=== PATIENT | male | born 1940 | race Caucasian/White ===

== ENCOUNTER → 2018-03-12 10:16 | Outpatient (CLI) | payer MEDICARE, OTHER, SELFPAY ==
[2018-03-12 11:50] LABS: AST(SGOT) 36 U/L (15-37); Alanine Aminotransfer ALT/SGPT 57 U/L (16-61); Albumin, Serum 3.9 g/dL (3.2-5.0); Alkaline Phosphatase 50 U/L (45-117); Bilirubin, Direct 0.19 mg/dL (0.00-0.30); Cholesterol 114 mg/dL (200); Globulin 3.6 g/dL (2.2-4.2); High Density Lipoprotein 26 mg/dL; Protein, Total 7.5 g/dL (6.4-8.2); Triglycerides 138 mg/dL; Very Low Density Lipoprotein 28 mg/dL (5-40)
== END ==
PROVIDERS: Family Provider Family Medicine; PCP Family Medicine; Visit Provider Internal Medicine Cardiovascular Disease
DX: E78.5 Hyperlipidemia, unspecified (principal)
CPT/HCPCS: 36415; 80061; 80076

== ENCOUNTER → 2019-03-23 11:16 | Outpatient (CLI) | payer MEDICARE, OTHER, SELFPAY ==
[2019-03-23 07:50] VITALS: BMI 29.7
[2019-03-23 13:34] LABS: AST(SGOT) 34 U/L (15-37); Alanine Aminotransfer ALT/SGPT 34 U/L (16-61); Albumin, Serum 3.6 g/dL (3.2-5.0); Alkaline Phosphatase 57 U/L (45-117); Bilirubin, Direct 0.12 mg/dL (0.00-0.30); Cholesterol 118 mg/dL (200); Globulin 4.1 g/dL (2.2-4.2); High Density Lipoprotein 30 mg/dL; Protein, Total 7.7 g/dL (6.4-8.2); Triglycerides 144 mg/dL; Very Low Density Lipoprotein 29 mg/dL (5-40)
== END ==
PROVIDERS: Family Provider Family Medicine; PCP Family Medicine; Referring Provider Internal Medicine Cardiovascular Disease; Visit Provider Internal Medicine Cardiovascular Disease
DX: E78.00 Pure hypercholesterolemia, unspecified (principal); I10 Essential (primary) hypertension; Z95.5 Presence of coronary angioplasty implant and graft
CPT/HCPCS: 36415; 80061; 80076

== ENCOUNTER → 2020-03-21 10:54 | Outpatient (CLI) | payer MEDICARE, OTHER, SELFPAY ==
[2020-03-21 10:17] VITALS: BMI 31.1
[2020-03-21 11:41] LABS: AST(SGOT) 36 U/L (15-37); Alanine Aminotransfer ALT/SGPT 47 U/L (16-61); Albumin, Serum 3.8 g/dL (3.2-5.0); Alkaline Phosphatase 54 U/L (45-117); Anion Gap 9 (5-15); BUN 32 mg/dL (7-18); BUN/Creat Ratio 24.4 RATIO (10-20); Bilirubin, Direct 0.17 mg/dL (0.00-0.30); Calcium,Total 8.6 mg/dL (8.5-10.1); Chloride 105 mmol/L (98-107); Cholesterol 120 mg/dL (200); Creatinine, Serum 1.31 mg/dL (0.70-1.30); EST Glomerular Filtration Rate 56 mL/min (>60); Est Glom Filt Rate - Afr Amer 68 mL/min (>60); Globulin 3.8 g/dL (2.2-4.2); Glucose 121 mg/dL (74-106); High Density Lipoprotein 27 mg/dL; Potassium 4.8 mmol/L (3.5-5.1); Protein, Total 7.6 g/dL (6.4-8.2); Sodium Level 139 mmol/L (136-145); Triglycerides 228 mg/dL; Very Low Density Lipoprotein 46 mg/dL (5-40)
== END ==
PROVIDERS: PCP Family Medicine; Referring Provider Internal Medicine Cardiovascular Disease; Visit Provider Internal Medicine Cardiovascular Disease
DX: E78.5 Hyperlipidemia, unspecified (principal); E78.00 Pure hypercholesterolemia, unspecified; I10 Essential (primary) hypertension; Z95.5 Presence of coronary angioplasty implant and graft
CPT/HCPCS: 36415; 80048; 80061; 80076

== ENCOUNTER → 2020-04-03 06:45 | Outpatient (CLI) | payer MEDICARE, OTHER, SELFPAY ==
[2020-03-21 10:17] VITALS: BMI 31.1
--- NOTE | 2020-04-03 06:46 | ECHOD_ITS ---
Reason For Study: CAD/ASHD Procedure This was a 2D Doppler, Color Flow transthoracic echocardiogram. Exam performed in department. Left Ventricle Normal LV size. Moderate concentric left ventricular hypertrophy. Left ventricular systolic function is lower limits of normal. The estimated ejection fraction is 53 %. Stage 1 diastolic dysfunction. Infero-Basal: Akinetic. Mid-Lateral : Hypokinetic. Atria The left atrium is mildly enlarged. Normal right atrium. Mitral Valve Normal mitral valve. Tricuspid Valve Normal tricuspid valve. Mild tricuspid valve insufficiency. Aortic Valve Normal aortic valve. Pulmonic Valve Normal pulmonic valve. Great Vessels Normal aortic root. The pulmonary artery is normal size. Normal inferior vena cava. Pericardium/Pleural No pericardial effusion. MMode/2D Measurements & Calculations LVIDd: 5.6 cm IVSd: 1.4 cm Ao root diam: 3.7 cm LVIDs: 4.5 cm LVPWd: 1.3 cm LA dimension: 4.6 cm FS: 20.7 % LAV(MOD-bp): 77.7 ml LA A4 area: 24.0 cm2 RA A4 area: 19.3 cm2 LAV(MOD-bp) Indexed: 37.6 ml/m2 LAV(MOD-sp2): 71.6 ml LAV(MOD-sp4): 79.6 ml Time Measurements MV dec time: 0.39 sec Doppler Measurements & Calculations MV E max john: 75.0 cm/sec Lat Peak E' John: 6.7 cm/sec Med Peak E' John: 5.0 cm/sec MV A max john: 111.2 cm/sec E/E' lat: 11.2 E/E' med: 15.1 MV E/A: 0.67 MV V2 max: 110.0 cm/sec MV P1/2t max john: 70.5 cm/sec Ao V2 max: 149.5 cm/sec MV max P.8 mmHg MV P1/2t: 150.2 msec Ao max P.9 mmHg MV V2 mean: 54.9 cm/sec MV dec slope: 137.5 cm/sec2 MV mean P.4 mmHg MVA(P1/2t): 1.5 cm2 MV V2 VTI: 34.5 cm LV V1 max: 119.5 cm/sec MR max john: 465.0 cm/sec PA V2 max: 83.8 cm/sec LV V1 max P.7 mmHg MR max P.5 mmHg MR mean john: 367.9 cm/sec MR mean P.7 mmHg MR VTI: 194.2 cm TR max john: 204.5 cm/sec TR max P.7 mmHg Interpretation Summary Normal LV size. Moderate concentric left ventricular hypertrophy. Left ventricular systolic function is lower limits of normal. The estimated ejection fraction is 53 %. Stage 1 diastolic dysfunction. Mild tricuspid valve insufficiency. Ordering Physician: Isaiah Samaniego Referring Physician: PARTH VALVERDE Performed By: Leo Gonsalves RCS
--- NOTE | 2020-04-03 08:50 | STRESSREP ---
Stress Test Report Exercise myocardial perfusion stress test. 79-year-old man with a history of coronary artery disease with 50% stenosis noted in the diagonal vessel and mild disease in the right coronary artery. Stress protocol: Resting EKG demonstrates sinus bradycardia with a rate of 53 bpm previous inferior infarct is noted resting blood pressure is 128/76 mmHg. The patient exercised according to regular Javed protocol. The maximum heart rate attained was 134 bpm which was 93% of maximum predicted heart rate the maximum workload was 7 metabolic equivalents. At rest there were no ST or T wave changes noted suggest ischemia peak exercise upsloping ST changes only were noted with no meet the criteria for ischemia. The resting blood pressure is 120/76 with a peak blood pressure 164/70 mmHg. No clinical angina was noted the test was terminated due to dyspnea. The peak blood pressure was 164/70 mmHg. Myocardial perfusion protocol. 10.5 mCi of technetium 99m sestamibi was injected at rest. The patient exercised according to regular Javed protocol for 5 minutes. At peak exercise 35.0 mCi of technetium 99m sestamibi was injected stress images were obtained stress and rest images were reconstructed and compared in the short axis vertical long horizontal long axis. Gated images were also obtained per Perfusion SPECT analysis: Review of the stress images demonstrate normal uptake of tracer noted in the septum anterior wall and inferior wall. There is a medium size inferolateral defect noted on the stress images with minimal improvement on the resting images suggesting a previous inferolateral infarct with minimal lexie-infarct ischemia noted only. Gated SPECT analysis: The gated ejection fraction is 58%. Conclusion: Exercise myocardial perfusion stress test with evidence of previous inferolateral infarct. Minimal lexie-infarct ischemia noted. No angina noted. Low risk stress test.
== END ==
PROVIDERS: PCP Family Medicine; Referring Provider Internal Medicine Cardiovascular Disease; Visit Provider Internal Medicine Cardiovascular Disease
DX: I25.10 Atherosclerotic heart disease of native coronary artery without angina pectoris (principal); Z95.5 Presence of coronary angioplasty implant and graft
CPT/HCPCS: 78452; 93017; 93306; A9500; A4216

== ENCOUNTER → 2025-01-17 | Outpatient (CLI) | payer MEDICARE, OTHER, SELFPAY ==
[2025-01-17 13:53] LABS: Cholesterol 105 mg/dL (<=200); High Density Lipoprotein 30 mg/dL; Low Density Lipoprotein Calc. 56 mg/dL; Triglycerides 95 mg/dL; Very Low Density Lipoprotein 19 mg/dL (5-40); cholesterol:hdl ratio screen 3.49
== END | disposition home or self-care (01) ==
LOC: LAB 11:48
PROVIDERS: PCP Family Medicine; Referring Provider Student in an Organized Health Care Education/Training Program; Visit Provider Student in an Organized Health Care Education/Training Program
DX: E78.5 Hyperlipidemia, unspecified (principal)
CPT/HCPCS: 36415; 80061

== ENCOUNTER → 2025-03-17 | Outpatient (CLI) | payer MEDICARE, OTHER, SELFPAY ==
--- OUTSIDE RECORDS SUMMARY | 2025-03-17 06:13 | XMS RPT_ITS | CCD ---
Author Organization [facility] Care Team Providers Care Mma Fighter Name Role Phone [place] Unavailable Unavailable Shannon Quigley Y Unavailable Marc Quigleyia Y Unavailable Parth Tilley MD Primary Care Provider Parth Tilley MD Primary Care Provider Parth Tilley MD Primary Care Provider Parth Tilley MD Primary Care Provider Parth Tilley MD Primary Care Provider Podlogar FIELD CONTACT TECHNICIAN.eKiko LION Unavailable Knjoe FIELD CONTACT TECHNICIAN.Rajiv LION Unavailable [place]oble FIELD CONTACT TECHNICIAN.Rajiv LION Unavailable Dr. Virgil Tilley MD Primary Care Provider Dr. Virgil Tilley MD Referring Provider Jama Garcia Attending Provider Jama Garcia Referring Provider PARTH TILLEY Primary Care Unavailab RAJIV Jacobsen Referring Unavailable PARTH TILLEY Primary Care Unavailab RAJIV Jacobsen Attending Unavailable KEIKO BREWER Referring Unavailable PARTH TILLEY Primary Care Unavailab le PODLOGKEIKO MCGUIRE Attending Unavailable PARTH TILLEY Primary Care Unavailab Jama Garrido Attending Unavailable Virgil Tilley Referring Unavailable Virgil Tilley Primary Care Unavailable Guillermo Sevilla Attending Unavailable Virgil Tilley Referring Unavailable Virgil Tilley Primary Care Unavailable Jama Crowell Referring Unavailable Jama Crowell Attending Unavailable Virgil Tilley Primary Care Unavailable Virgil Tilley Primary Care Unavailable Jama Crowell Referring Unavailable Jama Crowell Attending Unavailable Medications Current Medications Medication Drug Class(es) Dates Sig (Normalized) Sig (Original) allopurinol 300 mg oral tablet (20 sources) Xanthine Oxidase Inhibitor Start: 02-09-2025 End: 08-08-2025 take 1 tablet by mouth once daily allopurinol (ZYLOPRIM) 300 mg tablet Indications: Acute gout of ankle, unspecified cause, unspecified laterality Take 1 tablet by mouth once daily. For gout. 90 tablet 1 02/09/2025 08/08/2025 Active Start: 07-27-2024 End: 01-23-2025 take 1 tablet by mouth once daily allopurinol (ZYLOPRIM) 300 mg tablet Indications: Acute gout of ankle, unspecified cause, unspecified laterality Take 1 tablet by mouth once daily. For gout. 90 tablet 1 07/27/2024 01/23/2025 Active Start: 12-26-2023 End: 06-23-2024 take 1 tablet by mouth once daily allopurinol (ZYLOPRIM) 300 mg tablet Indications: Acute gout of ankle, unspecified cause, unspecified laterality Take 1 tablet by mouth once daily. For gout. 90 tablet 1 12/26/2023 06/23/2024 Active Start: 06-09-2023 End: 12-06-2023 take 1 tablet by mouth once daily allopurinol (ZYLOPRIM) 300 mg tablet Indications: Acute gout of ankle, unspecified cause, unspecified laterality Take 1 tablet by mouth once daily. For gout. 90 tablet 1 06/09/2023 12/06/2023 Active Start: 11-25-2022 End: 05-24-2023 take 1 tablet by mouth once daily allopurinol (ZYLOPRIM) 300 mg tablet Indications: Acute gout of ankle, unspecified cause, unspecified laterality Take 1 tablet by mouth once daily. For gout. 90 tablet 1 11/25/2022 05/24/2023 Active Start: 2020 End: 05-14-2022 take 1 tablet by mouth once daily allopurinol (ZYLOPRIM) 300 mg tablet Indications: Acute gout of ankle, unspecified cause, unspecified laterality Take 1 tablet by mouth once daily. For gout. 30 tablet 5 05/14/2022 Active Comment on above: Take 1 tablet by jerardo once daily. For gout. aspirin 81 mg delayed release oral tablet (20 sources) Nonsteroidal Anti-inflammatory Drug Start: 07-02-2016 take 1 tablet by mouth once daily aspirin, enteric coated (ECOTRIN LOW STRENGTH) 81 mg EC tablet Take 1 tablet by mouth once daily. 0 07/02/2016 Active Start: 01-16-2011 take 1 tablet by jerardo th once daily ASPIRIN 81 MG TABS One tablet by mouth daily ASPIRIN [id number] Isaiah Samaniego MD Start: 01-16-2011 take 1 tablet by jerardo th once daily ASPIRIN 81 MG TABS One tablet by mouth daily ASPIRIN [id number] Isaiah Samaniego MD Comment on above: Take 1 tablet by jerardo once daily. atorvastatin 40 mg oral tablet (20 sources) HMG-CoA Reductase Inhibitor Start: End: take 0.5 tablet by mouth once daily atorvastatin (LIPITOR) 40 mg tablet Take 0.5 tablets by mouth once daily. 15 tablet 01/20/2025 Active Start: 06-15-2021 End: 12-10-2021 take 0.5 tablet by mouth once daily atorvastatin (LIPITOR) 40 mg tablet Take 0.5 tablets by mouth once daily. 45 tablet 1 12/10/2021 Active Start: 03-10-2018 take 1 tablet by jerardo once daily Atorvastatin 40 mg tablet Active 40 mg PO daily March 10, 2018 12:00am Start: 01-16-2011 LIPITOR 40 MG TABS One half tablet by mouth daily ATORVASTATIN CALCIUM [id number] Meredith Charlse PA-C Comment on above: Take 0.5 tablets by mouth once daily. clopidogrel 75 mg oral tablet (20 sources) P2Y12 Platelet Inhibitor Start: 11-14-2017 End: 08-07-2025 take 1 tablet by mouth once daily clopidogrel (PLAVIX) 75 mg tablet Take 1 tablet by mouth once daily. 90 tablet 1 02/08/2025 08/07/2025 Active Start: 01-16-2011 take 1 tablet by jerardo th once daily PLAVIX 75 MG TABS One tablet by mouth daily CLOPIDOGREL BISULFATE [id number] Meredith Charles PA-C Comment on above: Take 1 tablet by jerardo th once daily. lisinopril 10 mg oral tablet (20 sources) Angiotensin Converting Enzyme Inhibitor Start: 01-12-2025 take 1 tablet by mouth once daily Lisinopril 10 mg tablet Active 10 mg PO daily January 12, 2025 12:00am Start: 03-26-2022 End: 12-10-2024 take 1 tablet by mouth once daily Lisinopril 30 mg tablet Discontinued 30 mg PO DAILY March 27, 2023 9:01am December 07, 2024 9:06am Start: 12-31-2021 End: 10-14-2022 take 1 tablet by mouth once daily lisinopril (ZESTRIL, PRINIVIL) 10 mg tablet Indications: Essential hypertension Take 1 tablet by mouth once daily. Take one tablet in addition to 20 mg tablet daily 30 tablet 5 12/31/2021 10/14/2022 Discontinued Start: 03-22-2021 End: 03-26-2022 take 1 tablet by mouth once daily Lisinopril 20 mg tablet Discontinued 20 mg PO DAILY February 12, 2022 7:56am March 26, 2022 9:41am Start: 02-28-2021 End: 03-22-2021 take 1 tablet by mouth once daily Lisinopril 10 mg tablet Discontinued 10 mg PO DAILY March 22, 2021 12:00am March 22, 2021 9:28am Start: 12-05-2017 End: 03-22-2021 take 1 tablet by mouth once daily Lisinopril 5 mg tablet Discontinued 5 mg PO daily December 20, 2019 11:09am March 22, 2021 9:13am Start: 08-19-2014 take 1 tablet by jerardo th once daily LISINOPRIL 5 MG TABS One tablet by mouth daily LISINOPRIL [id number] Isaiah Samaniego MD Start: 01-16-2011 End: 02-17-2014 LISINOPRIL 10 MG TABS One funes lf tablet by mouth a day LISINOPRIL [id number] Isaiah Samaniego MD Comment on above: Take 1 tablet by jerardo th once daily. Take 1 tablet by jerardo th once daily. Take one tablet in addition to 20 mg tablet daily metFORMIN hydrochloride 500 mg oral tablet (20 sources) Biguanide Start: End: take 1 tablet by mouth twice daily at mealtime metFORMIN (GLUCOPHAGE) 500 mg tablet Take 1 tablet by mouth two times a day with meals. . 180 tablet 1 12/10/2024 Active Start: 11-17-2023 End: 05-22-2024 take 1 tablet by mouth twice daily at mealtime metFORMIN (GLUCOPHAGE) 500 mg tablet Take 1 tablet by mouth two times a day with meals. . 180 tablet 1 11/17/2023 05/22/2024 Discontinued Start: 12-24-2021 End: 11-14-2023 take 1 tablet by mouth twice daily at mealtime metFORMIN (GLUCOPHAGE) 500 mg tablet Take 1 tablet by mouth twice daily with meals. . 180 tablet 1 04/14/2023 11/14/2023 Discontinued Start: 03-12-2018 End: 12-21-2021 take 1 tablet by mouth twice daily at mealtime metFORMIN (GLUCOPHAGE) 500 mg tablet Take 1 tablet by mouth twice daily with meals. . 180 tablet 1 06/15/2021 12/21/2021 Discontinued Comment on above: Take 1 tablet by jerardo th twice daily with meals. . Take 1 tablet by jerardo th two times a day with meals. . nitroglycerin 0.4 mg sublingual tablet (20 sources) Nitrate Vasodilator Start: 01-16-2011 End: 12-24-2024 nitroglycerin sublingual (NITROSTAT) 0.4 mg SL tablet Dissolve 1 tablet under the tongue every 5 minutes as needed for chest pain. 25 tablet 1 10/14/2022 Active Comment on above: Dissolve 1 tablet un doreen the tongue every 5 minutes as needed for Chest Pain. Completed/Discontinued Medications Medication Drug Class(es) Dates Sig (Normalized) Sig (Original) BUPROPION HCL (6 sources) Aminoketone Start: 10-22-2011 take 1 tablet by mouth once daily WELLBUTRIN XL 300 MG [id number] One tablet by mouth daily BUPROPION HCL [id number] Isaiah Samaniego MD Start: 10-22-2011 take 1 tablet by jerardo th once daily WELLBUTRIN XL 300 MG [id number] One tablet by mouth daily BUPROPION HCL [id number] Isaiah Samaniego MD Start: 01-16-2011 take 1 tablet by jerardo th once daily WELLBUTRIN SR 150 MG [id number] One tablet by mouth daily BUPROPION HCL [id number] Ivet Partida Start: 01-16-2011 take 1 tablet by jerardo th once daily WELLBUTRIN SR 150 MG [id number] One tablet by mouth daily BUPROPION HCL [id number] Ivet Partida citalopram 20 mg oral tablet (20 sources) Serotonin Reuptake Inhibitor Start: 03-10-2018 End: 12-24-2024 take 10 mg by mouth once daily Citalopram 20 mg tablet Discontinued 10 mg PO daily March 10, 2018 12:00am December 24, 2024 1:02pm Start: 10-31-2016 End: 04-14-2023 take 0.5 tablet by mouth once daily citalopram (CELEXA) 20 mg tablet Take 0.5 tablets by mouth once daily. 90 tablet 3 10/31/2016 04/14/2023 Discontinued (Course of therapy completed) Start: 12-25-2012 CITALOPRAM HYD ROBROMIDE 20 MG TABS One half tablet by mouth daily CITALOPRAM HYDROBROMIDE [id number] NELLIE PrettyC Comment on above: Take 0.5 tablets by mouth once daily. 24 hr isosorbide mononitrate 30 mg extended release oral tablet (9 sources) Start: 1 take 1 tablet by mouth once daily ISOSORBIDE MONONITRATE ER 30 MG [id number] One tablet by mouth daily (Imdur) ISOSORBIDE MONONITRATE [id number] Isaiah Samaniego MD isosorbide dinitrate 30 mg oral tablet (6 sources) Nitrate Vasodilator Start: 3 End: 4 take 1 tablet by mouth once daily ISOSORBIDE DINITRATE 30 MG TABS One tablet by mouth daily ISOSORBIDE DINITRATE [id number] Isaiah Samaniego MD LORazepam 0.5 mg oral tablet (12 sources) Benzodiazepine Start: 3 End: 4 LORAZEPAM 0.5 MG TABS one half tablet twice a day LORAZEPAM [id number] Meredith Charles PA-C Start: 01-16-2011 End: 12-25-2012 take 1 tablet by mouth once daily ATIVAN 0.5 MG TABS One tablet by mouth daily LORAZEPAM [id number] Ivet Partida metoprolol tartrate 25 mg oral tablet (20 sources) beta-Adrenergic Mary Start: 03-20-2020 End: 02-25-2023 Metoprolol Tartrate 25 mg tablet Discontinued 12.5 mg PO TWICE A DAY 90 February 12, 2022 7:55am February 25, 2023 8:54am Start: 03-09-2018 End: 03-15-2019 Metoprolol Tartrate 25 mg ta blet Discontinued 12.5 mg PO TWICE A DAY 90 March 12, 2018 10:05am March 15, 2019 12:17pm Start: 01-16-2011 End: 03-15-2024 take 0.5 tablet by mouth twice daily metoprolol tartrate, short acting, (LOPRESSOR) 25 mg tablet Take 0.5 tablets by mouth twice daily. 60 tablet 12/31/2016 Active Start: 01-16-2011 take 1 tablet by jerardo twice daily METOPROLOL TARTRATE 25 MG TABS One half tablet by mouth two times daily METOPROLOL TARTRATE [id number] Isaiah Samaniego MD Comment on above: Take 0.5 tablets by mouth twice daily. niacin 1000 mg oral tablet (6 sources) Nicotinic Acid Start: 01-16-2011 End: 02-17-2014 take 2 tablets by mouth at bedtime NIASPAN 1000 MG CR-TABS 2 tablets by mouth at bedtime NIACIN (ANTIHYPERLIPIDEMIC) [id number] Isaiah Samaniego MD Start: 01-16-2011 End: 02-17-2014 take 2 tablets by mouth at bedtime NIASPAN 1000 MG CR-TABS 2 tablets by mouth at bedtime NIACIN (ANTIHYPERLIPIDEMIC) [id number] Isaiah Samaniego MD predniSONE 10 mg oral tablet (11 sources) Start: 06-21-2022 End: 10-14-2022 predniSONE (DELTASONE) 10 mg tablet Take 4 tabs daily for 3 days, then 2 tabs daily for 3 days, then 1 tab daily for 3 days with food. 21 tablet 0 06/21/2022 10/14/2022 Discontinued Start: 05-13-2022 End: 05-22-2022 predniSONE (DELTASONE) 10 mg tablet Take 4 tabs daily for 3 days, then 2 tabs daily for 3 days, then 1 tab daily for 3 days with food. 21 tablet 0 05/13/2022 05/22/2022 Active Start: 03-14-2022 End: 03-19-2022 take 2 tablets by mouth once daily predniSONE (DELTASONE) 20 mg tablet Take 2 tablets by mouth once daily for 5 days. 10 tablet 0 03/14/2022 03/14/2022 Discontinued Comment on above: Take 2 tablets by mo ut once daily for 5 days. Take 4 tabs daily fo r 3 days, then 2 tabs daily for 3 days, then 1 tab daily for 3 days with food. QUEtiapine 100 mg oral tablet (6 sources) Atypical Antipsychotic Start: 10-22-19 12 End: 12-26-19 13 take 1 tablet by mouth twice daily SEROQUEL 100 MG TABS One tablet by mouth twice daily QUETIAPINE FUMARATE [id number] Isaiah Samaniego MD risperiDONE 1 mg oral tablet (20 sources) Atypical Antipsychotic Start: 03-10-20 18 End: 03-21-20 20 take 0.5 mg by mouth at bedtime Risperidone (Risperdal) 1 mg tablet Discontinued 0.5 mg PO AT BEDTIME March 10, 2018 12:00am March 21, 2020 10:21am Start: 12-31-2016 End: 04-14-2023 take 1 tablet by mouth once daily at bedtime risperiDONE (RISPERDAL) 0.25 mg tablet Take 1 tablet by mouth daily at bedtime. 30 tablet 0 12/31/2016 04/14/2023 Discontinued (Course of therapy completed) Start: 12-25-2012 RISPERDAL 1 MG TABS One half tablet by mouth daily at bedtime RISPERIDONE [id number] Meredith Charles PA-C Comment on above: Take 1 tablet by jerardo th daily at bedtime. temazepam 15 mg oral capsule (6 sources) Benzodiazepine Start: 2 End: 3 take 1 tablet by mouth once daily at bedtime TEMAZEPAM 15 MG CAPS One tablet by mouth daily at bedtime TEMAZEPAM [id number] Isaiah Samaniego MD Problems Active Problems Problem Classification Problem Date Documented Date Episodic/Chronic Acute myocardial infarction (3 sources) Subsequent ST elevation (STEMI) myocardial infarction of inferior wall; Translations: [Subsequent ST elevation (STEMI) myocardial infarction of inferior wall] Onset: 01-16-2011 01-16-2011 Chronic Cardiac dysrhythmias (3 sources) Sinus bradycardia; Translations: [Sinoatrial node dysfunction] Onset: 08-19-2014 08-19-2014 Chronic Cardiac dysrhythmias (3 sources) Sinus bradycardia; Translations: [Bradycardia, unspecified] Onset: 12-24-2024 03-10-2018 Episodic Chronic kidney disease (20 sources) Chronic kidney disease stage 3; Translations: [CKD (chronic kidney disease), stage III] 11-20-2017 Chronic Chronic kidney disease (1 source) Chronic kidney disease; Translations: [Chronic kidney disease, stage 3a (HCC)] Onset: 12-10-2024 Coronary atherosclerosis and other heart disease (20 sources) Atherosclerotic heart disease of [place] coronary artery without angina pectoris; Translations: [Old myocardial infarction] Onset: 07-16-2004 Resolved: 03-08-2016 03-08-2016 Chronic Diabetes mellitus with complications (20 sources) Type 2 diabetes mellitus; Translations: [Type 2 diabetes mellitus with diabetic chronic kidney disease] Onset: 12-31-2016 Resolved: 10-17-2023 05-23-2020 Chronic Diabetes mellitus without complication (1 source) Diabetes mellitus without complication; Translations: [Type 2 diabetes mellitus with stage 3a chronic kidney disease, without long-term current use of insulin (HCC)] Onset: 10-10-2022 Disorders of lipid metabolism (20 sources) Hyperlipidemia; Translations: [Mixed hyperlipidemia] Onset: 01-16-2011 01-16-2011 Chronic Essential hypertension (20 sources) Hypertensive disorder; Translations: [Essential hypertension] Onset: 01-16-2011 Resolved: 05-23-2020 01-16-2011 Chronic Gout and other crystal arthropathies (20 sources) Gout; Translations: [Gout, unspecified] Onset: 11-19-2018 11-19-2018 Chronic Hypertension with complications and secondary hypertension (20 sources) Chronic kidney disease stage 3 due to hypertension; Translations: [Hypertensive chronic kidney disease with stage 1 through stage 4 chronic kidney disease, or unspecified chronic kidney disease] Onset: 12-31-2016 05-23-2020 Chronic Mood disorders (20 sources) Recurrent major depressive episodes, mild ; Translations: [Major depressive disorder, recurrent, mild] 05-23-2020 Chronic Occlusion or stenosis of precerebral arteries (20 sources) Bilateral stenosis of carotid arteries; Translations: [Occlusion and stenosis of bilateral carotid arteries] Onset: 11-22-2019 11-22-2019 Chronic Other circulatory disease (1 source) Low blood pressure; Translations: [Hypotension, unspecified] 12-24-2024 Episodic Other eye disorders (20 sources) Bilateral vitreous floaters; Translations: [Other vitreous opacities, bilateral] Onset: 06-24-2017 06-24-2017 Chronic Other nutritional; endocrine; and metabolic disorders (8 sources) Body mass index (BMI) 32.0-32.9, adult; Translations: [Body mass index (BMI) 33.0-33.9, adult] Onset: 02-17-2014 03-12-2016 Chronic Other nutritional; endocrine; and metabolic disorders (1 source) Body mass index (BMI) 33.0-33.9, adult; Translations: [Body mass index (BMI) 33.0-33.9, adult] Onset: 02-17-2014 08-29-2015 Chronic Other nutritional; endocrine; and metabolic disorders (20 sources) Obese class I; Translations: [Obesity, unspecified] 11-18-2017 Chronic Other nutritional; endocrine; and metabolic disorders (1 source) Obesity; Translations: [Obesity, unspecified] 03-23-2022 Chronic Other nutritional; endocrine; and metabolic disorders (1 source) Overweight in adulthood with body mass index of 25 or more but less than 30; Translations: [Overweight] 10-17-2023 Episodic Residual codes; unclassified (20 sources) Insomnia; Translations: [Insomnia, unspecified] 11-18-2017 Episodic Unclassified (2 sources) Placement of stent in coronary artery ; Translations: [Presence of cardiac and vascular implant and graft, unspecified] Onset: 01-16-2011 03-08-2016 Unclassified (1 source) Long-term drug therapy; Translations: [Other prison (current) drug therapy] Onset: 01-16-2011 01-16-2011 Past or Other Problems Problem Classification Problem Date Documented Da te Episodic/Chronic Coagulation and hemorrhagic disorders (20 sources) Platelet count below reference range; Translations: [Thrombocytopenia, unspecified] Resolved: 10-17-2023 11-18-2017 Chronic Coronary atherosclerosis and other heart disease (3 sources) Coronary angioplasty status; Translations: [Coronary angioplasty status] Onset: 01-16-2011 01-16-2011 Episodic Diabetes mellitus without complication (20 sources) Diabetes mellitus type 2 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; Translations: [Type 2 diabetes mellitus without complications] Onset: 06-24-2017 Resolved: 10-17-2023 06-24-2017 Chronic Heart valve disorders (20 sources) Ejection murmur; Translations: [Cardiac murmur, unspecified] Onset: 10-14-2022 Episodic Nonspecific chest pain (6 sources) Chest pain, unspecified; Translations: [Chest pain, unspecified] Onset: 01-16-2011 Resolved: 03-08-2016 03-08-2016 Episodic Other aftercare (2 sources) Other prison (current) drug therapy; Translations: [Other transformer maker (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 02-09-2025 [facility] Telephone (4CQ) GREG MOORE ([id number]) 1940 M Date Time Provider Department 02/09/25 JOANNE PARKER 4CQ During your visit today, we recorded the following information about you: Joanne Parker, PSS 02/09/2025 11:48 AM Signed Patient needs to renew Allopurinol, but I do not see it on the medication list for the patient. Patient states he has been on this medication for awhile. He would like the medication to go to [facility]. Please advise. Parth Tilley MD 02/09/2025 2:26 PM Signed Rx sent as requested. Pao Padron LPN 02/09/2025 2:58 PM Signed Phoned patient and updated him. Pao Padron LPN Allergies As of Date: 02/09/2025 (No Known Allergies) Date Reviewed: 12/10/2024 Reviewed by: Neeta Molina MA - Fully Assessed Reason for Visit: Refill Request [94] Visit Diagnosis:Acute gout of ankle, unspecified cause, unspecified laterality [M10.9] Order(s):allopurinol (ZYLOPRIM) 300 mg tabletTake 1 tablet by mouth once daily. For gout.Disp: 90 tabletRfl: 1 Prescriptions as of 02/09/2025 - allopurinol (ZYLOPRIM) 300 mg tablet Take 1 tablet by mouth once daily. For gout. - clopidogrel (PLAVIX) 75 mg tablet Take 1 tablet by mouth once daily. - atorvastatin (LIPITOR) 40 mg tablet Take 0.5 tablets by mouth once daily. - metFORMIN (GLUCOPHAGE) 500 mg tablet Take 1 tablet by mouth two times a day with meals. . - nitroglycerin sublingual (NITROSTAT) 0.4 mg SL tablet Dissolve 1 tablet under the tongue every 5 minutes as needed for chest pain. - metoprolol tartrate, short acting, (LOPRESSOR) 25 mg tablet Take 0.5 tablets by mouth twice daily. - aspirin, enteric coated (ECOTRIN LOW STRENGTH) 81 mg EC tablet Take 1 tablet by mouth once daily. Problem List As Of Date 02/09/2025 Noted Resolved Type 2 diabetes mellitus with stage 3a chronic *12/31/2016 Hypertensive kidney disease with stage 3a chron*12/31/2016 Mixed hyperlipidemia [E78.2] 12/31/2016 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 (H*06/24/2017 10/17/2023 Vitreous floaters of both eyes [H43.393] 06/24/2017 Obesity (BMI 30.0-34.9) [E66.811] Hypertension [I10] 05/23/2020 Insomnia [G47.00] Coronary artery disease [I25.10] Thrombocytopenia (HCC) [D69.6] 10/17/2023 Stage 3a chronic kidney disease (HCC) [N18.31] Type II diabetes mellitus (HCC) [E11.9] 05/23/2020 Gout [M10.9] Mild episode of recurrent major depressive diso* Type 2 diabetes mellitus with diabetic cataract*05/31/2019 10/17/2023 Bilateral carotid artery stenosis [I65.23] Systolic ejection murmur [R01.1] 10/14/2022 Prescriptions ordered this encounter Disp Refills Start End ALLOPURINOL 300 MG TABLET 90 t* 1 02/09/2025 08/08/2025 Route: PO Sig: Take 1 tablet by mouth once daily. For gout. Medications Discontinued During This Encounter Prescriptions - allopurinol (ZYLOPRIM) 300 mg tablet (Discontinued) Take 1 tablet by mouth once daily. For gout. Encounter Status:Closed by PAO PADRON on 02/09/[address] [facility] Calculated very low density lipoprotein (VLDL) cholesterol measurementOrdered By: Jama Crowell on 01-17-2025 Calculated very low density lipoprotein (VLDL) cholesterol measurement 19 mg/dL 5-40 [facility] LDL calc ser/plasOrdered By: Jama Crowell on 01-17-2025 Cholesterol in LDL [Mass/Vol] 56 mg/dL [facility] Comment on above: Jixeriraho=203-496 m g/dL & Higher Ntdj=065 mg/dL or greater Lipid Profileon 01-17-2025 CHOL:HDL 3.49 Normal [facility] Comment on above: Performed By: #### L 500.7628 #### [facility] [address] [place], [address] Cholesterol [Mass/Vol] 105 mg/dL Normal <=200 [facility] Comment on above: Result Comment: Chol esterol level, Desirable <200 mg/dL Borderline high cholesterol 200-239 mg/dL High cholesterol >=240 mg/dL Recommendations of the NCEP Adult Treatment Panel for the following risk-cutoff thresholds for the [place] population. Performed By: #### L 500.4100 #### [facility] [address] [place], [address] Cholesterol in HDL [Mass/Vol] 30 mg/dL Low [facility] Comment on above: Result Comment: [place] onal Cholesterol Education Program (NCEP) guidelines: <40 mg/dL: Low HDL-cholesterol (major risk factor for CHD) >= 60 mg/dL: High HDL-cholesterol (negative risk factor for CHD) HDL-cholesterol is affected by a number of factors, e.g. smoking, exercise, hormones, sex and age. Performed By: #### L 500.4100 #### [facility] [address] [place], [address] Cholesterol in LDL [Mass/Vol] 56 mg/dL Normal [facility] Comment on above: Result Comment: Bord mpvnle=790-880 mg/dL Higher Lqxn=032 mg/dL or greater Performed By: #### L 500.4100 #### [facility] [address] [place], [address] Cholesterol in VLDL [Mass/Vol] 19 mg/dL Normal 5-40 [facility] Comment on above: Performed By: #### L 500.4100 #### [facility] [address] [place], [address] Triglyceride [Mass/Vol] 95 mg/dL Normal [facility] Comment on above: Result Comment: The drugs N-Acetylcysteine and Metamizole may falsely depress this assay. Normal range: <150 mg/dL Borderline High: 150-199 mg/dL High: 200-499 mg/dL Very High: >500 mg/dL Performed By: #### L 500.4100 #### [facility] [address] [place], [address] Screening total cholesterol/ high density lipoprotein (HDL) cholesterol ratioOrdered By: Jama Crowell on 01-17-2025 Cholesterol.total/Chol esterol in HDL [Mass ratio] 3.49 {ratio} [facility] Serum or plasma cholesterol in HDL measurement (mass/volume)Ordered By: Jama Crowell on 01-17-2025 Cholesterol in HDL [Mass/Vol] 30 mg/dL Low >40 [facility] Comment on above: National Cholesterol Education Program (NCEP) guidelines:<40 mg/dL: Low HDL-cholesterol (major risk factor for CHD)>= 60 mg/dL: High HDL-cholesterol (negative risk factor for CHD)HDL-cholesterol is affected by a number of factors, e.g. smoking, exercise, hormones, sex and age. Serum or plasma cholesterol measurement (mass/volume)Ordered By: Jama Crowell on 01-17-2025 Cholesterol [Mass/Vol] 105 mg/dL <201 [facility] Comment on above: Cholesterol level, D esirable <200 mg/dLBorderline high cholesterol 200-239 mg/dLHigh cholesterol >=240 mg/dLRecommendations of the NCEP Adult Treatment Panel for the following risk-cutoff thresholds for the [place] population. Triglycerides measurementOrd ered By: Jamachristiano Crowell on 01-17-2025 Triglyceride [Mass/Vol] 95 mg/dL <199 [facility] Comment on above: The drugs N-Acetylcy steine and Metamizole may falsely depress this assay. Normal range: <150 mg/dLBorderline High: 150-199 mg/dLHigh: 200-499 mg/dLVery High: >500 mg/dL 12 Lead EKG performed by [facility] on 12-24-2024 12 Lead EKG performed by [facility] [address] [place] [address] 12 Lead EKG performed by [facility] 12/24/24 0849 MR#: [id number] Acct: [id number] Name: GREG MOORE Rep #: [id number] : 1940 83 From: Jama OHARA Attending Dr: LEV Sanchez Status: DEP AM B Ordering Dr: Jama Crowell Date: 12/24/24 Location: [facility] Sex: M C Admitted: BMS/12 Lead EKG performed by [facility] ECG Report Interpretation ------Sinus Bradycardia -First degree A-V block Alf = 292- Negative T-waves - Lateral ischemia. ABNORMAL Electronically signed on 12/28/2024 at 14:56 by Isaiah Samaniego Software Version [id number] 12/28/24 1459 Date Jama OHARA CC: Dr. Virgil Tilley MD Date Dictated: 12/24/24 0849 Date Transcribed: 12/24/2449 Instructional Supervisor: SUSI Signed Normal [facility] Cardiology Visit Reporton Cardiology Visit Report [facility] [address] [place], [place] [address] OFFICE VISIT Date of Service: 12/24/24 MR#: [id number] Acct: [id number] Name: GREG MOORE Rep #: [id number] : 1940 Provider: LEV Sanchez Age/Sex: 83/M Location: [facility] Status: Signed HPI HPI History of Present Illness Details: GREG MOORE, is a 83 M who presents to the office today with concerns of abnormal BPs at home. Per documentation, patient's daughter called and 12/02/2024 with concerns of home BP reading 88/48 and heart rate 45-50 bpm. Patient was instructed to discontinue lisinopril and continue metoprolol 12.5 mg twice daily. Patient reports having what was likely an upper respiratory infection around the time of these low BP readings. Patient has a cardiac history of mild coronary artery disease with 50% stenosis in the diagonal vessel and mild disease noted in the RCA. Patient is status post cardiac catheterization in 2009 which demonstrated patent stent in the RCA. Most recent stress test March 2020 demonstrated evidence of an old inferolateral myocardial infarction with minimal lexie-infarct ischemia at 7 metabolic equivalents. Since discontinuing lisinopril, patient reports feeling much better. Patient has not been monitoring BP at home. Patient denies any symptoms similar to what he experienced with his DE. Patient denied any bleeding concerns such as blood in urine, stool, epistaxis. Further ROS below. Intake Vital Signs 03/24/23 09:26 12/24/24 13:01 Height 5 ft 8 in 5 ft 8 in Weight: 186 lb BMI 28.3 BP 142/80 H Blood Pressure Location Lt brachial Position Sitting Respiration 18 Pulse 53 L Pulse Source Monitor Pulse Oximetry (%) 96 Oxygen Delivery Method room air Intake Visit Reasons: Hypotension, see clinical notes Clinical Nurse Educator Required: No Accompanied by: Daughter Is patient in pain?: No Allergies No Known Allergies Allergy (Verified 12/24/24 13:01) Medications ???Medication ???Instructions ???Recorded ???Confirmed ???Type aspirin 81 mg tablet,delayed 81 mg PO QDAY 03/10/18 12/24/24 Hi story release (Adult Aspirin Regimen) atorvastatin 40 mg tablet 40 mg PO QDAY 03/10/18 12/24/24 Hi story metformin 500 mg tablet 500 mg PO BID 03/12/18 12/24/24 Hi story clopidogrel 75 mg tablet 75 mg PO QDAY #90 tabs 01/22/24 Rx metoprolol tartrate 25 mg tablet See Rx Instructions .Route 4 12/24/24 Rx .COMPLEX #30 tabs allopurinol 300 mg tablet 300 mg PO QDAY #30 tabs 12/24/24 0 12/24/24 Rx nitroglycerin 0.4 mg sublingual 0.4 mg sublingual Q5-15M PRN chest 12/24/24 12/24/24 Rx tablet pain #20 tabs Have you fallen in the past year?: No PFSH Medical History Chronic kidney disease Type 2 diabetes mellitus Obesity Essential (primary) hypertension Sinus bradycardia Hyperlipidemia 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 Brother CAD (coronary artery disease) Myocardial infarction Sister CAD (coronary artery disease) S/P CABG x 3 Social History Smoking Status: Former smoker alcohol intake: never caffeine: Yes Type: coffee ROS Const Const: Negative for fatigue or weakness Eyes Eyes: Negative for blurry vision or change in vision ENT ENT: Negative for dizziness or balance problems Cardio Chest Pain: No Palpitations: No Edema: None Muscle aches with walking: None Resp Respiratory: Negative for SOB with activity, SOB at rest or SOB orthopnea SOB lying down GI GI: Negative nausea, vomiting or heartburn : Negative for hematuria Musc Musc: Negative for muscle weakness or balance problems Neuro Neuro: Negative for dizziness, lightheadedness, near syncope, syncope, weakness or blurry vision Endo Endo: Negative for fatigue Cardiology Exam Const Appearance: cooperative, comfortable, no acute distress and well developed; Negative diaphoretic or ill appearing Nutritional Appearance: average body habitus Orientation: alert and oriented x3 Ambulating without assistive device Head Head: normal to inspection, normocephalic and atraumatic Ears: hearing grossly normal bilaterall (more content not included)... Normal [facility] CNOVon 12-10-2024 CNOV Office Visit (FAMPWS) GREG MOORE ([id number]) 1940 M Date Time Provider Department 12/10/24 9:00 AM RAJIV [place] During your visit today, we recorded the following information about you: Pulse Blood pressure Weight 54/minute 133/68 84 kg Rajiv [place] APRN.CNP 12/10/2024 9:37 AM Signed Chief Complaint No chief complaint on file. HPI Greg Moore is a 83 year old male who presents here today for Above Complaints.. Patient presents today for 6 month follow up. Patient states on Friday he was feeling tired and took his blood pressure which was 88/48 with HR of 45 to 50. Patient states he called his production bow maker who stopped his lisinopril and held his metop for one day. Patient states he is feeling better now, not feeling tired not dizzy or light headed. Patient states he does not take his blood pressures often. Patient headaches, chest pain and SOB. Past medical history, appointments, medications, allergies reviewed. Previous Medical History PAST MEDICAL HISTORY Diagnosis Date Bilateral carotid artery stenosis mild CKD (chronic kidney disease), stage III (HCC) Coronary artery disease s/p PCI 2003 [facility] -- sees Dr. Samaniego Depression Elevated LFTs Gout Hypertension Insomnia Mixed hyperlipidemia Obesity (BMI 30.0-34.9) Systolic ejection murmur Thrombocytopenia (HCC) Type II diabetes mellitus (HCC) Previous Surgical History PAST SURGICAL HISTORY Procedure Laterality Date COLONOSCOPY 2016 Dr. Aggarwal, normal INGUINAL HERNIA REPAIR HX Left REPAIR OF HYDROCELE Bilateral STENT PLACEMENT [facility] 2003 (cardiac) Family History FAMILY HISTORY Problem Relation Age of Onset Coronary Artery Disease Mother Diabetes Mother Cancer Father throat Patient Allergies ALLERGIES No Known Allergies Current Medications Current Outpatient Medications on File Prior to Visit Medication Sig atorvastatin (LIPITOR) 40 mg tablet Take 0.5 tablets by mouth once daily. allopurinol (ZYLOPRIM) 300 mg tablet Take 1 tablet by mouth once daily. For gout. metFORMIN (GLUCOPHAGE) 500 mg tablet Take 1 tablet by mouth two times a day with meals. . lisinopril (ZESTRIL) 30 mg tablet Take 1 tablet by mouth once daily. clopidogrel (PLAVIX) 75 mg tablet Take 1 tablet by mouth once daily. nitroglycerin sublingual (NITROSTAT) 0.4 mg SL tablet Dissolve 1 tablet under the tongue every 5 minutes as needed for chest pain. metoprolol tartrate, short acting, (LOPRESSOR) 25 mg tablet Take 0.5 tablets by mouth twice daily. aspirin, enteric coated (ECOTRIN LOW STRENGTH) 81 mg EC tablet Take 1 tablet by mouth once daily. No current facility-administere d medications on file prior to visit. Social History Social History Tobacco Use Smoking status: Former Current packs/day: 0.00 Types: Cigarettes Quit date: 11/19/1987 Years since quittin.0 Smokeless tobacco: Former Tobacco comments: light smoker, short period of time Substance Use Topics Alcohol use: No Drug use: No Review of Symptoms REVIEW OF SYSTEMS GENERAL: No weight loss, malaise or fevers RESPIRATORY: Negative for cough, hemoptysis, wheezing, COPD, dyspnea or shortness of breath CARDIOVASCULAR: Negative for chest pain, leg swelling, hypertension, CHF or palpitations EXAM: BP 133/68 Pulse (!) 54 Wt 84 kg (185 lb 3 oz) BMI 28.16 kg/m? General Appearance: Well appearing, alert, in no acute distress, well-hydrated, well nourished.. Lungs: Lungs clear to auscultation. No wheezing, rhonchi, rales.. Heart: RRR without murmur, gallop, or rubs. No ectopy. Health Maintenance List Anxiety Screening Never done Pneumococcal Vaccine: 50+(1 of 2 - PCV) Never done Shingrix Vaccine(1 of 2) Never done RSV Vaccine(1 - 1-dose 75+ series) Never done Dilated Retinal Exam due on 05/31/2020 Influenza Vaccine(1) due on 05/16/2024 Covid-19 Vaccine( season) due on 05/16/2024 Advance Directive Discussion Never done HbA1C due on 10/21/2024 Diabetic Foot Exam due on 04/16/2025 Urine Albumin:Creatinine Ratio due on 04/20/2025 LDL Cholesterol due on 04/20/2025 DTaP,Tdap,Td Vaccine(2 - Td or Tdap) due on 05/21/2028 Colorectal Cancer Screening Discontinued ASSESSMENT/PLAN: 1. Wellness examination - ICD9: V70.0, ICD10: Z00.00 (primary diagnosis) - Counseled on healthy diet and regular exercise - Discussed need for and benefit of weight loss. BMI 28.16 kg/(m2) - Follow up for annual exam in one year - COMPREHENSIVE METABOLIC PANEL 2. Type 2 diabetes mellitus with stage 3a chronic kidney disease, without long-term current use of insulin (HCC) - ICD9: 250.40, 585.3, ICD10: E11.22, N18.31 - Control undetermined, due for labs - Continue current medications - Counseled on healthy diet and regular exercise - Discussed need for and benefit of weight loss. BMI 28.16 kg/(m2) - (more content not included)... Normal [facility] Comprehensive metabolic 2000 panelon 12-10-2024 Albumin [Mass/Vol] 4.1 g/dL Normal 3.9-4.9 [facility] Comment on above: Order Comment: Speci men Type: BLOOD SPECIMEN Ordering Facility: [facility] Address: [address] [place] [address] Performed By: #### 2 4323-8 #### [facility] CLIA [id number] [address] [place] [address] [place] ALP [Catalytic activity/Vol] 65 U/L Normal 38-[address] [facility] Comment on above: Order Comment: Speci men Type: BLOOD SPECIMEN Ordering Facility: [facility] Address: [address] [place] [address] Performed By: #### 2 4323-8 #### [facility] CLIA [id number] [address] [place] [address] [place] ALT [Catalytic activity/Vol] 41 U/L Normal 10-[address] [facility] Comment on above: Order Comment: Speci men Type: BLOOD SPECIMEN Ordering Facility: [facility] Address: [address] [place] [address] Performed By: #### 2 4323-8 #### [facility] CLIA [id number] [address] [place] [address] [place] Anion gap [Moles/Vol] 11 mmol/L Normal 8-15 [facility] Comment on above: Order Comment: Speci men Type: BLOOD SPECIMEN Ordering Facility: [facility] Address: [address] [place] [address] Performed By: #### 2 4323-8 #### [facility] CLIA [id number] [address] [place] [address] [place] AST [Catalytic activity/Vol] 42 U/L High 14-[address] [facility] Comment on above: Order Comment: Speci men Type: BLOOD SPECIMEN Ordering Facility: [facility] Address: [address] [place] [address] Performed By: #### 2 4323-8 #### [facility] CLIA [id number] [address] [place] [address] [place] Bilirubin [Mass/Vol] 0.4 mg/dL Normal 0.2-1.3 [facility] Comment on above: Order Comment: Speci men Type: BLOOD SPECIMEN Ordering Facility: [facility] Address: [address] [place] [address] Performed By: #### 2 4323-8 #### [facility] CLIA [id number] [address] [place] [address] [place] Calcium [Mass/Vol] 9.2 mg/dL Normal 8.5-10.2 [facility] Comment on above: Order Comment: Speci men Type: BLOOD SPECIMEN Ordering Facility: [facility] Address: [address] [place] [address] Performed By: #### 2 4323-8 #### [facility] CLIA [id number] [address] [place] [address] [place] Chloride [Moles/Vol] 109 mmol/L High 98-107 [facility] Comment on above: Order Comment: Speci men Type: BLOOD SPECIMEN Ordering Facility: [facility] Address: [address] [place] [address] Performed By: #### 2 4323-8 #### [facility] CLIA [id number] [address] [place], [place] [id number] [place] CO2 [Moles/Vol] 23 mmol/L Normal 22-[address] [facility] Comment on above: Order Comment: Speci men Type: BLOOD SPECIMEN Ordering Facility: [facility] Address: [address] [place] [address] Performed By: #### 2 4323-8 #### [facility] CLIA [id number] [address] [place] [address] [place] Creatinine [Mass/Vol] 1.16 mg/dL Normal 0.73-1.22 [facility] Comment on above: Order Comment: Speci men Type: BLOOD SPECIMEN Ordering Facility: [facility] Address: [address] [place] [address] Performed By: #### 2 4323-8 #### [facility] CLIA [id number] [address] [place] [address] [place] Creatinine and Glomerular filtration rate.predicted panel (S/P/Bld) 63 mL/min/1.73m??? Normal >=[address] [facility] Comment on above: Order Comment: Speci men Type: BLOOD SPECIMEN Ordering Facility: [facility] Address: [address] [place] [address] Result Comment: Sunshine mated Glomerular Filtration Rate (eGFR) is calculated using the 2020 CKD-EPI creatinine equation. This equation utilizes serum creatinine, sex, and age as parameters. The creatinine assay has traceable calibration to isotope dilution-mass spectrometry. Refer to KDIGO guidelines for clinical interpretation. In patients with unstable renal function, e.g. those with acute kidney injury, the eGFR may not accurately reflect actual GFR. Performed By: #### 2 4323-8 #### [facility] CLIA [id number] [address] [place], [place] [address] [place] Glucose [Mass/Vol] 109 mg/dL High 74-99 [facility] Comment on above: Order Comment: Speci men Type: BLOOD SPECIMEN Ordering Facility: [facility] Address: [address] [place] [address] Result Comment: The [place] Diabetes Association (ADA) provides guidance for cutoff values for fasting glucose and random glucose. The ADA defines fasting as no caloric intake for at least 8 hours. Fasting plasma glucose results between 100 to 125 mg/dL indicate increased risk for diabetes (prediabetes). Fasting plasma glucose results greater than or equal to 126 mg/dL meet the criteria for diagnosis of diabetes. In the absence of unequivocal hyperglycemia, results should be confirmed by repeat testing. In a patient with classic symptoms of hyperglycemia or hyperglycemic crisis, random plasma glucose results greater than or equal to 200 mg/dL meet the criteria for diagnosis of diabetes. Reference: Standards of Medical Care in Diabetes 2016, [place] Diabetes Association. Diabetes Care. 2016.39(Suppl 1). Performed By: #### 2 4323-8 #### [facility] CLIA [id number] [address] [place] [address] [place] Potassium [Moles/Vol] 5.1 mmol/L Normal 3.7-5.1 [facility] Comment on above: Order Comment: Speci men Type: BLOOD SPECIMEN Ordering Facility: [facility] Address: [address] [place] [address] Performed By: #### 2 4323-8 #### [facility] CLIA [id number] [address] [place] [address] [place] Protein [Mass/Vol] 6.9 g/dL Normal 6.3-8.0 [facility] Comment on above: Order Comment: Speci men Type: BLOOD SPECIMEN Ordering Facility: [facility] Address: [address] [place] [address] Performed By: #### 2 4323-8 #### [facility] CLIA [id number] [address] [place] [address] [place] Sodium [Moles/Vol] 143 mmol/L Normal 136-144 [facility] Comment on above: Order Comment: Speci men Type: BLOOD SPECIMEN Ordering Facility: [facility] Address: [address] [place] [address] Performed By: #### 2 4323-8 #### [facility] CLIA [id number] [address] [place] [address] [place] Urea nitrogen [Mass/Vol] 31 mg/dL High 9-[address] [facility] Comment on above: Order Comment: Jostin torres Type: BLOOD SPECIMEN Ordering Facility: [facility] Address: [address] [place] [address] Performed By: #### 2 4323-8 #### [facility] CLIA [id number] [address] [place] [address] [place] HbA1c (Bld)on 12-10-2024 Average glucose Estimated from glycated hemoglobin (Bld) [Mass/Vol] 126 mg/dL Normal [facility] Comment on above: Order Comment: Jostin torres Type: BLOOD SPECIMEN Ordering Facility: [facility] Address: [address] [place] [address] Result Comment: eAG: (Estimated average glucose) is a calculated value from HgbA1c and is retail sales representative of the average blood glucose level in the last 2-3 month period. Performed By: #### 5 5454-3 #### [facility] CLIA [id number] [address] [place] [address] [place] HbA1c (Bld) [Mass fraction] 6.0 % High 4.3-5.[address] [facility] Comment on above: Order Comment: Jostin torres Type: BLOOD SPECIMEN Ordering Facility: [facility] Address: [address] [place] [address] Result Comment: [place] Diabetes Association guidelines indicate that patients with HgbA1c in the range 5.7-6.4% are at increased risk for development of diabetes, and intervention by lifestyle modification may be beneficial. HgbA1c greater or equal to 6.5% is considered diagnostic of diabetes. Performed By: #### 5 5454-3 #### [facility] CLIA [id number] [address] [place] [address] [place] CNPRadha 04-21-2024 CNPN Telephone (FAMPWS) GREG MOORE ([id number]) 1940 M Date Time Provider Department 04/21/24 KEIKO BREWER During your visit today, we recorded the following information about you: Keiko Brewer APRN.AMISHA 04/21/2024 5:05 PM Signed Kidney function has decreased- recommend low salt diet, stay well hydrated, and avoid NSAID products - will need to recheck this in 3 months. Platelets a little low- has he had an y bleeding symptoms- bleeding gums, blood in urine, stool easy bruising? The rest of his blood work is normal. Keiko Brewer APRN.Jarrett Loja LPN 04/21/2024 5:26 PM Signed Pt. informed. Pt. has no bleeding issues. Allergies As of Date: 04/21/2024 (No Known Allergies) Date Reviewed: 04/16/2024 Reviewed by: Meredith Luther LPN - Fully Assessed Reason for Visit: Results [95] Primary Visit Diagnosis:Chronic kidney disease, stage 3a (HCC) [N18.31] Order(s):COMPREHENSI VE METABOLIC PANEL [SQCMP] Order #: [id number] FUTURE Prescriptions as of 04/21/2024 - lisinopril (ZESTRIL) 30 mg tablet Take 1 tablet by mouth once daily. - allopurinol (ZYLOPRIM) 300 mg tablet Take 1 tablet by mouth once daily. For gout. - atorvastatin (LIPITOR) 40 mg tablet Take 0.5 tablets by mouth once daily. - metFORMIN (GLUCOPHAGE) 500 mg tablet Take 1 tablet by mouth two times a day with meals. . - clopidogrel (PLAVIX) 75 mg tablet Take 1 tablet by mouth once daily. - nitroglycerin sublingual (NITROSTAT) 0.4 mg SL tablet Dissolve 1 tablet under the tongue every 5 minutes as needed for chest pain. - metoprolol tartrate, short acting, (LOPRESSOR) 25 mg tablet Take 0.5 tablets by mouth twice daily. - aspirin, enteric coated (ECOTRIN LOW STRENGTH) 81 mg EC tablet Take 1 tablet by mouth once daily. 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 ALBUMIN/CREATININE RATIO, UR INEon 04-20-2024 Albumin DL <= 20 mg/L (U) [Mass/Vol] 32.9 mg/L Normal [facility] Comment on above: Order Comment: Speci men Type: URINE SPECIMEN Ordering Facility: [facility] Address: [address] [place] [address] Performed By: #### U ACR #### [facility] CLIA [id number] [address] [place] [address] [id number] [place] [address] [place] Albumin/Creatinine (U) [Mass ratio] 29 mg/g Normal <[address] [facility] Comment on above: Order Comment: Speci men Type: URINE SPECIMEN Ordering Facility: [facility] Address: [address] [place] [address] Result Comment: Adul t Male and Female Nephrotic Criteria: <30 mg/g is considered normal to mildly increased 30-300 mg/g is considered moderately increased >300 mg/g is considered severely increased KDIGO. (2013). KDIGO 2012 Clinical Practice Guideline for the Evaluation and Management of Chronic Kidney Disease. Official Journal of the International Society of Nephrology, 3(1), 1-150. Performed By: #### U ACR #### [facility] CLIA [id number] [address] [place] [address] [place] Creatinine (U) [Mass/Vol] 112.1 mg/dL Normal 20.0-300.[address] [facility] Comment on above: Order Comment: Speci men Type: URINE SPECIMEN Ordering Facility: [facility] Address: [address] [place] [address] Performed By: #### U ACR #### [facility] CLIA [id number] [address] [place] [address] [place] CBC W Auto Differential pane l (Bld)on 04-20-2024 Basophils (Bld) [#/Vol] 0.04 10*3/uL Normal <0.[address] [facility] Comment on above: Order Comment: Speci men Type: BLOOD SPECIMEN Ordering Facility: [facility] Address: [address] [place] [address] Performed By: #### 5 7021-8 #### [facility] CLIA [id number] [address] [place] [address] [place] Basophils/100 WBC (Bld) 0.6 % Normal [facility] Comment on above: Order Comment: Speci men Type: BLOOD SPECIMEN Ordering Facility: [facility] Address: [address] [place] [address] Performed By: #### 5 7021-8 #### [facility] CLIA [id number] [address] [place] [address] [place] Differential cell count method Nom (Bld) Auto Normal [facility] Comment on above: Order Comment: Speci men Type: BLOOD SPECIMEN Ordering Facility: [facility] Address: [address] [place] [address] Performed By: #### 5 7021-8 #### [facility] CLIA [id number] [address] [place] [address] [place] Eosinophils (Bld) [#/Vol] 0.19 10*3/uL Normal <0.[address] [facility] Comment on above: Order Comment: Speci men Type: BLOOD SPECIMEN Ordering Facility: [facility] Address: [address] [place] [address] Performed By: #### 5 7021-8 #### [facility] CLIA [id number] [address] [place] [address] [place] Eosinophils/100 WBC (Bld) 3.0 % Normal [facility] Comment on above: Order Comment: Speci men Type: BLOOD SPECIMEN Ordering Facility: [facility] Address: [address] [place] [address] Performed By: #### 5 7021-8 #### [facility] CLIA [id number] [address] [place] [address] [place] Erythrocyte distribution width (RBC) [Ratio] 16.0 % High 11.5-15.[address] [facility] Comment on above: Order Comment: Speci men Type: BLOOD SPECIMEN Ordering Facility: [facility] Address: [address] [place] [address] Performed By: #### 5 7021-8 #### [facility] CLIA [id number] [address] [place] [address] [place] Hematocrit (Bld) [Volume fraction] 43.5 % Normal 39.0-51.[address] [facility] Comment on above: Order Comment: Speci men Type: BLOOD SPECIMEN Ordering Facility: [facility] Address: [address] [place] [address] Performed By: #### 5 7021-8 #### [facility] CLIA [id number] [address] [place] [id number] [address] [place] Hemoglobin (Bld) [Mass/Vol] 13.7 g/dL Normal 13.0-17.[address] [facility] Comment on above: Order Comment: Speci men Type: BLOOD SPECIMEN Ordering Facility: [facility] Address: [address] [place] [address] Performed By: #### 5 7021-8 #### [facility] CLIA [id number] [address] [place] [address] [place] Immature granulocytes (Bld) [#/Vol] 0.04 10*3/uL Normal <0.[address] [facility] Comment on above: Order Comment: Speci men Type: BLOOD SPECIMEN Ordering Facility: [facility] Address: [address] [place] [address] Performed By: #### 5 7021-8 #### [facility] CLIA [id number] [address] [place] [address] [place] Immature granulocytes/100 WBC (Bld) 0.6 % Normal [facility] Comment on above: Order Comment: Speci men Type: BLOOD SPECIMEN Ordering Facility: [facility] Address: [address] [place] [address] Performed By: #### 5 7021-8 #### [facility] CLIA [id number] [address] [place] [address] [place] Lymphocytes (Bld) [#/Vol] 1.20 10*3/uL Normal 1.00-4.[address] [facility] Comment on above: Order Comment: Speci men Type: BLOOD SPECIMEN Ordering Facility: [facility] Address: [address] [place] [address] Performed By: #### 5 7021-8 #### [facility] CLIA [id number] [address] [place] [address] [place] Lymphocytes/100 WBC (Bld) 18.8 % Normal [facility] Comment on above: Order Comment: Speci men Type: BLOOD SPECIMEN Ordering Facility: [facility] Address: [address] [place] [address] Performed By: #### 5 7021-8 #### [facility] CLIA [id number] [address] [place] [address] [place] MCH (RBC) [Entitic mass] 29.0 pg Normal 26.0-34.[address] [facility] Comment on above: Order Comment: Speci men Type: BLOOD SPECIMEN Ordering Facility: [facility] Address: [address] [place] [address] Performed By: #### 5 7021-8 #### [facility] CLIA [id number] [address] [place] [address] [place] MCHC (RBC) [Mass/Vol] 31.5 g/dL Normal 30.5-36.0 [facility] Comment on above: Order Comment: Speci men Type: BLOOD SPECIMEN Ordering Facility: [facility] Address: [address] [place] [address] Performed By: #### 5 7021-8 #### [facility] CLIA [id number] [address] [place] [address] [place] MCV (RBC) [Entitic vol] 92.2 fL Normal 80.0-100.[address] [facility] Comment on above: Order Comment: Speci men Type: BLOOD SPECIMEN Ordering Facility: [facility] Address: [address] [place] [address] Performed By: #### 5 7021-8 #### [facility] CLIA [id number] [address] [place] [address] [place] Monocytes (Bld) [#/Vol] 0.87 10*3/uL High <0.[address] [facility] Comment on above: Order Comment: Speci men Type: BLOOD SPECIMEN Ordering Facility: [facility] Address: [address] [place] [address] Performed By: #### 5 7021-8 #### [facility] CLIA [id number] [address] [place] [address] [place] Monocytes/100 WBC (Bld) 13.6 % Normal [facility] Comment on above: Order Comment: Speci men Type: BLOOD SPECIMEN Ordering Facility: [facility] Address: [address] [place] [address] Performed By: #### 5 7021-8 #### [facility] CLIA [id number] [address] [place] [address] [place] Neutrophils (Bld) [#/Vol] 4.04 10*3/uL Normal 1.45-7.[address] [facility] Comment on above: Order Comment: Speci men Type: BLOOD SPECIMEN Ordering Facility: [facility] Address: [address] [place] [address] Performed By: #### 5 7021-8 #### [facility] CLIA [id number] [address] [place] [address] [place] Neutrophils/100 WBC (Bld) 63.4 % Normal [facility] Comment on above: Order Comment: Speci men Type: BLOOD SPECIMEN Ordering Facility: [facility] Address: [address] [place] [address] Performed By: #### 5 7021-8 #### [facility] CLIA [id number] [address] [place] [address] [place] Nucleated RBC (Bld) [#/Vol] 10*3/uL Normal <0.[address] [facility] Comment on above: Order Comment: Speci men Type: BLOOD SPECIMEN Ordering Facility: [facility] Address: [address] [place] [address] Performed By: #### 5 7021-8 #### [facility] CLIA [id number] [address] [place] [address] [place] Nucleated RBC/100 WBC (Bld) [Ratio] 0.0 /[address] [facility] Comment on above: Order Comment: Speci men Type: BLOOD SPECIMEN Ordering Facility: [facility] Address: [address] [place] [address] Performed By: #### 5 7021-8 #### [facility] CLIA [id number] [address] [place] [address] [place] Platelet mean volume (Bld) [Entitic vol] Normal [facility] Comment on above: Order Comment: Speci men Type: BLOOD SPECIMEN Ordering Facility: [facility] Address: [address] [place] [address] Result Comment: Unab le to Report. Performed By: #### 5 7021-8 #### [facility] CLIA [id number] [address] [place] [address] [place] Platelets (Bld) [#/Vol] 112 10*3/uL Low 150-[address] [facility] Comment on above: Order Comment: Speci men Type: BLOOD SPECIMEN Ordering Facility: [facility] Address: [address] [place] [address] Performed By: #### 5 7021-8 #### [facility] CLIA [id number] [address] [place] [address] [place] RBC (Bld) [#/Vol] 4.72 10*6/uL Normal 4.20-6.00 [facility] Comment on above: Order Comment: Speci men Type: BLOOD SPECIMEN Ordering Facility: [facility] Address: [address] [place] [address] Performed By: #### 5 7021-8 #### [facility] CLIA [id number] [address] [place] [address] [place] WBC (Bld) [#/Vol] 6.38 10*3/uL Normal 3.70-11.00 [facility] Comment on above: Order Comment: Speci men Type: BLOOD SPECIMEN Ordering Facility: [facility] Address: [address] [place] [address] Performed By: #### 5 7021-8 #### [facility] CLIA [id number] [address] [id number] [place] Comprehensive metabolic 2000 panelon 04-20-2024 Albumin [Mass/Vol] 4.4 g/dL Normal 3.9-4.9 [facility] Comment on above: Order Comment: Speci men Type: BLOOD SPECIMEN Ordering Facility: [facility] Address: [address] [place] [address] Performed By: #### 2 4323-8, 47024-4 #### [facility] CLIA [id number] [address] [place] [address] [place] ALP [Catalytic activity/Vol] 67 U/L Normal 38-[address] [facility] Comment on above: Order Comment: Speci men Type: BLOOD SPECIMEN Ordering Facility: [facility] Address: [address] [place] [address] Performed By: #### 2 4323-8, 04218-0 #### [facility] CLIA [id number] [address] [place] [address] [place] ALT [Catalytic activity/Vol] 34 U/L Normal 10-[address] [facility] Comment on above: Order Comment: Speci men Type: BLOOD SPECIMEN Ordering Facility: [facility] Address: [address] [place] [address] Performed By: #### 2 4323-8, 26515-9 #### [facility] CLIA [id number] [address] [place], [place] [address] [place] Anion gap [Moles/Vol] 14 mmol/L Normal 8-15 [facility] Comment on above: Order Comment: Speci men Type: BLOOD SPECIMEN Ordering Facility: [facility] Address: [address] [place] [address] Performed By: #### 2 4323-8, 92835-1 #### [facility] CLIA [id number] [address] [place] [address] [place] AST [Catalytic activity/Vol] 37 U/L Normal 14-[address] [facility] Comment on above: Order Comment: Speci men Type: BLOOD SPECIMEN Ordering Facility: [facility] Address: [address] [place] [address] Performed By: #### 2 4323-8, 15852-4 #### [facility] CLIA [id number] [address] [place] [address] [place] Bilirubin [Mass/Vol] 0.8 mg/dL Normal 0.2-1.3 [facility] Comment on above: Order Comment: Speci men Type: BLOOD SPECIMEN Ordering Facility: [facility] Address: [address] [place] [address] Performed By: #### 2 4323-8, 26801-9 #### [facility] CLIA [id number] [address] [place] [address] [place] Calcium [Mass/Vol] 9.5 mg/dL Normal 8.5-10.2 [facility] Comment on above: Order Comment: Speci men Type: BLOOD SPECIMEN Ordering Facility: [facility] Address: [address] [place] [address] Performed By: #### 2 4323-8, 92171-1 #### [facility] CLIA [id number] [address] [place] [address] [place] Chloride [Moles/Vol] 105 mmol/L Normal 98-107 [facility] Comment on above: Order Comment: Speci men Type: BLOOD SPECIMEN Ordering Facility: [facility] Address: [address] [place] [address] Performed By: #### 2 4323-8, 82820-5 #### [facility] CLIA [id number] [address] [place] [address] [place] CO2 [Moles/Vol] 21 mmol/L Low 22-[address] [facility] Comment on above: Order Comment: Speci men Type: BLOOD SPECIMEN Ordering Facility: [facility] Address: [address] [place] [address] Performed By: #### 2 4323-8, 06481-1 #### [facility] CLIA [id number] [address] [place] [address] [place] Creatinine [Mass/Vol] 1.61 mg/dL High 0.73-1.22 [facility] Comment on above: Order Comment: Speci men Type: BLOOD SPECIMEN Ordering Facility: [facility] Address: [address] [place] [address] Performed By: #### 2 4323-8, 00742-5 #### [facility] CLIA [id number] [address] [place] [address] [place] Creatinine and Glomerular filtration rate.predicted panel (S/P/Bld) 43 mL/min/1.73m??? Low >=[address] [facility] Comment on above: Order Comment: Yui men Type: BLOOD SPECIMEN Ordering Facility: [facility] Address: [address] [place] [address] Result Comment: Sunshine mated Glomerular Filtration Rate (eGFR) is calculated using the 2020 CKD-EPI creatinine equation. This equation utilizes serum creatinine, sex, and age as parameters. The creatinine assay has traceable calibration to isotope dilution-mass spectrometry. Refer to KDIGO guidelines for clinical interpretation. In patients with unstable renal function, e.g. those with acute kidney injury, the eGFR may not accurately reflect actual GFR. Performed By: #### 2 4323-8, 17166-6 #### [facility] CLIA [id number] [address] [place] [address] [place] Glucose [Mass/Vol] 96 mg/dL Normal 74-99 [facility] Comment on above: Order Comment: Jostin men Type: BLOOD SPECIMEN Ordering Facility: [facility] Address: [address] [place] [address] Result Comment: The [place] Diabetes Association (ADA) provides guidance for cutoff values for fasting glucose and random glucose. The ADA defines fasting as no caloric intake for at least 8 hours. Fasting plasma glucose results between 100 to 125 mg/dL indicate increased risk for diabetes (prediabetes). Fasting plasma glucose results greater than or equal to 126 mg/dL meet the criteria for diagnosis of diabetes. In the absence of unequivocal hyperglycemia, results should be confirmed by repeat testing. In a patient with classic symptoms of hyperglycemia or hyperglycemic crisis, random plasma glucose results greater than or equal to 200 mg/dL meet the criteria for diagnosis of diabetes. Reference: Standards of Medical Care in Diabetes 2016, [place] Diabetes Association. Diabetes Care. 2016.39(Suppl 1). Performed By: #### 2 4323-8, 15016-4 #### [facility] CLIA [id number] [address] [place] [address] [place] Potassium [Moles/Vol] 4.6 mmol/L Normal 3.7-5.1 [facility] Comment on above: Order Comment: Speci men Type: BLOOD SPECIMEN Ordering Facility: [facility] Address: [address] [place] [address] Performed By: #### 2 4323-8, 52413-4 #### [facility] CLIA [id number] [address] [place] [address] [place] Protein [Mass/Vol] 7.0 g/dL Normal 6.3-8.0 [facility] Comment on above: Order Comment: Speci men Type: BLOOD SPECIMEN Ordering Facility: [facility] Address: [address] [place] [address] Performed By: #### 2 4323-8, 61360-1 #### [facility] CLIA [id number] [address] [place] [address] [place] Sodium [Moles/Vol] 140 mmol/L Normal 136-144 [facility] Comment on above: Order Comment: Speci men Type: BLOOD SPECIMEN Ordering Facility: [facility] Address: [address] [place] [address] Performed By: #### 2 4323-8, 54596-1 #### [facility] CLIA [id number] [address] [place] [address] [place] Urea nitrogen [Mass/Vol] 34 mg/dL High 9-[address] [facility] Comment on above: Order Comment: Jostin torres Type: BLOOD SPECIMEN Ordering Facility: [facility] Address: [address] [place] [address] Performed By: #### 2 4323-8, 55327-5 #### [facility] CLIA [id number] [address] [place] [address] [place] HbA1c (Bld)on 04-20-2024 Average glucose Estimated from glycated hemoglobin (Bld) [Mass/Vol] 120 mg/dL Normal [facility] Comment on above: Order Comment: Jostin torres Type: BLOOD SPECIMEN Ordering Facility: [facility] Address: [address] [place] [address] Result Comment: eAG: (Estimated average glucose) is a calculated value from HgbA1c and is retail sales representative of the average blood glucose level in the last 2-3 month period. Performed By: #### 5 5454-3 #### [facility] CLIA [id number] [address] [place] [address] [place] HbA1c (Bld) [Mass fraction] 5.8 % High 4.3-5.[address] [facility] Comment on above: Order Comment: Jostin torres Type: BLOOD SPECIMEN Ordering Facility: [facility] Address: [address] [place] [address] Result Comment: Amer [place] Diabetes Association guidelines indicate that patients with HgbA1c in the range 5.7-6.4% are at increased risk for development of diabetes, and intervention by lifestyle modification may be beneficial. HgbA1c greater or equal to 6.5% is considered diagnostic of diabetes. Performed By: #### 5 5454-3 #### [facility] CLIA [id number] [address] [place] [address] [place] Lipid 1996 panelon 4 Cholesterol [Mass/Vol] 103 mg/dL Normal <200 [facility] Comment on above: Order Comment: Yui men Type: BLOOD SPECIMEN Ordering Facility: [facility] Address: [address] [place] [address] Result Comment: <200 mg/dL, Desirable 200-239 mg/dL, Borderline high >239 mg/dL, High Performed By: #### 2 4323-8, 76527-6 #### [facility] CLIA [id number] [address] [place] [address] [place] Cholesterol in HDL [Mass/Vol] 28 mg/dL Low >[address] [facility] Comment on above: Order Comment: Yui men Type: BLOOD SPECIMEN Ordering Facility: [facility] Address: [address] [place] [address] Result Comment: 40-5 9 mg/dL, Acceptable >59 mg/dL, High: Negative risk factor for coronary heart disease <40 mg/dL, Low: Positive risk factor for coronary heart disease Performed By: #### 2 4323-8, 23368-6 #### [facility] CLIA [id number] [address] [place] [address] [place] Cholesterol in LDL [Mass/Vol] 55 mg/dL Normal <[address] [facility] Comment on above: Order Comment: Yui men Type: BLOOD SPECIMEN Ordering Facility: [facility] Address: [address] [place] [address] Result Comment: <100 mg/dL, Optimal 100-129 mg/dL, Near optimal/above optimal 130-159 mg/dL, Borderline high 160-189 mg/dL, High >189 mg/dL, Very high Secondary prevention optimal LDL Cholesterol levels are recommended to be < 70 mg/dL Performed By: #### 2 4323-8, 62677-5 #### [facility] CLIA [id number] [address] [place] [address] [place] Cholesterol in LDL/Cholesterol in HDL [Mass ratio] 1.96 {ratio} Normal <2.[address] [facility] Comment on above: Order Comment: Speci men Type: BLOOD SPECIMEN Ordering Facility: [facility] Address: [address] [place] [address] Result Comment: Lion mathews: 1. National Cholesterol Education Program ATP III Guideline At-A-Glance Quick Desk Reference: National Heart, Lung, and Blood [place]. National Institutes of Health. 2001: NIH Publication No. 01-3305. 2. An International Atherosclerosis Society position paper: global recommendations for the management of dyslipidemia: executive summary, Atherosclerosis. 2014: 232(2):410-413. Performed By: #### 2 4323-8, 48339-8 #### [facility] CLIA [id number] [address] [place] [address] [place] Cholesterol in VLDL [Mass/Vol] 20 mg/dL Normal <[address] [facility] Comment on above: Order Comment: Jostin torres Type: BLOOD SPECIMEN Ordering Facility: [facility] Address: [address] [place] [address] Performed By: #### 2 4323-8, 55077-2 #### [facility] CLIA [id number] [address] [place] [address] [place] Cholesterol non HDL [Mass/Vol] 75 mg/dL Normal <[address] [facility] Comment on above: Order Comment: Jostin torres Type: BLOOD SPECIMEN Ordering Facility: [facility] Address: [address] [place] [address] Result Comment: <130 mg/dL, Optimal 130-159 mg/dL, Near optimal/above optimal 160-189 mg/dL, Borderline high 190-219 mg/dL, High >219 mg/dL, Very high Secondary prevention optimal non HDL Cholesterol levels are recommended to be <100 mg/dL Performed By: #### 2 4323-8, 43505-5 #### [facility] CLIA [id number] [address] [place] [address] [place] Cholesterol.total/Chol esterol in HDL [Mass ratio] 3.68 {ratio} Normal <5.[address] [facility] Comment on above: Order Comment: Jostin torres Type: BLOOD SPECIMEN Ordering Facility: [facility] Address: [address] [place] [address] Performed By: #### 2 4323-8, 07405-2 #### [facility] CLIA [id number] [address] [place] [address] [place] FASTING TIME [address] [facility] Comment on above: Order Comment: Speci men Type: BLOOD SPECIMEN Ordering Facility: [facility] Address: [address] [place] [address] Performed By: #### 2 4323-8, 67158-5 #### [facility] CLIA [id number] [address] [place] [address] [place] Triglyceride [Mass/Vol] 98 mg/dL Normal <[address] [facility] Comment on above: Order Comment: Speci men Type: BLOOD SPECIMEN Ordering Facility: [facility] Address: [address] [place] [address] Result Comment: <150 mg/dL, Normal 150-199 mg/dL, Borderline high 200-499 mg/dL, High >499 mg/dL, Very high Performed By: #### 2 4323-8, 04866-8 #### [facility] CLIA [id number] [address] [place] [address] [place] CNOVon 04-16-2024 CNOV Office Visit (LALA) GREG MOORE ([id number]) 1940 M Date Time Provider Department 04/16/24 8:20 AM KEIKO BREWER During your visit today, we recorded the following information about you: Pulse Respiration Blood pressure Weight 59/minute 18/minute 138/74 88.1 kg Keiko Brewer APRN.CNP 04/16/2024 8:35 AM Signed 04/13/2024 Patient presents with: F/U 6 months SUBJECTIVE: This is a 83 year old that is here today for Above Complaints. Has been in good health without hospitalizations or ER visits. No falls in the last 12 months. DIABETES MELLITUS: Since our last visit he denies excessive thirst or increased frequency of urination, chest pain or dyspnea , numbness, tingling or pain in extremities, new or unusual visual symptoms, low sugar/hypoglycemic reactions, weight loss/gain, lightheadedness/dizz iness, and bowel changes/loose stools Follows a diabetic diet most of the time. He is compliant with medication(s) and is tolerating med(s) without any side effects. He reports checking his glucose on a infrequent to not at all basis schedule . Patient's last HgA1C was Hemoglobin A1C (%) Date Value 10/17/2023 6.0 04/14/2023 6.1 12/25/2020 6.1 11/22/2019 6.1 ) Last Ophthalmology exam- he reports his eyes are fine and he does not want to see one at this time GOUT: taking allopurinol as prescribed without side effects HYPERLIPIDEMIA: Patient is taking medications: Yes. Patient is watching diet: Yes. Patient denies myalgias: Yes. Patient denies gi upset: Yes CAD: follows with [facility] cardiology with last appointment per patient was recently. No medication changes. Denies SOB, dyspnea, chest pain, palpitations or leg swelling. PAST MEDICAL HISTORY Diagnosis Date Bilateral carotid artery stenosis mild CKD (chronic kidney disease), stage III (HCC) Coronary artery disease s/p PCI 2003 [facility] -- sees Dr. Samaniego Depression Elevated LFTs Gout Hypertension Insomnia Mixed hyperlipidemia Obesity (BMI 30.0-34.9) Systolic ejection murmur Thrombocytopenia (HCC) Type II diabetes mellitus (HCC) ALLERGIES Patient has no known allergies. MEDICATIONS Current Outpatient Medications Medication Sig allopurinol (ZYLOPRIM) 300 mg tablet Take 1 tablet by mouth once daily. For gout. atorvastatin (LIPITOR) 40 mg tablet Take 0.5 tablets by mouth once daily. metFORMIN (GLUCOPHAGE) 500 mg tablet Take 1 tablet by mouth two times a day with meals. . lisinopril (ZESTRIL) 30 mg tablet Take 1 tablet by mouth once daily. clopidogrel (PLAVIX) 75 mg tablet Take 1 tablet by mouth once daily. nitroglycerin sublingual (NITROSTAT) 0.4 mg SL tablet Dissolve 1 tablet under the tongue every 5 minutes as needed for chest pain. metoprolol tartrate, short acting, (LOPRESSOR) 25 mg tablet Take 0.5 tablets by mouth twice daily. aspirin, enteric coated (ECOTRIN LOW STRENGTH) 81 mg EC tablet Take 1 tablet by mouth once daily. No current facility-administere d medications for this visit. Medications and allergies reviewed by this provider. SOCIAL HISTORY Social History Tobacco Use Smoking status: Former Types: Cigarettes Quit date: 11/19/1987 Years since quittin.4 Smokeless tobacco: Former Tobacco comments: light smoker, short period of time Substance Use Topics Alcohol use: No Drug use: No REVIEW OF SYSTEMS All other reviewed and negative other than HPI. OBJECTIVE: BP 138/74 Pulse (!) 59 Resp 18 Wt 88.1 kg (194 lb 3.6 oz) SpO2 98% BMI 29.53 kg/m? . Vital signs reviewed by this provider. APPEARANCE Well appearing, alert, in no acute distress, well-hydrated, well nourished. EYES conjunctiva and sclera normal. HEART RRR with normal S1 and S2, no murmurs, no gallops, no JVD appreciated LUNG clear to auscultation. No wheezes, rhonchi or rales EXTREMITIES Extremities normal, No deformities, No skin discoloration, and No edema SKIN Skin color, texture, turgor normal, no suspicious rashes or lesions DM foot exam: shoes and socks removed, No deformities, ulcers, calluses, normal distal pulses, and sensitive to 10 gm monofilament Anxiety Screening Never done Advance Directive Discussion Never done HbA1C due on 04/16/2024 Urine Albumin:Creatinine Ratio due on 04/14/2024 LDL Cholesterol due on 04/14/2024 Dilated Retinal Exam due on 10/17/2024 RSV Vaccine(1 - 1-dose 60+ series) due on 10/17/2024 Shingrix Vaccine(1 of 2) due on 10/17/2024 Covid-19 Vaccine(3 - 2022- season) due on 10/17/2024 Pneumococcal Vaccine: 65+(1 of 2 - PCV) due on 10/17/2024 Influenza Vaccine(1) due on 05/16/2024 Diabetic Foot Exam due on 04/16/2025 DTaP,Tdap,Td Vaccine(2 - Td or Tdap) due on 05/21/2028 Colorectal Cancer Screening Discontinued Latest Ref Rng 10/17/2023 Protein, Total 6.3 - 8.0 g/dL 6.9 Albumin 3.9 - 4.9 g/dL 4.3 Calcium 8.5 - 10.2 mg/dL 9.7 Bilirubin, Tot (more content not included)... Normal [facility] CBC panel Auto (Bld)on 04-14 Erythrocyte distribution width (RBC) [Ratio] 15.3 % High 11.5 - 15.0 % [facility] Hematocrit (Bld) [Volume fraction] 47.6 % 39.0 - 51.0 % [facility] Hemoglobin (Bld) [Mass/Vol] 15.0 g/dL 13.0 - 17.0 g/dL [facility] MCH (RBC) [Entitic mass] 29.1 pg 26.0 - 34.[address] [facility] MCHC (RBC) [Mass/Vol] 31.5 g/dL 30.5 - 36.0 g/dL [facility] MCV (RBC) [Entitic vol] 92.4 fL 80.0 - 100.[address] [facility] Nucleated RBC (Bld) [#/Vol] <0.01 k/uL [facility] Platelet mean volume (Bld) [Entitic vol] 13.2 fL High 9.0 - 12.[address] [facility] Platelets (Bld) [#/Vol] 151 10*3/uL 150 - 400 k/uL [facility] RBC (Bld) [#/Vol] 5.15 10*6/uL 4.20 - 6.0 0 m/uL [facility] WBC (Bld) [#/Vol] 7.75 10*3/uL 3.70 - 11. 00 k/uL [facility] Comprehensive metabolic 2000 panelon 10-14-2022 Albumin [Mass/Vol] 4.4 g/dL 3.9 - 4.9 g/dL [facility] ALP [Catalytic activity/Vol] 60 U/L 38 - 113 U/L [facility] ALT [Catalytic activity/Vol] 21 U/L 10 - 54 U/L [facility] Anion gap [Moles/Vol] 10 mmol/L 9 - 18 mmol/L [facility] AST [Catalytic activity/Vol] 24 U/L 14 - 40 U/L [facility] Bilirubin [Mass/Vol] 0.5 mg/dL 0.2 - 1 .3 mg/dL [facility] Calcium [Mass/Vol] 9.5 mg/dL 8.5 - 10. 2 mg/dL [facility] Chloride [Moles/Vol] 107 mmol/L High 97 - 10 5 mmol/L [facility] CO2 [Moles/Vol] 25 mmol/L 22 - 30 mmol/L [facility] Creatinine [Mass/Vol] 1.31 mg/dL High 0.73 - 1.22 mg/dL [facility] Estimated Glomerular Filtration Rate 55 mL/min/1.73m Low >=60 mL/min/1.73m [facility] Glucose [Mass/Vol] 88 mg/dL 74 - 99 mg/dL [facility] Potassium [Moles/Vol] 4.7 mmol/L 3.7 - 5.1 mmol/L [facility] Protein [Mass/Vol] 7.0 g/dL 6.3 - 8.0 g/dL [facility] Sodium [Moles/Vol] 142 mmol/L 136 - 144 mmol/L [facility] Urea nitrogen [Mass/Vol] 28 mg/dL High 9 - 24 mg/dL [facility] HbA1c (Bld)on 10-14-2022 Average glucose Estimated from glycated hemoglobin (Bld) [Mass/Vol] 117 mg/dL [facility] HbA1c (Bld) [Mass fraction] 5.7 % High 4.3 - 5.6 % [facility] URIC ACID BLOODon 10-14-2022 Urate [Mass/Vol] 5.1 mg/dL 4.0 - 8.1 mg/dL [facility] Office Visiton 03-11-2017 Documentation of current medications (procedure) Done Invalid Interpretation Code [facility] Work Phone: [phone] Fall risk assessment No Invalid Interpretation Code [facility] Work Phone: [phone] Protein mass conc Done [facility] Work Phone: [phone] Office Visiton 03-12-2016 Dietary management education, guidance, and counseling (procedure) yes Invalid Interpretation Code [facility] Work Phone: [phone] Documentation of current medications (procedure) Done Invalid Interpretation Code [facility] Work Phone: [phone] Tobacco smoking status NHIS Former smoker [facility] Work Phone: [phone] Tobacco use CPHS Former smoker Invalid Interpretation Code [facility] Work Phone: [phone] Clinical Lists Update: 03-08-2016 Left ventricular Ejection fraction 50 % Invalid Interpretation Code [facility] Work Phone: [phone] Clinical Lists Update: 01-26-2016 Alanine aminotransferase (ALT) 56 U/L Invalid Interpretation Code [facility] Work Phone: [phone] Albumin 3.6 g/dL Invalid Interpretation Code [facility] Work Phone: [phone] Alkaline phosphatase (ALP) 48 U/L Low [facility] Work Phone: [phone] ALP enzyme act/vol (Bld) 48 U/L Low [facility] Work Phone: [phone] Anion gap 7 mmol/L Invalid Interpretation Code [facility] Work Phone: [phone] Anion gap molar conc 7 mmol/L [facility] Work Phone: [phone] Aspartate aminotransferase (AST) 39 U/L High [facility] Work Phone: [phone] Bilirubin (total) 0.60 mg/dL Invalid Interpretation Code [facility] Work Phone: [phone] BUN/Creatinine Ratio 20.4 mg/mg High [facility] Work Phone: [phone] Calcium 8.3 mg/dL Low [facility] Work Phone: [phone] Chloride 108 mmol/L High [facility] Work Phone: [phone] Cholesterol 125 mg/dL Invalid Interpretation Code [facility] Work Phone: [phone] CO2 23.0 mmol/L Invalid Interpretation Code [facility] Work Phone: [phone] CO2 ppres (BldV) 23.0 mmol/L [facility] Work Phone: [phone] Creatinine 1.52 mg/dL High [facility] Work Phone: [phone] eGFR (non-black) 48 mL/min/{1.73_m2} Low [facility] Work Phone: [phone] eGFR (non-black) 58 mL/min/{1.73_m2} Low [facility] Work Phone: [phone] Globulin 3.7 g/dL High [facility] Work Phone: [phone] Globulin mass conc (S) 3.7 g/dL High [facility] Work Phone: [phone] Glomerular Filtration Rate 58 mL/min/1.73m2 Low [facility] Work Phone: [phone] Glucose 113 mg/dL Invalid Interpretation Code [facility] Work Phone: [phone] Glucose mass conc 113 mg/dL [facility] Work Phone: [phone] HDL Cholesterol 30 mg/dL Low [facility] Work Phone: [phone] LDL Cholesterol 67 mg/dL Invalid Interpretation Code [facility] Work Phone: [phone] Potassium 4.7 mmol/L Invalid Interpretation Code [facility] Work Phone: [phone] Protein 7.3 g/dL Invalid Interpretation Code [facility] Work Phone: [phone] Sodium 138 mmol/L Invalid Interpretation Code [facility] Work Phone: [phone] Triglyceride 139 mg/dL Invalid Interpretation Code [facility] Work Phone: [phone] Urea nitrogen 31 mg/dL High [facility] Work Phone: [phone] very low density lipoproteins 28 mg/dL Invalid Interpretation Code [facility] Work Phone: [phone] Replaced Document: Kalen Slaughter CG [place] 08-29-2015 EKG QRS axis -42 deg [facility] Work Phone: [phone] electrocardiogram interpretation Sinus Rhythm -Prominent R(V1) and left axis -nonspecific -Seen with pulmonary disease -possible anterior fascicular block. - Nonspecific T-abnormality. ABNORMAL Invalid Interpretation Code [facility] Work Phone: [phone] GE use only - for [employer] import when terms are not otherwise specified 410 ms Invalid Interpretation Code [facility] Work Phone: [phone] Interpretation Sinus Rhythm -Prominent R(V1) and left axis -nonspecific -Seen with pulmonary disease -possible anterior fascicular block. - Nonspecific T-abnormality. ABNORMAL [facility] Work Phone: [phone] P Cash 44 deg [facility] Work Phone: [phone] P wave axis, electrocardiogram 44 deg Invalid Interpretation Code [facility] Work Phone: [phone] CO Interval 162 ms [facility] Work Phone: [phone] CO interval, electrocardiogram 162 ms Invalid Interpretation Code [facility] Work Phone: [phone] Pulse (Heart Rate) 60 /min Invalid Interpretation Code [facility] Work Phone: [phone] QRS axis, electrocardiogram -42 deg Invalid Interpretation Code [facility] Work Phone: [phone] QRS Duration 100 ms [facility] Work Phone: [phone] QRS duration, electrocardiogram 100 ms Invalid Interpretation Code [facility] Work Phone: [phone] QT Interval new path ms [facility] Work Phone: [phone] QT interval, electrocardiogram new path ms Invalid Interpretation Code [facility] Work Phone: [phone] QTc Torres 410 ms [facility] Work Phone: [phone] T Cash 116 deg [facility] Work Phone: [phone] T wave axis, electrocardiogram 116 deg Invalid Interpretation Code [facility] Work Phone: [phone] Clinical Lists Update: [employer] 10-21-2014 Erythrocyte distribution width Ratio (RBC) 45.6 % High [facility] Work Phone: [phone] Erythrocytes (RBC) 5.34 10*6/uL Invalid Interpretation Code [facility] Work Phone: [phone] Hematocrit (HCT) 47.3 % Invalid Interpretation Code [facility] Work Phone: [phone] Hematocrit Volume Fraction (Bld) 47.3 % [facility] Work Phone: [phone] Hemoglobin (HGB) 15.5 g/dL Invalid Interpretation Code [facility] Work Phone: [phone] MCH 29.0 pg Invalid Interpretation Code [facility] Work Phone: [phone] MCH Entitic mass (RBC) 29.0 pg [facility] Work Phone: [phone] MCHC 32.8 g/dL Invalid Interpretation Code [facility] Work Phone: [phone] MCHC mass conc (RBC) 32.8 g/dL [facility] Work Phone: [phone] MCV 88.6 fL Invalid Interpretation Code [facility] Work Phone: [phone] MCV Entitic volume (RBC) 88.6 fL [facility] Work Phone: [phone] Platelets 104 10*3/mm3 Low [facility] Work Phone: [phone] Platelets #/vol (Bld) 104 10*3/mm3 Low [facility] Work Phone: [phone] RBC #/vol (Bld) 5.34 10*6/uL [facility] Work Phone: [phone] RDW-CA 45.6 % High [facility] Work Phone: [phone] Thyroid stimulating hormone (TSH) 0.84 u[iU]/mL Invalid Interpretation Code [facility] Work Phone: [phone] WBC #/vol (Bld) 6.2 10*3/uL [facility] Work Phone: [phone] WBC (Leukocytes) 6.2 10*3/uL Invalid Interpretation Code [facility] Work Phone: [phone] Office Visit: [facility] 08-19-20 14 cardiac risk group C Invalid Interpretation Code [facility] Work Phone: [phone] General cardiovascular disease 10Y risk [#] [place].D'Agostino N/A Invalid Interpretation Code [facility] Work Phone: [phone] Tobacco smoking status NHIS Never Invalid Interpretation Code [facility] Work Phone: [phone] Clinical Lists Update: [employer] 11-25-2013 Albumin/Globulin Ratio 1.1 {ratio} Invalid Interpretation Code [facility] Work Phone: [phone] basophils as percent of blood leukocytes, manual count 0.7 % Invalid Interpretation Code [facility] Work Phone: [phone] eosinophils as percent of blood leukocytes, manual count 5.0 % Invalid Interpretation Code [facility] Work Phone: [phone] Lymphocytes/100 leukocytes 28.2 % Invalid Interpretation Code [facility] Work Phone: [phone] Lymphocytes/100 WBC (Bld) 28.2 % [facility] Work Phone: [phone] Monocytes/100 leukocytes 8.4 % Invalid Interpretation Code [facility] Work Phone: [phone] Monocytes/100 WBC (Bld) 8.4 % [facility] Work Phone: [phone] neutrophils, band form as percent of blood leukocytes, manual count 57.5 % Invalid Interpretation Code [facility] Work Phone: [phone] Platelet mean volume Entitic volume (Bld) 13.4 fL High [facility] Work Phone: [phone] PMV by Roxy 13.4 fL [facility] Work Phone: [phone] Replaced Document: Kalen Slaughter CG [place] 07-08-2013 Pulse (Heart Rate) 440 ms Invalid Interpretation Code [facility] Work Phone: [phone] Vital Signs Date Time Vital Sign Value Performing Clinician Gabbi nguyễn 12-24-2024 13:01-0400 Body height 172.[address] Virgil Tilley MD Work Phone: [facility] 12-24-2024 13:01-0400 Body mass index (BMI) [Ratio] 28.3 kg/m2 Dr. Virgil Tilley MD Work Phone: [facility] 12-24-2024 13:01-0400 Body weight 84.[address] Virgil Tilley MD Work Phone: [facility] 12-24-2024 13:01-0400 Diastolic blood pressure 80 mm[Hg] Dr. Virgil Tilley MD Work Phone: [facility] 12-24-2024 13:01-0400 Heart rate 53 /min Dr. Virgil Tilley MD Work Phone: [facility] 12-24-2024 13:01-0400 Respiratory rate 18 /min Dr. Virgil Tilley MD Work Phone: [facility] 12-24-2024 13:01-0400 SaO2% (BldA) [Mass fraction] 96 % Dr. Virgil Tilley MD Work Phone: [facility] 12-24-2024 13:01-0400 Systolic blood pressure 142 mm[Hg] Dr. Virgil Tilley MD Work Phone: [facility] 12-10-2024 08:48-0400 Body mass index (BMI) [Ratio] 28.16 kg/m2 Rajiv Canada APRN.[employer] Work Phone: [facility] 12-10-2024 08:48-0400 Body weight 84 kg Rajiv Canada APRN.[employer] Work Phone: [facility] 12-10-2024 08:48-0400 Diastolic blood pressure 68 mm[Hg] Rajiv Canada FIELD CONTACT TECHNICIAN.[employer] Work Phone: [facility] 12-10-2024 08:48-0400 Heart rate 54 /min Rajiv Canada APRN.[employer] Work Phone: [facility] 12-10-2024 08:48-0400 Systolic blood pressure 133 mm[Hg] Rajiv Canada FIELD CONTACT TECHNICIAN.[employer] Work Phone: [facility] 04-16-2024 08:17-0400 Body mass index (BMI) [Ratio] 29.53 kg/m2 Keiko Brewer FIELD CONTACT TECHNICIAN.[employer] Work Phone: [facility] 04-16-2024 08:17-0400 Body weight 88.1 kg Keiko Brewer APRN.[employer] Work Phone: [facility] 04-16-2024 08:17-0400 Diastolic blood pressure 74 mm[Hg] Keiko Brewer FIELD CONTACT TECHNICIAN.[employer] Work Phone: [facility] 04-16-2024 08:17-0400 Heart rate 59 /min Keiko Podlogar FIELD CONTACT TECHNICIAN.[employer] Work Phone: [facility] 04-16-2024 08:17-0400 Respiratory rate 18 /min Keiko Podlogar FIELD CONTACT TECHNICIAN.[employer] Work Phone: [facility] 04-16-2024 08:17-0400 SaO2% (BldA) [Mass fraction] 98 % Keiko Podlogar FIELD CONTACT TECHNICIAN.[employer] Work Phone: [facility] 04-16-2024 08:17-0400 Systolic blood pressure 138 mm[Hg] Keiko Podlogar FIELD CONTACT TECHNICIAN.[employer] Work Phone: [facility] 10-17-2023 09:06-0500 Diastolic blood pressure 72 mm[Hg] Parth Tilley MD Work Phone: [facility] 10-17-2023 09:06-0500 Systolic blood pressure 138 mm[Hg] Parth Tilley MD Work Phone: [facility] 10-17-2023 08:33-0500 Body weight 88.18 kg Parth Tilley MD Work Phone: [facility] 10-17-2023 08:33-0500 Heart rate 60 /min Parth Tilley MD Work Phone: [facility] 10-17-2023 08:33-0500 Respiratory rate 18 /min Parth Tilley MD Work Phone: [facility] 10-17-2023 08:33-0500 SaO2% (BldA) [Mass fraction] 97 % Parth Tilley MD Work Phone: [facility] 04-14-2023 09:06-0400 Body height 172.7 cm Keiko Podlogar FIELD CONTACT TECHNICIAN.[employer] Work Phone: [facility] 04-14-2023 09:06-0400 Body weight 89.81 kg Keiko Podlogar FIELD CONTACT TECHNICIAN.[employer] Work Phone: [facility] 04-14-2023 09:06-0400 Diastolic blood pressure 74 mm[Hg] Keiko Podlogar FIELD CONTACT TECHNICIAN.[employer] Work Phone: [facility] 04-14-2023 09:06-0400 Heart rate 60 /min Keiko Podlogar FIELD CONTACT TECHNICIAN.[employer] Work Phone: [facility] 04-14-2023 09:06-0400 Respiratory rate 16 /min Keiko Podlogar FIELD CONTACT TECHNICIAN.[employer] Work Phone: [facility] 04-14-2023 09:06-0400 Systolic blood pressure 128 mm[Hg] Keiko Podlogar FIELD CONTACT TECHNICIAN.[employer] Work Phone: [facility] 10-14-2022 08:57-0500 Body weight 86.18 kg Parth Tilley MD Work Phone: [facility] 10-14-2022 08:57-0500 Diastolic blood pressure 60 mm[Hg] Parth Tilley MD Work Phone: [facility] 10-14-2022 08:57-0500 Heart rate 54 /min Parth Tilley MD Work Phone: [facility] 10-14-2022 08:57-0500 Respiratory rate 16 /min Parth Tilley MD Work Phone: [facility] 10-14-2022 08:57-0500 SaO2% (BldA) [Mass fraction] 98 % Parth Tilley MD Work Phone: [facility] 10-14-2022 08:57-0500 Systolic blood pressure 124 mm[Hg] Parth Tilley MD Work Phone: [facility] 06-21-2022 12:25-0400 Body temperature 97.2 [degF] Trinidad Willis FIELD CONTACT TECHNICIAN.[employer] Work Phone: [facility] 06-21-2022 12:25-0400 Body weight 87.36 kg Trinidad Willis FIELD CONTACT TECHNICIAN.[employer] Work Phone: [facility] 06-21-2022 12:25-0400 Diastolic blood pressure 88 mm[Hg] Trinidad Willis FIELD CONTACT TECHNICIAN.[employer] Work Phone: [facility] 06-21-2022 12:25-0400 Heart rate 56 /min Trinidad Willis FIELD CONTACT TECHNICIAN.[employer] Work Phone: [facility] 06-21-2022 12:25-0400 Respiratory rate 18 /min Trinidad Willis FIELD CONTACT TECHNICIAN.[employer] Work Phone: [facility] 06-21-2022 12:25-0400 SaO2% (BldA) [Mass fraction] 98 % Trinidad Willis FIELD CONTACT TECHNICIAN.[employer] Work Phone: [facility] 06-21-2022 12:25-0400 Systolic blood pressure 140 mm[Hg] Trinidad Willis FIELD CONTACT TECHNICIAN.[employer] Work Phone: [facility] 05-13-2022 13:57-0400 Body temperature 97.59 [degF] Aliya Moore FIELD CONTACT TECHNICIAN.[employer] Work Phone: [facility] 05-13-2022 13:57-0400 Body weight 88 kg Aliya Moore FIELD CONTACT TECHNICIAN.[employer] Work Phone: [facility] 05-13-2022 13:57-0400 Diastolic blood pressure 74 mm[Hg] Aliya Moore FIELD CONTACT TECHNICIAN.[employer] Work Phone: [facility] 05-13-2022 13:57-0400 Heart rate 66 /min Aliya Moore FIELD CONTACT TECHNICIAN.[employer] Work Phone: [facility] 05-13-2022 13:57-0400 Respiratory rate 16 /min Aliya Moore FIELD CONTACT TECHNICIAN.[employer] Work Phone: [facility] 05-13-2022 13:57-0400 SaO2% (BldA) [Mass fraction] 98 % Aliya Moore FIELD CONTACT TECHNICIAN.[employer] Work Phone: [facility] 05-13-2022 13:57-0400 Systolic blood pressure 124 mm[Hg] Aliya Moore FIELD CONTACT TECHNICIAN.[employer] Work Phone: [facility] 03-14-2022 10:53-0400 Body temperature 98.4 [degF] Becky Hart PA-C Work Phone: [facility] 03-14-2022 10:53-0400 Diastolic blood pressure 76 mm[Hg] Becky Athy PA-C Work Phone: [facility] 03-14-2022 10:53-0400 Heart rate 91 /min Becky Athy PA-C Work Phone: [facility] 03-14-2022 10:53-0400 Respiratory rate 18 /min Becky Athy PA-C Work Phone: [facility] 03-14-2022 10:53-0400 SaO2% (BldA) [Mass fraction] 98 % Becky Athy PA-C Work Phone: [facility] 03-14-2022 10:53-0400 Systolic blood pressure 128 mm[Hg] Becky Athy PA-C Work Phone: [facility] 03-11-2017 15:19-0400 BMI (Body Mass Index) 32.2 kg/m2 Shannon Quigley [facility] Work Phone: 03-11-2017 15:19-0400 BP Diastolic 50 mm[Hg] Shannonday Quigley [facility] Work Phone: 03-11-2017 15:19-0400 BP Systolic 100 mm[Hg] Shannon Quigley [facility] Work Phone: 03-11-2017 15:19-0400 Height 172.72 cm Shannon Quigley [facility] Work Phone: 03-11-2017 15:19-0400 Pulse (Heart Rate) 52 /min Shannon Quigley [facility] Work Phone: 03-11-2017 15:19-0400 Respiratory Rate 20 /min Shannon Quigley [facility] Work Phone: 03-11-2017 15:19-0400 Weight 96.07 kg Shannon Quigley [facility] Work Phone: 03-12-2016 09:32-0400 BMI (Body Mass Index) 32.22 kg/m2 Vesta Quevedojanice [facility] Work Phone: 03-12-2016 09:32-0400 BP Diastolic 54 mm[Hg] Vesta Mills [facility] Work Phone: 03-12-2016 09:32-0400 BP Systolic 100 mm[Hg] Vesta DeFinjanice [facility] Work Phone: 03-12-2016 09:32-0400 BSA (Body Surface Area) 2.1 m2 Harjean-pierre DeFinjanice [facility] Work Phone: 03-12-2016 09:32-0400 Pulse (Heart Rate) 52 /min Harjean-pierre DeFinjanice [facility] Work Phone: 03-12-2016 09:32-0400 Respiratory Rate 16 /min Vesta Mills [facility] Work Phone: 03-12-2016 09:32-0400 Weight 96.12 kg Vesta Mills [facility] Work Phone: 08-29-2015 10:26-0500 Heart rate 60 /min [facility] Work Phone: 02-17-2014 10:30-0400 Height 172.72 cm [facility] Work Phone: 07-08-2013 08:45-0400 Heart rate 440 ms [facility] Work Phone: Encounters Encounter Date Encounter Type Care Provider Facility Start: 03-17-2025 ambulatory Virgil Seo lity:[facility] Start: 02-09-2025 End: 02-09-2025 Telephone encounter Joanne Parker [facility] [place] Comment on above: Refill Request Start: 02-08-2025 End: 02-08-2025 Refill Joanne Parker [facility] [place] Comment on above: Refill Request Start: 01-20-2025 End: 01-20-2025 Refill Parth Tilley MD Work Phone: [facility] Comment on above: Refill Request Start: 01-17-2025 End: 01-17-[address] Virgil Tilley MD Work Phone: [facility] Work Phone: Start: 01-17-2025 End: 01-17-2025 Patient encounter procedure Jama Crowell PA -Laboratory Work Phone: Start: 01-17-2025 End: 01-17-2025 ambulatory Jama Cainfrancine Facility:[facility] Start: 12-24-2024 End: 12-24-2024 Patient encounter procedure Jama OHARA -[facility] Work Phone: Start: 12-24-2024 End: 12-24-2024 ambulatory Jama Crowell Facility:[facility] Start: 12-13-2024 End: 12-13-2024 Follow-up encounter Rajiv Canada APRN.CNP Work Phone: [facility] Start: 12-10-2024 Encounter for genera l adult medical examination without abnormal findings PARTH TIL[facility] Start: 12-10-2024 End: 12-10-2024 Patient encounter procedure Rajiv Canada APRN.CNP Work Phone: [facility] Comment on above: Wellness examination (Primary Dx); Type 2 diabetes mellitus with stage 3a chronic kidney disease, without long-term current use of insulin (HCC); Chronic kidney disease, stage 3a (HCC); Essential hypertension; Mixed hyperlipidemia; Coronary artery disease involving [place] heart without angina pectoris, unspecified vessel or lesion type Refill Request Start: 12-10-2024 End: 12-10-2024 Patient encounter status Rajiv Canada APRN.SPE[employer] FORCES MEDICAL SERGEANT Work Phone: [facility] Start: 12-10-2024 End: 12-10-2024 ambulatory PARTH TILLEY Facility:[facility] Start: 11-30-2024 End: 12-01-2024 Refill Joanne Parker [address] Comment on above: Refill Request; Futu re Appointment Start: 07-27-2024 End: 07-27-2024 Refill Parth Tilley MD Work Phone: [facility] Comment on above: Refill Request Start: 06-11-2024 End: 06-11-2024 Refill Parth Tilley MD Work Phone: [facility] [place] Comment on above: Refill Request Start: 05-22-2024 End: 05-24-2024 Refill Parth Tilley MD Work Phone: [address] [place] [address] Comment on above: Refill Request Start: 05-11-2024 ambulatory [facility] Facility:[facility] Start: 04-21-2024 Telephone encounter Keiko mckeon APRN.SPE[employer] MEDICAL SERGEANT Work Phone: [facility] [place] Comment on above: Results Start: 04-20-2024 End: 04-20-2024 ambulatory [facility] Facility:[facility] Start: 04-19-2024 Refill Parth Tilley MD Work Phone: [facility] [place] Comment on above: Refill Request Start: 04-16-2024 End: 04-16-2024 Patient encounter procedure Keiko Brewer APRN.[employer] MEDICAL SERGEANT Work Phone: [facility] [place] Comment on above: Essential hypertensi on (Primary Dx); Type 2 diabetes mellitus with stage 3a chronic kidney disease, without long-term current use of insulin (HCC); Mixed hyperlipidemia; Coronary artery disease involving [place] heart without angina pectoris, unspecified vessel or lesion type; Gout, unspecified cause, unspecified chronicity, unspecified site; Chronic kidney disease, stage 3a (HCC); Bilateral carotid artery stenosis Start: 04-16-2024 End: 04-16-2024 ambulatory [facility] Facility:[facility] Start: 12-26-2023 Telephone encounter Virgil Tilley MD Work Phone: [facility] Comment on above: Refill Request Start: 12-08-2023 Refill Parth Tilley MD Work Phone: [facility] [place] Comment on above: Refill Request Start: 11-14-2023 Refill Parth Tilley MD Work Phone: [facility] [place] Comment on above: Refill Request; Refi ll Request Start: 10-20-2023 Telephone encounter Virgil Tilley MD Work Phone: [facility] Comment on above: Results Start: 10-17-2023 End: 10-17-2023 Patient encounter procedure Parth Tilley MD Work Phone: [facility] Comment on above: Type 2 diabetes corby itus with stage 3a chronic kidney disease, without long-term current use of insulin (HCC) (Primary Dx); Essential hypertension; Mixed hyperlipidemia; Mild episode of recurrent major depressive disorder (HCC); Coronary artery disease involving [place] heart without angina pectoris, unspecified vessel or lesion type; Gout, unspecified cause, unspecified chronicity, unspecified site; Overweight with body mass index (BMI) of 29 to 29.9 in adult Start: 05-26-2023 Refill Parth Tilley MD Work Phone: Orthopaedics Start: 04-15-2023 Telephone encounter Keiko mckeon APRN.SPE[employer] MEDICAL SERGEANT Work Phone: [facility] Comment on above: Results Start: 04-14-2023 End: 04-14-2023 Patient encounter procedure Kekio Brewer APRN.[employer] MEDICAL SERGEANT Work Phone: [facility] Comment on above: Controlled type 2 di abetes mellitus without complication, without long-term current use of insulin (HCC) (Primary Dx); Mixed hyperlipidemia; Essential hypertension Start: 11-08-2022 Refill Parth Tilley MD Work Phone: [facility] Comment on above: Refill Request Start: 10-15-2022 Telephone encounter Keiko mckeon APRN.[employer] MEDICAL SERGEANT Work Phone: [facility] Comment on above: Results Start: 10-14-2022 End: 10-14-2022 Patient encounter procedure Parth Tilley MD Work Phone: [facility] Comment on above: Controlled type 2 di abetes mellitus without complication, without long-term current use of insulin (HCC) (Primary Dx); Essential hypertension; Gout, unspecified cause, unspecified chronicity, unspecified site; Mild episode of recurrent major depressive disorder (HCC); Mixed hyperlipidemia; Coronary artery disease involving [place] heart without angina pectoris, unspecified vessel or lesion type; Systolic ejection murmur; Type 2 diabetes mellitus with stage 3a chronic kidney disease, without long-term current use of insulin (HCC); Thrombocytopenia (HCC); Chronic kidney disease, stage 3a (HCC) Start: 09-30-2022 Refill Parth Tilley MD Work Phone: [facility] Comment on above: Refill Request (90 d ays - out of medication) Start: 09-28-2022 Nurse Triage Mirian leyva LPN NURSE GAS FITTER HELPER Comment on above: Refill Request Start: 08-27-2022 Refill Parth Tilley MD Work Phone: [facility] Comment on above: Refill Request Start: 07-26-2022 Refill Parth Tilley MD Work Phone: [facility] Comment on above: Refill Request; Appo intment (patient past due for follow up visit needs to schedule an appointment- msg left) Start: 06-21-2022 End: 06-21-2022 Patient encounter procedure Trinidad Willis FIELD CONTACT TECHNICIAN.SPE[employer]CES MEDICAL SERGEANT Work Phone: [facility] Comment on above: Acute gout of right ankle, unspecified cause (Primary Dx) Start: 05-14-2022 Refill Parth Tilley MD Work Phone: [facility] Comment on above: Refill Request Start: 05-13-2022 End: 05-13-2022 Patient encounter procedure Aliya Moore APRN.SPE[employer]CES MEDICAL SERGEANT Work Phone: [facility] Comment on above: Acute gout of right ankle, unspecified cause (Primary Dx) Start: 04-11-2022 ambulatory Ani De Leon [facility] Comment on above: Population Health [facility] ([facility]) Start: 03-14-2022 End: 03-14-2022 Refill Becky Hart PA-C Work Phone: [facility] Comment on above: Refill Request Acute gout of left f oot, unspecified cause (Primary Dx) Start: 01-14-2022 Telephone encounter Virgil Tilley MD Work Phone: [facility] [place] Comment on above: Blood Pressure Check Start: 12-31-2021 Telephone encounter Keiko Soraida mckeon APRN.SPE[employer]CES MEDICAL SERGEANT Work Phone: Family [facility] [place] Comment on above: EKG Start: 12-21-2021 Refill Parth Tilley MD Work Phone: [facility] [place] Comment on above: Refill Request Start: 12-10-2021 Refill Parth Tilley MD Work Phone: [facility] [place] Comment on above: Refill Request Procedures Date Procedure Procedure Detail Performing Clinician Start: 12-24-2024 Evaluation of diagno stic study results Dr. Virgil Tilley MD Work Phone: Start: 03-12-2016 End: 03-12-2016 Dietary management education, guidance, and counseling Shannon Quigley Start: 03-12-2016 End: 03-12-2016 Follow Up Appt 1 year Isaiah Samaniego MD Start: 03-12-2016 End: 03-12-2016 MMM Isaiah Samaniego MD Start: 08-29-2015 End: 08-29-2015 [facility] [employer] Meredith Charles PA-C Work Phone: Start: 08-29-2015 End: 08-29-2015 Electrocardiogram, complete Meredith Charles PA-C Work Phone: Start: 08-29-2015 End: 08-29-2015 Follow Up Appt 6 months Meredith Charles PA-C Work Phone: Start: 08-29-2015 End: 08-29-2015 Follow Up BP Check Meredith Charles PA-C Work Phone: Start: 02-28-2015 End: 03-01-2015 Documentation of current medications Isaiah Samaniego MD Start: 02-28-2015 End: 02-28-2015 Follow Up Appt 6 months Yo Adam Start: 02-28-2015 End: 02-28-2015 DEEPA Samaniego MD Start: 08-19-2014 End: 08-19-2014 DEL[employer] Meredith Charles PA-C Work Phone: Start: 08-19-2014 End: 08-19-2014 Electrocardiogram, complete Meredith Charles PA-C Work Phone: Start: 08-19-2014 End: 08-19-2014 Follow Up Appt 6 months Meredith Charles PA-C Work Phone: Start: 08-19-2014 End: 08-17-2015 Follow Up Appt Other Meredith Charles PA-C Work Phone: Start: 02-17-2014 End: 02-17-2014 Follow Up Appt 6 months Yo Adam Start: 02-17-2014 End: 02-17-2014 DEEPA Samaniego MD Start: 07-08-2013 End: 07-08-2013 DEL[employer] Meredith Charles PA-C Work Phone: Start: 07-08-2013 End: 07-08-2013 Electrocardiogram, complete Meredith Charles PA-C Work Phone: Start: 07-08-2013 End: 07-08-2013 Follow Up Appt 6 months Meredith Charles PA-C Work Phone: Start: 12-25-2012 End: 12-25-2012 Follow Up Appt 6 months Yo Adam Start: 12-25-2012 End: 12-25-2012 DEEPA Samaniego MD Start: 10-22-2011 End: 10-22-2011 Follow Up Appt 1 year Isaiah Samaniego MD Start: 01-16-2011 Placement of stent i n coronary artery Coronary stent Shannon Quigley Start: 08-05-2004 History of placement of stent for coronary artery disease History of coronary artery stent placement Jama OHARA Comment on above: 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 Start: 12-10-2025 Covid-19 Vaccine ( season) Covid-19 Vaccine () [facility] Comment on above: Postponed from 05/16 (Declined at this time) Start: 12-10-2025 Pneumococcal Vaccine : 50+ (1 of 2 - PCV) Pneumococcal Vaccine: 50+ (1 of 2 - PCV) [facility] Comment on above: Postponed from 12/29 (Declined at this time) Start: 12-10-2025 RSV Vaccine (1 - 1-d ose 75+ series) RSV Vaccine (1 - 1-dose 75+ series) [facility] Comment on above: Postponed from 12/29 (Declined at this time) Start: 12-10-2025 Shingrix Vaccine (1 of 2) Shingrix Vaccine (1 of 2) [facility] Comment on above: Postponed from 12/29 (Declined at this time) Start: 06-12-2025 Hemoglobin A1c measurement HbA1C [facility] Start: 05-16-2025 Influenza vaccination Influenz a Vaccine (Season Ended) [facility] Start: 04-20-2025 Hepatitis B screening Urine Al bumin:Creatinine Ratio [facility] Start: 04-20-2025 Hepatitis B surface antibody level LDL Cholesterol [facility] Start: 04-16-2025 Diabetic foot examination Diabetic Foot Exam [facility] Start: 03-14-2025 Influenza vaccination Influenza Vacc ine (#1) [facility] Comment on above: Postponed from 05/16 (Declined at this time) Start: 12-10-2024 End: 03-11-2025 Comprehensive metabolic 2000 panel - Serum or Plasma [facility] Comment on above: Expected: 12/10/2024 , Expires: 03/11/2025 Start: 12-10-2024 End: 03-11-2025 Hemoglobin A1c in Blood 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 Start: 10-17-2024 Covid-19 Vaccine ( season) Covid-19 Vaccine ( season) [facility] Comment on above: Postponed from 05/16 (Declined at this time) Start: 10-17-2024 Creatinine measurement Serum Creatin ine [facility] Start: 10-17-2024 Glaucoma screening Dilated Retinal E xam [facility] Comment on above: Postponed from 05/31 (Declined at this time) Start: 10-17-2024 Pneumococcal Vaccine : 65+ (1 of 2 - PCV) Pneumococcal Vaccine: 65+ (1 of 2 - PCV) [facility] Comment on above: Postponed from 12/29 (Declined at this time) Start: 10-17-2024 RSV Vaccine (1 - 1-d ose 60+ series) RSV Vaccine (1 - 1-dose 60+ series) [facility] Comment on above: Postponed from 12/29 (Declined at this time) Start: 10-17-2024 RSV Vaccine (1 - 1-d ose 75+ series) RSV Vaccine (1 - 1-dose 75+ series) [facility] Comment on above: Postponed from 12/29 (Declined at this time) Start: 10-17-2024 Shingrix Vaccine (1 of 2) Shingrix Vaccine (1 of 2) [facility] Comment on above: Postponed from 12/29 (Declined at this time) Start: 09-15-2024 Advance Directive Discussion Advance Directive Discussion [facility] Start: 07-22-2024 End: 10-21-2024 Comprehensive metabolic 2000 panel - Serum or Plasma COMPREHENSIVE METABOLIC PANEL Lab Routine Chronic kidney disease, stage 3a ([facility]) Expected: 07/22/2024, Expires: 10/21/[address] [facility] Work Phone: Comment on above: Expected: 07/22/2024 , Expires: 10/21/2024 Start: 05-16-2024 Covid-19 Vaccine ( season) Covid-19 Vaccine ( season) [facility] Start: 05-16-2024 Covid-19 Vaccine ( season) Covid-19 Vaccine () [facility] Start: 05-16-2024 Influenza vaccination C [facility] Start: 05-13-2024 End: 05-13-2024 Patient encounter procedure 05/13/2024 9:00 AM EDT Office Visit [facility] [address] [place] [address] Bilateral carotid artery stenosis [I65.23] [facility] Comment on above: Bilateral carotid ar jessie stenosis [I65.23] Start: 04-23-2024 End: 07-23-2024 CBC W Auto Differential panel - Blood COMPLETE BLOOD COUNT AND DIFFERENTIAL Lab Routine Type 2 diabetes mellitus with stage 3a chronic kidney disease, without long-term current use of insulin ([facility]) Expected: 04/23/2024, Expires: 07/23/2024 [facility] Comment on above: Expected: 04/23/2024 , Expires: 07/23/2024 Start: 04-23-2024 End: 07-23-2024 Comprehensive metabolic 2000 panel - Serum or Plasma COMPREHENSIVE METABOLIC PANEL Lab Routine Type 2 diabetes mellitus with stage 3a chronic kidney disease, without long-term current use of insulin ([facility]) Essential hypertension Mixed hyperlipidemia Chronic kidney disease, stage 3a (HCC) Expected: 04/23/2024, Expires: 07/23/2024 [facility] Comment on above: Expected: 04/23/2024 , Expires: 07/23/2024 Start: 04-23-2024 End: 07-23-2024 Hemoglobin A1c in Blood HEMOGLOBIN A1C Lab Routine Type 2 diabetes mellitus with stage 3a chronic kidney disease, without long-term current use of insulin (HCC) Expected: 04/23/2024, Expires: 07/23/2024 [facility] Comment on above: Expected: 04/23/2024 , Expires: 07/23/2024 Start: 04-23-2024 End: 07-23-2024 Lipid 1996 panel - Serum or Plasma LIPID PANEL BASIC Lab Routine Mixed hyperlipidemia Expected: 04/23/2024, Expires: 07/23/[address] [facility] Work Phone: Comment on above: Expected: 04/23/2024 , Expires: 07/23/2024 Start: 04-23-2024 End: 07-23-2024 Microalbumin/Creatinine [Mass Ratio] in Urine ALBUMIN/CREATININE RATIO, URINE Lab Routine Type 2 diabetes mellitus with stage 3a chronic kidney disease, without long-term current use of insulin (HCC) Expected: 04/23/2024, Expires: 07/23/2024 [facility] Comment on above: Expected: 04/23/2024 , Expires: 07/23/2024 Start: 04-16-2024 Hemoglobin A1c measurement HbA1C [facility] Start: 04-14-2024 3 comp foot exam completed DIABETIC FOOT EXAM 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 Start: 04-14-2024 BP CONTROLLED (<130/80) BP CONTROLLE D (<130/80) [facility] Start: 04-14-2024 Complete blood count Hemoglobin/Brennan tocrit [facility] Start: 04-14-2024 Creatinine measurement Serum Creatin ine [facility] Start: 04-14-2024 Diabetic foot examination Diabetic Foot Exam [facility] Start: 04-14-2024 HEMOGLOBIN/HEMATOCRIT HEMOGLOBIN/HEM ATOCRIT [facility] Start: 04-14-2024 Hepatitis B screening URINE AL BUMIN:CREATININE RATIO [facility] Start: 04-14-2024 Hepatitis B surface antibody level LDL CHOLESTEROL [facility] Start: 04-14-2024 SERUM CREATININE SERUM CREATININE [facility] Start: 03-14-2024 Influenza vaccination Influenza Vacc ine (#1) [facility] Comment on above: Postponed from 05/16 (Declined at this time) Start: 10-29-2023 BP CONTROLLED (<130/80) BP CONTROLLE D (<130/80) [facility] Start: 10-17-2023 End: 01-16-2024 Comprehensive metabolic 2000 panel - Serum or Plasma [facility] Work Phone: Comment on above: Expected: 10/17/2023 , Expires: 01/16/2024 Start: 10-17-2023 End: 01-16-2024 Hemoglobin A1c in Blood [facility] Work Phone: Comment on above: Expected: 10/17/2023 , Expires: 01/16/2024 Start: 10-15-2023 Hemoglobin A1c measurement HbA1C [facility] Start: 10-15-2023 Hemoglobin A1c/Hemoglobin.total in Blood HBA1C [facility] Start: 10-14-2023 ANNUAL PCP TEAM COLLEGE SERVICE OFFICER RA DISEASE VISIT ANNUAL PCP TEAM CHRONIC DISEASE VISIT [facility] Start: 10-14-2023 BP CONTROLLED (<130/80) BP CONTROLLE D (<130/80) [facility] Start: 10-14-2023 COVID-19 VACCINE (3 - Booster for Pfizer series) COVID-19 VACCINE (3 - Booster for Pfizer series) [facility] Comment on above: Postponed from 03/02 (Declined at this time) Start: 10-14-2023 COVID-19 VACCINE (3 - Pfizer series) COVID-19 VACCINE (3 - Pfizer series) [facility] Comment on above: Postponed from 03/02 (Declined at this time) Start: 10-14-2023 PNEUMOCOCCAL: 65+ (1 - PCV) PNEUMOCOCCAL: 65+ (1 - PCV) [facility] Comment on above: Postponed from 12/29 (Declined at this time) Start: 10-14-2023 SERUM CREATININE SERUM CREATININE [facility] Start: 10-14-2023 SHINGRIX VACCINE (1 of 2) SHINGRIX VACCINE (1 of 2) [facility] Comment on above: Postponed from 12/29 (Declined at this time) Start: 09-15-2023 Advance Directive Discussion Advance Directive Discussion [facility] Start: 05-16-2023 Influenza vaccination INFLUENZA (#1) [facility] Start: 05-13-2023 BP CONTROLLED (<130/80) BP CONTROLLE D (<130/80) [facility] Start: 04-14-2023 End: 06-14-2023 ALBUMIN/CREAT RATIO RND UR [facility] Work Phone: Comment on above: Expected: 04/14/2023 , Expires: 06/14/2023 Start: 04-14-2023 End: 06-14-2023 Comprehensive metabolic 2000 panel - Serum or Plasma [facility] Work Phone: Comment on above: Expected: 04/14/2023 , Expires: 06/14/2023 Start: 04-14-2023 End: 06-14-2023 Hemoglobin A1c in Blood [facility] Work Phone: Comment on above: Expected: 04/14/2023 , Expires: 06/14/2023 Start: 04-14-2023 End: 06-14-2023 Lipid 1996 panel - Serum or Plasma [facility] Work Phone: Comment on above: Expected: 04/14/2023 , Expires: 06/14/2023 Start: 04-13-2023 Hemoglobin A1c/Hemoglobin.total in Blood HBA1C [facility] Start: 03-14-2023 BP CONTROLLED (<130/80) BP CONTROLLE D (<130/80) [facility] Start: 03-14-2023 Influenza vaccination INFLUENZA (#1) [facility] Comment on above: Postponed from 05/16 (Declined at this time) Start: 12-31-2022 3 comp foot exam completed DIABETIC FOOT EXAM [facility] Start: 12-31-2022 ANNUAL PCP TEAM COLLEGE SERVICE OFFICER RA DISEASE VISIT ANNUAL PCP TEAM CHRONIC DISEASE VISIT [facility] Start: 12-27-2022 HEMOGLOBIN/HEMATOCRIT HEMOGLOBIN/HEM [facility] Start: 12-27-2022 Hepatitis B screening URINE AL BUMIN:CREATININE RATIO [facility] Start: 12-27-2022 Hepatitis B surface antibody level LDL CHOLESTEROL [facility] Start: 12-27-2022 SERUM CREATININE SERUM CREATININE [facility] Start: 09-15-2022 ADVANCE DIRECTIVE DISCUSSION ADVANCE DIRECTIVE DISCUSSION [facility] Start: 06-28-2022 Hemoglobin A1c/Hemoglobin.total in Blood HBA1C [facility] Start: 05-16-2022 Influenza vaccination C [facility] Start: 12-25-2021 ANNUAL PCP TEAM COLLEGE SERVICE OFFICER RA DISEASE VISIT ANNUAL PCP TEAM CHRONIC DISEASE VISIT [facility] Start: 12-25-2021 HEMOGLOBIN/HEMATOCRIT HEMOGLOBIN/HEM [facility] Start: 12-25-2021 Hepatitis B screening URINE AL BUMIN:CREATININE RATIO [facility] Start: 12-25-2021 Hepatitis B surface antibody level LDL CHOLESTEROL 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 Work Phone: Comment on above: Expected: 12/21/2021 , Expires: 02/20/2022 Start: 12-21-2021 End: 02-20-2022 Urate [Mass/volume] in Serum or Plasma URIC ACID BLOOD Lab Routine Acute gout of ankle, unspecified cause, unspecified laterality Expected: 12/21/2021, Expires: 02/20/[address] [facility] Work Phone: Comment on above: Expected: 12/21/2021 , Expires: 02/20/2022 Start: 09-15-2021 ADVANCE DIRECTIVE DISCUSSION ADVANCE DIRECTIVE DISCUSSION [facility] Start: 06-26-2021 Hemoglobin A1c/Hemoglobin.total in Blood HBA1C [facility] Start: 06-07-2021 COVID-19 VACCINE (3 - Booster for Pfizer series) COVID-19 VACCINE (3 - Booster for Pfizer series) [facility] Start: 05-25-2021 3 comp foot exam completed DIABETIC FOOT EXAM [facility] Start: 05-16-2021 Influenza vaccination INFLUENZA (#1) [facility] Start: 03-02-2021 COVID-19 VACCINE (3 - Booster for Pfizer series) COVID-19 VACCINE (3 - Booster for Pfizer series) [facility] Start: 05-31-2020 Glaucoma screening Dilated Retinal E xam [facility] Start: 05-31-2020 Hepatitis C antibody , confirmatory test DILATED RETINAL EXAM [facility] Start: 03-12-2018 End: 03-12-2018 Appointment Appointment [employer] Phone: Start: 2017 RSV Vaccine (1 - 1-d ose 75+ series) RSV Vaccine (1 - 1-dose 75+ series) [facility] [facility] Start: 03-11-2017 End: 03-11-2017 Appointment Appointment [employer] Phone: Start: 03-11-2017 End: 03-12-2017 *Hepatic Function Panel *Hepatic Function Panel [facility] Work Phone: Start: 03-11-2017 End: 03-12-2017 [facility] Work Phone: Start: 03-11-2017 End: 03-12-2017 Follow Up Appt 1 year Follow Up Appt 1 year [facility] Work Phone: Start: 03-11-2017 End: 03-12-2017 Lipid panel [AGGREGATE] *Lipid Profile CC PCP [facility] Work Phone: Start: 03-12-2016 End: 03-12-2016 Follow Up Appt 1 year Follow Up Appt 1 year [facility] Work Phone: Start: 03-12-2016 End: 03-12-2016 MMM MMM [employer] Work Phone: Start: 08-29-2015 End: 08-29-2015 [facility] Work Phone: Start: 08-29-2015 End: 08-29-2015 Electrocardiogram, complete EKG (In office) [employer] Work Phone: Start: 08-29-2015 End: 08-29-2015 Follow Up Appt 6 months Follow Up Appt 6 months [facility] Work Phone: Start: 08-29-2015 End: 08-29-2015 Follow Up BP Check Follow Up BP Check [facility] Work Phone: Start: 02-28-2015 End: 02-28-2015 Follow Up Appt 6 months Follow Up Appt 6 months [facility] Work Phone: Start: 02-28-2015 End: 02-28-2015 MMM MMM [facility] Work Phone: Start: 08-19-2014 End: 08-19-2014 [facility] Work Phone: Start: 08-19-2014 End: 08-19-2014 Electrocardiogram, complete EKG (In office) [facility] Work Phone: Start: 08-19-2014 End: 08-19-2014 Follow Up Appt 6 months Follow Up Appt 6 months [facility] Work Phone: Start: 08-19-2014 End: 08-17-2015 Follow Up Appt Other Follow Up Appt Other [facility] Work Phone: Start: 02-17-2014 End: 02-17-2014 Follow Up Appt 6 months Follow Up Appt 6 months [facility] Work Phone: Start: 02-17-2014 End: 02-17-2014 MMM MMM [facility] Work Phone: Start: 07-08-2013 End: 07-08-2013 [facility] Work Phone: Start: 07-08-2013 End: 07-08-2013 Electrocardiogram, complete EKG (In office) [facility] Work Phone: Start: 07-08-2013 End: 07-08-2013 Follow Up Appt 6 months Follow Up Appt 6 months [facility] Work Phone: Start: 12-25-2012 End: 12-25-2012 Follow Up Appt 6 months Follow Up Appt 6 months [facility] Work Phone: Start: 12-25-2012 End: 12-25-2012 MMM MMM [facility] Work Phone: Start: 10-22-2011 End: 10-22-2011 Follow Up Appt 1 year Follow Up Appt 1 year [facility] Work Phone: Start: 1992 SHINGRIX VACCINE (1 of 2) SHINGRIX VACCINE (1 of 2) [facility] Start: 1961 Pneumococcal Vaccine : 50+ (1 of 2 - PCV) Pneumococcal Vaccine: 50+ (1 of 2 - PCV) [facility] Start: 1960 Anxiety Screening Anxiety Screening [facility] Start: 1960 BP CONTROLLED (<130/80) BP CONTROLLE D (<130/80) [facility] Start: 1948 PNEUMOCOCCAL: 65+ (1 - PCV) PNEUMOCOCCAL: 65+ (1 - PCV) [facility] NM Heart Views W str ess and W radionuclide IV [facility] End: 04-16-2025 US Carotid arteries - bilateral US CAROTID ARTERIES [facility] Routine Bilateral carotid artery stenosis 1 Occurrences starting 04/16/2024 until 04/16/2025 [facility] Comment on above: 1 Occurrences starti ng 04/16/2024 until 04/16/2025 [facility] Immunizations Immunization Date Immunization Notes Care Provider Ana babb 12-15-2020 COVID-19 vaccine, ag e 12+ yr (PFIZER-BIONTECH - PURPLE TOP) Parth Tilley MD Work Phone: [facility] Work Phone: 05-24-2019 influenza virus vaccine, unspecified formulation Parth Tilley MD Work Phone: [facility] Payers Date Payer Category Payer Self-pay 2017 Private Health Insurance [facility] CHOICE PLUS [id number] 2017-Present [phone] [address] [place] [address] [facility] [id number] 2017 Private Health Insurance [id number] 2017 Self-pay [id number] 2007 Medicare MEDICARE MEDICAR E A AND B [id number] 2007-Present [phone] [address] [address] [place] [address] Medicare [id number] 2007 Medicare [id number] 2007 Medicare [id number] Unknown ANTHEM [id number] Unknown [id number] Unknown [id number] Unknown [id number] Unknown [id number] Social History Date Type Detail Facility Start: 05-13-2022 End: 12-24-2024 Tobacco smoking status NHIS Ex-smoker [facility] End: 11-19-1987 History of tobacco use Current smoker [facility] End: 11-19-1987 History of tobacco use Cigarette Smoker [facility] Start: 11-07-2021 End: 04-16-2024 Alcohol intake Current non-drinker of alcohol (finding) [facility] Start: 11-18-2017 End: 05-13-2022 Tobacco Comment light smoker, short period of time [facility] Start: 1940 Sex Assigned At Not on file [facility] Start: 12-14-2021 End: 03-14-2022 Exposure to SARS-CoV-2 (event) Not sure [facility] Start: 05-13-2022 Tobacco use and exposure Former smokeless tobacco user [facility] Work Phone: Start: 12-18-2018 End: 04-14-2023 History of Social function [facility] Start: 12-18-2018 End: 04-14-[address] [facility] Adult Depression Screening Assessment 0 [facility] Start: 1940 Sex Assigned At Male W [facility] Functional Status Date Assessment Result Facility 07-02-2016 Are you deaf, or do you have serious difficulty hearing No 07/02/2016 1:59 PM EDT Usha Pressley, DO No [facility] 07-02-2016 Are you blind, or do you have serious difficulty seeing, even when wearing glasses No 07/02/2016 1:59 PM EDT Usha Pressley, DO No [facility] 07-02-2016 Do you have serious difficulty walking or climbing stairs No 07/02/2016 1:59 PM EDT Usha Pressley, DO No [facility] 07-02-2016 Do you have difficul ty dressing or bathing No 07/02/2016 1:59 PM EDT Usah Pressley, DO No [facility] 07-02-2016 Because of a physica l, mental, or emotional condition, do you have difficulty doing errands alone such as visiting a physician's office or shopping No 07/02/2016 1:59 PM EDT Usha Pressley, DO No [facility] Mental Status Date Assessment Result Facility 07-02-2016 Because of a physica l, mental, or emotional condition, do you have serious difficulty concentrating, remembering, or making decisions No 07/02/2016 1:59 PM EDT Usha Pressley DO No [facility] Clinical Notes 05-31-2019 to 02-09-2025 Telephone Encounter - Pao Padron LPN - 02/09/2025 2:57 PM EDTTelephone Encounter - Pao Padron LPN - 02/09/2025 2:57 PM EDTTelephone Encounter - Joanne Parker PSS - 02/09/2025 11:45 AM EDT Note Date & Type Note Facility 02-09-2025 Telephone encount er Note Phoned patient and updated him. Pao Padron LPN [facility] 02-09-2025 Miscellaneous Notes Formattin g of this note might be different from the original. Phoned patient and updated him. Pao Padron LPN Rx sent as requested. Patient needs to renew Allopurinol, but I do not see it on the medication list for the patient. Patient states he has been on this medication for awhile. He would [facility] the medication [facility] go [facility]. Please advise. documented in this encounter [facility] 02-09-2025 Telephone encount er Note Rx sent as requested. [facility] 02-09-2025 Telephone encount er Note Patient needs to renew Allopurinol, but I do not see it on the medication list for the patient. Patient states he has been on this medication for awhile. He would like the medication to go to [facility]. Please advise. [facility] 02-08-2025 Telephone encount er Note Prescription Refill Information The patient has been identified by name and date of : Yes Caregiver verified no other encounters exist for this prescription request: Yes Caregiver confirmed with patient/requestor that no other refills are due, in the near future, with this provider at this time: Yes The last office visit in the department: 12/10/2024 Does the patient have a future office visit with this provider/department: No Requested Prescriptions Pending Prescriptions Disp Refills clopidogrel (PLAVIX) 75 mg tablet 90 tablet 1 Sig: Take 1 tablet by mouth once daily. ALETA Cuba February 08, 2025 9:[address] [facility] 02-08-2025 Miscellaneous Notes Formattin g of this note is different from the original. Prescription Refill Information The patient has been identified by name and date of : Yes Caregiver verified no other encounters exist for this prescription request: Yes Caregiver confirmed with patient/requestor that no other refills are due, in the near future, with this provider at this time: Yes The last office visit in the department: 12/10/2024 Does the patient have a future office visit with this provider/department: No Requested Prescriptions Pending Prescriptions Disp Refills clopidogrel (PLAVIX) 75 mg tablet 90 tablet 1 Sig: Take 1 tablet by mouth once daily. ALETA [place] February 08, 2025 9:23 AM documented in this encounter [facility] 01-20-2025 Telephone encount er Note Prescription Refill Information The patient has been identified by name and date of : Yes Caregiver verified no other encounters exist for this prescription request: Yes Caregiver confirmed with patient/requestor that no other refills are due, in the near future, with this provider at this time: Yes The last office visit in the department: 12/10/2024 Does the patient have a future office visit with this provider/department: No Requested Prescriptions Pending Prescriptions Disp Refills atorvastatin (LIPITOR) 40 mg tablet 15 tablet 0 Sig: Take 0.5 tablets by mouth once daily. Lenka Arce January 20, 2025 2:[address] [facility] 01-20-2025 Miscellaneous Notes Formattin g of this note is different from the original. Prescription Refill Information The patient has been identified by name and date of : Yes Caregiver verified no other encounters exist for this prescription request: Yes Caregiver confirmed with patient/requestor that no other refills are due, in the near future, with this provider at this time: Yes The last office visit in the department: 12/10/2024 Does the patient have a future office visit with this provider/department: No Requested Prescriptions Pending Prescriptions Disp Refills atorvastatin (LIPITOR) 40 mg tablet 15 tablet 0 Sig: Take 0.5 tablets by mouth once daily. Lenka Arce January 20, 2025 2:56 PM documented in this encounter [facility] 12-24-2024 Evaluation note Diagnosis Onset Date Resolution Atherosclerotic heart disease of [place] coronary artery without angina pectoris chronic December 24, 2024 12:57pm Essential (primary) hypertension chronic December 24, 2024 12:57pm Hyperlipidemia chronic December 12:57pm Sinus bradycardia chronic December 142024 12:57pm History of coronary artery stent placement August 05, 2004 resolved December 24, 2024 12:57pm Hypotension noneactive December 24, 2024 12:57pm [facility] Work Phone: [phone]) 659-802603-31-2025 Telephone encounter Note* Telephone Encounter - Neeta Molina MA - 12/13/2024 9:27 AM EDT Pt notified and verbalized understanding Neeta Molina MA [facility]03-31-2025 Miscellaneous Notes* Telephone Encounter - Neeta Molina MA - 12/13/2024 9:27 AM EDT Pt notified and verbalized understanding Neeta Molina MA * Telephone Encounter - Rajiv Canada APRN.CNP - 12/13/2024 8:04 AM EDT Please let patient know his kidney function has improved. His hgba1c is slightly worse but still controlled. [facility] Telephone encounter Note * Telephone Encounter - Rajiv Canada APRN.CNP - 12/13/2024 8:04 AM EDT Please let patient know his kidney function has improved. His hgba1c is slightly worse but still controlled. [facility]03-28-2025 Telephone encounter Note* Telephone Encounter - Berenice Ramos - 12/10/2024 11:33 AM EDT Prescription Refill Information The patient has been identified by name and date of : Yes Caregiver verified no other encounters exist for this prescription request: Yes Caregiver confirmed with patient/requestor that no other refills are due, in the near future, with this provider at this time: Yes The last office visit in the department: 12/10/2024 Does the patient have a future office visit with this provider/department: No Requested Prescriptions Pending Prescriptions Disp Refills metFORMIN (GLUCOPHAGE) 500 mg tablet 180 tablet 1 Sig: Take 1 tablet by mouth two times a day with meals. . Berenice aRmos December 10, 2024 11:[address] [facility]03-28-2025 Miscellaneous Notes* Telephone Encounter - Berenice Ramos - 12/10/2024 11:33 AM EDT Prescription Refill Information The patient has been identified by name and date of : Yes Caregiver verified no other encounters exist for this prescription request: Yes Caregiver confirmed with patient/requestor that no other refills are due, in the near future, with this provider at this time: Yes The last office visit in the department: 12/10/2024 Does the patient have a future office visit with this provider/department: No Requested Prescriptions Pending Prescriptions Disp Refills metFORMIN (GLUCOPHAGE) 500 mg tablet 180 tablet 1 Sig: Take 1 tablet by mouth two times a day with meals. . Berenice Ramos December 10, 2024 11:33 AM [facility] NoteHNO ID: [id number] Author: RAJIV CANADA APRN.[employer] Service: ? Author Type: Nurse Practitioner Type: Progress Notes Filed: 12/10/2024 09:37 Note Text: Chief Complaint No chief complaint on file. HPI Greg Moore is a 83 year old male who presents here today for Above Complaints.. Patient presents today for 6 month follow up. Patient states on Friday he was feeling tired and took his blood pressure which was 88/48 with HR of 45 to 50. Patient states he called his production bow maker who stopped his lisinopril and held his metop for one day. Patient states he is feeling better now, not feeling tired not dizzy or light headed. Patient states he does not take his blood pressures often. Patient headaches, chest pain and SOB. Past medical history, appointments, medications, allergies reviewed. Previous Medical History PAST MEDICAL HISTORY Diagnosis Date Bilateral carotid artery stenosis mild CKD (chronic kidney disease), stage III (HCC) Coronary artery disease s/p PCI 2003 [facility] -- sees Dr. Samaniego Depression Elevated LFTs Gout Hypertension Insomnia Mixed hyperlipidemia Obesity (BMI 30.0-34.9) Systolic ejection murmur Thrombocytopenia (HCC) Type II diabetes mellitus (HCC) Previous Surgical History PAST SURGICAL HISTORY Procedure Laterality Date COLONOSCOPY 2016 Dr. Aggarwal, normal INGUINAL HERNIA REPAIR HX Left REPAIR OF HYDROCELE Bilateral STENT PLACEMENT KAILYN [facility] 2003 (cardiac) Family History FAMILY HISTORY Problem Relation Age of Onset Coronary Artery Disease Mother Diabetes Mother Cancer Father throat Patient Allergies ALLERGIES No Known Allergies Current Medications Current Outpatient Medications on File Prior to Visit Medication Sig atorvastatin (LIPITOR) 40 mg tablet Take 0.5 tablets by mouth once daily. allopurinol (ZYLOPRIM) 300 mg tablet Take 1 tablet by mouth once daily. For gout. metFORMIN (GLUCOPHAGE) 500 mg tablet Take 1 tablet by mouth two times a day with meals. . lisinopril (ZESTRIL) 30 mg tablet Take 1 tablet by mouth once daily. clopidogrel (PLAVIX) 75 mg tablet Take 1 tablet by mouth once daily. nitroglycerin sublingual (NITROSTAT) 0.4 mg SL tablet Dissolve 1 tablet under the tongue every 5 minutes as needed for chest pain. metoprolol tartrate, short acting, (LOPRESSOR) 25 mg tablet Take 0.5 tablets by mouth twice daily. aspirin, enteric coated (ECOTRIN LOW STRENGTH) 81 mg EC tablet Take 1 tablet by mouth once daily. No current facility-administered medications on file prior to visit. Social History Social History Tobacco Use Smoking status: Former Current packs/day: 0.00 Types: Cigarettes Quit date: 11/19/1987 Years since quittin.0 Smokeless tobacco: Former Tobacco comments: light smoker, short period of time Substance Use Topics Alcohol use: No Drug use: No Review of Symptoms REVIEW OF SYSTEMS GENERAL: No weight loss, malaise or fevers RESPIRATORY: Negative for cough, hemoptysis, wheezing, COPD, dyspnea or shortness of breath CARDIOVASCULAR: Negative for chest pain, leg swelling, hypertension, CHF or palpitations EXAM: BP 133/68 Pulse (!) 54 Wt 84 kg (185 lb 3 oz) BMI 28.16 kg/m? General Appearance: Well appearing, alert, in no acute distress, well-hydrated, well nourished.. Lungs: Lungs clear to auscultation. No wheezing, rhonchi, rales.. Heart: RRR without murmur, gallop, or rubs. No ectopy. Health Maintenance List Anxiety Screening Never done Pneumococcal Vaccine: 50+(1 of 2 - PCV) Never done Shingrix Vaccine(1 of 2) Never done RSV Vaccine(1 - 1-dose 75+ series) Never done Dilated Retinal Exam due on 05/31/2020 Influenza Vaccine(1) due on 05/16/2024 Covid-19 Vaccine(3 - 2023- season) due on 05/16/2024 Advance Directive Discussion Never done HbA1C due on 10/21/2024 Diabetic Foot Exam due on 04/16/2025 Urine Albumin:Creatinine Ratio due on 04/20/2025 LDL Cholesterol due on 04/20/2025 DTaP,Tdap,Td Vaccine(2 - Td or Tdap) due on 05/21/2028 Colorectal Cancer Screening Discontinued ASSESSMENT/PLAN: 1. Wellness examination - ICD9: V70.0, ICD10: Z00.00 (primary diagnosis) - Counseled on healthy diet and regular exercise - Discussed need for and benefit of weight loss. BMI 28.16 kg/(m2) - Follow up for annual exam in one year - COMPREHENSIVE METABOLIC PANEL 2. Type 2 diabetes mellitus with stage 3a chronic kidney disease, without long-term current use of insulin (HCC) - ICD9: 250.40, 585.3, ICD10: E11.22, N18.31 - Control undetermined, due for labs - Continue current medications - Counseled on healthy diet and regular exercise - Discussed need for and benefit of weight loss. BMI 28.16 kg/(m2) - eGFR: 43 Stable - HEMOGLOBIN A1C 3. Chronic kidney disease, stage 3a (HCC) - ICD9: 585.3, ICD10: N18.31 - eGFR: 43 Stable 4. Essential hypertension - ICD9: 401.9, ICD10: I10 - Controlled - Continue current medications - Yimi (more content not included)...[facility]03-28-2025 History of Present illness Narrative* Rajiv Canada, AGUILA.[facility] - 12/10/2024 8:45 AM EDT Chief Complaint No chief complaint on file. HPI Greg Moore is a 83 year old male who presents here today for Above Complaints.. Patient presents today for 6 month follow up. Patient states on Friday he was feeling tired and took his blood pressure which was 88/48 with HR of 45 to 50. Patient states he called his production bow maker who stopped his lisinopril and held his metop for one day. Patient states he is feeling better now, not feeling tired not dizzy or light headed. Patient states he does not take his blood pressures often. Patient headaches, chest pain and SOB. Past medical history, appointments, medications, allergies reviewed. Previous Medical History PAST MEDICAL HISTORY Diagnosis Date Bilateral carotid artery stenosis mild CKD (chronic kidney disease), stage III (HCC) Coronary artery disease s/p PCI 2003 [facility] -- sees Dr. Samaniego Depression Elevated LFTs Gout Hypertension Insomnia Mixed hyperlipidemia Obesity (BMI 30.0-34.9) Systolic ejection murmur Thrombocytopenia (HCC) Type II diabetes mellitus (HCC) Previous Surgical History PAST SURGICAL HISTORY Procedure Laterality Date COLONOSCOPY 2016 Dr. Aggarwal, normal INGUINAL HERNIA REPAIR HX Left REPAIR OF HYDROCELE Bilateral STENT PLACEMENT KAILYN [facility] 2003 (cardiac) Family History FAMILY HISTORY Problem Relation Age of Onset Coronary Artery Disease Mother Diabetes Mother Cancer Father throat Patient Allergies ALLERGIES No Known Allergies Current Medications Current Outpatient Medications on File Prior to Visit Medication Sig atorvastatin (LIPITOR) 40 mg tablet Take 0.5 tablets by mouth once daily. allopurinol (ZYLOPRIM) 300 mg tablet Take 1 tablet by mouth once daily. For gout. metFORMIN (GLUCOPHAGE) 500 mg tablet Take 1 tablet by mouth two times a day with meals. . lisinopril (ZESTRIL) 30 mg tablet Take 1 tablet by mouth once daily. clopidogrel (PLAVIX) 75 mg tablet Take 1 tablet by mouth once daily. nitroglycerin sublingual (NITROSTAT) 0.4 mg SL tablet Dissolve 1 tablet under the tongue every 5 minutes as needed for chest pain. metoprolol tartrate, short acting, (LOPRESSOR) 25 mg tablet Take 0.5 tablets by mouth twice daily. aspirin, enteric coated (ECOTRIN LOW STRENGTH) 81 mg EC tablet Take 1 tablet by mouth once daily. No current facility-administered medications on file prior to visit. Social History Social History Tobacco Use Smoking status: Former Current packs/day: 0.00 Types: Cigarettes Quit date: 11/19/1987 Years since quittin.0 Smokeless tobacco: Former Tobacco comments: light smoker, short period of time Substance Use Topics Alcohol use: No Drug use: No Review of Symptoms REVIEW OF SYSTEMS GENERAL: No weight loss, malaise or fevers RESPIRATORY: Negative for cough, hemoptysis, wheezing, COPD, dyspnea or shortness of breath CARDIOVASCULAR: Negative for chest pain, leg swelling, hypertension, CHF or palpitations EXAM: BP 133/68 Pulse (!) 54 Wt 84 kg (185 lb 3 oz) BMI 28.16 kg/m General Appearance: Well appearing, alert, in no acute distress, well-hydrated, well nourished.. Lungs: Lungs clear to auscultation. No wheezing, rhonchi, rales.. Heart: RRR without murmur, gallop, or rubs. No ectopy. Health Maintenance List Anxiety Screening Never done Pneumococcal Vaccine: 50+(1 of 2 - PCV) Never done Shingrix Vaccine(1 of 2) Never done RSV Vaccine(1 - 1-dose 75+ series) Never done Dilated Retinal Exam due on 05/31/2020 Influenza Vaccine(1) due on 05/16/2024 Covid-19 Vaccine( season) due on 05/16/2024 Advance Directive Discussion Never done HbA1C due on 10/21/2024 Diabetic Foot Exam due on 04/16/2025 Urine Albumin:Creatinine Ratio due on 04/20/2025 LDL Cholesterol due on 04/20/2025 DTaP,Tdap,Td Vaccine(2 - Td or Tdap) due on 05/21/2028 Colorectal Cancer Screening Discontinued ASSESSMENT/PLAN: 1. Wellness examination - ICD9: V70.0, ICD10: Z00.00 (primary diagnosis) - Counseled on healthy diet and regular exercise - Discussed need for and benefit of weight loss. BMI 28.16 kg/(m^2) - Follow up for annual exam in one year - COMPREHENSIVE METABOLIC PANEL 2. Type 2 diabetes mellitus with stage 3a chronic kidney disease, without long- term current use of insulin (HCC) - ICD9: 250.40, 585.3, ICD10: E11.22, N18.31 - Control undetermined, due for labs - Continue current medications - Counseled on healthy diet and regular exercise - Discussed need for and benefit of weight loss. BMI 28.16 kg/(m^2) - eGFR: 43 Stable - HEMOGLOBIN A1C 3. Chronic kidney disease, stage 3a (HCC) - ICD9: 585.3, ICD10: N18.31 - eGFR: 43 Stable 4. Essential hypertension - ICD9: 401.9, ICD10: I10 - Controlled - Continue current medications - Recommend home blood pressure monitoring, to bring results to next visit - Encouraged sodium restriction, DASH or Mediterranean diet - Recommend regular aerobic exercise - Discussed need for and benefit of weight loss. BMI 28.16 kg/(m^2) 5. Mixed hyperlipidemia - ICD9: 272.2, ICD10: E78.2 - Controlled - Counseled on healthy diet and regular exercise - Discussed need for and benefit of weight loss. BMI 28.16 kg/(m^2) 6. Coronary artery disease involving [place] heart without angina pectoris, unspecified vessel or lesion type - ICD9: 414.01, ICD10: I25.10 -Follows with cardiology, has appt next week at [facility] [facility] Rajiv Canada APRN.[employer] documented [facility] encounter[facility]* Diagnosis Wellness examination- Primary Type 2 diabetes mellitus with stage 3a chronic kidney disease, without long-term current use of insulin (HCC) Chronic kidney disease, stage 3a (HCC) Essential hypertension Unspecified essential hypertension Mixed hyperlipidemia Coronary artery disease involving [place] heart without angina pectoris, unspecified vessel or lesion type documented in this encounter [facility] Miscellaneous Notes* Telephone Encounter - Deonna Hernandes RN - 11/30/2024 3:49 PM EDT Called pt as he missed his 6 mon follow up appt in October. Scheduled pt for next Friday with Rajiv Canada. Pt requesting a reminder be mailed to him. * Telephone Encounter - Joanne Parker PSS - 11/30/2024 2:43 PM EDT Prescription Refill Information The patient has been identified by name and date of : Yes Caregiver verified no other encounters exist for this prescription request: Yes Caregiver confirmed with patient/requestor that no other refills are due, in the near future, with this provider at this time: Yes The last office visit in the department: 04/16/2024 Does the patient have a future office visit with this provider/department: Yes Requested Prescriptions Pending Prescriptions Disp Refills atorvastatin (LIPITOR) 40 mg tablet 45 tablet 1 Sig: Take 0.5 tablets by mouth once daily. ALETA Cuba November 30, 2024 2:44 PM documented in this encounterSt[facility] Telephone encounter Note * Telephone Encounter - Deonna Hernandes RN - 11/30/2024 3:49 PM EDT Called pt as he missed his 6 mon follow up appt in October. Scheduled pt for next Friday with Rajiv Canada. Pt requesting a reminder be mailed to him. [facility] Telephone encounter Note* Telephone Encounter - Joanne Parker PSS - 11/30/2024 2:43 PM EDT Prescription Refill Information The patient has been identified by name and date of : Yes Caregiver verified no other encounters exist for this prescription request: Yes Caregiver confirmed with patient/requestor that no other refills are due, in the near future, with this provider at this time: Yes The last office visit in the department: 04/16/2024 Does the patient have a future office visit with this provider/department: Yes Requested Prescriptions Pending Prescriptions Disp Refills atorvastatin (LIPITOR) 40 mg tablet 45 tablet 1 Sig: Take 0.5 tablets by mouth once daily. ALETA Cuba November 30, 2024 2:[address] [facility]11-12[facility] Telephone encounter Note* Telephone Encounter - Pao Padron LPN - 07/27/2024 11:43 AM EST Prescription Refill Information The patient has been identified by name and date of : Yes Caregiver verified no other encounters exist for this prescription request: Yes Caregiver confirmed with patient/requestor that no other refills are due, in the near future, with this provider at this time: Yes The last office visit in the department: 04/16/24 Does the patient have a future office visit with this provider/department: Yes-10/18/24 Requested Prescriptions Pending Prescriptions Disp Refills allopurinol (ZYLOPRIM) 300 mg tablet 90 tablet 1 Sig: Take 1 tablet by mouth once daily. For gout. Pao Padron LPN July 27, 2024 11:44 AM [facility]11-12-2024 Miscellaneous Notes* Telephone Encounter - Pao Padron LPN - 07/27/2024 11:43 AM EST Prescription Refill Information The patient has been identified by name and date of : Yes Caregiver verified no other encounters exist for this prescription request: Yes Caregiver confirmed with patient/requestor that no other refills are due, in the near future, with this provider at this time: Yes The last office visit in the department: 04/16/24 Does the patient have a future office visit with this provider/department: Yes-10/18/24 Requested Prescriptions Pending Prescriptions Disp Refills allopurinol (ZYLOPRIM) 300 mg tablet 90 tablet 1 Sig: Take 1 tablet by mouth once daily. For gout. Pao Padron LPN July 27, 2024 11:44 AM documented in [facility] encounterSt[facility] Telephone encounter Note * Telephone Encounter - Keiko Lancaster - 06/11/2024 1:17 PM EDT Patient has been identified by name and date of : Yes, Patient phones for refill(s): Requested Prescriptions Pending Prescriptions Disp Refills atorvastatin (LIPITOR) 40 mg tablet 45 tablet 1 Sig: Take 0.5 tablets by mouth once daily. Date of last office visit in primary care: 04/16/2024 Date of next office visit in primary care: 10/18/2024 Please advise. Thank you. Keiko Lancaster. [facility] Miscellaneous Notes* Telephone Encounter - Keiko Lancaster - 06/11/2024 1:17 PM EDT Patient has been identified by name and date of : Yes, Patient phones for refill(s): Requested Prescriptions Pending Prescriptions Disp Refills atorvastatin (LIPITOR) 40 mg tablet 45 tablet 1 Sig: Take 0.5 tablets by mouth once daily. Date of last office visit in primary care: 04/16/2024 Date of next office visit in primary care: 10/18/2024 Please advise. Thank you. Keiko Lancaster. documented in this encounterSt[facility]09-[facility] Telephone encounter Note * Telephone Encounter - Alva Rodriguez - 05/22/2024 11:36 AM EDT Prescription Refill Information The patient has been identified by name and date of : Yes Caregiver verified no other encounters exist for this prescription request: Yes Caregiver confirmed with patient/requestor that no other refills are due, in the near future, with this provider at this time: Yes The last office visit in the department: 04/16/24 Does the patient have a future office visit with this provider/department: Yes Requested Prescriptions Pending Prescriptions Disp Refills metFORMIN (GLUCOPHAGE) 500 mg tablet 180 tablet 1 Sig: Take 1 tablet by mouth two times a day with meals. . Alva Rodriguez May 22, 2024 11:[address] [facility] Miscellaneous Notes* Telephone Encounter - Alva Rodriguez - 05/22/2024 11:36 AM EDT Prescription Refill Information The patient has been identified by name and date of : Yes Caregiver verified no other encounters exist for this prescription request: Yes Caregiver confirmed with patient/requestor that no other refills are due, in the near future, with this provider at this time: Yes The last office visit in the department: 04/16/24 Does the patient have a future office visit with this provider/department: Yes Requested Prescriptions Pending Prescriptions Disp Refills metFORMIN (GLUCOPHAGE) 500 mg tablet 180 tablet 1 Sig: Take 1 tablet by mouth two times a day with meals. . Alva Rodriguez May 22, 2024 11:36 AM documented in this encounterSt. [facility]08-[facility] Telephone encounter Note * Telephone Encounter - Jarrett Dow LPN - 04/21/2024 5:25 PM EDT Pt. informed. Pt. has no bleeding issues. [facility] Work Phone: 1(708) 941-733608-07-2024 Miscellaneous Notes* Telephone Encounter - Jarrett oDw LPN - 04/21/2024 5:25 PM EDT Pt. informed. Pt. has no bleeding issues. * Telephone Encounter - Keiko Brewer APRN.CNP - 04/21/2024 5:02 PM EDT Kidney function has decreased- recommend low salt diet, stay well hydrated, and avoid NSAID products - will need to recheck this in 3 months. Platelets a little low- has he had an y bleeding symptoms- bleeding gums, blood in urine, stool easy bruising? The rest of his blood work is normal. Keiko Brewer APRN.CNP documented in this encounterSt[facility]08-[facility]24 Telephone encounter Note * Telephone Encounter - Keiko Brewer APRN.CNP - 04/21/2024 5:02 PM EDT Kidney function has decreased- recommend low salt diet, stay well hydrated, and avoid NSAID products - will need to recheck this in 3 months. Platelets a little low- has he had an y bleeding symptoms- bleeding gums, blood in urine, stool easy bruising? The rest of his blood work is normal. Keiko Brewer APRN.CNP [facility] Evaluation note* Diagnosis Chronic kidney disease, stage 3a (HCC)- Primary [facility] Telephone encounter Note* Telephone Encounter - Stanley Brittney Knox - 04/19/2024 11:43 AM EDT Prescription Refill Information The patient has been identified by name and date of : Yes Caregiver verified no other encounters exist for this prescription request: Yes Caregiver confirmed with patient/requestor that no other refills are due, in the near future, with this provider at this time: Yes The last office visit in the department: 04/16/24 Does the patient have a future office visit with this provider/department: Yes 10/18/24 Requested Prescriptions Pending Prescriptions Disp Refills lisinopril (ZESTRIL) 30 mg tablet 90 tablet 3 Sig: Take 1 tablet by mouth once daily. Brittney Knox April 19, 2024 11:[address] [facility]08-[facility] Miscellaneous Notes* Telephone Encounter - Brittney Martinez - 04/19/2024 11:43 AM EDT Prescription Refill Information The patient has been identified by name and date of : Yes Caregiver verified no other encounters exist for this prescription request: Yes Caregiver confirmed with patient/requestor that no other refills are due, in the near future, with this provider at this time: Yes The last office visit in the department: 04/16/24 Does the patient have a future office visit with this provider/department: Yes 10/18/24 Requested Prescriptions Pending Prescriptions Disp Refills lisinopril (ZESTRIL) 30 mg tablet 90 tablet 3 Sig: Take 1 tablet by mouth once daily. Brittney Stone [facility] April 19, 2024 11:44 AM documented in this encounterSt. [facility]08-[facility] History of Present illness Narrative* Keiko Brewer APRN.CNP - 04/16/2024 8:20 AM EDT 04/13/2024 Patient presents with: F/U 6 months SUBJECTIVE: This is a 83 year old that is here today for Above Complaints. Has been in good health without hospitalizations or ER visits. No falls in the last 12 months. DIABETES MELLITUS: Since our last visit he denies excessive thirst or increased frequency of urination, chest pain or dyspnea , numbness, tingling or pain in extremities, new or unusual visual symptoms, low sugar/hypoglycemic reactions, weight loss/gain, lightheadedness/dizziness, and bowel changes/loose stools Follows a diabetic diet most of the time. He is compliant with medication(s) and is tolerating med(s) without any side effects. He reports checking his glucose on a infrequent to not at all basis schedule . Patient's last HgA1C was Hemoglobin A1C (%) Date Value 10/17/2023 6.0 04/14/2023 6.1 12/25/2020 6.1 11/22/2019 6.1 ) Last Ophthalmology exam- he reports his eyes are fine and he does not want to see one at this time GOUT: taking allopurinol as prescribed without side effects HYPERLIPIDEMIA: Patient is taking medications: Yes. Patient is watching diet: Yes. Patient denies myalgias: Yes. Patient denies gi upset: Yes CAD: follows with [facility] cardiology with last appointment per patient was recently. No medication changes. Denies SOB, dyspnea, chest pain, palpitations or leg swelling. PAST MEDICAL HISTORY Diagnosis Date Bilateral carotid artery stenosis mild CKD (chronic kidney disease), stage III (HCC) Coronary artery disease s/p PCI 2003 [place] -- sees Dr. Samaniego Depression Elevated LFTs Gout Hypertension Insomnia Mixed hyperlipidemia Obesity (BMI 30.0-34.9) Systolic ejection murmur Thrombocytopenia (HCC) Type II diabetes mellitus (HCC) ALLERGIES Patient has no known allergies. MEDICATIONS Current Outpatient Medications Medication Sig allopurinol (ZYLOPRIM) 300 mg tablet Take 1 tablet by mouth once daily. For gout. atorvastatin (LIPITOR) 40 mg tablet Take 0.5 tablets by mouth once daily. metFORMIN (GLUCOPHAGE) 500 mg tablet Take 1 tablet by mouth two times a day with meals. . lisinopril (ZESTRIL) 30 mg tablet Take 1 tablet by mouth once daily. clopidogrel (PLAVIX) 75 mg tablet Take 1 tablet by mouth once daily. nitroglycerin sublingual (NITROSTAT) 0.4 mg SL tablet Dissolve 1 tablet under the tongue every 5 minutes as needed for chest pain. metoprolol tartrate, short acting, (LOPRESSOR) 25 mg tablet Take 0.5 tablets by mouth twice daily. aspirin, enteric coated (ECOTRIN LOW STRENGTH) 81 mg EC tablet Take 1 tablet by mouth once daily. No current facility-administered medications for this visit. Medications and allergies reviewed by this provider. SOCIAL HISTORY Social History Tobacco Use Smoking status: Former Types: Cigarettes Quit date: 11/19/1987 Years since quittin.4 Smokeless tobacco: Former Tobacco comments: light smoker, short period of time Substance Use Topics Alcohol use: No Drug use: No REVIEW OF SYSTEMS All other reviewed and negative other than HPI. OBJECTIVE: BP 138/74 Pulse (!) 59 Resp 18 Wt 88.1 kg (194 lb 3.6 oz) SpO2 98% BMI 29.53 kg/m . Vitalsigns reviewed by this provider. APPEARANCE Well appearing, alert, in no acute distress, well-hydrated, well nourished. EYES conjunctiva and sclera normal. HEART RRR with normal S1 and S2, no murmurs, no gallops, no JVD appreciated LUNG clear to auscultation. No wheezes, rhonchi or rales EXTREMITIES Extremities normal, No deformities, No skin discoloration, and No edema SKIN Skin color, texture, turgor normal, no suspicious rashes or lesions DM foot exam: shoes and socks removed, No deformities, ulcers, calluses, normal distal pulses, and sensitive to 10 gm monofilament Anxiety Screening Never done Advance Directive Discussion Never done HbA1C due on 04/16/2024 Urine Albumin:Creatinine Ratio due on 04/14/2024 LDL Cholesterol due on 04/14/2024 Dilated Retinal Exam due on 10/17/2024 RSV Vaccine(1 - 1-dose 60+ series) due on 10/17/2024 Shingrix Vaccine(1 of 2) due on 10/17/2024 Covid-19 Vaccine(3 - season) due on 10/17/2024 Pneumococcal Vaccine: 65+(1 of 2 - PCV) due on 10/17/2024 Influenza Vaccine(1) due on 05/16/2024 Diabetic Foot Exam due on 04/16/2025 DTaP,Tdap,Td Vaccine(2 - Td or Tdap) due on 05/21/2028 Colorectal Cancer Screening Discontinued Latest Ref Rng 10/17/2023 Protein, Total 6.3 - 8.0 g/dL 6.9 Albumin 3.9 - 4.9 g/dL 4.3 Calcium 8.5 - 10.2 mg/dL 9.7 Bilirubin, Total 0.2 - 1.3 mg/dL 0.3 Alkaline Phosphatase 38 - 113 U/L 58 AST 14 - 40 U/L 30 ALT 10 - 54 U/L 30 Glucose 74 - 99 mg/dL 118 (H) BUN 9 - 24 mg/dL 34 (H) Creatinine 0.73 - 1.22 mg/dL 1.42 (H) Sodium 136 - 144 mmol/L 141 Potassium 3.7 - 5.1 mmol/L 4.7 Chloride 97 - 105 mmol/L 106 (H) CO2 22 - 30 mmol/L 25 Anion Gap 9 - 18 mmol/L 10 eGFR >=60 mL/min/1.73m 50 (L) Hemoglobin A1C 4.3 - 5.6 % 6.0 (H) Estimated Average Glucose mg/dL 126 Latest Ref Rng 04/14/2023 Cholesterol, Total <200 mg/dL 123 Triglyceride <150 mg/dL 128 HDL Cholesterol >39 mg/dL 34 (L) Non HDL Cholesterol <130 mg/dL 89 Fasting Time hrs 13 VLDL Cholesterol <30 mg/dL 26 TC:HDL Ratio <5.10 3.62 LDL Cholesterol <100 mg/dL 63 LDL:HDL Ratio <2.54 1.85 Anxiety Screening Never done Advance Directive Discussion Never done HbA1C due on 04/16/2024 Urine Albumin:Creatinine Ratio due on 04/14/2024 LDL Cholesterol due on 04/14/2024 Dilated Retinal Exam due on 10/17/2024 RSV Vaccine(1 - 1-dose 60+ series) due on 10/17/2024 Shingrix Vaccine(1 of 2) due on 10/17/2024 Covid-19 Vaccine(3 - 2022- season) due on 10/17/2024 Pneumococcal Vaccine: 65+(1 of 2 - PCV) due on 10/17/2024 Influenza Vaccine(1) due on 05/16/2024 Diabetic Foot Exam due on 04/16/2025 DTaP,Tdap,Td Vaccine(2 - Td or Tdap) due on 05/21/2028 Colorectal Cancer Screening Discontinued ASSESSMENT/PLAN: 1. Essential hypertension - ICD9: 401.9, ICD10: I10 (primary diagnosis) - Controlled - Continue current medications - Recommend home blood pressure monitoring, to bring results to next visit - Encouraged sodium restriction, DASH or Mediterranean diet - Recommend regular aerobic exercise - Follow up in 6 months for hypertension visit - COMPREHENSIVE METABOLIC PANEL 2. Type 2 diabetes mellitus with stage 3a chronic kidney disease, without long- term current use of insulin (HCC) - ICD9: 250.40, 585.3, ICD10: E11.22, N18.31 - Control undetermined, due for labs - Continue current medications - Statin prescribed - atorvastatin - Follow up in 6 months, sooner should any other issues arise. - eGFR: 50 Stable - Counseled on avoiding NSAIDs, adequate hydration - Counseled on low sodium diet - ACEi/ARB prescribed: Yes - HEMOGLOBIN A1C - COMPREHENSIVE METABOLIC PANEL - ALBUMIN/CREATININE RATIO, URINE - COMPLETE BLOOD COUNT AND DIFFERENTIAL 3. Mixed hyperlipidemia - ICD9: 272.2, ICD10: E78.2 - Control undetermined, due for labs - Continue current medications - Counseled on healthy diet and regular exercise - Follow up in 6 months, sooner should any other issues arise. - LIPID PANEL BASIC - COMPREHENSIVE METABOLIC PANEL 4. Coronary artery disease involving [place] heart without angina pectoris, unspecified vessel or lesion type - ICD9: 414.01, ICD10: I25.10 - stable on current regime - follow-up with cardiology as scheduled 5. Gout, unspecified cause, unspecified chronicity, unspecified site - ICD9: 274.9, ICD10: M10.9 - stable on current regime 6. Chronic kidney disease, stage 3a (HCC) - ICD9: 585.3, ICD10: N18.31 - eGFR: 50 Stable - Albuminuria: due for urine ACR - Counseled on avoiding NSAIDs, adequate hydration - Counseled on low sodium diet - ACEi/ARB prescribed: Yes - COMPREHENSIVE METABOLIC PANEL 7. Bilateral carotid artery stenosis - ICD9: 433.10, 433.30, ICD10: I65.23 - US CAROTID ARTERIES [facility] Keiko Brewer APRN.CNP Prescription instructions reviewed with patient as applicable. Patient advised if symptoms do not improve or if symptoms worsen sooner, to contact their primary care physician. Potential red flag symptoms discussed with the patient. Reviewed appropriate action plan to take if red flag symptoms occur. Patient agreeable to treatment plan. Medical Decision Making: Problems: Moderate: 2+ stable chronic illnesses Data: Unique test(s) ordered: 3+ Medical Decision Making Level: 4 - Moderate documented in this encounterSt[facility] NoteHNO ID: [id number] Author: KEIKO BREWER APRN.AMISHA Service: ? Author Type: Nurse Practitioner Type: Progress Notes Filed: 04/16/2024 08:35 Note Text: 04/13/2024 Patient presents with: F/U 6 months SUBJECTIVE: This is a 83 year old that is here today for Above Complaints. Has been in good health without hospitalizations or ER visits. No falls in the last 12 months. DIABETES MELLITUS: Since our last visit he denies excessive thirst or increased frequency of urination, chest pain or dyspnea , numbness, tingling or pain in extremities, new or unusual visual symptoms, low sugar/hypoglycemic reactions, weight loss/gain, lightheadedness/dizziness, and bowel changes/loose stools Follows a diabetic diet most of the time. He is compliant with medication(s) and is tolerating med(s) without any side effects. He reports checking his glucose on a infrequent to not at all basis schedule . Patient's last HgA1C was Hemoglobin A1C (%) Date Value 10/17/2023 6.0 04/14/2023 6.1 12/25/2020 6.1 11/22/2019 6.1 ) Last Ophthalmology exam- he reports his eyes are fine and he does not want to see one at this time GOUT: taking allopurinol as prescribed without side effects HYPERLIPIDEMIA: Patient is taking medications: Yes. Patient is watching diet: Yes. Patient denies myalgias: Yes. Patient denies gi upset: Yes CAD: follows with [facility] cardiology with last appointment per patient was recently. No medication changes. Denies SOB, dyspnea, chest pain, palpitations or leg swelling. PAST MEDICAL HISTORY Diagnosis Date Bilateral carotid artery stenosis mild CKD (chronic kidney disease), stage III (HCC) Coronary artery disease s/p PCI 2003 [place] [facility] -- sees Dr. Samaniego Depression Elevated LFTs Gout Hypertension Insomnia Mixed hyperlipidemia Obesity (BMI 30.0-34.9) Systolic ejection murmur Thrombocytopenia (HCC) Type II diabetes mellitus (HCC) ALLERGIES Patient has no known allergies. MEDICATIONS Current Outpatient Medications Medication Sig allopurinol (ZYLOPRIM) 300 mg tablet Take 1 tablet by mouth once daily. For gout. atorvastatin (LIPITOR) 40 mg tablet Take 0.5 tablets by mouth once daily. metFORMIN (GLUCOPHAGE) 500 mg tablet Take 1 tablet by mouth two times a day with meals. . lisinopril (ZESTRIL) 30 mg tablet Take 1 tablet by mouth once daily. clopidogrel (PLAVIX) 75 mg tablet Take 1 tablet by mouth once daily. nitroglycerin sublingual (NITROSTAT) 0.4 mg SL tablet Dissolve 1 tablet under the tongue every 5 minutes as needed for chest pain. metoprolol tartrate, short acting, (LOPRESSOR) 25 mg tablet Take 0.5 tablets by mouth twice daily. aspirin, enteric coated (ECOTRIN LOW STRENGTH) 81 mg EC tablet Take 1 tablet by mouth once daily. No current facility-administered medications for this visit. Medications and allergies reviewed by this provider. SOCIAL HISTORY Social History Tobacco Use Smoking status: Former Types: Cigarettes Quit date: 11/19/1987 Years since quittin.4 Smokeless tobacco: Former Tobacco comments: light smoker, short period of time Substance Use Topics Alcohol use: No Drug use: No REVIEW OF SYSTEMS All other reviewed and negative other than HPI. OBJECTIVE: BP 138/74 Pulse (!) 59 Resp 18 Wt 88.1 kg (194 lb 3.6 oz) SpO2 98% BMI 29.53 kg/m? . Vital signs reviewed by this provider. APPEARANCE Well appearing, alert, in no acute distress, well-hydrated, well nourished. EYES conjunctiva and sclera normal. HEART RRR with normal S1 and S2, no murmurs, no gallops, no JVD appreciated LUNG clear to auscultation. No wheezes, rhonchi or rales EXTREMITIES Extremities normal, No deformities, No skin discoloration, and No edema SKIN Skin color, texture, turgor normal, no suspicious rashes or lesions DM foot exam: shoes and socks removed, No deformities, ulcers, calluses, normal distal pulses, and sensitive to 10 gm monofilament Anxiety Screening Never done Advance Directive Discussion Never done HbA1C due on 04/16/2024 Urine Albumin:Creatinine Ratio due on 04/14/2024 LDL Cholesterol due on 04/14/2024 Dilated Retinal Exam due on 10/17/2024 RSV Vaccine(1 - 1-dose 60+ series) due on 10/17/2024 Shingrix Vaccine(1 of 2) due on 10/17/2024 Covid-19 Vaccine(3 - 2022- season) due on 10/17/2024 Pneumococcal Vaccine: 65+(1 of 2 - PCV) due on 10/17/2024 Influenza Vaccine(1) due on 05/16/2024 Diabetic Foot Exam due on 04/16/2025 DTaP,Tdap,Td Vaccine(2 - Td or Tdap) due on 05/21/2028 Colorectal Cancer Screening Discontinued Latest Ref Rng 10/17/2023 Protein, Total 6.3 - 8.0 g/dL 6.9 Albumin 3.9 - 4.9 g/dL 4.3 Calcium 8.5 - 10.2 mg/dL 9.7 Bilirubin, Total 0.2 - 1.3 mg/dL 0.3 Alkaline Phosphatase 38 - 113 U/L 58 AST 14 - 40 U/L 30 ALT 10 - 54 U/L 30 Glucose 74 - 99 mg/dL 118 (H) BUN 9 - 24 mg/dL 34 (H) Creatinine 0.73 - 1.22 mg/dL 1.42 (H) Sodium 136 - 144 mmol/L 141 Potassium 3.7 - 5.1 mmol/ (more content not included)...[facility]08-02-2024 Evaluation note* Diagnosis Essential hypertension- Primary Unspecified essential hypertension Type 2 diabetes mellitus with stage 3a chronic kidney disease, without long-term current use of insulin (HCC) Mixed hyperlipidemia Coronary artery disease involving [place] heart without angina pectoris, unspecified vessel or lesion type Gout, unspecified cause, unspecified chronicity, unspecified site Chronic kidney disease, stage 3a (HCC) Bilateral carotid artery stenosis Occlusion and stenosis of carotid artery without mention of cerebral infarction documented in this encounter [facility]12[facility]2024 Miscellaneous Notes* Telephone Encounter - Pao Padron LPN - 12/26/2023 3:08 PM EDT Patient notified * Telephone Encounter - Parth Tilley MD - 12/26/2023 11:36 AM EDT Rx sent. * Telephone Encounter - Shabnam Jones - 12/26/2023 11:03 AM EDT Greg is calling Parth Tilley MD today to request a medication not on current med list Allopurinol 300 mg taking one daily #90 refill 3 Please send to [facility] in [place] on [address] Patient has been identified by name and birthdate. Duration of symptoms: N/A Person calling: self Call patient at: on cell [phone] (cell) Was an appointment scheduled: No Closing statement: Results or non-symptom based questions: Thank you for calling [facility]. [facility], your call will be returned within the next business day. Shabnam Hodges documented in this encounterSt. [facility] Hospital03-25-2024 Miscellaneous Notes* Telephone Encounter - Jarrett Camacho - 12/08/2023 9:10 AM EDT Patient has been identified by name and date of : Yes, Provider Treva Patient phones for refill(s): Requested Prescriptions Pending Prescriptions Disp Refills atorvastatin (LIPITOR) 40 mg tablet 45 tablet 1 Sig: Take 0.5 tablets by mouth once daily. Date of last office visit in primary care: 10/17/2023 Date of next office visit in primary care: 04/16/2024 Please advise. Thank you. Jarrett Knox. documented in this encounterSt. [facility] Hospital03-04-2024 Miscellaneous Notes* Telephone Encounter - Almaz Powers Ma - 11/17/2023 12:07 PM EST Pt notified. Almaz Powers Ma * Telephone Encounter - Keiko Brewer APRN.CNP - 11/17/2023 11:45 AM EST Please let patient know medication was sent to pharmacy. Keiko Brewer APRN.CNP * Telephone Encounter - Chanda Whaley - 11/17/2023 8:50 AM EST Patient is calling back in asking about this medication? Please contact patient when sent to Pharmacy. Contact [phone]. Chanda Knox * Telephone Encounter - Meredith Luther LPN - 11/14/2023 1:30 PM EST [place] 10/17/23 NOV 04/16/2024 * Telephone Encounter - Dasha Hough - 11/14/2023 12:29 PM EST Patient has been identified by name and date of : Yes Requested Prescriptions Pending Prescriptions Disp Refills metFORMIN (GLUCOPHAGE) 500 mg tablet 180 tablet 1 Sig: Take 1 tablet by mouth two times a day with meals. . RX INSTRUCTIONS: Patient aware RX will be sent to pharmacy. No need to notify patient. Dasha Knox documented in this encounterSt. [facility] Hospital02-05-2024 Miscellaneous Notes* Telephone Encounter - Jodie Pan RN - 10/20/2023 9:03 AM EST Images from the original note were not included. Patient notified of results below. GORDON Osborne MD 10/20/2023 8:44 AM EST Stable CKD in stage IIIa range. Recommend low sodium diet <2,000 mg per day, avoidance of NSAIDs, and increased water intake. DM well controlled with A1c of 6. No change to regimen. Continue to work on low carb diet. documented in this encounterSt. Vincent Hospital02-02-2024 History of Present illness Narrative* Parth Tilley MD - 10/17/2023 8:45 AM EST Chief Complaint Patient presents with: F/U 6 months HPI Greg Moore is a 82 year old male who presents here today for 6 month follow up. [facility] or [facility] visits. No falls in the last 12 months. DIABETES MELLITUS: Mr. Moore was last seen 6 months ago. Since our last visit he denies excessive thirst or increased frequency of urination, numbness, tingling or pain in extremities, new or unusualvisual symptoms, and low sugar/hypoglycemic reactions. Follows a diabetic diet most of the time. Heis compliant with medication(s) and is tolerating med(s) without any side effects. He reports checking his glucose on a infrequent to not at all basis. Patient's last HgA1C was Hemoglobin A1C (%) Date Value 04/14/2023 6.1 10/14/2022 5.7 12/25/2020 6.1 11/22/2019 6.1 ) Last Ophthalmology exam was more than 12 months ago. States that his vision is improved recently. Does want referral for yearly DM eye exam. Last Podiatry exam was within the past 12 months Following up with [facility] cardiology yearly. No changes at last OV in March. Remains asymptomatic. Gout: Denies recent gout flare as long as he watches his diet. Fish and red meat cause his flares. Denies depression symptoms. Past medical history, appointments, medications, allergies reviewed. Previous Medical History PAST MEDICAL HISTORY Diagnosis Date Bilateral carotid artery stenosis mild CKD (chronic kidney disease), stage III (HCC) Coronary artery disease s/p PCI 2003 [facility] -- sees Dr. Samaniego Depression Elevated LFTs Gout Hypertension Insomnia Mixed hyperlipidemia Obesity (BMI 30.0-34.9) Systolic ejection murmur Thrombocytopenia (HCC) Type II diabetes mellitus (HCC) Previous Surgical History PAST SURGICAL HISTORY Procedure Laterality Date COLONOSCOPY 2016 Dr. Aggarwal, normal INGUINAL HERNIA REPAIR HX Left REPAIR OF HYDROCELE Bilateral STENT PLACEMENT KAILYN [facility] 2003 (cardiac) Family History FAMILY HISTORY Problem Relation Age of Onset Coronary Artery Disease Mother Diabetes Mother Cancer Father throat Patient Allergies ALLERGIES No Known Allergies Current Medications Current Outpatient Medications on File Prior to Visit Medication Sig allopurinol (ZYLOPRIM) 300 mg tablet Take 1 tablet by mouth once daily. For gout. atorvastatin (LIPITOR) 40 mg tablet Take 0.5 tablets by mouth once daily. metFORMIN (GLUCOPHAGE) 500 mg tablet Take 1 tablet by mouth twice daily with meals. . lisinopril (ZESTRIL) 30 mg tablet Take 1 tablet by mouth once daily. clopidogrel (PLAVIX) 75 mg tablet Take 1 tablet by mouth once daily. nitroglycerin sublingual (NITROSTAT) 0.4 mg SL tablet Dissolve 1 tablet under the tongue every 5 minutes as needed for chest pain. metoprolol tartrate, short acting, (LOPRESSOR) 25 mg tablet Take 0.5 tablets by mouth twice daily. aspirin, enteric coated (ECOTRIN LOW STRENGTH) 81 mg EC tablet Take 1 tablet by mouth once daily. No current facility-administered medications on file prior to visit. Social History Social History Tobacco Use Smoking status: Former Types: Cigarettes Quit date: 11/19/1987 Years since quittin.9 Smokeless tobacco: Former Tobacco comments: light smoker, short period of time Substance Use Topics Alcohol use: No Drug use: No Review of Symptoms REVIEW OF SYSTEMS GENERAL: No weight loss, malaise or fevers RESPIRATORY: Negative for cough, hemoptysis, wheezing, COPD, dyspnea or shortness of breath CARDIOVASCULAR: Negative for chest pain, leg swelling, hypertension, CHF or palpitations GI: No nausea, vomiting, or diarrhea SKIN: Negative for lesions, rash, and itching EXAM: BP 138/72 Pulse 60 Resp 18 Wt 88.2 kg (194 lb 6.4 oz) SpO2 97% BMI 29.56 kg/m General Appearance: Well appearing, alert, in no acute distress, well-hydrated, well nourished.. Skin: Skin color, texture, turgor normal, no suspicious rashes or lesions. Lungs: Lungs clear to auscultation. No wheezing, rhonchi, rales.. Heart: RRR without murmur, gallop, or rubs. No ectopy. Abdomen: Normal abdominal exam, Abdomen soft, non-tender. Bowel sounds normal. No masses, organomegaly. Extremities: No deformities, edema, skin discoloration, clubbing or cyanosis. Good capillary refill. . Health Maintenance List Pneumococcal Vaccine: 65+(1 of 2 - PCV) Never done Shingrix Vaccine(1 of 2) Never done RSV Vaccine(1 - 1-dose 60+ series) Never done Dilated Retinal Exam due on 05/31/2020 Influenza Vaccine(1) due on 05/16/2023 Covid-19 Vaccine() due on 05/16/2023 Advance Directive Discussion Never done HbA1C due on 10/15/2023 Urine Albumin:Creatinine Ratio due on 04/14/2024 LDL Cholesterol due on 04/14/2024 Diabetic Foot Exam due on 04/14/2024 Annual PCP Team Chronic Disease Visit due on 04/14/2024 Serum Creatinine due on 04/14/2024 Hemoglobin/Hematocrit due on 04/14/2024 BP Controlled (<130/80) due on 04/14/2024 DTaP,Tdap,Td Vaccine(2 - Td or Tdap) due on 05/21/2028 Colorectal Cancer Screening Discontinued Data reviewed Component Latest Ref Rng & Units 04/14/2023 Protein, Total 6.3 - 8.0 g/dL 7.1 Albumin 3.9 - 4.9 g/dL 4.5 Calcium 8.5 - 10.2 mg/dL 9.3 Bilirubin, Total 0.2 - 1.3 mg/dL 0.7 Alkaline Phosphatase 38 - 113 U/L 65 AST 14 - 40 U/L 29 ALT 10 - 54 U/L 24 Glucose 74 - 99 mg/dL 109 (H) BUN 9 - 24 mg/dL 25 (H) Creatinine 0.73 - 1.22 mg/dL 1.39 (H) Sodium 136 - 144 mmol/L 138 Potassium 3.7 - 5.1 mmol/L 4.6 Chloride 97 - 105 mmol/L 102 CO2 22 - 30 mmol/L 22 Anion Gap 9 - 18 mmol/L 14 eGFR >=60 mL/min/1.73m 51 (L) WBC 3.70 - 11.00 k/uL 7.75 RBC 4.20 - 6.00 m/uL 5.15 Hemoglobin 13.0 - 17.0 g/dL 15.0 Hematocrit 39.0 - 51.0 % 47.6 MCV 80.0 - 100.0 fL 92.4 MCH 26.0 - 34.0 pg 29.1 MCHC 30.5 - 36.0 g/dL 31.5 RDW-CV 11.5 - 15.0 % 15.3 (H) Platelet Count 150 - 400 k/uL 151 MPV 9.0 - 12.7 fL 13.2 (H) Absolute nRBC <0.01 k/uL <0.01 Cholesterol, Total <200 mg/dL 123 Triglyceride <150 mg/dL 128 HDL Cholesterol >39 mg/dL 34 (L) Non HDL Cholesterol <130 mg/dL 89 Fasting Time hrs 13 VLDL Cholesterol <30 mg/dL 26 TC:HDL Ratio <5.10 3.62 LDL Cholesterol <100 mg/dL 63 LDL:HDL Ratio <2.54 1.85 Creatinine, Ur Random (UCRR) 20.0 - 300.0 mg/dL 110.3 Albumin, Urine Random mg/L 68.2 Albumin/Creat Ratio <30 mg/g 62 (H) Hemoglobin A1C 4.3 - 5.6 % 6.1 (H) Estimated Average Glucose mg/dL 128 ASSESSMENT/PLAN: 1. Type 2 diabetes mellitus with stage 3a chronic kidney disease, without long- term current use of insulin (HCC) - ICD9: 250.40, 585.3, ICD10: E11.22, N18.31 (primary diagnosis) - Control undetermined, due for labs - Continue current medications - Blood glucose monitoring on a once daily schedule - Counseled on healthy diet and regular exercise - Discussed need for and benefit of weight loss. BMI 29.56 kg/(m^2) - Discussed diabetic education issues of diabetes complications and monitoring required, hypoglycemic/hyperglycemic symptoms, and medication-specific side effects and monitoring - Follow up in 6 months, sooner should any other issues arise. - HGB A1C - COMP METABOLIC PANEL 2. Essential hypertension - ICD9: 401.9, ICD10: I10 - Controlled - Continue current medications - Recommend home blood pressure monitoring, to bring results to next visit - Encouraged sodium restriction, DASH or Mediterranean diet - Recommend regular aerobic exercise 3. Mixed hyperlipidemia - ICD9: 272.2, ICD10: E78.2 - Controlled - Continue current medications - Counseled on healthy diet and regular exercise 4. Mild episode of recurrent major depressive disorder (HCC) - ICD9: 296.31, ICD10: F33.0 In remission. 5. Coronary artery disease involving [place] heart without angina pectoris, unspecified vessel or lesion type - ICD9: 414.01, ICD10: I25.10 Asymptomatic on medical management. F/u cardiology recommendations. 6. Gout, unspecified cause, unspecified chronicity, unspecified site - ICD9: 274.9, ICD10: M10.9 No recent flares. Discussed adherence to gout diet. 7. Overweight with body mass index (BMI) of 29 to 29.9 in adult - ICD9: 278.02, V85.25, ICD10: E66.3, Z68.29 Parth Tilley MD documented in this encounterSt. [facility] Hospital02-02-2024 Evaluation note* Diagnosis Type 2 diabetes mellitus with stage 3a chronic kidney disease, without long-term current use of insulin (HCC)- Primary Essential hypertension Unspecified essential hypertension Mixed hyperlipidemia Mild episode of recurrent major depressive disorder (HCC) Coronary artery disease involving [place] heart without angina pectoris, unspecified vessel or lesion type Gout, unspecified cause, unspecified chronicity, unspecified site Overweight with body mass index (BMI) of 29 to 29.9 in adult documented in [facility] encounter [facility]09-11-2023 Miscellaneous Notes* Telephone Encounter - Trinidad Cardenas - 05/26/2023 4:36 PM EDT Patient has been identified by name and date of : Yes Last office visit in this department: Visit date not found RX INSTRUCTIONS: Patient aware RX will be sent to pharmacy. No need to notify patient. Patient phones requesting refills as follows: Requested Prescriptions Pending Prescriptions Disp Refills atorvastatin (LIPITOR) 40 mg tablet 45 tablet 1 Sig: Take 0.5 tablets by mouth once daily. Please review and advise. Trinidad Cardenas documented in this encounterSt. [facility] Hospital08-01-2023 Miscellaneous Notes* Telephone Encounter - Dasha Cantu MA - 04/15/2023 9:55 AM EDT Patient notified and verbalized understanding. Dasha Cantu MA * Telephone Encounter - Dasha Cantu MA - 04/15/2023 9:53 AM EDT ----- Message from Keiko Brewer APRN.CNP sent at 04/15/2023 9:30 AM EDT ----- A1c has incresed to 6.1% from 5.7%- continue current medication, eat lo carbohydrate diet and aim for at least 150 minutes of exercise per week., Kidney function dropped some since last check but overall is stable- continue to stay well hydrated, eat low salt diet and avoid NSAID products. The rest of his blood work and urine is in acceptable ranges. Keiko Brewer APRN.CNP documented in this encounterSt. [facility] Hospital07-31-2023 Instructions* Patient Instructions* Keiko Brewer APRN.CNP - 04/14/2023 9:15 AM EDT Images from the original note were not included. To schedule a diabetic eye exam at the [facility], please call: [phone] Online resources to learn more [email or web address]-ylvvywmg-fqlbdzdpiaw https://www.diabetes.org/diabetes/complications/eye-complications https://www.aoa.org/healthy-eyes/iai-atg-akwtel-conditions/diabetic-retinopathy? sso=y https://www.[employer] References 1. National Diabetes Statistics Report 2020: Estimates of Diabetes and Its [place] in the [facility]. Center for Disease Control and Prevention; 2020. Available at: https://www.cdc.gov/diabetes/pdfs /data/statistics/mmyndldk-tzxodxij-jqootqdtkd-report.pdf 2. Dunia Sutherland, Irina Lockwood, Fan Gonzales, Suellen Renae, Aileen Duncan, Hayes Verduzco, Guillermo Cooney, Yoandy Padgett; Diabetic Retinopathy: A Position Statement by the [place] [employer]. Diabetes Care 13 November 2016; 40 (3): 412-418 documented in this encounterSt. Vincent Hospital07-31-2023 History of Present illness Narrative* Keiko Brewer APRN.[employer] - 04/14/2023 9:00 AM EDT 04/14/2023 Patient presents with: Follow Up SUBJECTIVE: This is a 82 year old that is here today for Above Complaints. Since last office visit has been in good health without ER visits or hospitalizations. DIABETES MELLITUS: Mr. Moore was last seen on . Since our last visit he denies excessive thirst or increased frequency of urination, chest pain or dyspnea , numbness, tingling or pain in extremities, new or unusual visual symptoms, low sugar/hypoglycemic reactions, weight loss/gain, lightheadedne ss/dizziness, and bowel changes/loose stools. Follows a diabetic diet some of the time. He is compliant with medication(s) and is tolerating med(s) without any side effects. He reports checking his glucose on a infrequent to not at all basis schedule . Patient's last HgA1C was Hemoglobin A1C (%) Date Value 10/14/2022 5.7 12/27/2021 6.2 12/25/2020 6.1 11/22/2019 6.1 ) Last Ophthalmology exam was a couple of years ago HTN: Patient is compliant with meds Yes Monitors bp at home: No. Denies side effects: Yes. Chest pain: No. Dyspnea: No. Edema: No. Palpitations: No. Syncope: No. Headache: No. Dizziness: No. HYPERLIPIDEMIA: Patient is taking medications: Yes. Patient is watching diet: Yes. Patient denies myalgias: Yes. Patient denies gi upset: Yes CAD: follows with [facility] with last visit on 03/24/2023. No medication changes at this time. Denies SOB, dyspnea, chest pain, palpitations or leg edema PAST MEDICAL HISTORY Diagnosis Date Bilateral carotid artery stenosis mild CKD (chronic kidney disease), stage III (HCC) Coronary artery disease s/p PCI 2003 [facility] -- sees Dr. Samaniego Depression Elevated LFTs Gout Hypertension Insomnia Mixed hyperlipidemia Obesity (BMI 30.0-34.9) Systolic ejection murmur Thrombocytopenia (HCC) Type II diabetes mellitus (HCC) ALLERGIES Patient has no known allergies. MEDICATIONS Current Outpatient Medications Medication Sig clopidogrel (PLAVIX) 75 mg tablet Take 1 tablet by mouth once daily. allopurinol (ZYLOPRIM) 300 mg tablet Take 1 tablet by mouth once daily. For gout. atorvastatin (LIPITOR) 40 mg tablet Take 0.5 tablets by mouth once daily. nitroglycerin sublingual (NITROSTAT) 0.4 mg SL tablet Dissolve 1 tablet under the tongue every 5 minutes as needed for chest pain. lisinopril (ZESTRIL,PRINIVIL) 30 mg tablet Take 1 tablet by mouth once daily. metFORMIN (GLUCOPHAGE) 500 mg tablet Take 1 tablet by mouth twice daily with meals. . risperiDONE (RISPERDAL) 0.25 mg tablet Take 1 tablet by mouth daily at bedtime. metoprolol tartrate, short acting, (LOPRESSOR) 25 mg tablet Take 0.5 tablets by mouth twice daily. citalopram (CELEXA) 20 mg tablet Take 0.5 tablets by mouth once daily. aspirin, enteric coated (ECOTRIN LOW STRENGTH) 81 mg EC tablet Take 1 tablet by mouth once daily. No current facility-administered medications for this visit. Medications and allergies reviewed by this provider. SOCIAL HISTORY Social History Tobacco Use Smoking status: Former Types: Cigarettes Quit date: 11/19/1987 Years since quittin.4 Smokeless tobacco: Former Tobacco comments: light smoker, short period of time Substance Use Topics Alcohol use: No Drug use: No REVIEW OF SYSTEMS All other reviewed and negative other than HPI. OBJECTIVE: BP 128/74 Pulse 60 Resp 16 Ht 172.7 cm (5' 8) Wt 89.8 kg (198 lb) BMI 30.11 kg/m . Vitalsigns reviewed by this provider. APPEARANCE Well appearing, alert, in no acute distress, well-hydrated, well nourished. EYES conjunctiva and sclera normal. HEART RRR with normal S1 and S2, no murmurs, no gallops, no JVD appreciated LUNG clear to auscultation. No wheezes, rhonchi or rales EXTREMITIES Extremities normal, No deformities, No skin discoloration, and No edema SKIN Skin color, texture, turgor normal, no suspicious rashes or lesions to exposed skin Feet: Shoes and socks removed, No deformities, ulcers, calluses, normal distal pulses, and sensitive to 10 gm monofilament Component Latest Ref Rng & Units 10/14/2022 Protein, Total 6.3 - 8.0 g/dL 7.0 Albumin 3.9 - 4.9 g/dL 4.4 Calcium 8.5 - 10.2 mg/dL 9.5 Bilirubin, Total 0.2 - 1.3 mg/dL 0.5 Alkaline Phosphatase 38 - 113 U/L 60 AST 14 - 40 U/L 24 ALT 10 - 54 U/L 21 Glucose 74 - 99 mg/dL 88 BUN 9 - 24 mg/dL 28 (H) Creatinine 0.73 - 1.22 mg/dL 1.31 (H) Sodium 136 - 144 mmol/L 142 Potassium 3.7 - 5.1 mmol/L 4.7 Chloride 97 - 105 mmol/L 107 (H) CO2 22 - 30 mmol/L 25 Anion Gap 9 - 18 mmol/L 10 eGFR >=60 mL/min/1.73m 55 (L) Hemoglobin A1C 4.3 - 5.6 % 5.7 (H) Estimated Average Glucose mg/dL 117 Uric Acid 4.0 - 8.1 mg/dL 5.1 Component Latest Ref Rng & Units 12/27/2021 Total Cholesterol, Nonfasting <200 mg/dL 106 Triglycerides, Nonfasting <150 mg/dL 105 HDL Cholesterol, Nonfasting >39 mg/dL 31 (L) LDL Cholesterol, Nonfasting <100 mg/dL 54 Non HDL Cholesterol, Nonfasting <130 mg/dL 75 VLDL Cholesterol, Nonfasting <30 mg/dL 21 Total Chol/HDL Ratio, Nonfasting <5.10 mg/dL 3.42 LDL/HDL Ratio, Nonfasting <2.54 mg/dL 1.74 DILATED RETINAL EXAM due on 05/31/2020 ADVANCE DIRECTIVE DISCUSSION Never done URINE ALBUMIN:CREATININE RATIO due on 12/27/2022 LDL CHOLESTEROL due on 12/27/2022 HEMOGLOBIN/HEMATOCRIT due on 12/27/2022 HBA1C due on 04/13/2023 SHINGRIX VACCINE(1 of 2) due on 10/14/2023 COVID-19 VACCINE(3 - Pfizer series) due on 10/14/2023 PNEUMOCOCCAL: 65+(1 - PCV) due on 10/14/2023 INFLUENZA(1) due on 05/16/2023 ANNUAL PCP TEAM CHRONIC DISEASE VISIT due on 10/14/2023 SERUM CREATININE due on 10/14/2023 BP CONTROLLED (<130/80) due on 10/29/2023 DIABETIC FOOT EXAM due on 04/14/2024 DTAP,TDAP,TD(2 - Td or Tdap) due on 05/21/2028 COLORECTAL CANCER SCREENING Discontinued ASSESSMENT/PLAN: 1. Controlled type 2 diabetes mellitus without complication, without long-term current use of insulin (HCC) - ICD9: 250.00, ICD10: E11.9 (primary diagnosis) - Controlled - Continue current medications - Discussed diabetic education issues of diabetes complications and monitoring required - Follow up in 6 months, sooner should any other issues arise. - HGB A1C - CBC - ALBUMIN/CREAT RATIO RND UR 2. Mixed hyperlipidemia - ICD9: 272.2, ICD10: E78.2 - Control undetermined, due for labs - Continue current medications - Counseled on healthy diet and regular exercise - Discussed need for and benefit of weight loss. BMI 30.11 kg/(m^2) - Follow up in 6 months, sooner should any other issues arise. - LIPID PANEL BASIC - COMP METABOLIC PANEL 3. Essential hypertension - ICD9: 401.9, ICD10: I10 - Controlled - Continue current medications - Recommend home blood pressure monitoring, to bring results to next visit - Encouraged sodium restriction, DASH or Mediterranean diet - Recommend regular aerobic exercise - Discussed need for and benefit of weight loss. BMI 30.11 kg/(m^2) - Follow up in 6 months for hypertension visit - COMP METABOLIC PANEL - LISINOPRIL 30 MG TABLET Keiko Brewer APRN.AMISHA Prescription instructions reviewed with patient as applicable. Patient advised if symptoms do not improve or if symptoms worsen sooner, to contact their primary care physician. Potential red flag symptoms discussed with the patient. Reviewed appropriate action plan to take if red flag symptoms occur. Patient agreeable to treatment plan. I spent a total of 25 minutes on the date of the service which included preparing to see the patient, [id number] patient care, completing clinical documentation, obtaining and/or reviewing separately obtained history, performing a medically appropriate examination, counseling and educating the pat ient/family/caregiver, and ordering medications, tests, or procedures. documented in this encounterSt. [facility] Hospital02-24-2023 Miscellaneous Notes* Telephone Encounter - Shabnam Milesallie [facility] - 11/08/2022 4:47 PM EST Patient has been identified by name and date of : Yes Requested Prescriptions Pending Prescriptions Disp Refills atorvastatin (LIPITOR) 40 mg tablet 45 tablet 3 Sig: Take 0.5 tablets by mouth once daily. RX INSTRUCTIONS: Patient aware RX will be sent to pharmacy. No need to notify patient. Shabnam Torres [employer] documented in this encounterSt. [facility] Hospital01-31-2023 Miscellaneous Notes* Telephone Encounter - Jodie Pan RN - 10/15/2022 11:14 AM EST Patient notified. Jodie Pan RN * Telephone Encounter - Keiko Brewer APRN.CNP - 10/15/2022 10:40 AM EST Please call patient and let him know his uric acid level is in normal range. Continue current dose of allopurinol. Kidney function remains decreased but better than last check. Continue to eat low salt diet, avoid NSAID products and stay well hydrated. A1c is 5.7% which as improved- continue current medications, diet and exercise. The rest of his blood work is in acceptable ranges. Keiko Brewer APRN.AMISHA documented in this encounterSt. [facility] Hospital01-30-2023 History of Present illness Narrative* Parth Tilley MD - 10/14/2022 9:13 AM EST Chief Complaint Patient presents with: Follow Up HPI Greg Moore is a 81 year old male who presents here today for Above Complaints. Patient has been in good health without hospitalization or falls. DIABETES MELLITUS: Mr. Moore was last seen 9 months ago. Since our last visit he denies excessive thirst or increased frequency of urination, numbness, tingling or pain in extremities, new or unusualvisual symptoms, and low sugar/hypoglycemic reactions. Follows a diabetic diet most of the time. Heis compliant with medication(s) and is tolerating med(s) without any side effects. He reports checking his glucose on a infrequent to not at all basis schedule. Patient's last HgA1C was Hemoglobin A1C (%) Date Value 12/27/2021 6.2 12/25/2020 6.1 11/22/2019 6.1 ) Last Ophthalmology exam was more than 12 months. Last Podiatry exam was within the past 12 months CAD: Patient states that he had follow up with Dr. Samaniego in the last 6 months. Did not make any changes to his regimen. Recommended 1 year follow up. Records not available today. BP well controlled on current regimen. Gout: had a flare up about 2-3 months ago because he was eating too much seafood. Taking his allopurinol daily. No symptoms today. Depression symptoms well controlled on Celexa. Past medical history, appointments, medications, allergies reviewed. Previous Medical History PAST MEDICAL HISTORY Diagnosis Date Bilateral carotid artery stenosis mild CKD (chronic kidney disease), stage III (HCC) Coronary artery disease s/p PCI 2003 [facility] -- sees Dr. Samaniego Depression Elevated LFTs Gout Hypertension Insomnia Mixed hyperlipidemia Obesity (BMI 30.0-34.9) Thrombocytopenia (HCC) Type II diabetes mellitus (HCC) Previous Surgical History PAST SURGICAL HISTORY Procedure Laterality Date COLONOSCOPY 2016 Dr. Aggarwal, normal INGUINAL HERNIA REPAIR HX Left REPAIR OF HYDROCELE Bilateral STENT PLACEMENT [facility]YN [facility] 2003 (cardiac) Family History FAMILY HISTORY Problem Relation Age of Onset Coronary Artery Disease Mother Diabetes Mother Cancer Father throat Patient Allergies ALLERGIES No Known Allergies Current Medications Current Outpatient Medications on File Prior to Visit Medication Sig metFORMIN (GLUCOPHAGE) 500 mg tablet Take 1 tablet by mouth twice daily with meals. . atorvastatin (LIPITOR) 40 mg tablet Take 0.5 tablets by mouth once daily. allopurinol (ZYLOPRIM) 300 mg tablet Take 1 tablet by mouth once daily. For gout. clopidogrel (PLAVIX) 75 mg tablet Take 1 tablet by mouth once daily. risperiDONE (RISPERDAL) 0.25 mg tablet Take 1 tablet by mouth daily at bedtime. metoprolol tartrate, short acting, (LOPRESSOR) 25 mg tablet Take 0.5 tablets by mouth twice daily. citalopram (CELEXA) 20 mg tablet Take 0.5 tablets by mouth once daily. nitroglycerin sublingual (NITROSTAT) 0.4 mg SL tablet Dissolve 1 tablet under the tongue every 5 minutes as needed for Chest Pain. aspirin, enteric coated (ECOTRIN LOW STRENGTH) 81 mg EC tablet Take 1 tablet by mouth once daily. predniSONE (DELTASONE) 10 mg tablet Take 4 tabs daily for 3 days, then 2 tabs daily for 3 days, then 1 tab daily for 3 days with food. (Patient not taking: Reported on 10/14/2022) lisinopril (ZESTRIL, PRINIVIL) 10 mg tablet Take 1 tablet by mouth once daily. Take one tablet in addition to 20 mg tablet daily No current facility-administered medications on file prior to visit. Social History Social History Tobacco Use Smoking status: Former Types: Cigarettes Quit date: 11/19/1987 Years since quittin.9 Smokeless tobacco: Former Tobacco comments: light smoker, short period of time Substance Use Topics Alcohol use: No Drug use: No Review of Symptoms REVIEW OF SYSTEMS GENERAL: No weight loss, malaise or fevers RESPIRATORY: Negative for cough, hemoptysis, wheezing, COPD, dyspnea or shortness of breath CARDIOVASCULAR: Negative for chest pain, leg swelling, hypertension, CHF or palpitations GI: No nausea, vomiting, or diarrhea SKIN: Negative for lesions, rash, and itching EXAM: BP 124/60 Pulse (!) 54 Resp 16 Wt 86.2 kg (190 lb) SpO2 98% BMI 30.44 kg/m General Appearance: Well appearing, alert, in no acute distress, well-hydrated, well nourished.. Skin: Skin color, texture, turgor normal, no suspicious rashes or lesions. Lungs: Lungs clear to auscultation. No wheezing, rhonchi, rales.. Heart: 2/6 SUSAN over RUSB. Bradycardia. Abdomen: Normal abdominal exam, Abdomen soft, non-tender. Bowel sounds normal. No masses, organomegaly. Extremities: No deformities, edema, skin discoloration, clubbing or cyanosis. Good capillary refill. . Health Maintenance List PNEUMOCOCCAL: 65+(1 - PCV) Never done BP CONTROLLED (<130/80) Never done SHINGRIX VACCINE(1 of 2) Never done DILATED RETINAL EXAM due on 05/31/2020 COVID-19 VACCINE(3 - Booster for Pfizer series) due on 03/02/2021 INFLUENZA(1) due on 05/16/2022 HBA1C due on 06/28/2022 ADVANCE DIRECTIVE DISCUSSION Never done URINE ALBUMIN:CREATININE RATIO due on 12/27/2022 LDL CHOLESTEROL due on 12/27/2022 SERUM CREATININE due on 12/27/2022 HEMOGLOBIN/HEMATOCRIT due on 12/27/2022 DIABETIC FOOT EXAM due on 12/31/2022 ANNUAL PCP TEAM CHRONIC DISEASE VISIT due on 12/31/2022 DTAP,TDAP,TD(2 - Td or Tdap) due on 05/21/2028 Data reviewed Component Latest Ref Rng & Units 12/27/2021 Protein, Total 6.3 - 8.0 g/dL 7.1 Albumin 3.9 - 4.9 g/dL 4.3 Calcium 8.5 - 10.2 mg/dL 9.1 Bilirubin, Total 0.2 - 1.3 mg/dL 0.7 Alkaline Phosphatase 38 - 113 U/L 53 AST 14 - 40 U/L 30 ALT 10 - 54 U/L 27 Glucose 74 - 99 mg/dL 118 (H) BUN 9 - 24 mg/dL 24 Creatinine 0.73 - 1.22 mg/dL 1.41 (H) Sodium 136 - 144 mmol/L 139 Potassium 3.7 - 5.1 mmol/L 5.1 Chloride 97 - 105 mmol/L 104 CO2 22 - 30 mmol/L 24 Anion Gap 9 - 18 mmol/L 11 eGFR >=60 mL/min/1.73m 51 (L) WBC 3.70 - 11.00 k/uL 7.97 RBC 4.20 - 6.00 m/uL 5.18 Hemoglobin 13.0 - 17.0 g/dL 14.4 Hematocrit 39.0 - 51.0 % 46.8 MCV 80.0 - 100.0 fL 90.3 MCH 26.0 - 34.0 pg 27.8 MCHC 30.5 - 36.0 g/dL 30.8 RDW-CV 11.5 - 15.0 % 15.4 (H) Platelet Count 150 - 400 k/uL 151 MPV 9.0 - 12.7 fL 13.5 (H) Absolute nRBC <0.01 k/uL <0.01 Total Cholesterol, Nonfasting <200 mg/dL 106 Triglycerides, Nonfasting <150 mg/dL 105 HDL Cholesterol, Nonfasting >39 mg/dL 31 (L) LDL Cholesterol, Nonfasting <100 mg/dL 54 Non HDL Cholesterol, Nonfasting <130 mg/dL 75 VLDL Cholesterol, Nonfasting <30 mg/dL 21 Total Chol/HDL Ratio, Nonfasting <5.10 mg/dL 3.42 LDL/HDL Ratio, Nonfasting <2.54 mg/dL 1.74 Creatinine, Ur Random (UCRR) 20.0 - 300.0 mg/dL 95.0 Albumin, Urine Random mg/L 79.3 Albumin/Creat Ratio <30 mg/g 83 (H) Hemoglobin A1C 4.3 - 5.6 % 6.2 (H) Estimated Average Glucose mg/dL 131 Uric Acid 4.0 - 8.1 mg/dL 7.9 ASSESSMENT/PLAN: 1. Controlled type 2 diabetes mellitus without complication, without long-term current use of insulin (HCC) - ICD9: 250.00, ICD10: E11.9 (primary diagnosis) Controlled. - Continue current medications - Blood glucose monitoring on a once a day schedule - Encouraged regular aerobic exercise and weight loss - Follow up in 6 months, sooner should any other issues arise. 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 - HGB A1C - COMP METABOLIC PANEL - CONSULT TO OPHTHALMOLOGY 2. Essential hypertension - ICD9: 401.9, ICD10: I10 - good control - Continue current medication(s) - Encouraged dietary sodium restriction/DASH diet - Recommended regular aerobic exercise. - Reviewed risks of HTN and principles of treatment - Goal of BP <140/90 - LISINOPRIL 30 MG TABLET 3. Gout, unspecified cause, unspecified chronicity, unspecified site - ICD9: 274.9, ICD10: M10.9 Recent flare after not adhering to gout diet. Discussed avoidance of shellfish, red meat, alcohol, and sugary drinks. Will recheck uric acid level continue allopurinol. - URIC ACID BLOOD 4. Mild episode of recurrent major depressive disorder (HCC) - ICD9: 296.31, ICD10: F33.0 Controlled on SSRI 5. Mixed hyperlipidemia - ICD9: 272.2, ICD10: E78.2 - good control - Continue current medication. - Encouraged following a low fat, low cholesterol diet. - Discussed the benefits of regular aerobic exercise and weight loss. 6. Coronary artery disease involving [place] heart without angina pectoris, unspecified vessel or lesion type - ICD9: 414.01, ICD10: I25.10 Asymptomatic on current regimen. F/u with recommendations per cardiology. 7. Systolic ejection murmur - ICD9: 785.2, ICD10: R01.1 Benign sounding murmur. Likely mild aortic stenosis. Patient states this was discussed at his appointment with cardiology. Will obtain records. Parth Tilley MD documented in this encounterSt[facility] Miscellaneous Notes* Telephone Encounter - Arturo Bond - 09/30/2022 3:36 PM EST 1st Attempt: LVM for pt to call back and schedule follow up appt * Telephone Encounter - Keiko Brewer APRN.CNP - 09/30/2022 12:36 PM EST Due for follow-up. Please assist in scheduling Keiko Brewer APRN.CNP * Telephone Encounter - Brittney Knox - 09/30/2022 12:27 PM EST Patient has been identified by name and date of : Yes Requested Prescriptions Pending Prescriptions Disp Refills metFORMIN (GLUCOPHAGE) 500 mg tablet 180 tablet 1 Sig: Take 1 tablet by mouth twice daily with meals. . RX INSTRUCTIONS: Patient is requesting 90 days due to insurance, it is cheaper, he is out of medication and needs today. Patient aware RX will be sent to pharmacy. No need to notify patient. Brittney Knox documented in this encounterSt. [facility]01-14-2023 Miscellaneous Notes* Telephone Encounter - Mirian Echeverria LPN - 09/28/2022 12:16 PM EST Patient calling with medication/refill: Do you have enough medication to last until the office reopens? Yes. . Patient denies any new or worsening symptoms of which a provider is not aware:Yes patient will call office Friday during office hours for refill metformin. Mirian Echeverria LPN documented in this encounterSt[facility]12-13-2022 Miscellaneous Notes* Telephone Encounter - Virginia Dixon LPN - 08/27/2022 1:46 PM EST Last refill 07/26/22 Qty: 60 with 0 refills [facility] 12/31/21 NOV none scheduled. Pt was left a msg 07/26 regarding need for f/u appointment. Virginia Dixon LPN * Telephone Encounter - Alva Rodriguez - 08/27/2022 1:42 PM EST Patient has been identified by name and date of : Yes Last office visit in this department: 12/31/2021 RX INSTRUCTIONS: Patient aware RX will be sent to pharmacy. No need to notify patient. Patient phones requesting refills as follows: Requested Prescriptions Pending Prescriptions Disp Refills metFORMIN (GLUCOPHAGE) 500 mg tablet 60 tablet 0 Sig: Take 1 tablet by mouth twice daily with meals. . Please review and advise. Alva Rodriguez documented in this encounterSt. [facility]11-11-2022 Miscellaneous Notes* Telephone Encounter - Pao Padron LPN - 07/26/2022 3:37 PM EST Phoned patient and message left to advise him he is past due for follow up. Requested he call back to schedule. * Telephone Encounter - Pao Padron LPN - 07/26/2022 2:53 PM EST NOV no upcoming appt noted * Telephone Encounter - Alva Rordiguez - 07/26/2022 1:14 PM EST Patient has been identified by name and date of : Yes Last office visit in this department: 12/31/2021 RX INSTRUCTIONS: Patient aware RX will be sent to pharmacy. No need to notify patient. Patient phones requesting refills as follows: Requested Prescriptions Pending Prescriptions Disp Refills metFORMIN (GLUCOPHAGE) 500 mg tablet 60 tablet 5 Sig: Take 1 tablet by mouth twice daily with meals. . Please review and advise. Alva Rodriguez documented in this encounterSt. [facility]10-07-2022 History of Present illness Narrative* Trinidad Willis APRN.[employer] - 06/21/2022 12:29 PM EDT This note was created using jaeyosriter. Subjective Greg Moore is a 81 year old male. 81 year old male with PMH DM, hyperlipidemia, gout, HTN, and insomnia presents for complaints of gout. Acute onset a few days ago Has had similar and this feels the same always the right one (right foot and right ankle) +swelling + pain Denies skin rash or lesions. Denies fever or chills. Endorses that he has given up fish. He states he ate a lot of sugary food this week. He does take Allopurinol daily Denies alcohol usage. Denies trauma or injury to foot. States that he is prescribed Prednisone for prior bouts The history is provided by the patient. Pain (foot) Pain location: right foot and right ankle. This is a recurrent problem. The current episode startedin the past 7 days. There has been no history of extremity trauma. The problem occurs constantly. The problem has been unchanged. The quality of the pain is described as aching and sharp. The pain isat a severity of 5/10. The pain is moderate. Associated symptoms include joint swelling. Pertinent negatives include no fever, inability to bear weight, itching, joint locking, limited range of motion, numbness, stiffness or tingling. The symptoms are aggravated by activity. He has tried nothing for the symptoms. The treatment provided no relief. Family history includes gout. Family history does not include rheumatoid arthritis. His past medical history is significant for diabetes and gout. There is no history of osteoarthritis or rheumatoid arthritis. PAST MEDICAL HISTORY Diagnosis Date Bilateral carotid artery stenosis mild CKD (chronic kidney disease), stage III (HCC) Coronary artery disease s/p PCI 2003 [facility] -- sees Dr. Samaniego Depression Elevated LFTs Gout Hypertension Insomnia Mixed hyperlipidemia Obesity (BMI 30.0-34.9) Thrombocytopenia (HCC) Type II diabetes mellitus (HCC) PAST SURGICAL HISTORY Procedure Laterality Date COLONOSCOPY 2016 Dr. Aggarwal, normal INGUINAL HERNIA REPAIR HX Left REPAIR OF HYDROCELE Bilateral STENT PLACEMENT KAILYN [facility] 2003 (cardiac) ALLERGIES Patient has no known allergies. MEDICATIONS atorvastatin (LIPITOR) 40 mg tablet Take 0.5 tablets by mouth once daily. allopurinol (ZYLOPRIM) 300 mg tablet Take 1 tablet by mouth once daily. For gout. clopidogrel (PLAVIX) 75 mg tablet Take 1 tablet by mouth once daily. risperiDONE (RISPERDAL) 0.25 mg tablet Take 1 tablet by mouth daily at bedtime. metoprolol tartrate, short acting, (LOPRESSOR) 25 mg tablet Take 0.5 tablets by mouth twice daily. citalopram (CELEXA) 20 mg tablet Take 0.5 tablets by mouth once daily. nitroglycerin sublingual (NITROSTAT) 0.4 mg SL tablet Dissolve 1 tablet under the tongue every 5 minutes as needed for Chest Pain. aspirin, enteric coated (ECOTRIN LOW STRENGTH) 81 mg EC tablet Take 1 tablet by mouth once daily. predniSONE (DELTASONE) 10 mg tablet Take 4 tabs daily for 3 days, then 2 tabs daily for 3 days, then 1 tab daily for 3 days with food. metFORMIN (GLUCOPHAGE) 500 mg tablet Take 1 tablet by mouth twice daily with meals. . lisinopril (ZESTRIL, PRINIVIL) 10 mg tablet Take 1 tablet by mouth once daily. Take one tablet in addition to 20 mg tablet daily FAMILY HISTORY Problem Relation Age of Onset Coronary Artery Disease Mother Diabetes Mother Cancer Father throat Social History Tobacco Use Smoking status: Former Types: Cigarettes Quit date: 11/19/1987 Years since quittin.6 Smokeless tobacco: Former Tobacco comments: light smoker, short period of time Substance Use Topics Alcohol use: No Drug use: No Review of Systems Constitutional: Negative for activity change, appetite change, chills and fever. Eyes: Negative for pain, discharge and itching. Respiratory: Negative for apnea, cough, choking and chest tightness. Cardiovascular: Negative for chest pain, palpitations and leg swelling. Gastrointestinal: Negative for abdominal pain, diarrhea, nausea and vomiting. Musculoskeletal: Positive for gout. Negative for stiffness. Skin: Negative for color change, itching, pallor, rash and wound. Allergic/Immunologic: Positive for immunocompromised state. Negative for environmental allergies and food allergies. Neurological: Negative for dizziness, tingling, facial asymmetry, light- headedness, numbness and headaches. Hematological: Negative for adenopathy. Does not bruise/bleed easily. Psychiatric/Behavioral: Negative for agitation and behavioral problems. Objective BP 140/88 Pulse (!) 56 Temp 36.2 C (97.2 F) Resp 18 Wt 87.4 kg (192 lb 9.6 oz) SpO2 98% BMI 30.85 kg/m Physical Exam Vitals and nursing note reviewed. Constitutional: General: He is not in acute distress. Appearance: Normal appearance. He is not ill-appearing, toxic-appearing or diaphoretic. HENT: Head: Normocephalic and atraumatic. Right Ear: External ear normal. Left Ear: External ear normal. Nose: Nose normal. No congestion or rhinorrhea. Mouth/Throat: Mouth: Mucous membranes are moist. Pharynx: Oropharynx is clear. No oropharyngeal exudate or posterior oropharyngeal erythema. Eyes: General: Right eye: No discharge. Left eye: No discharge. Extraocular Movements: Extraocular movements intact. Conjunctiva/sclera: Conjunctivae normal. Pupils: Pupils are equal, round, and reactive to light. Cardiovascular: Rate and Rhythm: Normal rate and regular rhythm. Pulses: Normal pulses. Heart sounds: Normal heart sounds. No murmur heard. No friction rub. No gallop. Pulmonary: Effort: Pulmonary effort is normal. No respiratory distress. Breath sounds: Normal breath sounds. No stridor. No wheezing, rhonchi or rales. Chest: Chest wall: No tenderness. Abdominal: General: Abdomen is flat. There is no distension. Palpations: Abdomen is soft. There is no mass. Tenderness: There is no abdominal tenderness. There is no guarding or rebound. Hernia: No hernia is present. Musculoskeletal: General: No swelling, tenderness, deformity or signs of injury. Normal range of motion. Cervical back: Normal range of motion and neck supple. No rigidity or tenderness. Right lower leg: No edema. Left lower leg: No edema. Comments: Right lateral ankle and medial aspect of foot with slight swelling +TTP Mild erythema No abscess. NO crepitus. No obvious deformity. DP + 2 Lymphadenopathy: Cervical: No cervical adenopathy. Skin: General: Skin is warm and dry. Capillary Refill: Capillary refill takes less than 2 seconds. Coloration: Skin is not jaundiced or pale. Findings: No bruising, lesion or rash. Neurological: General: No focal deficit present. Mental Status: He is alert and oriented to person, place, and time. Cranial Nerves: No cranial nerve deficit. Sensory: No sensory deficit. Motor: No weakness. Coordination: Coordination normal. Gait: Gait normal. Deep Tendon Reflexes: Reflexes normal. Psychiatric: Mood and Affect: Mood normal. Behavior: Behavior normal. Thought Content: Thought content normal. Assessment and Plan ASSESSMENT/PLAN: 1. Acute gout of right ankle, unspecified cause - ICD9: 274.01, ICD10: M10.9 Onset earlier in week Denies trauma or injury This feels like my prior gout No red flags Has taken Prednisone in past with relief. Will provide RX Discussed dietary Follow up with PCP Trinidad Willis APRN.[employer]GEANT documented in this encounterSt. [facility]08-30-2022 Miscellaneous Notes* Telephone Encounter - Pao Padron LPN - 05/14/2022 9:58 AM EDT [facility] 12/31/21 NOV no upcoming appt noted * Telephone Encounter - Brittney Stone [facility] - 05/14/2022 9:28 AM EDT Patient has been identified by name and date of : Yes Requested Prescriptions Pending Prescriptions Disp Refills allopurinol (ZYLOPRIM) 300 mg tablet 30 tablet 5 Sig: Take 1 tablet by mouth once daily. For gout. RX INSTRUCTIONS: Please send today. Please send to [facility]. Out of medication. Patient aware RX will be sent to pharmacy. No need to notify patient. Brittney Stone Pss documented in this encounterSt. [facility]08-29-2022 History of Present illness Narrative* Aliya Moore APRN.[employer]GEANT - 05/13/2022 2:12 PM EDT Images from the original note were not included. Subjective Patient came in with complaints of right ankle gout flare. Patient says he gets it several times a year. Patient says he did run out of his allopurinol and never got it filled. Patient said he would contact his primary care and get that situated. Patient says he did not injure the ankle in any way does not want an x-ray today that it feels like gout. Patient said there is some swelling. The history is provided by the patient. No spanish interpreter/translator was used. Pain (foot) Review of Systems Constitutional: Negative. Skin: Negative. Objective Physical Exam Constitutional: Appearance: Normal appearance. Pulmonary: Effort: Pulmonary effort is normal. Musculoskeletal: Feet: Feet: Comments: Mild amount of swelling noted in areas marked above. Neurological: Mental Status: He is alert. PAST MEDICAL HISTORY Diagnosis Date Bilateral carotid artery stenosis mild CKD (chronic kidney disease), stage III (HCC) Coronary artery disease s/p PCI 2003 [facility] -- sees Dr. Samaniego Depression Elevated LFTs Gout Hypertension Insomnia Mixed hyperlipidemia Obesity (BMI 30.0-34.9) Thrombocytopenia (HCC) Type II diabetes mellitus (HCC) PAST SURGICAL HISTORY Procedure Laterality Date COLONOSCOPY 2016 Dr. Aggarwal, normal INGUINAL HERNIA REPAIR HX Left REPAIR OF HYDROCELE Bilateral STENT PLACEMENT KAILYN [facility] 2003 (cardiac) ALLERGIES Patient has no known allergies. MEDICATIONS metFORMIN (GLUCOPHAGE) 500 mg tablet Take 1 tablet by mouth twice daily with meals. . lisinopril (ZESTRIL, PRINIVIL) 10 mg tablet Take 1 tablet by mouth once daily. Take one tablet in addition to 20 mg tablet daily atorvastatin (LIPITOR) 40 mg tablet Take 0.5 tablets by mouth once daily. allopurinol (ZYLOPRIM) 300 mg tablet Take 1 tablet by mouth once daily. For gout. clopidogrel (PLAVIX) 75 mg tablet Take 1 tablet by mouth once daily. risperiDONE (RISPERDAL) 0.25 mg tablet Take 1 tablet by mouth daily at bedtime. metoprolol tartrate, short acting, (LOPRESSOR) 25 mg tablet Take 0.5 tablets by mouth twice daily. citalopram (CELEXA) 20 mg tablet Take 0.5 tablets by mouth once daily. nitroglycerin sublingual (NITROSTAT) 0.4 mg SL tablet Dissolve 1 tablet under the tongue every 5 minutes as needed for Chest Pain. aspirin, enteric coated (ECOTRIN LOW STRENGTH) 81 mg EC tablet Take 1 tablet by mouth once daily. FAMILY HISTORY Problem Relation Age of Onset Coronary Artery Disease Mother Diabetes Mother Cancer Father throat Social History Tobacco Use Smoking status: Former Types: Cigarettes Quit date: 11/19/1987 Years since quittin.5 Smokeless tobacco: Former Tobacco comments: light smoker, short period of time Substance Use Topics Alcohol use: No Drug use: No ASSESSMENT/PLAN: 1. Acute gout of right ankle, unspecified cause - ICD9: 274.01, ICD10: M10.9 Prednisone 9 day taper. Patient to call primary care physician and get a refill on allopurinol. Patient will follow-up for signs and symptoms seem to be getting worse not better. Patient is okay withthis care plan. Aliya Moore APRN.AMISHA documented in this encounterSt. 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 States he usually comes in about every six months to be seen. 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 Patient does not feel he needs to be seen with Dr Tilley at this time. He will call back when he needs an appointment, thank you Pt identified by name and : YES, via phone Outreach Outcome/Action Spoke to patient or caregiver: Patient declined Did you use a PCP flex slot to schedule this appointment? N/A Reason for Outreach HCC or suspected condition Payer: Payor: MEDICARE / Plan: MEDICARE A AND B / Product Type: Medicare / Care Gap Reviewed:: Follow-up appointment Reminder: Reminder note to check Health Maintenance for items below Health Maintenance items due: PNEUMOCOCCAL: 65+(1 - PCV) Never done SHINGRIX VACCINE(1 of 2) Never done DILATED RETINAL EXAM due on 05/31/2020 COVID-19 VACCINE(3 - Booster for Pfizer series) due on 06/07/2021 ADVANCE DIRECTIVE DISCUSSION Never done Message Sent to Practice: No Navigation Signature: Ani De Leon MA April 11, 2022 1:39 PM documented in this encounterSt. [facility] Hospital06-30-2022 History of Present illness Narrative* Becky Hart PA-C - 03/14/2022 1:26 PM EDT This note was created using VoltDBter. Subjective Greg Moore is a 81 year old male. HPI Patient presents with left foot pain for 2 days. He has history of gout and this feel very similar.No fever or chills. No injury. He did do a lot of standing yesterday which he thinks made it worse. Review of Systems Constitutional: Negative. HENT: Negative. Respiratory: Negative. Cardiovascular: Negative. Gastrointestinal: Negative. Musculoskeletal: Left foot pain All other systems reviewed and are negative. PAST MEDICAL HISTORY Diagnosis Date Bilateral carotid artery stenosis mild CKD (chronic kidney disease), stage III (HCC) Coronary artery disease s/p PCI 2003 [facility] -- sees Dr. Samaniego Depression Elevated LFTs Gout Hypertension Insomnia Mixed hyperlipidemia Obesity (BMI 30.0-34.9) Thrombocytopenia (HCC) Type II diabetes mellitus (HCC) Current Outpatient Medications Medication Sig Dispense Refill atorvastatin (LIPITOR) 40 mg tablet Take 0.5 tablets by mouth once daily. 45 tablet 1 allopurinol (ZYLOPRIM) 300 mg tablet Take 1 tablet by mouth once daily. For gout. 30 tablet 2 clopidogrel (PLAVIX) 75 mg tablet Take 1 tablet by mouth once daily. 30 tablet 11 risperiDONE (RISPERDAL) 0.25 mg tablet Take 1 tablet by mouth daily at bedtime. 30 tablet 0 metoprolol tartrate, short acting, (LOPRESSOR) 25 mg tablet Take 0.5 tablets by mouth twice daily. 60 tablet 0 citalopram (CELEXA) 20 mg tablet Take 0.5 tablets by mouth once daily. 90 tablet 3 nitroglycerin sublingual (NITROSTAT) 0.4 mg SL tablet Dissolve 1 tablet under the tongue every 5 minutes as needed for Chest Pain. 1 Bottle of 25 0 aspirin, enteric coated (ECOTRIN LOW STRENGTH) 81 mg EC tablet Take 1 tablet by mouth once daily. 0 predniSONE (DELTASONE) 20 mg tablet Take 2 tablets by mouth once daily for 5 days. 10 tablet 0 metFORMIN (GLUCOPHAGE) 500 mg tablet Take 1 tablet by mouth twice daily with meals. . 60 tablet 5 lisinopril (ZESTRIL, PRINIVIL) 10 mg tablet Take 1 tablet by mouth once daily. Take one tablet in addition to 20 mg tablet daily 30 tablet 5 No current facility-administered medications for this visit. PAST SURGICAL HISTORY Procedure Laterality Date COLONOSCOPY 2017 Dr. Aggarwal, normal INGUINAL HERNIA REPAIR HX Left REPAIR OF HYDROCELE Bilateral STENT PLACEMENT [facility] 2003 (cardiac) FAMILY HISTORY Problem Relation Age of Onset Coronary Artery Disease Mother Diabetes Mother Cancer Father throat Social History Tobacco Use Smoking status: Former Smoker Types: Cigarettes Quit date: 11/19/1987 Years since quittin.3 Smokeless tobacco: Former User Tobacco comment: light smoker, short period of time Substance Use Topics Alcohol use: No Drug use: No Objective BP 128/76 Pulse 91 Temp 36.9 C (98.4 F) Resp 18 SpO2 98% Physical Exam Vitals reviewed. Constitutional: Appearance: Normal appearance. HENT: Head: Normocephalic and atraumatic. Musculoskeletal: Comments: Patient tender on palpation of hte midfoot with some swelling. No redness. No bruising. Pain with ROM and weight bearing. Pedal pulses 2+ Skin: General: Skin is warm and dry. Findings: No rash. Neurological: Mental Status: He is alert. Assessment and Plan ASSESSMENT/PLAN: 1. Acute gout of left foot, unspecified cause - ICD9: 274.01, ICD10: M10.9 Will treat with prednisone. Discussed ice, rest, elevation. Check BS while on the prednisone as canraise blood sugar. Patient agreeable. Follow up if not improving. Becky Hart PA-C documented in [facility] encounter[facility] Miscellaneous Notes* Telephone Encounter - Nirmala Shields RN - 03/14/2022 11:51 AM EDT Patient calls to request prescription for prednisone [facility] be resent to [facility] is closed today d/t illness and not sure when will reopen. Order pended. Nirmala Shields RN documented in this encounterSt. [facility]05-[facility]22 Miscellaneous Notes* Telephone Encounter - Deonna Frenandez LPN - 01/14/2022 11:44 AM EDT Patient notified of results, verbalizes understanding of instructions. Deonna Fernandez LPN * Telephone Encounter - Keiko Brewer APRN.CNP - 01/14/2022 9:59 AM EDT BP well controlled on current dose. Continue current medications. Keiko Brewer APRN.CNP * Telephone Encounter - Alva Carballo LPN - 01/14/2022 9:54 AM EDT Manual Readin/66 Pulse: 56 Reason for blood pressure check - Last BP elevated and Medication adjustment Patient is: Taking medication as prescribed Yes Took medication today Yes If no, date medication last taken N/A Experiencing side effects No BP was elevated at last appt 12/31/21. Lisinopril was increased to 30mg daily. Tolerating medicationchange well. Denies any chest pain, shortness of breath, dizziness, or headaches. Occasional caffeine use. Past personal history of tobacco use; no current exposure. Alert and oriented. Pt has been identified by name and birthdate: Yes Allergies reviewed: Yes Latex allergy: no. Medication - prescribed and OTC reviewed and updated: Yes Do you need any prescription refills prior to your next visit: No Health Maintenance: Reviewed and not up to date and provider notified Patient advised to continue with current medications and would be contacted if any further instructions after review by PCP. Alva Carballo LPN documented in this encounterSt. [facility]04-18-2022 Miscellaneous Notes* Telephone Encounter - Meredith Luhter LPN - 12/31/2021 3:12 PM EDT Called and spoke with Sherine at the [facility]. Made aware we would be sending over an EKGfor them to compare to. EKG faxed at this time to [phone] Meredith Luther LPN * Telephone Encounter - Keiko Brewer APRN.CNP - 12/31/2021 12:14 PM EDT Please fax today's ECG to Dr. Samaniego's office. Also call and let them know I do not have an EKG to compare to and I would like them to review it. Thanks, Keiko Brewer APRN.CNP documented in this encounterSt. [facility] Hospital04-11-2022 Miscellaneous Notes* Telephone Encounter - Effie Vicente LPN - 12/24/2021 4:16 PM EDT PATIENT NOTIFIED OF SAME. * Telephone Encounter - Parth Tilley MD - 12/24/2021 3:19 PM EDT 30 day refill sent while we are waiting to get her in for appointment. * Telephone Encounter - Jarrett Green Pss - 12/24/2021 2:36 PM EDT Patient's daughter called to check on status of refill request. Message was given. Appt scheduled for 12/31/21 with Keiko Podlogar and lab appt on 12/27/21. She said merlin is completely out of metformin. Wants to know if short term refill can be sent today until his appt on Friday. Please advise at [phone]. Cell phone number was updated and correct in chart now. * Telephone Encounter - Deonna Fernandez LPN - 12/24/2021 8:50 AM EDT TC to pt. Line rings fast busy signal. Deonna Fernandez LPN * Telephone Encounter - Parth Tilley MD - 12/21/2021 1:45 PM EDT Last OV was 1 year ago. Please call patient to schedule follow up appointment. Labs ordered to be completed at least 2 days before appointment. * Telephone Encounter - Aileen Greene Pss - 12/21/2021 11:55 AM EDT Pharmacy verified in [facility] Patient has been identified by name and date of : Yes Patient aware RX will be sent to pharmacy. No need to notify patient. Patient phones for refill(s): Pending Prescriptions Disp Refills METFORMIN 500 MG TABLET 180 tablet 1 Sig: Take 1 tablet by mouth twice daily with meals. . GABO: No Date of last office visit : 12/25/2020 Date of next office visit : Visit date not found Last 2 Encounter Wt Readings: Date: Wt: 11/07/2021 91.6 kg (202 lb) 01/06/2021 90.7 kg (200 lb) Please advise. Aileen Greene Pss documented in this encounterSt. [facility]03-28-2022 Miscellaneous Notes* Telephone Encounter - Dasha Wilkerson - 12/10/2021 12:54 PM EDT Patient has been identified by name and date of : Yes Last office visit in this department: 12/25/2020 RX INSTRUCTIONS: Patient aware RX will be sent to pharmacy. No need to notify patient. Patient phones requesting refills as follows: Pending Prescriptions Disp Refills ATORVASTATIN 40 MG TABLET 45 tablet 1 Sig: Take 0.5 tablets by mouth once daily. GABO: No Please review and advise. Dasha Wilkerson documented in this encounterSt. [facility] Hospital09-08-2020 History of Past illness Narrative* Problem Noted Date Resolved Date Hypertension 05/23/2020 Type II diabetes mellitus 2019 documented as of this encounter (statuses as of 12/10/2021) [facility] Narrative* Problem Noted Date Resolved Date Hypertension 05/23/2020 Type II diabetes mellitus 2019 documented as of this encounter (statuses as of 12/24/2021) [facility] Narrative* Problem Noted Date Resolved Date Hypertension 05/23/2020 Type II diabetes mellitus 2019 documented as of this encounter (statuses as of 03/14/2022) [facility] Narrative* Problem Noted Date Resolved Date Hypertension 05/23/2020 Type II diabetes mellitus 2019 documented as of this encounter (statuses as of 03/21/2022) [facility] Narrative* Problem Noted Date Resolved Date Hypertension 05/23/2020 Type II diabetes mellitus 2019 documented as of this encounter (statuses as of 04/05/2022) [address]08-2020 History of Past illness Narrative* Problem Noted Date Resolved Date Hypertension 05/23/2020 Type II diabetes mellitus 2019 documented as of this encounter (statuses as of 04/11/2022) [facility] Narrative* Problem Noted Date Resolved Date Hypertension 05/23/2020 Type II diabetes mellitus 2019 documented as of this encounter (statuses as of 05/13/2022) [address]08-2020 History of Past illness Narrative* Problem Noted Date Resolved Date Hypertension 05/23/2020 Type II diabetes mellitus 2019 documented as of this encounter (statuses as of 05/14/2022) [address]08-2020 History of Past illness Narrative* Problem Noted Date Resolved Date Hypertension 05/23/2020 Type II diabetes mellitus 2019 documented as of this encounter (statuses as of 06/21/2022) [address]08-2020 History of Past illness Narrative* Problem Noted Date Resolved Date Hypertension 05/23/2020 Type II diabetes mellitus 2019 documented as of this encounter (statuses as of 07/26/2022) [address]08-2020 History of Past illness Narrative* Problem Noted Date Resolved Date Hypertension 05/23/2020 Type II diabetes mellitus 2019 documented as of this encounter (statuses as of 08/27/2022) [address]08-2020 History of Past illness Narrative* Problem Noted Date Resolved Date Hypertension 05/23/2020 Type II diabetes mellitus 2019 documented as of this encounter (statuses as of 09/28/2022) [address]08-2020 History of Past illness Narrative* Problem Noted Date Resolved Date Hypertension 05/23/2020 Type II diabetes mellitus 2019 documented as of this encounter (statuses as of 09/30/2022) [address]08-2020 History of Past illness Narrative* Problem Noted Date Resolved Date Hypertension 05/23/2020 Type II diabetes mellitus 2019 documented as of this encounter (statuses as of 10/15/2022) [address]08-2020 History of Past illness Narrative* Problem Noted Date Resolved Date Hypertension 05/23/2020 Type II diabetes mellitus 2019 documented as of this encounter (statuses as of 10/15/2022) [address]08-2020 History of Past illness Narrative* Problem Noted Date Resolved Date Hypertension 05/23/2020 Type II diabetes mellitus 2019 documented as of this encounter (statuses as of 11/09/2022) [address]08-2020 History of Past illness Narrative* Problem Noted Date Diagnosed Date Resolved Date Hypertension 05/23/2020 Type II diabetes mellitus documented as of this encounter (statuses as of 04/14/2023) 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, without long-term current use of insulin 05/31/2019 10/17/2023 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 7 10/17/2023 Hypertension 05/23/2020 Thrombocytopenia 10/17/2023 Type II diabetes mellitus documented as of this encounter (statuses as of 10/17/2023) [place] [address]16-2019 History of Past illness Narrative* Problem Noted Date Diagnosed Date Resolved Date 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 Diagnosis 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)- Primary Type II or unspecified type diabetes mellitus without mention of complication, not stated as uncontrolled Acute gout of ankle, unspecified cause, unspecified laterality [facility] Diagnosis Acute gout of left foot, unspecified cause- Primary [facility] Diagnosis Acute gout of right ankle, unspecified cause- Primary [facility] Diagnosis Acute gout of ankle, unspecified cause, unspecified laterality [facility]* Diagnosis Controlled type 2 diabetes mellitus without complication, without long-term current use of insulin (HCC)- Primary Essential hypertension Unspecified essential hypertension Gout, unspecified cause, unspecified chronicity, unspecified site Mild episode of recurrent major depressive disorder (HCC) Mixed hyperlipidemia Coronary artery disease involving [place] heart without angina pectoris, unspecified vessel or lesion type Systolic ejection murmur Undiagnosed cardiac murmurs Type 2 diabetes mellitus with stage 3a chronic kidney disease, without long-term current use of insulin (HCC) Thrombocytopenia (HCC) Thrombocytopenia, unspecified Chronic kidney disease, stage 3a (HCC) documented in this encounter [facility] note* Diagnosis Controlled type 2 diabetes mellitus without complication, without long-term current use of insulin (HCC)- Primary Mixed hyperlipidemia Essential hypertension Unspecified essential hypertension documented in this encounter [facility] note* Diagnosis Acute gout of ankle, unspecified cause, unspecified laterality documented in this encounter [facility] note* Diagnosis Essential hypertension Unspecified essential hypertension documented in this encounter [facility] note* Diagnosis Acute gout of ankle, unspecified cause, unspecified laterality documented in this encounter [facility] for referral (narrative)* Outpatient Procedure (Routine) - Authorized Specialty Diagnoses / Procedures Referred By Contac t Referred To Contact [facility] Diagnoses Bilateral carotid artery stenosis Procedures US CAROTID ARTERIES VINCE VAS LAB DUPLEX SCAN EXTRACRANIAL ART COMPL BI STUDY Keiko Brewer APRN.CNP [address] [place] [address] [facility] [place] [address] Referral ID Status Reason Start Date Expiration Date Visits Requested Visits Authorized [id number] Authorized Auto-Generat ed Referral 04/16/2024 04/16/2025 1 1 [facility] for referral (narrative)No reason for referral information availableWSelect Medical Special[facility] Work Phone: Reason for Referral Specialty Diagnoses / Procedures Referred By Contact Referred To Contact [facility] Diagnoses Controlled type 2 diabetes mellitus without complication, without long-term current use of insulin (HCC) Procedures CONSULT TO OPHTHALMOLOGY OFFICE/OUTPATIENT [facility] 60-74 MINUTES Parth Tilley MD [address] [place] [address] [facility] [place] [address] Referral ID Status Reason Start Date Expiration Date V isits Requested Visits Authorized [id number] Closed PCP Requested Referral 10/14/2022 10/14/2023 1 1 Chief Complaint and Reason for Visit Chief Complaint Admit Date Hypotension, see clinical notes December 242024 12:57pm INT LAB ORDER January 17, 2025 11:46a m Reason for Visit Admit Date Atherosclerotic heart diseas e of [place] coronary artery without angina pectoris December 24, 2024 12:57pm Essential (primary) hypertension December 142024 12:57pm Hyperlipidemia December 24, 2024 12: 57pm Sinus bradycardia December 24, 2024 12: 57pm History of coronary artery stent placeme nt December 24, 2024 12:57pm Hypotension December 24, 2024 12: 57pm Family History No Family History Records Found Relationship Condition Age at Onset Recorded Date/T saeed father Malignant neoplasm of throat Unknown mother Coronary artery disease Unknown Myocardial infarction Unknown Diabetes mellitus Unknown brother Coronary artery disease Unknown sister Coronary artery disease Unknown Status post three ve ssel coronary artery bypass Unknown Summary Purpose Advance Directives No Advanced Directives Records FoundNo Advanced Directives Records Found Additional Source Comments Source Comments (unrecognize d section and content) In the event this informatio n is protected by the Federal Confidentiality of Alcohol and Drug Abuse Patient Records regulations: The Federal rules restrict any use of the information to criminally investigate or prosecute any alcohol or drug abuse patient.[facility]In the event this information is protected by the Federal Confidentiality of Alcohol and Drug Abuse Patient Records regulations: The Federal rules restrict any use of the information to criminally investigate or prosecute any alcohol or drug abuse patient.[facility] HospitalIn the event this information is protected by the Federal Confidentiality of Alcohol and Drug Abuse Patient Records regulations: The Federal rules restrict any use of the information to criminally investigate or prosecute any alcohol or drug abuse patient.[facility] HospitalIn the event this information is protected by the Federal Confidentiality of Alcohol and Drug Abuse Patient Records regulations: The Federal rules restrict any use of the information to criminally investigate or prosecute any alcohol or drug abuse patient.[facility] HospitalIn the event this information is protected by the Federal Confidentiality of Alcohol and Drug Abuse Patient Records regulations: The Federal rules restrict any use of the information to criminally investigate or prosecute any alcohol or drug abuse patient.[facility] HospitalIn the event this information is protected by the Federal Confidentiality of Alcohol and Drug Abuse Patient Records regulations: The Federal rules restrict any use of the information to criminally investigate or prosecute any alcohol or drug abuse patient.[facility] HospitalIn the event this information is protected by the Federal Confidentiality of Alcohol and Drug Abuse Patient Records regulations: The Federal rules restrict any use of the information to criminally investigate or prosecute any alcohol or drug abuse patient.[facility] HospitalIn the event this information is protected by the Federal Confidentiality of Alcohol and Drug Abuse Patient Records regulations: The Federal rules restrict any use of the information to criminally investigate or prosecute any alcohol or drug abuse patient.[facility] HospitalIn the event this information is protected by the Federal Confidentiality of Alcohol and Drug Abuse Patient Records regulations: The Federal rules restrict any use of the information to criminally investigate or prosecute any alcohol or drug abuse patient.[facility] HospitalIn the event this information is protected by the Federal Confidentiality of Alcohol and Drug Abuse Patient Records regulations: The Federal rules restrict any use of the information to criminally investigate or prosecute any alcohol or drug abuse patient.[facility] HospitalIn the event this information is protected by the Federal Confidentiality of Alcohol and Drug Abuse Patient Records regulations: The Federal rules restrict any use of the information to criminally investigate or prosecute any alcohol or drug abuse patient.[facility] HospitalIn the event this information is protected by the Federal Confidentiality of Alcohol and Drug Abuse Patient Records regulations: The Federal rules restrict any use of the information to criminally investigate or prosecute any alcohol or drug abuse patient.[facility] HospitalIn the event this information is protected by the Federal Confidentiality of Alcohol and Drug Abuse Patient Records regulations: The Federal rules restrict any use of the information to criminally investigate or prosecute any alcohol or drug abuse patient.[facility] HospitalIn the event this information is protected by the Federal Confidentiality of Alcohol and Drug Abuse Patient Records regulations: The Federal rules restrict any use of the information to criminally investigate or prosecute any alcohol or drug abuse patient.[facility] HospitalIn the event this information is protected by the Federal Confidentiality of Alcohol and Drug Abuse Patient Records regulations: The Federal rules restrict any use of the information to criminally investigate or prosecute any alcohol or drug abuse patient.[facility] HospitalIn the event this information is protected by the Federal Confidentiality of Alcohol and Drug Abuse Patient Records regulations: The Federal rules restrict any use of the information to criminally investigate or prosecute any alcohol or drug abuse patient.[facility] HospitalIn the event this information is protected by the Federal Confidentiality of Alcohol and Drug Abuse Patient Records regulations: The Federal rules restrict any use of the information to criminally investigate or prosecute any alcohol or drug abuse patient.[facility] HospitalIn the event this information is protected by the Federal Confidentiality of Alcohol and Drug Abuse Patient Records regulations: The Federal rules restrict any use of the information to criminally investigate or prosecute any alcohol or drug abuse patient.[facility] HospitalIn the event this information is protected by the Federal Confidentiality of Alcohol and Drug Abuse Patient Records regulations: The Federal rules restrict any use of the information to criminally investigate or prosecute any alcohol or drug abuse patient.[facility] HospitalIn the event this information is protected by the Federal Confidentiality of Alcohol and Drug Abuse Patient Records regulations: The Federal rules restrict any use of the information to criminally investigate or prosecute any alcohol or drug abuse patient.[facility] HospitalIn the event this information is protected by the Federal Confidentiality of Alcohol and Drug Abuse Patient Records regulations: The Federal rules restrict any use of the information to criminally investigate or prosecute any alcohol or drug abuse patient.[facility] HospitalIn the event this information is protected by the Federal Confidentiality of Alcohol and Drug Abuse Patient Records regulations: The Federal rules restrict any use of the information to criminally investigate or prosecute any alcohol or drug abuse patient.[facility]In the event this information is protected by the Federal Confidentiality of Alcohol and Drug Abuse Patient Records regulations: The Federal rules restrict any use of the information to criminally investigate or prosecute any alcohol or drug abuse patient.[facility] HospitalIn the event this information is protected by the Federal Confidentiality of Alcohol and Drug Abuse Patient Records regulations: The Federal rules restrict any use of the information to criminally investigate or prosecute any alcohol or drug abuse patient.[facility] HospitalIn the event this information is protected by the Federal Confidentiality of Alcohol and Drug Abuse Patient Records regulations: The Federal rules restrict any use of the information to criminally investigate or prosecute any alcohol or drug abuse patient.[facility] HospitalIn the event this information is protected by the Federal Confidentiality of Alcohol and Drug Abuse Patient Records regulations: The Federal rules restrict any use of the information to criminally investigate or prosecute any alcohol or drug abuse patient.[facility] HospitalIn the event this information is protected by the Federal Confidentiality of Alcohol and Drug Abuse Patient Records regulations: The Federal rules restrict any use of the information to criminally investigate or prosecute any alcohol or drug abuse patient.[facility] HospitalIn the event this information is protected by the Federal Confidentiality of Alcohol and Drug Abuse Patient Records regulations: The Federal rules restrict any use of the information to criminally investigate or prosecute any alcohol or drug abuse patient.[facility] HospitalIn the event this information is protected by the Federal Confidentiality of Alcohol and Drug Abuse Patient Records regulations: The Federal rules restrict any use of the information to criminally investigate or prosecute any alcohol or drug abuse patient.[facility] HospitalIn the event this information is protected by the Federal Confidentiality of Alcohol and Drug Abuse Patient Records regulations: The Federal rules restrict any use of the information to criminally investigate or prosecute any alcohol or drug abuse patient.[facility] HospitalIn the event this information is protected by the Federal Confidentiality of Alcohol and Drug Abuse Patient Records regulations: The Federal rules restrict any use of the information to criminally investigate or prosecute any alcohol or drug abuse patient.[facility] HospitalIn the event this information is protected by the Federal Confidentiality of Alcohol and Drug Abuse Patient Records regulations: The Federal rules restrict any use of the information to criminally investigate or prosecute any alcohol or drug abuse patient.[facility] HospitalIn the event this information is protected by the Federal Confidentiality of Alcohol and Drug Abuse Patient Records regulations: The Federal rules restrict any use of the information to criminally investigate or prosecute any alcohol or drug abuse patient.[facility] HospitalIn the event this information is protected by the Federal Confidentiality of Alcohol and Drug Abuse Patient Records regulations: The Federal rules restrict any use of the information to criminally investigate or prosecute any alcohol or drug abuse patient.[facility] HospitalIn the event this information is protected by the Federal Confidentiality of Alcohol and Drug Abuse Patient Records regulations: The Federal rules restrict any use of the information to criminally investigate or prosecute any alcohol or drug abuse patient.[facility] HospitalIn the event this information is protected by the Federal Confidentiality of Alcohol and Drug Abuse Patient Records regulations: The Federal rules restrict any use of the information to criminally investigate or prosecute any alcohol or drug abuse patient.[facility] HospitalIn the event this information is protected by the Federal Confidentiality of Alcohol and Drug Abuse Patient Records regulations: The Federal rules restrict any use of the information to criminally investigate or prosecute any alcohol or drug abuse patient.[facility] HospitalIn the event this information is protected by the Federal Confidentiality of Alcohol and Drug Abuse Patient Records regulations: The Federal rules restrict any use of the information to criminally investigate or prosecute any alcohol or drug abuse patient.[facility] Reason for Visit (unrecogniz ed section and content) Reason Onset Date Comments Refill Request 12/10/2021 Reason Onset Date Comments Refill Request 12/21/2021 Reason Onset Date Comments Refill Request 03/14/2022 Reason Comments Pain (LT) foot pain rated 7, x2 days Hx gout Reason Comments Blood Pressure Check Reason Comments EKG Reason Onset Date Comments Population Health Navigation Outreach 04/11/2022 HCC Gaps Reason Comments Pain (foot) ? gout right foot x 3 days Reason Onset Date Comments Refill Request 05/14/2022 Reason Comments Gout L foot x5 days Reason Onset Date Comments Refill Request 07/26/2022 Appointment 07/26/2022 patient past due for follow up visit needs to schedule an appointment- msg left Reason Onset Date Comments Refill Request 08/27/2022 Reason Onset Date Comments Refill Request 09/28/2022 Reason Onset Date Comments Refill Request 09/30/2022 90 days - out of medication Reason Comments Follow Up Reason Comments Results Reason Comments Refill Request Reason Comments Follow Up Reason Comments F/U 6 months Reason Onset Date Comments Refill Request 11/14/2023 Refill Request 11/17/2023 Reason Onset Date Comments Refill Request 12/08/2023 Reason Comments F/U 6 months Reason Onset Date Comments Refill Request 04/19/2024 Reason Onset Date Comments Refill Request 05/22/2024 Reason Onset Date Comments Refill Request 06/11/2024 Reason Onset Date Comments Refill Request 11/30/2024 Future Appointment 11/30/2024 Reason Comments 6 Month Exam Reason Onset Date Comments Refill Request 12/10/2024 Reason Onset Date Comments Refill Request 01/20/2025 Reason Onset Date Comments Refill Request 02/08/2025 Reason Onset Date Comments Refill Request 02/09/2025 Care Teams (unrecognized sec tion and content) Mma Fighter Relationship Specialty Start Date End Date Parth Tilley MD [address] [place] [place] [address] PCP - General Family Practice 08/13/17 Mma Fighter Relationship Specialty Start Date End Date Parth Tilley MD [address] [place] [place] [address] PCP - General Family Practice 08/13/17 Mma Fighter Relationship Specialty Start Date End Date Parth Tilley MD [address] [place] [address] PCP - General Family Practice 08/13/17 Mma Fighter Relationship Specialty Start Date End Date Parth Tilley MD [address] [place] [address] PCP - General Family Practice 08/13/17 Mma Fighter Relationship Specialty Start Date End Date Parth Tilley MD [address] [place] [address] PCP - General Family Practice 08/13/17 Mma Fighter Relationship Specialty Start Date End Date Parth Tilley MD [address] [place] [address] PCP - General Family Practice 08/13/17 Mma Fighter Relationship Specialty Start Date End Date Parth Tilley MD [address] [place] [address] PCP - General Family Medicine 08/13/17 Mma Fighter Relationship Specialty Start Date End Date Parth Tilley MD [address] [place] [address] PCP - General Family Medicine 08/13/17 Mma Fighter Relationship Specialty Start Date End Date Parth Tilley MD [address] [place] [address] PCP - General Family Medicine 08/13/17 Mma Fighter Relationship Specialty Start Date End Date Parth Tilley MD [address] [place] [address] PCP - General Family Medicine 08/13/17 Mma Fighter Relationship Specialty Start Date End Date Parth Tilley MD [address] [place] [address] PCP - General Family Medicine 08/13/17 Mma Fighter Relationship Specialty Start Date End Date Parth Tilley MD [address] [place] [address] PCP - General Family Medicine 08/13/17 Mma Fighter Relationship Specialty Start Date End Date Parth Tilley MD [address] [place] [address] PCP - General Family Medicine 08/13/17 Mma Fighter Relationship Specialty Start Date End Date Parth Tilley MD [address] [place] [address] PCP - General Family Medicine 08/13/17 Mma Fighter Relationship Specialty Start Date End Date Parth Tilley MD [address] [place] [address] PCP - General Family Medicine 08/13/17 Mma Fighter Relationship Specialty Start Date End Date Parth Tilley MD [address] [place] [address] PCP - General Family Medicine 08/13/17 Mma Fighter Relationship Specialty Start Date End Date Parth Tilley MD [address] [place] [address] PCP - General Family Medicine 08/13/17 Mma Fighter Relationship Specialty Start Date End Date Parth Tilley MD [address] [place] [address] PCP - General Family Medicine 08/13/17 Mma Fighter Relationship Specialty Start Date End Date Parth Tilley MD [address] [place] [address] PCP - General Family Medicine 08/13/17 Mma Fighter Relationship Specialty Start Date End Date Parth Tilley MD [address] [place] [address] PCP - General Family Medicine 08/13/17 Mma Fighter Relationship Specialty Start Date End Date Parth Tilley MD [address] [place] [address] PCP - General Family Medicine 08/13/17 Keiko Brewer APRN.[employer] [address] [place] [place] [address] [employer] [facility] 08/21/24 Rajiv Canada, FIELD CONTACT TECHNICIAN.[employer] [address] [place] [address] [employer] [facility] 11/26/24 Mma Fighter Relationship Specialty Start Date End Date Parth Tilley MD [address] [place] [address] PCP - General Family Medicine 08/13/17 Podlogar, Keiko FIELD CONTACT TECHNICIAN.[employer] [address] [place] [address] [employer] [facility] 08/21/24 Rajiv Canada FIELD CONTACT TECHNICIAN.[employer] [address] [place] [address] [facility] 12/06/24 Mma Fighter Relationship Specialty Start Date End Date Parth Tilley MD [address] [place] [address] PCP - General Family Medicine 08/13/17 Podlogar, Keiko FIELD CONTACT TECHNICIAN.[employer] [address] [place] [address] [facility] 08/21/24 Rajiv Canada FIELD CONTACT TECHNICIAN.[employer] [address] [place] [address] [facility] 12/06/24 Mma Fighter Relationship Specialty Start Date End Date Parth Tilley MD [address] [place] [address] PCP - General Family Medicine 08/13/17 PodlogarKeiko FIELD CONTACT TECHNICIAN.[employer] [address] [place] [address] [facility] 08/21/24 Rajiv Canada, FIELD CONTACT TECHNICIAN.[employer] [address] [place] [address] [facility] 12/06/24 Team Status: Active Member Role Status Dates Dr. Virgil Tilley MD Family Provider Active Dr. Virgil Tilley MD Primary Care Provider Acti ve Team Status: Inactive Member Role Status Dates Dr. Virgil Tilley MD Primary Care Provider Acti ve Start: December 24, 2024 End: December 24, 2024 Dr. Virgil Tilley MD Referring Provider Active Start: December 24, 2024 End: December 24, 2024 LEV Sanchez Attending Provider Active St art: December 24, 2024 End: December 24, 2024 Team Status: Inactive Member Role Status Dates Dr. Virgil Tilley MD Primary Care Provider Acti ve Start: January 17, 2025 End: January 17, 2025 LEV Sanchez Attending Provider Active St art: January 17, 2025 End: January 17, 2025 LEV Sanchez Referring Provider Active St art: January 17, 2025 End: January 17, 2025 Mma Fighter Relationship Specialty Start Date End Date Parth Tilley MD [address] [place], [place] [id number] PCP - General Family Medicine 08/13/17 PodlogarKeiko APRN.[employer] [address] [place], [place] [address] [facility] 08/[facility]/24 Mma Fighter Relationship Specialty Start Date End Date Parth Tilley MD [address] [place], [place] [id number] PCP - General Family Medicine 08/13/17 Podlogar, AGUILA Aden.[employer] [address] [place], [place] [id number] [facility] 08/21/24 Goals (unrecognized section and content) Goals may be documented in a n alternate section (unrecognized sect ion and content) No Status Records FoundNo Status Records Found INFORMATION SOURCE (unrecogn ized section and content) DATE CREATED AUTHOR 02/12/[address] [facility] DATE CREATED AUTHOR AUTHOR'S ERIKA CHAUHANALAINA 03/15/2025 [facility] FOR RECORDS PERTAINING TO PATIENTS WHO ARE OR HAVE BEEN ENROLLED IN A CHEMICAL DEPENDENCY/SUBSTANCEABUSE PROGRAM, SOME INFORMATION MAY BE OMITTED. This clinical summary was aggregated from multiple sources. Caution should be exercised in using it in the provision of clinical care. This summary normalizes information from multiple sources, and as a consequence, information in this document may materially change the coding, format and clinical context of patient data. In addition, data may be omitted in some cases. CLINICAL DECISIONS SHOULD BE BASED ON THE PRIMARY CLINICAL RECORDS. [facility] provides no warranty or guarantee of the accuracy or completeness of information in this document.
--- OUTSIDE RECORDS SUMMARY | 2025-03-17 06:13 | XMS RPT_ITS | CCD ---
Author Organization [facility] Care Team Providers Care Lumber Kiln Operator Name Role Phone Vesta Mills Unavailable Unavailable Shannon Quigley Y Unavailable Marc Quigleyia Y Unavailable aPrth Tilley MD Primary Care Provider Parth Tilley MD Primary Care Provider Parth Tilley MD Primary Care Provider Parth Tilley MD Primary Care Provider Parth Tilley MD Primary Care Provider Podlogar BUMPER MACHINE OPERATOR.Keiko LION Unavailable Knjoe BUMPER MACHINE OPERATOR.Rajiv LION Unavailable Knoble BUMPER MACHINE OPERATOR.Rajiv LION Unavailable Dr. Virgil Tliley MD Primary Care Provider Dr. Virgil Tilley [...] TABS One tablet by mouth daily ASPIRIN [id number] Isaiah Samaniego MD Start: 01-16-2011 take 1 tablet by jerardo th once daily ASPIRIN 81 MG TABS One tablet by mouth daily ASPIRIN 45628184569 Isaiah Samaniego MD Comment on above: Take [...] half tablet by mouth daily ATORVASTATIN CALCIUM [id number] Meredith Charles PA-C Comment on above: Take 0.5 tablets [...] One tablet by mouth daily CLOPIDOGREL BISULFATE [id number] Meredith Charles PA-C Comment on above: Take [...] TABS One tablet by mouth daily LISINOPRIL [id number] Isaiah Samaniego MD Start: 01-16-2011 End: 02-17-2014 LISINOPRIL 10 MG TABS One funes lf tablet by mouth a day LISINOPRIL 82096397993 Isaiah Samaniego MD Comment on above: Take [...] mouth once daily WELLBUTRIN XL 300 MG [id number] One tablet by mouth daily BUPROPION HCL [id number] Isaiah Samaniego MD Start: 10-22-2011 take 1 tablet by jerardo th once daily WELLBUTRIN XL 300 MG [id number] One tablet by mouth daily BUPROPION HCL 75185053522 Isaiah Samaniego MD Start: 01-16-2011 take 1 tablet by jerardo th once daily WELLBUTRIN SR 150 MG [id number] One tablet by mouth daily BUPROPION HCL 70355226830 Ivet Partida Start: 01-16-2011 take 1 tablet by jerardo th once daily WELLBUTRIN SR 150 MG [id number] One tablet by mouth daily BUPROPION HCL 35088334260 Ivet Partida citalopram 20 mg oral tablet [...] half tablet by mouth daily CITALOPRAM HYDROBROMIDE 54474216202 NELLIE PrettyC Comment on above: Take 0.5 tablets by mouth once daily. 24 hr isosorbide mononitrate 30 mg extended release oral tablet (9 sources) Start: 1 take 1 tablet by mouth once daily ISOSORBIDE MONONITRATE ER 30 MG [id number] One tablet by mouth daily (Imdur) ISOSORBIDE MONONITRATE 68018175372 Isaiah Samaniego MD isosorbide dinitrate 30 mg oral tablet (6 sources) Nitrate Vasodilator Start: 3 End: 4 take 1 tablet by mouth once daily ISOSORBIDE DINITRATE 30 MG TABS One tablet by mouth daily ISOSORBIDE DINITRATE 30754562420 Isaiah Samaniego MD LORazepam 0.5 mg oral tablet (12 sources) Benzodiazepine Start: 3 End: 4 LORAZEPAM 0.5 MG TABS one half tablet twice a day LORAZEPAM 55781310843 Meredith Charles PA-C Start: 01-16-2011 End: 12-25-2012 take 1 tablet by mouth once daily ATIVAN 0.5 MG TABS One tablet by mouth daily LORAZEPAM 46386561697 Ivet Partida metoprolol tartrate 25 mg oral [...] by mouth two times daily METOPROLOL TARTRATE 49165742512 Isaiah Samaniego MD Comment on above: Take 0.5 tablets by mouth twice daily. niacin 1000 mg oral tablet (6 sources) Nicotinic Acid Start: 01-16-2011 End: 02-17-2014 take 2 tablets by mouth at bedtime NIASPAN 1000 MG CR-TABS 2 tablets by mouth at bedtime NIACIN (ANTIHYPERLIPIDEMIC) 88014466317 Isaiah Samaniego MD Start: 01-16-2011 End: 02-17-2014 take 2 tablets by mouth at bedtime NIASPAN 1000 MG CR-TABS 2 tablets by mouth at bedtime NIACIN (ANTIHYPERLIPIDEMIC) 28027893596 Isaiah Samaniego MD predniSONE 10 mg oral [...] tablet by mouth twice daily QUETIAPINE FUMARATE 61909993658 Isaiah Samaniego MD risperiDONE 1 mg oral [...] tablet by mouth daily at bedtime RISPERIDONE 55298647045 Meredith Charles PA-C Comment on above: Take 1 tablet by jerardo th daily at bedtime. temazepam 15 mg oral capsule (6 sources) Benzodiazepine Start: 2 End: 3 take 1 tablet by mouth once daily at bedtime TEMAZEPAM 15 MG CAPS One tablet by mouth daily at bedtime TEMAZEPAM 83029014175 Isaiah Samaniego MD Problems Active Problems Problem [...] disease (20 sources) Atherosclerotic heart disease of [place] coronary artery without angina pectoris; Translations: [Old [...] (1 source) Long-term drug therapy; Translations: [Other care home (current) drug therapy] Onset: 01-16-2011 01-16-2011 Past [...] 03-08-2016 Episodic Other aftercare (2 sources) Other care home (current) drug therapy; Translations: [Other long term acute care registered nurse (current) drug therapy] Onset: 01-16-2011 01-16-2011 Episodic Other circulatory disease (6 sources) Abnormal result of cardiovascular function study, unspecified; Translations: [Abnormal result of cardiovascular function study, unspecified] Onset: 01-16-2011 Resolved: 03-08-2016 01-16-2011 Episodic Syncope (6 sources) Syncope and collapse; Translations: [Syncope and collapse] Onset: 01-16-2011 Resolved: 03-08-2016 01-16-2011 Episodic Results Test Name Value Interpretation Reference Range Facility [facility] 02-09-2025 [facility] Telephone (4CQ) GREG MOORE ([id number]) 1940 M Date Time Provider Department 02/09/25 [...] Status:Closed by PAO PADRON on 02/09/25 Normal [facility] Calculated very low density lipoprotein (VLDL) cholesterol measurementOrdered By: Jama Crowell on 01-17-2025 Calculated very low density lipoprotein (VLDL) cholesterol measurement 19 mg/dL 5-[address] [facility] LDL calc ser/plasOrdered By: Jama Crowell on 01-17-2025 Cholesterol in LDL [Mass/Vol] 56 mg/dL [facility] Comment on above: Irgxqsmwqs=206-687 m g/dL & Higher Ewlg=075 mg/dL or greater Lipid Profileon 01-17-2025 CHOL:HDL 3.[address] [facility] Comment on above: Performed By: #### L 500.1660 #### [facility] [address] [place], [address] Cholesterol [Mass/Vol] 105 mg/dL Normal <=200 [facility] Comment on above: Result Comment: Chol esterol level, Desirable <200 mg/dL Borderline high cholesterol 200-239 mg/dL High cholesterol >=240 mg/dL Recommendations of the NCEP Adult Treatment Panel for the following risk-cutoff thresholds for the [place] population. Performed By: #### L 500.4100 #### [facility] [address] [place], [address] Cholesterol in HDL [Mass/Vol] 30 mg/dL Low [facility] Comment on above: Result Comment: Tomeka onal Cholesterol Education Program (NCEP) guidelines: <40 mg/dL: Low HDL-cholesterol (major risk factor for CHD) >= 60 mg/dL: High HDL-cholesterol (negative risk factor for CHD) HDL-cholesterol is affected by a number of factors, e.g. smoking, exercise, hormones, sex and age. Performed By: #### L 500.4100 #### [facility] [address] [place], [address] Cholesterol in LDL [Mass/Vol] 56 mg/dL Normal [facility] Comment on above: Result Comment: Bord arqkyk=016-486 mg/dL Higher Afzx=387 mg/dL or greater Performed By: #### L 500.4100 #### [facility] [address] [place], [address] Cholesterol in VLDL [Mass/Vol] 19 mg/dL Normal 5-[address] [facility] Comment on above: Performed By: #### L 500.4100 #### [facility] [address] [place], [address] Triglyceride [Mass/Vol] 95 mg/dL Normal [facility] Comment on above: Result Comment: The drugs N-Acetylcysteine and Metamizole may falsely depress this assay. Normal range: <150 mg/dL Borderline High: 150-199 mg/dL High: 200-499 mg/dL Very High: >500 mg/dL Performed By: #### L 500.4100 #### [facility] [address] [place], [address] Screening total cholesterol/ high density lipoprotein (HDL) cholesterol ratioOrdered By: Jama Crowell on 01-17-2025 Cholesterol.total/Chol esterol in HDL [Mass ratio] 3.49 {ratio} [facility] Serum or plasma cholesterol in HDL measurement (mass/volume)Ordered By: Jama Crowell on 01-17-2025 Cholesterol in HDL [Mass/Vol] 30 mg/dL Low >[address] [facility] Comment on above: National Cholesterol Education Program (NCEP) guidelines:<40 mg/dL: Low HDL-cholesterol (major risk factor for CHD)>= 60 mg/dL: High HDL-cholesterol (negative risk factor for CHD)HDL-cholesterol is affected by a number of factors, e.g. smoking, exercise, hormones, sex and age. Serum or plasma cholesterol measurement (mass/volume)Ordered By: Jama Crowell on 01-17-2025 Cholesterol [Mass/Vol] 105 mg/dL <201 [facility] Comment on above: Cholesterol level, D esirable <200 mg/dLBorderline high cholesterol 200-239 mg/dLHigh cholesterol >=240 mg/dLRecommendations of the NCEP Adult Treatment Panel for the following risk-cutoff thresholds for the [place] population. Triglycerides measurementOrd ered By: Jamachristiano Crowell on 01-17-2025 Triglyceride [Mass/Vol] 95 mg/dL <[address] [facility] Comment on above: The drugs N-Acetylcy steine and Metamizole may falsely depress this assay. Normal range: <150 mg/dLBorderline High: 150-199 mg/dLHigh: 200-499 mg/dLVery High: >500 mg/dL 12 Lead EKG performed by [facility] on 12-24-2024 12 Lead EKG performed by [facility] [address] [place] [address] 12 Lead EKG performed by [facility] 12/24/24 0849 MR#: [id number] Acct: [id number] Name: GREG MOORE Rep #: [id number] : 1940 83 From: Jama OHARA Attending Dr: LEV Sanchez Status: DEP AM B Ordering Dr: Jama Crowell Date: 12/24/24 Location: [facility] Sex: M C Admitted: BMS/12 Lead EKG performed by [facility] ECG Report Interpretation ------Sinus Bradycardia -First degree A-V block Alf = 292- Negative T-waves - Lateral ischemia. ABNORMAL Electronically signed on 12/28/2024 at 14:56 by Isaiah Samaniego Software Version [id number] 12/28/24 1459 Date Jama OHARA CC: Dr. Virgil Tilley MD Date Dictated: 12/24/24 0849 Date Transcribed: 12/24/2449 Tissue Packer: SUSI Signed Normal [facility] Cardiology Visit Reporton Cardiology Visit Report [facility] [address] [place], [place] [address] OFFICE VISIT Date of Service: 12/24/24 MR#: [id number] Acct: [id number] Name: GREG MOORE Rep #: [id number] : 1940 Provider: LEV Sanchez Age/Sex: 83/M Location: [facility] Status: Signed HPI HPI History of Present [...] similar to what he experienced with his SC. Patient denied any bleeding concerns such as [...] Intake Visit Reasons: Hypotension, see clinical notes Telecine Operator Required: No Accompanied by: Daughter Is patient [...] myocardial infarction (07/2004) Atherosclerotic heart disease of [place] coronary artery without angina pectoris Surgical History [...] normal bilaterall (more content not included)... Normal [facility] CNOVon 12-10-2024 CNOV Office Visit (FAMPWS) GREG MOORE ([id number]) 1940 M Date Time Provider Department 12/10/24 [...] to 50. Patient states he called his recorder helper seismograph who stopped his lisinopril and held his [...] (HCC) Coronary artery disease s/p PCI 2003 [facility] -- sees Dr. Samaniego Depression Elevated LFTs Gout Hypertension Insomnia Mixed hyperlipidemia Obesity (BMI 30.0-34.9) Systolic ejection murmur Thrombocytopenia (HCC) Type II diabetes mellitus (HCC) Previous Surgical History PAST SURGICAL HISTORY Procedure Laterality Date COLONOSCOPY 2016 Dr. Aggarwal, normal INGUINAL HERNIA REPAIR HX Left REPAIR OF HYDROCELE Bilateral STENT PLACEMENT [facility] 2003 (cardiac) Family History FAMILY HISTORY [...] kg/(m2) - (more content not included)... Normal [facility] Comprehensive metabolic 2000 panelon 12-10-2024 Albumin [Mass/Vol] 4.1 g/dL Normal 3.9-4.9 [facility] Comment on above: Order Comment: Speci men Type: BLOOD SPECIMEN Ordering Facility: [facility] Address: [address] [place] [address] Performed By: #### 2 4323-8 #### [facility] CLIA [id number] [address] [place] [address] [place] ALP [Catalytic activity/Vol] 65 U/L Normal 38-113 [facility] Comment on above: Order Comment: Speci men Type: BLOOD SPECIMEN Ordering Facility: [facility] Address: [address] [place] [address] Performed By: #### 2 4323-8 #### [facility] CLIA [id number] [address] [place] [address] [place] ALT [Catalytic activity/Vol] 41 U/L Normal 10-54 [facility] Comment on above: Order Comment: Speci men Type: BLOOD SPECIMEN Ordering Facility: [facility] Address: [address] [place] [address] Performed By: #### 2 4323-8 #### [facility] CLIA [id number] [address] [place] [address] [place] Anion gap [Moles/Vol] 11 mmol/L Normal 8-15 [facility] Comment on above: Order Comment: Speci men Type: BLOOD SPECIMEN Ordering Facility: [facility] Address: [address] [place] [address] Performed By: #### 2 4323-8 #### [facility] CLIA [id number] [address] [place] [address] [place] AST [Catalytic activity/Vol] 42 U/L High 14-40 [facility] Comment on above: Order Comment: Speci men Type: BLOOD SPECIMEN Ordering Facility: [facility] Address: [address] [place] [address] Performed By: #### 2 4323-8 #### [facility] CLIA [id number] [address] [place] [address] [place] Bilirubin [Mass/Vol] 0.4 mg/dL Normal 0.2-1.3 [facility] Comment on above: Order Comment: Speci men Type: BLOOD SPECIMEN Ordering Facility: [facility] Address: [address] [place] [address] Performed By: #### 2 4323-8 #### [facility] CLIA [id number] [address] [place] [address] [place] Calcium [Mass/Vol] 9.2 mg/dL Normal 8.5-10.2 [facility] Comment on above: Order Comment: Speci men Type: BLOOD SPECIMEN Ordering Facility: [facility] Address: [address] [place] [address] Performed By: #### 2 4323-8 #### [facility] CLIA [id number] [address] [place] [address] [place] Chloride [Moles/Vol] 109 mmol/L High 98-107 [facility] Comment on above: Order Comment: Speci men Type: BLOOD SPECIMEN Ordering Facility: [facility] Address: [address] [place] [address] Performed By: #### 2 4323-8 #### [facility] CLIA [id number] [address] [place], [place] [address] [place] CO2 [Moles/Vol] 23 mmol/L Normal 22-30 [facility] Comment on above: Order Comment: Speci men Type: BLOOD SPECIMEN Ordering Facility: [facility] Address: [address] [place] [address] Performed By: #### 2 4323-8 #### [facility] CLIA [id number] [address] [place] [address] [place] Creatinine [Mass/Vol] 1.16 mg/dL Normal 0.73-1.22 [facility] Comment on above: Order Comment: Speci men Type: BLOOD SPECIMEN Ordering Facility: [facility] Address: [address] [place] [address] Performed By: #### 2 4323-8 #### [facility] CLIA [id number] [address] [place] [address] [place] Creatinine and Glomerular filtration rate.predicted panel (S/P/Bld) 63 mL/min/1.73m??? Normal >=60 [facility] Comment on above: Order Comment: Speci men Type: BLOOD SPECIMEN Ordering Facility: [facility] Address: [address] [place] [address] Result Comment: Sunshine mated Glomerular Filtration Rate [...] GFR. Performed By: #### 2 4323-8 #### [facility] CLIA [id number] [address] [place], [place] [address] [place] Glucose [Mass/Vol] 109 mg/dL High 74-99 [facility] Comment on above: Order Comment: Speci men Type: BLOOD SPECIMEN Ordering Facility: [facility] Address: [address] [place] [address] Result Comment: The [place] Diabetes Association (ADA) provides guidance for cutoff [...] Standards of Medical Care in Diabetes 2016, [place] Diabetes Association. Diabetes Care. 2016.39(Suppl 1). Performed By: #### 2 4323-8 #### [facility] CLIA [id number] [address] [place] [address] [place] Potassium [Moles/Vol] 5.1 mmol/L Normal 3.7-5.1 [facility] Comment on above: Order Comment: Speci men Type: BLOOD SPECIMEN Ordering Facility: [facility] Address: [address] [place] [address] Performed By: #### 2 4323-8 #### [facility] CLIA [id number] [address] [place] [address] [place] Protein [Mass/Vol] 6.9 g/dL Normal 6.3-8.0 [facility] Comment on above: Order Comment: Speci men Type: BLOOD SPECIMEN Ordering Facility: [facility] Address: [address] [place] [address] Performed By: #### 2 4323-8 #### [facility] CLIA [id number] [address] [place] [address] [place] Sodium [Moles/Vol] 143 mmol/L Normal 136-144 [facility] Comment on above: Order Comment: Speci men Type: BLOOD SPECIMEN Ordering Facility: [facility] Address: [address] [place] [address] Performed By: #### 2 4323-8 #### [facility] CLIA [id number] [address] [place] [address] [place] Urea nitrogen [Mass/Vol] 31 mg/dL High 9-24 [facility] Comment on above: Order Comment: Jostin torres Type: BLOOD SPECIMEN Ordering Facility: [facility] Address: [address] [place] [address] Performed By: #### 2 4323-8 #### [facility] CLIA [id number] [address] [place] [address] [place] HbA1c (Bld)on 12-10-2024 Average glucose Estimated from glycated hemoglobin (Bld) [Mass/Vol] 126 mg/dL Normal [facility] Comment on above: Order Comment: Jostin torres Type: BLOOD SPECIMEN Ordering Facility: [facility] Address: [address] [place] [address] Result Comment: eAG: (Estimated average glucose) is a calculated value from HgbA1c and is direct customer service representative of the average blood glucose level in the last 2-3 month period. Performed By: #### 5 5454-3 #### [facility] CLIA [id number] [address] [place] [address] [place] HbA1c (Bld) [Mass fraction] 6.0 % High 4.3-5.6 [facility] Comment on above: Order Comment: Jostin torres Type: BLOOD SPECIMEN Ordering Facility: [facility] Address: [address] [place] [address] Result Comment: [place] Diabetes Association guidelines indicate that patients with HgbA1c in the range 5.7-6.4% are at increased risk for development of diabetes, and intervention by lifestyle modification may be beneficial. HgbA1c greater or equal to 6.5% is considered diagnostic of diabetes. Performed By: #### 5 5454-3 #### [facility] CLIA [id number] [address] [place] [address] [place] CNPRadha 04-21-2024 CNPN Telephone (FAMPWS) GREG MOORE ([id number]) 1940 M Date Time Provider Department 04/21/24 [...] Allergies) Date Reviewed: 04/16/2024 Reviewed by: Meredith Luthre LPN - Fully Assessed Reason for Visit: Results [95] Primary Visit Diagnosis:Chronic kidney disease, stage 3a (HCC) [N18.31] Order(s):COMPREHENSI VE METABOLIC PANEL [SQCMP] Order #: [id number] FUTURE Prescriptions as of 04/21/2024 - lisinopril [...] by JARRETT DOW LPN on 04/21/24 Normal [facility] ALBUMIN/CREATININE RATIO, UR INEon 04-20-2024 Albumin DL <= 20 mg/L (U) [Mass/Vol] 32.9 mg/L Normal [facility] Comment on above: Order Comment: Speci men Type: URINE SPECIMEN Ordering Facility: [facility] Address: [address] [place] [address] Performed By: #### U ACR #### [facility] CLIA [id number] [address] [place] [address] [id number] [place] [address] [place] Albumin/Creatinine (U) [Mass ratio] 29 mg/g Normal <30 [facility] Comment on above: Order Comment: Speci men Type: URINE SPECIMEN Ordering Facility: [facility] Address: [address] [place] [address] Result Comment: Adul t Male and Female Nephrotic Criteria: <30 mg/g is considered normal to mildly increased 30-300 mg/g is considered moderately increased >300 mg/g is considered severely increased KDIGO. (2013). KDIGO 2012 Clinical Practice Guideline for the Evaluation and Management of Chronic Kidney Disease. Official Journal of the International Society of Nephrology, 3(1), 1-150. Performed By: #### U ACR #### [facility] CLIA [id number] [address] [place] [address] [place] Creatinine (U) [Mass/Vol] 112.1 mg/dL Normal 20.0-300.0 [facility] Comment on above: Order Comment: Speci men Type: URINE SPECIMEN Ordering Facility: [facility] Address: [address] [place] [address] Performed By: #### U ACR #### [facility] CLIA [id number] [address] [place] [address] [place] CBC W Auto Differential pane l (Bld)on 04-20-2024 Basophils (Bld) [#/Vol] 0.04 10*3/uL Normal <0.11 [facility] Comment on above: Order Comment: Speci men Type: BLOOD SPECIMEN Ordering Facility: [facility] Address: [address] [place] [address] Performed By: #### 5 7021-8 #### [facility] CLIA [id number] [address] [place] [address] [place] Basophils/100 WBC (Bld) 0.6 % Normal [facility] Comment on above: Order Comment: Speci men Type: BLOOD SPECIMEN Ordering Facility: [facility] Address: [address] [place] [address] Performed By: #### 5 7021-8 #### [facility] CLIA [id number] [address] [place] [address] [place] Differential cell count method Nom (Bld) Auto Normal [facility] Comment on above: Order Comment: Speci men Type: BLOOD SPECIMEN Ordering Facility: [facility] Address: [address] [place] [address] Performed By: #### 5 7021-8 #### [facility] CLIA [id number] [address] [place] [address] [place] Eosinophils (Bld) [#/Vol] 0.19 10*3/uL Normal <0.46 [facility] Comment on above: Order Comment: Speci men Type: BLOOD SPECIMEN Ordering Facility: [facility] Address: [address] [place] [address] Performed By: #### 5 7021-8 #### [facility] CLIA [id number] [address] [place] [address] [place] Eosinophils/100 WBC (Bld) 3.0 % Normal [facility] Comment on above: Order Comment: Speci men Type: BLOOD SPECIMEN Ordering Facility: [facility] Address: [address] [place] [address] Performed By: #### 5 7021-8 #### [facility] CLIA [id number] [address] [place] [address] [place] Erythrocyte distribution width (RBC) [Ratio] 16.0 % High 11.5-15.0 [facility] Comment on above: Order Comment: Speci men Type: BLOOD SPECIMEN Ordering Facility: [facility] Address: [address] [place] [address] Performed By: #### 5 7021-8 #### [facility] CLIA [id number] [address] [place] [address] [place] Hematocrit (Bld) [Volume fraction] 43.5 % Normal 39.0-51.0 [facility] Comment on above: Order Comment: Speci men Type: BLOOD SPECIMEN Ordering Facility: [facility] Address: [address] [place] [address] Performed By: #### 5 7021-8 #### [facility] CLIA [id number] [address] [id number] [address] [place] Hemoglobin (Bld) [Mass/Vol] 13.7 g/dL Normal 13.0-17.0 [facility] Comment on above: Order Comment: Speci men Type: BLOOD SPECIMEN Ordering Facility: [facility] Address: [address] [place] [address] Performed By: #### 5 7021-8 #### [facility] CLIA [id number] [address] [place] [address] [place] Immature granulocytes (Bld) [#/Vol] 0.04 10*3/uL Normal <0.10 [facility] Comment on above: Order Comment: Speci men Type: BLOOD SPECIMEN Ordering Facility: [facility] Address: [address] [place] [address] Performed By: #### 5 7021-8 #### [facility] CLIA [id number] [address] [place] [address] [place] Immature granulocytes/100 WBC (Bld) 0.6 % Normal [facility] Comment on above: Order Comment: Speci men Type: BLOOD SPECIMEN Ordering Facility: [facility] Address: [address] [place] [address] Performed By: #### 5 7021-8 #### [facility] CLIA [id number] [address] [place] [address] [place] Lymphocytes (Bld) [#/Vol] 1.20 10*3/uL Normal 1.00-4.00 [facility] Comment on above: Order Comment: Speci men Type: BLOOD SPECIMEN Ordering Facility: [facility] Address: [address] [place] [address] Performed By: #### 5 7021-8 #### [facility] CLIA [id number] [address] [place] [address] [place] Lymphocytes/100 WBC (Bld) 18.8 % Normal [facility] Comment on above: Order Comment: Speci men Type: BLOOD SPECIMEN Ordering Facility: [facility] Address: [address] [place] [address] Performed By: #### 5 7021-8 #### [facility] CLIA [id number] [address] [place] [address] [place] MCH (RBC) [Entitic mass] 29.0 pg Normal 26.0-34.0 [facility] Comment on above: Order Comment: Speci men Type: BLOOD SPECIMEN Ordering Facility: [facility] Address: [address] [place] [address] Performed By: #### 5 7021-8 #### [facility] CLIA [id number] [address] [place] [address] [place] MCHC (RBC) [Mass/Vol] 31.5 g/dL Normal 30.5-36.0 [facility] Comment on above: Order Comment: Speci men Type: BLOOD SPECIMEN Ordering Facility: [facility] Address: [address] [place] [address] Performed By: #### 5 7021-8 #### [facility] CLIA [id number] [address] [place] [address] [place] MCV (RBC) [Entitic vol] 92.2 fL Normal 80.0-100.0 [facility] Comment on above: Order Comment: Speci men Type: BLOOD SPECIMEN Ordering Facility: [facility] Address: [address] [place] [address] Performed By: #### 5 7021-8 #### [facility] CLIA [id number] [address] [place] [address] [place] Monocytes (Bld) [#/Vol] 0.87 10*3/uL High <0.87 [facility] Comment on above: Order Comment: Speci men Type: BLOOD SPECIMEN Ordering Facility: [facility] Address: [address] [place] [address] Performed By: #### 5 7021-8 #### [facility] CLIA [id number] [address] [place] [address] [place] Monocytes/100 WBC (Bld) 13.6 % Normal [facility] Comment on above: Order Comment: Speci men Type: BLOOD SPECIMEN Ordering Facility: [facility] Address: [address] [place] [address] Performed By: #### 5 7021-8 #### [facility] CLIA [id number] [address] [place] [address] [place] Neutrophils (Bld) [#/Vol] 4.04 10*3/uL Normal 1.45-7.50 [facility] Comment on above: Order Comment: Speci men Type: BLOOD SPECIMEN Ordering Facility: [facility] Address: [address] [place] [address] Performed By: #### 5 7021-8 #### [facility] CLIA [id number] [address] [place] [address] [place] Neutrophils/100 WBC (Bld) 63.4 % Normal [facility] Comment on above: Order Comment: Speci men Type: BLOOD SPECIMEN Ordering Facility: [facility] Address: [address] [place] [address] Performed By: #### 5 7021-8 #### [facility] CLIA [id number] [address] [place] [address] [place] Nucleated RBC (Bld) [#/Vol] 10*3/uL Normal <0.01 [facility] Comment on above: Order Comment: Speci men Type: BLOOD SPECIMEN Ordering Facility: [facility] Address: [address] [place] [address] Performed By: #### 5 7021-8 #### [facility] CLIA [id number] [address] [place] [address] [place] Nucleated RBC/100 WBC (Bld) [Ratio] 0.0 /100 WBC Normal [facility] Comment on above: Order Comment: Speci men Type: BLOOD SPECIMEN Ordering Facility: [facility] Address: [address] [place] [address] Performed By: #### 5 7021-8 #### [facility] CLIA [id number] [address] [place] [address] [place] Platelet mean volume (Bld) [Entitic vol] Normal [facility] Comment on above: Order Comment: Speci men Type: BLOOD SPECIMEN Ordering Facility: [facility] Address: [address] [place] [address] Result Comment: Unab le to Report. Performed By: #### 5 7021-8 #### [facility] CLIA [id number] [address] [place] [address] [place] Platelets (Bld) [#/Vol] 112 10*3/uL Low 150-400 [facility] Comment on above: Order Comment: Speci men Type: BLOOD SPECIMEN Ordering Facility: [facility] Address: [address] [place] [address] Performed By: #### 5 7021-8 #### [facility] CLIA [id number] [address] [place] [address] [place] RBC (Bld) [#/Vol] 4.72 10*6/uL Normal 4.20-6.00 [facility] Comment on above: Order Comment: Speci men Type: BLOOD SPECIMEN Ordering Facility: [facility] Address: [address] [place] [address] Performed By: #### 5 7021-8 #### [facility] CLIA [id number] [address] [place] [address] [place] WBC (Bld) [#/Vol] 6.38 10*3/uL Normal 3.70-11.00 [facility] Comment on above: Order Comment: Speci men Type: BLOOD SPECIMEN Ordering Facility: [facility] Address: [address] [place] [address] Performed By: #### 5 7021-8 #### [facility] CLIA [id number] [address] [place] [id number] [place] Comprehensive metabolic 2000 panelon 04-20-2024 Albumin [Mass/Vol] 4.4 g/dL Normal 3.9-4.9 [facility] Comment on above: Order Comment: Speci men Type: BLOOD SPECIMEN Ordering Facility: [facility] Address: [address] [place] [address] Performed By: #### 2 4323-8, 58784-3 #### [facility] CLIA [id number] [address] [place] [address] [place] ALP [Catalytic activity/Vol] 67 U/L Normal 38-113 [facility] Comment on above: Order Comment: Speci men Type: BLOOD SPECIMEN Ordering Facility: [facility] Address: [address] [place] [address] Performed By: #### 2 4323-8, 28630-6 #### [facility] CLIA [id number] [address] [place] [address] [place] ALT [Catalytic activity/Vol] 34 U/L Normal 10-54 [facility] Comment on above: Order Comment: Speci men Type: BLOOD SPECIMEN Ordering Facility: [facility] Address: [address] [place] [address] Performed By: #### 2 4323-8, 98854-6 #### [facility] CLIA [id number] [address] [place], [place] [address] [place] Anion gap [Moles/Vol] 14 mmol/L Normal 8-15 [facility] Comment on above: Order Comment: Speci men Type: BLOOD SPECIMEN Ordering Facility: [facility] Address: [address] [place] [address] Performed By: #### 2 4323-8, 61358-2 #### [facility] CLIA [id number] [address] [place] [address] [place] AST [Catalytic activity/Vol] 37 U/L Normal 14-40 [facility] Comment on above: Order Comment: Speci men Type: BLOOD SPECIMEN Ordering Facility: [facility] Address: [address] [place] [address] Performed By: #### 2 4323-8, 86951-3 #### [facility] CLIA [id number] [address] [place] [address] [place] Bilirubin [Mass/Vol] 0.8 mg/dL Normal 0.2-1.3 [facility] Comment on above: Order Comment: Speci men Type: BLOOD SPECIMEN Ordering Facility: [facility] Address: [address] [place] [address] Performed By: #### 2 4323-8, 67798-3 #### [facility] CLIA [id number] [address] [place] [address] [place] Calcium [Mass/Vol] 9.5 mg/dL Normal 8.5-10.2 [facility] Comment on above: Order Comment: Speci men Type: BLOOD SPECIMEN Ordering Facility: [facility] Address: [address] [place] [address] Performed By: #### 2 4323-8, 73658-9 #### [facility] CLIA [id number] [address] [place] [address] [place] Chloride [Moles/Vol] 105 mmol/L Normal 98-107 [facility] Comment on above: Order Comment: Speci men Type: BLOOD SPECIMEN Ordering Facility: [facility] Address: [address] [place] [address] Performed By: #### 2 4323-8, 23282-3 #### [facility] CLIA [id number] [address] [place] [address] [place] CO2 [Moles/Vol] 21 mmol/L Low 22-30 [facility] Comment on above: Order Comment: Speci men Type: BLOOD SPECIMEN Ordering Facility: [facility] Address: [address] [place] [address] Performed By: #### 2 4323-8, 06994-5 #### [facility] CLIA [id number] [address] [place] [address] [place] Creatinine [Mass/Vol] 1.61 mg/dL High 0.73-1.22 [facility] Comment on above: Order Comment: Speci men Type: BLOOD SPECIMEN Ordering Facility: [facility] Address: [address] [place] [address] Performed By: #### 2 4323-8, 40996-4 #### [facility] CLIA [id number] [address] [place] [address] [place] Creatinine and Glomerular filtration rate.predicted panel (S/P/Bld) 43 mL/min/1.73m??? Low >=60 [facility] Comment on above: Order Comment: Yui men Type: BLOOD SPECIMEN Ordering Facility: [facility] Address: [address] [place] [address] Result Comment: Sunshine mated Glomerular Filtration Rate [...] actual GFR. Performed By: #### 2 4323-8, 69385-4 #### [facility] CLIA [id number] [address] [place] [address] [place] Glucose [Mass/Vol] 96 mg/dL Normal 74-99 [facility] Comment on above: Order Comment: Jostin men Type: BLOOD SPECIMEN Ordering Facility: [facility] Address: [address] [place] [address] Result Comment: The [place] Diabetes Association (ADA) provides guidance for cutoff [...] Standards of Medical Care in Diabetes 2016, [place] Diabetes Association. Diabetes Care. 2016.39(Suppl 1). Performed By: #### 2 4323-8, 40638-5 #### [facility] CLIA [id number] [address] [place] [address] [place] Potassium [Moles/Vol] 4.6 mmol/L Normal 3.7-5.1 [facility] Comment on above: Order Comment: Speci men Type: BLOOD SPECIMEN Ordering Facility: [facility] Address: [address] [place] [address] Performed By: #### 2 4323-8, 11013-1 #### [facility] CLIA [id number] [address] [place] [address] [place] Protein [Mass/Vol] 7.0 g/dL Normal 6.3-8.0 [facility] Comment on above: Order Comment: Speci men Type: BLOOD SPECIMEN Ordering Facility: [facility] Address: [address] [place] [address] Performed By: #### 2 4323-8, 94790-1 #### [facility] CLIA [id number] [address] [place] [address] [place] Sodium [Moles/Vol] 140 mmol/L Normal 136-144 [facility] Comment on above: Order Comment: Speci men Type: BLOOD SPECIMEN Ordering Facility: [facility] Address: [address] [place] [address] Performed By: #### 2 4323-8, 26681-9 #### [facility] CLIA [id number] [address] [place] [address] [place] Urea nitrogen [Mass/Vol] 34 mg/dL High 9-24 [facility] Comment on above: Order Comment: Jostin torres Type: BLOOD SPECIMEN Ordering Facility: [facility] Address: [address] [place] [address] Performed By: #### 2 4323-8, 43387-5 #### [facility] CLIA [id number] [address] [place] [address] [place] HbA1c (Bld)on 04-20-2024 Average glucose Estimated from glycated hemoglobin (Bld) [Mass/Vol] 120 mg/dL Normal [facility] Comment on above: Order Comment: Jostin torres Type: BLOOD SPECIMEN Ordering Facility: [facility] Address: [address] [place] [address] Result Comment: eAG: (Estimated average glucose) is a calculated value from HgbA1c and is direct customer service representative of the average blood glucose level in the last 2-3 month period. Performed By: #### 5 5454-3 #### [facility] CLIA [id number] [address] [place] [address] [place] HbA1c (Bld) [Mass fraction] 5.8 % High 4.3-5.6 [facility] Comment on above: Order Comment: Jostin torres Type: BLOOD SPECIMEN Ordering Facility: [facility] Address: [address] [place] [address] Result Comment: [place] Diabetes Association guidelines indicate that patients with HgbA1c in the range 5.7-6.4% are at increased risk for development of diabetes, and intervention by lifestyle modification may be beneficial. HgbA1c greater or equal to 6.5% is considered diagnostic of diabetes. Performed By: #### 5 5454-3 #### [facility] CLIA [id number] [address] [place] [address] [place] Lipid 1996 panelon 4 Cholesterol [Mass/Vol] 103 mg/dL Normal <200 [facility] Comment on above: Order Comment: Yui men Type: BLOOD SPECIMEN Ordering Facility: [facility] Address: [address] [place] [address] Result Comment: <200 mg/dL, Desirable 200-239 mg/dL, Borderline high >239 mg/dL, High Performed By: #### 2 4323-8, 98969-0 #### [facility] CLIA [id number] [address] [place] [address] [place] Cholesterol in HDL [Mass/Vol] 28 mg/dL Low >39 [facility] Comment on above: Order Comment: Yui men Type: BLOOD SPECIMEN Ordering Facility: [facility] Address: [address] [place] [address] Result Comment: 40-5 9 mg/dL, Acceptable >59 mg/dL, High: Negative risk factor for coronary heart disease <40 mg/dL, Low: Positive risk factor for coronary heart disease Performed By: #### 2 4323-8, 89269-3 #### [facility] CLIA [id number] [address] [place] [address] [place] Cholesterol in LDL [Mass/Vol] 55 mg/dL Normal <100 [facility] Comment on above: Order Comment: Yui men Type: BLOOD SPECIMEN Ordering Facility: [facility] Address: [address] [place] [address] Result Comment: <100 mg/dL, Optimal 100-129 mg/dL, Near optimal/above optimal 130-159 mg/dL, Borderline high 160-189 mg/dL, High >189 mg/dL, Very high Secondary prevention optimal LDL Cholesterol levels are recommended to be < 70 mg/dL Performed By: #### 2 4323-8, 32802-5 #### [facility] CLIA [id number] [address] [place] [address] [place] Cholesterol in LDL/Cholesterol in HDL [Mass ratio] 1.96 {ratio} Normal <2.54 [facility] Comment on above: Order Comment: Speci men Type: BLOOD SPECIMEN Ordering Facility: [facility] Address: [address] [place] [address] Result Comment: Lion mathews: 1. National Cholesterol Education Program ATP III Guideline At-A-Glance Quick Desk Reference: National Heart, Lung, and Blood [place]. National Institutes of Health. 2001: NIH Publication No. 01-3305. 2. An International Atherosclerosis Society position paper: global recommendations for the management of dyslipidemia: executive summary, Atherosclerosis. 2014: 232(2):410-413. Performed By: #### 2 4323-8, 11962-4 #### [facility] CLIA [id number] [address] [place] [address] [place] Cholesterol in VLDL [Mass/Vol] 20 mg/dL Normal <30 [facility] Comment on above: Order Comment: Jostin torers Type: BLOOD SPECIMEN Ordering Facility: [facility] Address: [address] [place] [address] Performed By: #### 2 4323-8, 81276-0 #### [facility] CLIA [id number] [address] [place] [address] [place] Cholesterol non HDL [Mass/Vol] 75 mg/dL Normal <130 [facility] Comment on above: Order Comment: Jostin torres Type: BLOOD SPECIMEN Ordering Facility: [facility] Address: [address] [place] [address] Result Comment: <130 mg/dL, Optimal 130-159 mg/dL, Near optimal/above optimal 160-189 mg/dL, Borderline high 190-219 mg/dL, High >219 mg/dL, Very high Secondary prevention optimal non HDL Cholesterol levels are recommended to be <100 mg/dL Performed By: #### 2 4323-8, 18075-5 #### [facility] CLIA [id number] [address] [place] [address] [place] Cholesterol.total/Chol esterol in HDL [Mass ratio] 3.68 {ratio} Normal <5.10 [facility] Comment on above: Order Comment: Jostin torres Type: BLOOD SPECIMEN Ordering Facility: [facility] Address: [address] [place] [address] Performed By: #### 2 4323-8, 38538-3 #### [facility] CLIA [id number] [address] [place] [address] [place] FASTING TIME 14 hrs Normal [facility] Comment on above: Order Comment: Speci men Type: BLOOD SPECIMEN Ordering Facility: [facility] Address: [address] [place] [address] Performed By: #### 2 4323-8, 30374-2 #### [facility] CLIA [id number] [address] [place] [address] [place] Triglyceride [Mass/Vol] 98 mg/dL Normal <150 [facility] Comment on above: Order Comment: Speci men Type: BLOOD SPECIMEN Ordering Facility: [facility] Address: [address] [place] [address] Result Comment: <150 mg/dL, Normal 150-199 mg/dL, Borderline high 200-499 mg/dL, High >499 mg/dL, Very high Performed By: #### 2 4323-8, 63355-4 #### [facility] CLIA [id number] [address] [place] [address] [place] CNOVon 04-16-2024 CNOV Office Visit (LALA) GREG MOORE ([id number]) 1940 M Date Time Provider Department 04/16/24 [...] denies gi upset: Yes CAD: follows with [facility] cardiology with last appointment per patient was recently. No medication changes. Denies SOB, dyspnea, chest pain, palpitations or leg swelling. PAST MEDICAL HISTORY Diagnosis Date Bilateral carotid artery stenosis mild CKD (chronic kidney disease), stage III (HCC) Coronary artery disease s/p PCI 2003 [place] [facility] -- sees Dr. Samaniego Depression Elevated [...] Bilirubin, Tot (more content not included)... Normal [facility] CBC panel Auto (Bld)on 04-14 Erythrocyte distribution width (RBC) [Ratio] 15.3 % High 11.5 - 15.0 % [facility] Hematocrit (Bld) [Volume fraction] 47.6 % 39.0 - 51.0 % [facility] Hemoglobin (Bld) [Mass/Vol] 15.0 g/dL 13.0 - 17.0 g/dL [facility] MCH (RBC) [Entitic mass] 29.1 pg 26.0 - 34.0 pg [facility] MCHC (RBC) [Mass/Vol] 31.5 g/dL 30.5 - 36.0 g/dL [facility] MCV (RBC) [Entitic vol] 92.4 fL 80.0 - 100.0 fL [facility] Nucleated RBC (Bld) [#/Vol] <0.01 k/uL [facility] Platelet mean volume (Bld) [Entitic vol] 13.2 fL High 9.0 - 12.7 fL [facility] Platelets (Bld) [#/Vol] 151 10*3/uL 150 - 400 k/uL [facility] RBC (Bld) [#/Vol] 5.15 10*6/uL 4.20 - 6.0 0 m/uL [facility] WBC (Bld) [#/Vol] 7.75 10*3/uL 3.70 - 11. 00 k/uL [facility] Comprehensive metabolic 2000 panelon 10-14-2022 Albumin [Mass/Vol] 4.4 g/dL 3.9 - 4.9 g/dL [facility] ALP [Catalytic activity/Vol] 60 U/L 38 - 113 U/L [facility] ALT [Catalytic activity/Vol] 21 U/L 10 - 54 U/L [facility] Anion gap [Moles/Vol] 10 mmol/L 9 - 18 mmol/L [facility] AST [Catalytic activity/Vol] 24 U/L 14 - 40 U/L [facility] Bilirubin [Mass/Vol] 0.5 mg/dL 0.2 - 1 .3 mg/dL [facility] Calcium [Mass/Vol] 9.5 mg/dL 8.5 - 10. 2 mg/dL [facility] Chloride [Moles/Vol] 107 mmol/L High 97 - 10 5 mmol/L [facility] CO2 [Moles/Vol] 25 mmol/L 22 - 30 mmol/L [facility] Creatinine [Mass/Vol] 1.31 mg/dL High 0.73 - 1.22 mg/dL [facility] Estimated Glomerular Filtration Rate 55 mL/min/1.73m Low >=60 mL/min/1.73m [facility] Glucose [Mass/Vol] 88 mg/dL 74 - 99 mg/dL [facility] Potassium [Moles/Vol] 4.7 mmol/L 3.7 - 5.1 mmol/L [facility] Protein [Mass/Vol] 7.0 g/dL 6.3 - 8.0 g/dL [facility] Sodium [Moles/Vol] 142 mmol/L 136 - 144 mmol/L [facility] Urea nitrogen [Mass/Vol] 28 mg/dL High 9 - 24 mg/dL [facility] HbA1c (Bld)on 10-14-2022 Average glucose Estimated from glycated hemoglobin (Bld) [Mass/Vol] 117 mg/dL [facility] HbA1c (Bld) [Mass fraction] 5.7 % High 4.3 - 5.6 % [facility] URIC ACID BLOODon 10-14-2022 Urate [Mass/Vol] 5.1 mg/dL 4.0 - 8.1 mg/dL [facility] Office Visiton 03-11-2017 Documentation of current medications (procedure) Done Invalid Interpretation Code [employer] Work Phone: [phone] Fall risk assessment No Invalid Interpretation Code [facility] Work Phone: [phone] Protein mass conc Done [facility] Work Phone: [phone] Office Visiton 03-12-2016 Dietary management education, guidance, and counseling (procedure) yes Invalid Interpretation Code [facility] Work Phone: [phone] Documentation of current medications (procedure) Done Invalid Interpretation Code [facility] Work Phone: [phone] Tobacco smoking status NHIS Former smoker [facility] Work Phone: [phone] Tobacco use CPHS Former smoker Invalid Interpretation Code [facility] Work Phone: [phone] Clinical Lists Update: 03-08-2016 Left ventricular Ejection fraction 50 % Invalid Interpretation Code [facility] Work Phone: [phone] Clinical Lists Update: 01-26-2016 Alanine aminotransferase (ALT) 56 U/L Invalid Interpretation Code [facility] Work Phone: [phone] Albumin 3.6 g/dL Invalid Interpretation Code [facility] Work Phone: [phone] Alkaline phosphatase (ALP) 48 U/L Low [facility] Work Phone: [phone] ALP enzyme act/vol (Bld) 48 U/L Low [facility] Work Phone: [phone] Anion gap 7 mmol/L Invalid Interpretation Code [facility] Work Phone: [phone] Anion gap molar conc 7 mmol/L [facility] Work Phone: [phone] Aspartate aminotransferase (AST) 39 U/L High [facility] Work Phone: [phone] Bilirubin (total) 0.60 mg/dL Invalid Interpretation Code [facility] Work Phone: [phone] BUN/Creatinine Ratio 20.4 mg/mg High [facility] Work Phone: [phone] Calcium 8.3 mg/dL Low [facility] Work Phone: [phone] Chloride 108 mmol/L High [facility] Work Phone: [phone] Cholesterol 125 mg/dL Invalid Interpretation Code [facility] Work Phone: [phone] CO2 23.0 mmol/L Invalid Interpretation Code [facility] Work Phone: [phone] CO2 ppres (BldV) 23.0 mmol/L [facility] Work Phone: [phone] Creatinine 1.52 mg/dL High [facility] Work Phone: [phone] eGFR (non-black) 48 mL/min/{1.73_m2} Low [facility] Work Phone: [phone] eGFR (non-black) 58 mL/min/{1.73_m2} Low [facility] Work Phone: [phone] Globulin 3.7 g/dL High [facility] Work Phone: [phone] Globulin mass conc (S) 3.7 g/dL High [facility] Work Phone: [phone] Glomerular Filtration Rate 58 mL/min/1.73m2 Low [facility] Work Phone: [phone] Glucose 113 mg/dL Invalid Interpretation Code [facility] Work Phone: [phone] Glucose mass conc 113 mg/dL [facility] Work Phone: [phone] HDL Cholesterol 30 mg/dL Low [facility] Work Phone: [phone] LDL Cholesterol 67 mg/dL Invalid Interpretation Code [facility] Work Phone: [phone] Potassium 4.7 mmol/L Invalid Interpretation Code [facility] Work Phone: [phone] Protein 7.3 g/dL Invalid Interpretation Code [facility] Work Phone: [phone] Sodium 138 mmol/L Invalid Interpretation Code [facility] Work Phone: [phone] Triglyceride 139 mg/dL Invalid Interpretation Code [facility] Work Phone: [phone] Urea nitrogen 31 mg/dL High [facility] Work Phone: [phone] very low density lipoproteins 28 mg/dL Invalid Interpretation Code [facility] Work Phone: [phone] Replaced Document: Kalen Slaughter CG Iainon 08-29-2015 EKG QRS axis -42 deg [facility] Work Phone: [phone] electrocardiogram interpretation Sinus Rhythm -Prominent R(V1) and left axis -nonspecific -Seen with pulmonary disease -possible anterior fascicular block. - Nonspecific T-abnormality. ABNORMAL Invalid Interpretation Code [facility] Work Phone: [phone] GE use only - for [employer] import when terms are not otherwise specified 410 ms Invalid Interpretation Code [facility] Work Phone: [phone] Interpretation Sinus Rhythm -Prominent R(V1) and left axis -nonspecific -Seen with pulmonary disease -possible anterior fascicular block. - Nonspecific T-abnormality. ABNORMAL [facility] Work Phone: [phone] P Calhan 44 deg [facility] Work Phone: [phone] P wave axis, electrocardiogram 44 deg Invalid Interpretation Code [facility] Work Phone: [phone] NE Interval 162 ms [facility] Work Phone: [phone] NE interval, electrocardiogram 162 ms Invalid Interpretation Code [facility] Work Phone: [phone] Pulse (Heart Rate) 60 /min Invalid Interpretation Code [facility] Work Phone: [phone] QRS axis, electrocardiogram -42 deg Invalid Interpretation Code [facility] Work Phone: [phone] QRS Duration 100 ms [facility] Work Phone: [phone] QRS duration, electrocardiogram 100 ms Invalid Interpretation Code [facility] Work Phone: [phone] QT Interval new path ms [facility] Work Phone: [phone] QT interval, electrocardiogram new path ms Invalid Interpretation Code [facility] Work Phone: [phone] QTc Torres 410 ms [facility] Work Phone: [phone] T Calhan 116 deg [facility] Work Phone: [phone] T wave axis, electrocardiogram 116 deg Invalid Interpretation Code [facility] Work Phone: [phone] Clinical Lists 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: 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 10-21-2014 Erythrocyte distribution width Ratio (RBC) 45.6 % High [facility] Work Phone: [phone] Erythrocytes (RBC) 5.34 10*6/uL Invalid Interpretation Code [facility] Work Phone: [phone] Hematocrit (HCT) 47.3 % Invalid Interpretation Code [facility] Work Phone: [phone] Hematocrit Volume Fraction (Bld) 47.3 % [facility] Work Phone: [phone] Hemoglobin (HGB) 15.5 g/dL Invalid Interpretation Code [facility] Work Phone: [phone] MCH 29.0 pg Invalid Interpretation Code [facility] Work Phone: [phone] MCH Entitic mass (RBC) 29.0 pg [facility] Work Phone: [phone] MCHC 32.8 g/dL Invalid Interpretation Code [facility] Work Phone: [phone] MCHC mass conc (RBC) 32.8 g/dL [facility] Work Phone: [phone] MCV 88.6 fL Invalid Interpretation Code [facility] Work Phone: [phone] MCV Entitic volume (RBC) 88.6 fL [facility] Work Phone: [phone] Platelets 104 10*3/mm3 Low [facility] Work Phone: [phone] Platelets #/vol (Bld) 104 10*3/mm3 Low [facility] Work Phone: [phone] RBC #/vol (Bld) 5.34 10*6/uL [facility] Work Phone: [phone] RDW-CA 45.6 % High [facility] Work Phone: [phone] Thyroid stimulating hormone (TSH) 0.84 u[iU]/mL Invalid Interpretation Code [facility] Work Phone: [phone] WBC #/vol (Bld) 6.2 10*3/uL [facility] Work Phone: [phone] WBC (Leukocytes) 6.2 10*3/uL Invalid Interpretation Code [facility] Work Phone: [phone] Office Visit: [facility] 08-19-20 14 cardiac risk group C Invalid Interpretation Code [facility] Work Phone: [phone] General cardiovascular disease 10Y risk [#] Henning.D'Agostino N/A Invalid Interpretation Code [facility] Work Phone: [phone] Tobacco smoking status NHIS Never Invalid Interpretation Code [facility] Work Phone: [phone] Clinical Lists 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: 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 11-25-2013 Albumin/Globulin Ratio 1.1 {ratio} Invalid Interpretation Code [facility] Work Phone: [phone] basophils as percent of blood leukocytes, manual count 0.7 % Invalid Interpretation Code [facility] Work Phone: [phone] eosinophils as percent of blood leukocytes, manual count 5.0 % Invalid Interpretation Code [facility] Work Phone: [phone] Lymphocytes/100 leukocytes 28.2 % Invalid Interpretation Code [facility] Work Phone: [phone] Lymphocytes/100 WBC (Bld) 28.2 % [facility] Work Phone: [phone] Monocytes/100 leukocytes 8.4 % Invalid Interpretation Code [facility] Work Phone: [phone] Monocytes/100 WBC (Bld) 8.4 % [facility] Work Phone: [phone] neutrophils, band form as percent of blood leukocytes, manual count 57.5 % Invalid Interpretation Code [facility] Work Phone: [phone] Platelet mean volume Entitic volume (Bld) 13.4 fL High [facility] Work Phone: [phone] PMV by Roxy 13.4 fL [facility] Work Phone: [phone] Replaced Document: Kalen Slaughter CG Iain[place] 07-08-2013 Pulse (Heart Rate) 440 ms Invalid Interpretation Code [facility] Work Phone: [phone] Vital Signs Date Time Vital Sign Value Performing Clinician Gabbi nguyễn 12-24-2024 13:01-0400 Body height 172.[address] Virgil Tilley MD Work Phone: [facility] 12-24-2024 13:01-0400 Body mass index (BMI) [Ratio] 28.3 kg/m2 Dr. Virgil Tilley MD Work Phone: [facility] 12-24-2024 13:01-0400 Body weight 84.[address] Virgil Tilley MD Work Phone: [facility] 12-24-2024 13:01-0400 Diastolic blood pressure 80 mm[Hg] Dr. Virgil Tilley MD Work Phone: [facility] 12-24-2024 13:01-0400 Heart rate 53 /min Dr. Virgil Tilley MD Work Phone: [facility] 12-24-2024 13:01-0400 Respiratory rate 18 /min Dr. Virgil Tilley MD Work Phone: [facility] 12-24-2024 13:01-0400 SaO2% (BldA) [Mass fraction] 96 % Dr. Virgil Tilley MD Work Phone: [facility] 12-24-2024 13:01-0400 Systolic blood pressure 142 mm[Hg] Dr. Virgil Tilley MD Work Phone: [facility] 12-10-2024 08:48-0400 Body mass index (BMI) [Ratio] 28.16 kg/m2 Rajiv Canada APRN.PRODUCTION CHECKER Work Phone: [facility] 12-10-2024 08:48-0400 Body weight 84 kg Rajiv Canada APRN.PRODUCTION CHECKER Work Phone: [facility] 12-10-2024 08:48-0400 Diastolic blood pressure 68 mm[Hg] Rajiv Canada BUMPER MACHINE OPERATOR.PRODUCTION CHECKER Work Phone: [facility] 12-10-2024 08:48-0400 Heart rate 54 /min Rajiv aCnada APRN.PRODUCTION CHECKER Work Phone: [facility] 12-10-2024 08:48-0400 Systolic blood pressure 133 mm[Hg] Rajiv Canada BUMPER MACHINE OPERATOR.PRODUCTION CHECKER Work Phone: [facility] 04-16-2024 08:17-0400 Body mass index (BMI) [Ratio] 29.53 kg/m2 Keiko Brewer BUMPER MACHINE OPERATOR.PRODUCTION CHECKER Work Phone: [facility] 04-16-2024 08:17-0400 Body weight 88.1 kg Keiko Brewer APRN.PRODUCTION CHECKER Work Phone: [facility] 04-16-2024 08:17-0400 Diastolic blood pressure 74 mm[Hg] Keiko Brewer BUMPER MACHINE OPERATOR.PRODUCTION CHECKER Work Phone: [facility] 04-16-2024 08:17-0400 Heart rate 59 /min Keiko Podlogar BUMPER MACHINE OPERATOR.PRODUCTION CHECKER Work Phone: [facility] 04-16-2024 08:17-0400 Respiratory rate 18 /min Keiko Podlogar BUMPER MACHINE OPERATOR.PRODUCTION CHECKER Work Phone: [facility] 04-16-2024 08:17-0400 SaO2% (BldA) [Mass fraction] 98 % Keiko Podlogar BUMPER MACHINE OPERATOR.PRODUCTION CHECKER Work Phone: [facility] 04-16-2024 08:17-0400 Systolic blood pressure 138 mm[Hg] Keiko Podlogar BUMPER MACHINE OPERATOR.PRODUCTION CHECKER Work Phone: [facility] 10-17-2023 09:06-0500 Diastolic blood pressure 72 mm[Hg] Parth Tilley MD Work Phone: [facility] 10-17-2023 09:06-0500 Systolic blood pressure 138 mm[Hg] Parth Tilley MD Work Phone: [facility] 10-17-2023 08:33-0500 Body weight 88.18 kg Parth Tilley MD Work Phone: [facility] 10-17-2023 08:33-0500 Heart rate 60 /min Parth Tilley MD Work Phone: [facility] 10-17-2023 08:33-0500 Respiratory rate 18 /min Parth Tilley MD Work Phone: [facility] 10-17-2023 08:33-0500 SaO2% (BldA) [Mass fraction] 97 % Parth Tilley MD Work Phone: [facility] 04-14-2023 09:06-0400 Body height 172.7 cm Keiko Podlogar BUMPER MACHINE OPERATOR.PRODUCTION CHECKER Work Phone: [facility] 04-14-2023 09:06-0400 Body weight 89.81 kg Keiko Podlogar BUMPER MACHINE OPERATOR.PRODUCTION CHECKER Work Phone: [facility] 04-14-2023 09:06-0400 Diastolic blood pressure 74 mm[Hg] Keiko Podlogar BUMPER MACHINE OPERATOR.PRODUCTION CHECKER Work Phone: [facility] 04-14-2023 09:06-0400 Heart rate 60 /min Keiko Podlogar BUMPER MACHINE OPERATOR.PRODUCTION CHECKER Work Phone: [facility] 04-14-2023 09:06-0400 Respiratory rate 16 /min Keiko Podlogar BUMPER MACHINE OPERATOR.PRODUCTION CHECKER Work Phone: [facility] 04-14-2023 09:06-0400 Systolic blood pressure 128 mm[Hg] Keiko Podlogar BUMPER MACHINE OPERATOR.PRODUCTION CHECKER Work Phone: [facility] 10-14-2022 08:57-0500 Body weight 86.18 kg Parth Tilley MD Work Phone: [facility] 10-14-2022 08:57-0500 Diastolic blood pressure 60 mm[Hg] Parth Tilley MD Work Phone: [facility] 10-14-2022 08:57-0500 Heart rate 54 /min Parth Tilley MD Work Phone: [facility] 10-14-2022 08:57-0500 Respiratory rate 16 /min Parth Tilley MD Work Phone: [facility] 10-14-2022 08:57-0500 SaO2% (BldA) [Mass fraction] 98 % Parth Tilley MD Work Phone: [facility] 10-14-2022 08:57-0500 Systolic blood pressure 124 mm[Hg] Parth Tilley MD Work Phone: [facility] 06-21-2022 12:25-0400 Body temperature 97.2 [degF] Trinidad Willis BUMPER MACHINE OPERATOR.PRODUCTION CHECKER Work Phone: [facility] 06-21-2022 12:25-0400 Body weight 87.36 kg Trinidad Willis BUMPER MACHINE OPERATOR.PRODUCTION CHECKER Work Phone: [facility] 06-21-2022 12:25-0400 Diastolic blood pressure 88 mm[Hg] Trinidad Willis BUMPER MACHINE OPERATOR.PRODUCTION CHECKER Work Phone: [facility] 06-21-2022 12:25-0400 Heart rate 56 /min Trinidad Willis BUMPER MACHINE OPERATOR.PRODUCTION CHECKER Work Phone: [facility] 06-21-2022 12:25-0400 Respiratory rate 18 /min Trinidad Willis BUMPER MACHINE OPERATOR.PRODUCTION CHECKER Work Phone: [facility] 06-21-2022 12:25-0400 SaO2% (BldA) [Mass fraction] 98 % Trinidad Willis BUMPER MACHINE OPERATOR.PRODUCTION CHECKER Work Phone: [facility] 06-21-2022 12:25-0400 Systolic blood pressure 140 mm[Hg] Trinidad Willis BUMPER MACHINE OPERATOR.PRODUCTION CHECKER Work Phone: [facility] 05-13-2022 13:57-0400 Body temperature 97.59 [degF] Aliya Moore BUMPER MACHINE OPERATOR.PRODUCTION CHECKER Work Phone: [facility] 05-13-2022 13:57-0400 Body weight 88 kg Aliya Moore BUMPER MACHINE OPERATOR.PRODUCTION CHECKER Work Phone: [facility] 05-13-2022 13:57-0400 Diastolic blood pressure 74 mm[Hg] Aliya Moore BUMPER MACHINE OPERATOR.PRODUCTION CHECKER Work Phone: [facility] 05-13-2022 13:57-0400 Heart rate 66 /min Aliya Moore BUMPER MACHINE OPERATOR.PRODUCTION CHECKER Work Phone: [facility] 05-13-2022 13:57-0400 Respiratory rate 16 /min Aliya Moore BUMPER MACHINE OPERATOR.PRODUCTION CHECKER Work Phone: [facility] 05-13-2022 13:57-0400 SaO2% (BldA) [Mass fraction] 98 % Aliya Moore BUMPER MACHINE OPERATOR.PRODUCTION CHECKER Work Phone: [facility] 05-13-2022 13:57-0400 Systolic blood pressure 124 mm[Hg] Aliya Moore BUMPER MACHINE OPERATOR.PRODUCTION CHECKER Work Phone: [facility] 03-14-2022 10:53-0400 Body temperature 98.4 [degF] Becky Hart PA-C Work Phone: [facility] 03-14-2022 10:53-0400 Diastolic blood pressure 76 mm[Hg] Becky Athy PA-C Work Phone: [facility] 03-14-2022 10:53-0400 Heart rate 91 /min Becky Athy PA-C Work Phone: [facility] 03-14-2022 10:53-0400 Respiratory rate 18 /min Becky Athy PA-C Work Phone: [facility] 03-14-2022 10:53-0400 SaO2% (BldA) [Mass fraction] 98 % Becky Athy PA-C Work Phone: [facility] 03-14-2022 10:53-0400 Systolic blood pressure 128 mm[Hg] Becky Athy PA-C Work Phone: [facility] 03-11-2017 15:19-0400 BMI (Body Mass Index) 32.2 kg/m2 Shannon Quigley [facility] Work Phone: 03-11-2017 15:19-0400 BP Diastolic 50 mm[Hg] Shannonday Quigley [facility] Work Phone: 03-11-2017 15:19-0400 BP Systolic 100 mm[Hg] Shannon Quigley [facility] Work Phone: 03-11-2017 15:19-0400 Height 172.72 cm Shannon Quigley [facility] Work Phone: 03-11-2017 15:19-0400 Pulse (Heart Rate) 52 /min Shannon Quigley [facility] Work Phone: 03-11-2017 15:19-0400 Respiratory Rate 20 /min Shannon Quigley [facility] Work Phone: 03-11-2017 15:19-0400 Weight 96.07 kg Shannon Quigley [facility] Work Phone: 03-12-2016 09:32-0400 BMI (Body Mass Index) 32.22 kg/m2 Vesta Quevedojanice [facility] Work Phone: 03-12-2016 09:32-0400 BP Diastolic 54 mm[Hg] Vesta Mills [facility] Work Phone: 03-12-2016 09:32-0400 BP Systolic 100 mm[Hg] Vesta DeFinjanice [facility] Work Phone: 03-12-2016 09:32-0400 BSA (Body Surface Area) 2.1 m2 Harjean-pierre DeFinjanice [facility] Work Phone: 03-12-2016 09:32-0400 Pulse (Heart Rate) 52 /min Harjean-pierre DeFinjanice [facility] Work Phone: 03-12-2016 09:32-0400 Respiratory Rate 16 /min Vesta Mills [facility] Work Phone: 03-12-2016 09:32-0400 Weight [...] Provider Facility Start: 03-17-2025 ambulatory Virgil Seo lity:[facility] Start: 02-09-2025 End: 02-09-2025 Telephone encounter Joanne Parker [facility] [place] Comment on above: Refill Request Start: 02-08-2025 End: 02-08-2025 Refill Joanne Parker [facility] [place] Comment on above: Refill Request Start: 01-20-2025 End: 01-20-2025 Refill Parth Tilley MD Work Phone: [facility] Comment on above: Refill Request Start: 01-17-2025 End: 01-17-[address] Virgil Tilley MD Work Phone: [facility] Work Phone: Start: 01-17-2025 End: 01-17-2025 Patient encounter procedure Jama Crowell PA -Laboratory Work Phone: Start: 01-17-2025 End: 01-17-2025 ambulatory Jama Cainfrancine Facility:[facility] Start: 12-24-2024 End: 12-24-2024 Patient encounter procedure Jama OHARA -[facility] Work Phone: Start: 12-24-2024 End: 12-24-2024 ambulatory Jama Crowell Facility:[facility] Start: 12-13-2024 End: 12-13-2024 Follow-up encounter Rajiv Canada APRN.CNP Work Phone: [facility] Start: 12-10-2024 Encounter for genera l adult medical examination without abnormal findings PARTH TILLEY [facility] Start: 12-10-2024 End: 12-10-2024 Patient encounter procedure Rajiv Canada APRN.CNP Work Phone: [facility] Comment on above: Wellness examination (Primary Dx); Type 2 diabetes mellitus with stage 3a chronic kidney disease, without long-term current use of insulin (HCC); Chronic kidney disease, stage 3a (HCC); Essential hypertension; Mixed hyperlipidemia; Coronary artery disease involving [place] heart without angina pectoris, unspecified vessel or lesion type Refill Request Start: 12-10-2024 End: 12-10-2024 Patient encounter status Rajiv Canada APRN.PRODUCTION CHECKER Work Phone: [facility] Start: 12-10-2024 End: 12-10-2024 ambulatory PARTH TILLEY Facility:[facility] Start: 11-30-2024 End: 12-01-2024 Refill Joanne Parker [address] Comment on above: Refill Request; Futu re Appointment Start: 07-27-2024 End: 07-27-2024 Refill Parth Tilley MD Work Phone: [facility] Comment on above: Refill Request Start: 06-11-2024 End: 06-11-2024 Refill Parth Tilley MD Work Phone: [facility] [place] Comment on above: Refill Request Start: 05-22-2024 End: 05-24-2024 Refill Parth Tilley MD Work Phone: [address] [place] [address] Comment on above: Refill Request Start: 05-11-2024 ambulatory [facility] Facility:[facility] Start: 04-21-2024 Telephone encounter Keiko mckeon APRN.PRODUCTION CHECKER Work Phone: [facility] [place] Comment on above: Results Start: 04-20-2024 End: 04-20-2024 ambulatory [facility] Facility:[facility] Start: 04-19-2024 Refill Parth Tilley MD Work Phone: [facility] [place] Comment on above: Refill Request Start: 04-16-2024 End: 04-16-2024 Patient encounter procedure Keiko Brewer APRN.PRODUCTION CHECKER Work Phone: [facility] [place] Comment on above: Essential hypertensi on (Primary Dx); Type 2 diabetes mellitus with stage 3a chronic kidney disease, without long-term current use of insulin (HCC); Mixed hyperlipidemia; Coronary artery disease involving [place] heart without angina pectoris, unspecified vessel or lesion type; Gout, unspecified cause, unspecified chronicity, unspecified site; Chronic kidney disease, stage 3a (HCC); Bilateral carotid artery stenosis Start: 04-16-2024 End: 04-16-2024 [facility] Start: 12-26-2023 Telephone encounter Virgil Tilley MD Work Phone: [facility] Comment on above: Refill Request Start: 12-08-2023 Refill Parth Tilley MD Work Phone: [facility] [place] Comment on above: Refill Request Start: 11-14-2023 Refill Parth Tilley MD Work Phone: [facility] [place] Comment on above: Refill Request; Refi ll Request Start: 10-20-2023 Telephone encounter Virgil Tilley MD Work Phone: [facility] Comment on above: Results Start: 10-17-2023 End: 10-17-2023 Patient encounter procedure Parth Tilley MD Work Phone: [facility] Comment on above: Type 2 diabetes corby itus with stage 3a chronic kidney disease, without long-term current use of insulin (HCC) (Primary Dx); Essential hypertension; Mixed hyperlipidemia; Mild episode of recurrent major depressive disorder (HCC); Coronary artery disease involving [place] heart without angina pectoris, unspecified vessel or lesion type; Gout, unspecified cause, unspecified chronicity, unspecified site; Overweight with body mass index (BMI) of 29 to 29.9 in adult Start: 05-26-2023 Refill Parth Tilley MD Work Phone: Orth[facility]ics Start: 04-15-2023 Telephone encounter Keiko mckeon APRN.PRODUCTION CHECKER Work Phone: [facility] Comment on above: Results Start: 04-14-2023 End: 04-14-2023 Patient encounter procedure Keiko Brewer APRN.PRODUCTION CHECKER Work Phone: [facility] Comment on above: Controlled type 2 di abetes mellitus without complication, without long-term current use of insulin (HCC) (Primary Dx); Mixed hyperlipidemia; Essential hypertension Start: 11-08-2022 Refill Parth Tilley MD Work Phone: [facility] Comment on above: Refill Request Start: 10-15-2022 Telephone encounter Keiko mckeon APRN.PRODUCTION CHECKER Work Phone: [facility] Comment on above: Results Start: 10-14-2022 End: 10-14-2022 Patient encounter procedure Parth Tilley MD Work Phone: [facility] Comment on above: Controlled type 2 di abetes mellitus without complication, without long-term current use of insulin (HCC) (Primary Dx); Essential hypertension; Gout, unspecified cause, unspecified chronicity, unspecified site; Mild episode of recurrent major depressive disorder (HCC); Mixed hyperlipidemia; Coronary artery disease involving [place] heart without angina pectoris, unspecified vessel or lesion type; Systolic ejection murmur; Type 2 diabetes mellitus with stage 3a chronic kidney disease, without long-term current use of insulin (HCC); Thrombocytopenia (HCC); Chronic kidney disease, stage 3a (HCC) Start: 09-30-2022 Refill Parth Tilley MD Work Phone: [facility] Comment on above: Refill Request (90 d ays - out of medication) Start: 09-28-2022 Nurse Triage Mirian leyva LPN NURSE MOLECULAR SPECTROSCOPIST Comment on above: Refill Request Start: 08-27-2022 Refill Parth Tilley MD Work Phone: [facility] Comment on above: Refill Request Start: 07-26-2022 Refill Parth Tilley MD Work Phone: [facility] Comment on above: Refill Request; Appo intment (patient past due for follow up visit needs to schedule an appointment- msg left) Start: 06-21-2022 End: 06-21-2022 Patient encounter procedure Trinidad Willis BUMPER MACHINE OPERATOR.PRODUCTION CHECKER Work Phone: [facility] Comment on above: Acute gout of right ankle, unspecified cause (Primary Dx) Start: 05-14-2022 Refill Parth Tilley MD Work Phone: [facility] Comment on above: Refill Request Start: 05-13-2022 End: 05-13-2022 Patient encounter procedure Aliya Moore APRN.PRODUCTION CHECKER Work Phone: [facility] Comment on above: Acute gout of right ankle, unspecified cause (Primary Dx) Start: 04-11-2022 ambulatory Ani De Leon MA [facility] Comment on above: Population Health [facility] ([facility] Gaps) Start: 03-14-2022 End: 03-14-2022 Refill Becky Hart PA-C Work Phone: [facility] Comment on above: Refill Request Acute gout of left f oot, unspecified cause (Primary Dx) Start: 01-14-2022 Telephone encounter Virgil Tilley MD Work Phone: [facility] Comment on above: Blood Pressure Check Start: 12-31-2021 Telephone encounter Keiko Soraida mckeon APRN.PRODUCTION CHECKER Work Phone: [facility] Comment on above: EKG Start: 12-21-2021 Refill Parth Tilley MD Work Phone: [facility] [place] Comment on above: Refill Request Start: 12-10-2021 Refill Parth Tilley MD Work Phone: [facility] [place] Comment on above: Refill Request Procedures Date Procedure Procedure Detail Performing Clinician Start: 12-24-2024 Evaluation of diagno stic study results Dr. Virgil Tilley MD Work Phone: Start: 03-12-2016 End: 03-12-2016 Dietary management education, guidance, and counseling Shannon Quigley Start: 03-12-2016 End: 03-12-2016 Follow Up Appt 1 year Isaiah Samaniego MD Start: 03-12-2016 End: 03-12-2016 MMM Isaiah Samaniego MD Start: 08-29-2015 End: 08-29-2015 PICKING SUPERVISOR Meredith Charles PA-C Work Phone: Start: 08-29-2015 [...] DEEPA Samaniego MD Start: 08-19-2014 End: 08-19-2014 PICKING SUPERVISOR Meredith Charles PA-C Work Phone: Start: 08-19-2014 [...] DEEPA Samaniego MD Start: 07-08-2013 End: 07-08-2013 PICKING SUPERVISOR Meredith Charles PA-C Work Phone: Start: 07-08-2013 [...] stent placement Jama OHARA Comment on above: 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 08/05/2004 Plan of Treatment Date Care Activity Detail Author Start: 05-21-2028 Urine microalbumin profile [facility] Start: 12-10-2025 Covid-19 Vaccine ( season) Covid-19 Vaccine () [facility] Comment on above: Postponed from 05/16 (Declined at this time) Start: 12-10-2025 Pneumococcal Vaccine : 50+ (1 of 2 - PCV) Pneumococcal Vaccine: 50+ (1 of 2 - PCV) [facility] Comment on above: Postponed from 12/29 (Declined at this time) Start: 12-10-2025 RSV Vaccine (1 - 1-d ose 75+ series) RSV Vaccine (1 - 1-dose 75+ series) [facility] Comment on above: Postponed from 12/29 (Declined at this time) Start: 12-10-2025 Shingrix Vaccine (1 of 2) Shingrix Vaccine (1 of 2) [facility] Comment on above: Postponed from 12/29 (Declined at this time) Start: 06-12-2025 Hemoglobin A1c measurement HbA1C [facility] Start: 05-16-2025 Influenza vaccination Influenz a Vaccine (Season Ended) [facility] Start: 04-20-2025 Hepatitis B screening Urine Al bumin:Creatinine Ratio [facility] Start: 04-20-2025 Hepatitis B surface antibody level LDL Cholesterol [facility] Start: 04-16-2025 Diabetic foot examination Diabetic Foot Exam [facility] Start: 03-14-2025 Influenza vaccination Influenza Vacc ine (#1) [facility] Comment on above: Postponed from 05/16 (Declined at this time) Start: 12-10-2024 End: 03-11-2025 Comprehensive metabolic 2000 panel - Serum or Plasma [facility] Comment on above: Expected: 12/10/2024 , Expires: 03/11/2025 Start: 12-10-2024 End: 03-11-2025 Hemoglobin A1c in Blood [facility] Work Phone: Comment on above: Expected: 12/10/2024 , Expires: 03/11/2025 Start: 12-10-2024 End: 12-10-2024 Patient encounter procedure 12/10/2024 9:00 AM EDT Office Visit [facility] [address] [place], [place] [id number] Rajiv Canada APRN.PRODUCTION CHECKER [address] [place] [address] 6 month follow up (missed appt in ) [facility] Comment on above: 6 month follow up (m issed appt in ) Start: 10-21-2024 Hemoglobin A1c measurement HbA1C [facility] Start: 10-18-2024 End: 10-18-2024 Patient encounter procedure 10/18/2024 8:20 AM EST Office Visit [facility] [address] [place] [address] Keiko Brewer APRN.PRODUCTION CHECKER [address] [place] [address] 6 month follow up [facility] Comment on above: 6 month follow up Start: 10-17-2024 Annual PCP Team Erecting Crane Operator ra Disease Visit Annual PCP Team Chronic Disease Visit [facility] Start: 10-17-2024 Covid-19 Vaccine ( season) Covid-19 Vaccine ( season) [facility] Comment on above: Postponed from 05/16 (Declined at this time) Start: 10-17-2024 Creatinine measurement Serum Creatin ine [facility] Start: 10-17-2024 Glaucoma screening Dilated Retinal E xam [facility] Comment on above: Postponed from 05/31 (Declined at this time) Start: 10-17-2024 Pneumococcal Vaccine : 65+ (1 of 2 - PCV) Pneumococcal Vaccine: 65+ (1 of 2 - PCV) [facility] Comment on above: Postponed from 12/29 (Declined at this time) Start: 10-17-2024 RSV Vaccine (1 - 1-d ose 60+ series) RSV Vaccine (1 - 1-dose 60+ series) [facility] Comment on above: Postponed from 12/29 (Declined at this time) Start: 10-17-2024 RSV Vaccine (1 - 1-d ose 75+ series) RSV Vaccine (1 - 1-dose 75+ series) [facility] Comment on above: Postponed from 12/29 (Declined at this time) Start: 10-17-2024 Shingrix Vaccine (1 of 2) Shingrix Vaccine (1 of 2) [facility] Comment on above: Postponed from 12/29 (Declined at this time) Start: 09-15-2024 Advance Directive Discussion Advance Directive Discussion [facility] Start: 07-22-2024 End: 10-21-2024 Comprehensive metabolic 2000 panel - Serum or Plasma COMPREHENSIVE METABOLIC PANEL Lab Routine Chronic kidney disease, stage 3a ([facility]) Expected: 07/22/2024, Expires: 10/21/2024 [facility] Work Phone: Comment on above: Expected: 07/22/2024 , Expires: 10/21/2024 Start: 05-16-2024 Covid-19 Vaccine ( season) Covid-19 Vaccine ( season) [facility] Start: 05-16-2024 Covid-19 Vaccine ( season) Covid-19 Vaccine () [facility] Start: 05-16-2024 Influenza vaccination C [facility] Start: 05-13-2024 End: 05-13-2024 Patient encounter procedure 05/13/2024 9:00 AM EDT Office Visit [facility] [address] [place] [address] Bilateral carotid artery stenosis [I65.23] [facility] Comment on above: Bilateral carotid ar jessie stenosis [I65.23] Start: 04-23-2024 End: 07-23-2024 CBC W Auto Differential panel - Blood COMPLETE BLOOD COUNT AND DIFFERENTIAL Lab Routine Type 2 diabetes mellitus with stage 3a chronic kidney disease, without long-term current use of insulin ([facility]) Expected: 04/23/2024, Expires: 07/23/2024 [facility] Comment on above: Expected: 04/23/2024 , Expires: 07/23/2024 Start: 04-23-2024 End: 07-23-2024 Comprehensive metabolic 2000 panel - Serum or Plasma COMPREHENSIVE METABOLIC PANEL Lab Routine Type 2 diabetes mellitus with stage 3a chronic kidney disease, without long-term current use of insulin ([facility]) Essential hypertension Mixed hyperlipidemia Chronic kidney disease, stage 3a (HCC) Expected: 04/23/2024, Expires: 07/23/2024 [facility] Comment on above: Expected: 04/23/2024 , Expires: 07/23/2024 Start: 04-23-2024 End: 07-23-2024 Hemoglobin A1c in Blood HEMOGLOBIN A1C Lab Routine Type 2 diabetes mellitus with stage 3a chronic kidney disease, without long-term current use of insulin (HCC) Expected: 04/23/2024, Expires: 07/23/2024 [facility] Comment on above: Expected: 04/23/2024 , Expires: 07/23/2024 Start: 04-23-2024 End: 07-23-2024 Lipid 1996 panel - Serum or Plasma LIPID PANEL BASIC Lab Routine Mixed hyperlipidemia Expected: 04/23/2024, Expires: 07/23/2024 [facility] Work Phone: Comment on above: Expected: 04/23/2024 , Expires: 07/23/2024 Start: 04-23-2024 End: 07-23-2024 Microalbumin/Creatinine [Mass Ratio] in Urine ALBUMIN/CREATININE RATIO, URINE Lab Routine Type 2 diabetes mellitus with stage 3a chronic kidney disease, without long-term current use of insulin (HCC) Expected: 04/23/2024, Expires: 07/23/2024 [facility] Comment on above: Expected: 04/23/2024 , Expires: 07/23/2024 Start: 04-16-2024 Hemoglobin A1c measurement HbA1C [facility] Start: 04-14-2024 3 comp foot exam completed DIABETIC FOOT EXAM [facility] Start: 04-14-2024 ANNUAL PCP TEAM MANAGEMENT LIAISON RA DISEASE VISIT ANNUAL PCP TEAM CHRONIC DISEASE VISIT [facility] Start: 04-14-2024 BP CONTROLLED (<130/80) BP CONTROLLE D (<130/80) [facility] Start: 04-14-2024 Complete blood count Hemoglobin/Brennan tocrit [facility] Start: 04-14-2024 Creatinine measurement Serum Creatin ine [facility] Start: 04-14-2024 Diabetic foot examination Diabetic Foot Exam [facility] Start: 04-14-2024 HEMOGLOBIN/HEMATOCRIT HEMOGLOBIN/HEM ATOCRIT [facility] Start: 04-14-2024 Hepatitis B screening URINE AL BUMIN:CREATININE RATIO [facility] Start: 04-14-2024 Hepatitis B surface antibody level LDL CHOLESTEROL [facility] Start: 04-14-2024 SERUM CREATININE SERUM CREATININE [facility] Start: 03-14-2024 Influenza vaccination Influenza Vacc ine (#1) [facility] Comment on above: Postponed from 05/16 (Declined at this time) Start: 10-29-2023 BP CONTROLLED (<130/80) BP CONTROLLE D (<130/80) [facility] Start: 10-17-2023 End: 01-16-2024 Comprehensive metabolic 2000 panel - Serum or Plasma [facility] Work Phone: Comment on above: Expected: 10/17/2023 , Expires: 01/16/2024 Start: 10-17-2023 End: 01-16-2024 Hemoglobin A1c in Blood [facility] Work Phone: Comment on above: Expected: 10/17/2023 , Expires: 01/16/2024 Start: 10-15-2023 Hemoglobin A1c measurement HbA1C [facility] Start: 10-15-2023 Hemoglobin A1c/Hemoglobin.total in Blood HBA1C [facility] Start: 10-14-2023 ANNUAL PCP TEAM MANAGEMENT LIAISON RA DISEASE VISIT ANNUAL PCP TEAM CHRONIC DISEASE VISIT [facility] Start: 10-14-2023 BP CONTROLLED (<130/80) BP CONTROLLE D (<130/80) [facility] Start: 10-14-2023 COVID-19 VACCINE (3 - Booster for Pfizer series) COVID-19 VACCINE (3 - Booster for Pfizer series) [facility] Comment on above: Postponed from 03/02 (Declined at this time) Start: 10-14-2023 COVID-19 VACCINE (3 - Pfizer series) COVID-19 VACCINE (3 - Pfizer series) [facility] Comment on above: Postponed from 03/02 (Declined at this time) Start: 10-14-2023 PNEUMOCOCCAL: 65+ (1 - PCV) PNEUMOCOCCAL: 65+ (1 - PCV) [facility] Comment on above: Postponed from 12/29 (Declined at this time) Start: 10-14-2023 SERUM CREATININE SERUM CREATININE [facility] Start: 10-14-2023 SHINGRIX VACCINE (1 of 2) SHINGRIX VACCINE (1 of 2) [facility] Comment on above: Postponed from 12/29 (Declined at this time) Start: 09-15-2023 Advance Directive Discussion Advance Directive Discussion [facility] Start: 05-16-2023 Influenza vaccination INFLUENZA (#1) [facility] Start: 05-13-2023 BP CONTROLLED (<130/80) BP CONTROLLE D (<130/80) [facility] Start: 04-14-2023 End: 06-14-2023 ALBUMIN/CREAT RATIO RND UR [facility] Work Phone: Comment on above: Expected: 04/14/2023 , Expires: 06/14/2023 Start: 04-14-2023 End: 06-14-2023 Comprehensive metabolic 2000 panel - Serum or Plasma [facility] Work Phone: Comment on above: Expected: 04/14/2023 , Expires: 06/14/2023 Start: 04-14-2023 End: 06-14-2023 Hemoglobin A1c in Blood [facility] Work Phone: Comment on above: Expected: 04/14/2023 , Expires: 06/14/2023 Start: 04-14-2023 End: 06-14-2023 Lipid 1996 panel - Serum or Plasma [facility] Work Phone: Comment on above: Expected: 04/14/2023 , Expires: 06/14/2023 Start: 04-13-2023 Hemoglobin A1c/Hemoglobin.total in Blood HBA1C [facility] Start: 03-14-2023 BP CONTROLLED (<130/80) BP CONTROLLE D (<130/80) [facility] Start: 03-14-2023 Influenza vaccination INFLUENZA (#1) [facility] Comment on above: Postponed from 05/16 (Declined at this time) Start: 12-31-2022 3 comp foot exam completed DIABETIC FOOT EXAM [facility] Start: 12-31-2022 ANNUAL PCP TEAM MANAGEMENT LIAISON RA DISEASE VISIT ANNUAL PCP TEAM CHRONIC DISEASE VISIT [facility] Start: 12-27-2022 HEMOGLOBIN/HEMATOCRIT HEMOGLOBIN/HEM [facility] Start: 12-27-2022 Hepatitis B screening URINE AL BUMIN:CREATININE RATIO [facility] Start: 12-27-2022 Hepatitis B surface antibody level LDL CHOLESTEROL [facility] Start: 12-27-2022 SERUM CREATININE SERUM CREATININE [facility] Start: 09-15-2022 ADVANCE DIRECTIVE DISCUSSION ADVANCE DIRECTIVE DISCUSSION [facility] Start: 06-28-2022 Hemoglobin A1c/Hemoglobin.total in Blood HBA1C [facility] Start: 05-16-2022 Influenza vaccination C [facility] Start: 12-25-2021 ANNUAL PCP TEAM MANAGEMENT LIAISON RA DISEASE VISIT ANNUAL PCP TEAM CHRONIC DISEASE VISIT [facility] Start: 12-25-2021 HEMOGLOBIN/HEMATOCRIT HEMOGLOBIN/HEM [facility] Start: 12-25-2021 Hepatitis B screening URINE AL BUMIN:CREATININE RATIO [facility] Start: 12-25-2021 Hepatitis B surface antibody level LDL CHOLESTEROL [facility] Start: 12-25-2021 SERUM CREATININE SERUM CREATININE [facility] Start: 12-21-2021 End: 02-20-2022 ALBUMIN/CREAT RATIO RND UR ALBUMIN/CREAT RATIO RND UR Lab Routine 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) Expected: 12/21/2021, Expires: 02/20/2022 [facility] Work Phone: Comment on above: Expected: 12/21/2021 , Expires: 02/20/2022 Start: 12-21-2021 End: 02-20-2022 CBC panel - Blood by Automated count CBC Lab Routine 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) Expected: 12/21/2021, Expires: 02/20/2022 [facility] Work Phone: Comment on above: Expected: 12/21/2021 , Expires: 02/20/2022 Start: 12-21-2021 End: 02-20-2022 Comprehensive metabolic 2000 panel - Serum or Plasma COMP METABOLIC PANEL Lab Routine 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) Expected: 12/21/2021, Expires: 02/20/2022 [facility] Work Phone: Comment on above: Expected: 12/21/2021 , Expires: 02/20/2022 Start: 12-21-2021 End: 02-20-2022 Hemoglobin A1c/Hemoglobin.total in Blood HGB A1C Lab Routine 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) Expected: 12/21/2021, Expires: 02/20/2022 [facility] Work Phone: Comment on above: Expected: 12/21/2021 , Expires: 02/20/2022 Start: 12-21-2021 End: 02-20-2022 LIPID PANEL, NONFASTING LIPID PANEL, NONFASTING Lab Routine 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) Expected: 12/21/2021, Expires: 02/20/2022 [facility] Work Phone: Comment on above: Expected: 12/21/2021 , Expires: 02/20/2022 Start: 12-21-2021 End: 02-20-2022 Urate [Mass/volume] in Serum or Plasma URIC ACID BLOOD Lab Routine Acute gout of ankle, unspecified cause, unspecified laterality Expected: 12/21/2021, Expires: 02/20/2022 [facility] Work Phone: Comment on above: Expected: 12/21/2021 , Expires: 02/20/2022 Start: 09-15-2021 ADVANCE DIRECTIVE DISCUSSION ADVANCE DIRECTIVE DISCUSSION [facility] Start: 06-26-2021 Hemoglobin A1c/Hemoglobin.total in Blood HBA1C [facility] Start: 06-07-2021 COVID-19 VACCINE (3 - Booster for Pfizer series) COVID-19 VACCINE (3 - Booster for Pfizer series) [facility] Start: 05-25-2021 3 comp foot exam completed DIABETIC FOOT EXAM [facility] Start: 05-16-2021 Influenza vaccination INFLUENZA (#1) [facility] Start: 03-02-2021 COVID-19 VACCINE (3 - Booster for Pfizer series) COVID-19 VACCINE (3 - Booster for Pfizer series) [facility] Start: 05-31-2020 Glaucoma screening Dilated Retinal E xam [facility] Start: 05-31-2020 Hepatitis C antibody , confirmatory test DILATED RETINAL EXAM [facility] Start: 03-12-2018 End: 03-12-2018 Appointment [facility]ointment [email or web address] Phone: Start: 2017 RSV Vaccine (1 - 1-d ose 75+ series) RSV Vaccine (1 - 1-dose 75+ series) [facility] Start: 03-11-2017 End: 03-11-2017 Appointment [facility]ointment [email or web address] Phone: Start: 03-11-2017 End: 03-12-2017 *Hepatic Function Panel *Hepatic Function Panel [facility] Work Phone: Start: 03-11-2017 End: 03-12-2017 PICKING SUPERVISOR PICKING SUPERVISOR [facility] Work Phone: Start: 03-11-2017 End: 03-12-2017 Follow Up Appt 1 year Follow Up Appt 1 year [facility] Work Phone: Start: 03-11-2017 End: 03-12-2017 Lipid panel [AGGREGATE] *Lipid Profile CC PCP [facility] Work Phone: Start: 03-12-2016 End: 03-12-2016 Follow Up Appt 1 year Follow Up Appt 1 year [facility] Work Phone: Start: 03-12-2016 End: 03-12-2016 MMM MMM [facility] Work Phone: Start: 08-29-2015 End: 08-29-2015 PICKING SUPERVISOR PICKING SUPERVISOR [facility] Work Phone: Start: 08-29-2015 End: 08-29-2015 Electrocardiogram, complete EKG (In office) [facility] Work Phone: Start: 08-29-2015 End: 08-29-2015 Follow Up Appt 6 months Follow Up Appt 6 months [facility] Work Phone: Start: 08-29-2015 End: 08-29-2015 Follow Up BP Check Follow Up BP Check [facility] Work Phone: Start: 02-28-2015 End: 02-28-2015 Follow Up Appt 6 months Follow Up Appt 6 months [facility] Work Phone: Start: 02-28-2015 End: 02-28-2015 MMM MMM [facility] Work Phone: Start: 08-19-2014 End: 08-19-2014 PICKING SUPERVISOR PICKING SUPERVISOR [facility] Work Phone: Start: 08-19-2014 End: 08-19-2014 Electrocardiogram, complete EKG (In office) [facility] Work Phone: Start: 08-19-2014 End: 08-19-2014 Follow Up Appt 6 months Follow Up Appt 6 months [facility] Work Phone: Start: 08-19-2014 End: 08-17-2015 Follow Up Appt Other Follow Up Appt Other [facility] Work Phone: Start: 02-17-2014 End: 02-17-2014 Follow Up Appt 6 months Follow Up Appt 6 months [facility] Work Phone: Start: 02-17-2014 End: 02-17-2014 MMM MMM [facility] Work Phone: Start: 07-08-2013 End: 07-08-2013 PICKING SUPERVISOR PICKING SUPERVISOR [facility] Work Phone: Start: 07-08-2013 End: 07-08-2013 Electrocardiogram, complete EKG (In office) [facility] Work Phone: Start: 07-08-2013 End: 07-08-2013 Follow Up Appt 6 months Follow Up Appt 6 months [facility] Work Phone: Start: 12-25-2012 End: 12-25-2012 Follow Up Appt 6 months Follow Up Appt 6 months [facility] Work Phone: Start: 12-25-2012 End: 12-25-2012 MMM MMM [facility] Work Phone: Start: 10-22-2011 End: 10-22-2011 Follow Up Appt 1 year Follow Up Appt 1 year [facility] Work Phone: Start: 1992 SHINGRIX VACCINE (1 of 2) SHINGRIX VACCINE (1 of 2) [facility] Start: 1961 Pneumococcal Vaccine : 50+ (1 of 2 - PCV) Pneumococcal Vaccine: 50+ (1 of 2 - PCV) [facility] Start: 1960 Anxiety Screening Anxiety Screening [facility] Start: 1960 BP CONTROLLED (<130/80) BP CONTROLLE D (<130/80) [facility] Start: 1948 PNEUMOCOCCAL: 65+ (1 - PCV) PNEUMOCOCCAL: 65+ (1 - PCV) [facility] NM Heart Views W str ess and W radionuclide IV [facility] End: 04-16-2025 US Carotid arteries - bilateral US CAROTID ARTERIES [facility] Vascular Lab Routine Bilateral carotid artery stenosis 1 Occurrences starting 04/16/2024 until 04/16/2025 [facility] Comment on above: 1 Occurrences starti ng 04/16/2024 until 04/16/2025 [facility] Immunizations Immunization Date Immunization Notes Care Provider Ana babb 12-15-2020 COVID-19 vaccine, ag e 12+ yr (PFIZER-BIONTECH - PURPLE TOP) Parth Tilley MD Work Phone: [facility] Work Phone: 05-24-2019 influenza virus vaccine, unspecified formulation Parth Tilley MD Work Phone: [facility] Payers Date Payer Category Payer Self-pay 2017 Private Health Insurance [facility] CHOICE PLUS [id number] 2017-Present [phone] [address] [place] [address] [facility] [place] [place] [id number] 2017 Private Health Insurance [id number] 2017 Self-pay [id number] 2007 Medicare MEDICARE MEDICAR E A AND B [id number] 2007-Present [phone] [address] [address] [place] [address] Medicare [id number] 2007 Medicare [id number] 2007 Medicare [id number] Unknown ANTHEM [id number] Unknown [id number] Unknown [id number] Unknown [id number] Unknown [id number] Social History Date Type Detail Facility Start: 05-13-2022 End: 12-24-2024 Tobacco smoking status NHIS Ex-smoker [facility] End: 11-19-1987 History of tobacco use Current smoker [facility] End: 11-19-1987 History of tobacco use Cigarette Smoker [facility] Start: 11-07-2021 End: 04-16-2024 Alcohol intake Current non-drinker of alcohol (finding) [facility] Start: 11-18-2017 End: 05-13-2022 Tobacco Comment light smoker, short period of time [facility] Start: 1940 Sex Assigned At Not on file [facility] Start: 12-14-2021 End: 03-14-2022 Exposure to SARS-CoV-2 (event) Not sure [facility] Start: 05-13-2022 Tobacco use and exposure Former smokeless tobacco user [facility] Work Phone: Start: 12-18-2018 End: 04-14-2023 History of Social function [facility] Start: 12-18-2018 End: 04-14-2023 Tobacco use panel [facility] Adult Depression Screening Assessment 0 [facility] Start: 1940 Sex Assigned At Male W [facility] Functional Status Date Assessment Result Facility 07-02-2016 Are you deaf, or do you have serious difficulty hearing No 07/02/2016 1:59 PM EDT Usha Pressley, DO No [facility] 07-02-2016 Are you blind, or do you have serious difficulty seeing, even when wearing glasses No 07/02/2016 1:59 PM EDT Usha Pressley, DO No [facility] 07-02-2016 Do you have serious difficulty walking or climbing stairs No 07/02/2016 1:59 PM EDT Usha Pressley, DO No [facility] 07-02-2016 Do you have difficul ty dressing or bathing No 07/02/2016 1:59 PM EDT Usha Pressley, DO No [facility] 07-02-2016 Because of a physica l, mental, or emotional condition, do you have difficulty doing errands alone such as visiting a physician's office or shopping No 07/02/2016 1:59 PM EDT Usha Pressley, DO No [facility] Mental Status Date Assessment Result Facility 07-02-2016 Because of a physica l, mental, or emotional condition, do you have serious difficulty concentrating, remembering, or making decisions No 07/02/2016 1:59 PM EDT Usha Pressley DO No [facility] Clinical Notes 05-31-2019 to 02-09-2025 Telephone Encounter - Pao Padron LPN - 02/09/2025 2:57 PM EDTTelephone Encounter - Pao Padron LPN - 02/09/2025 2:57 PM EDTTelephone Encounter - Joanne Parker PSS - 02/09/2025 11:45 AM EDT Note Date & Type Note Facility 02-09-2025 Telephone encount er Note Phoned patient and updated him. Pao Padron LPN [facility] 02-09-2025 Miscellaneous Notes Formattin g of this note might be different from the original. Phoned patient and updated him. Pao Padron LPN Rx sent as requested. Patient needs to renew Allopurinol, but I do not see it on the medication list for the patient. Patient states he has been on this medication for awhile. He would like the medication to go to [facility]. Please advise. documented in this encounter [facility] 02-09-2025 Telephone encount er Note Rx sent as requested. [facility] 02-09-2025 Telephone encount er Note Patient needs to renew Allopurinol, but I do not see it on the medication list for the patient. Patient states he has been on this medication for awhile. He would like the medication to go to [facility]. Please advise. [facility] 02-08-2025 Telephone encount er Note Prescription [...] ALETA Cuba February 08, 2025 9:23 AM [facility] 02-08-2025 Miscellaneous Notes Formattin g of [...] 2025 9:23 AM documented in this encounter [facility] 01-20-2025 Telephone encount er Note Prescription [...] Lenka Arce January 20, 2025 2:56 PM [facility] 01-20-2025 Miscellaneous Notes Formattin g of [...] 2025 2:56 PM documented in this encounter [facility] 12-24-2024 Evaluation note Diagnosis Onset Date Resolution Atherosclerotic heart disease of [place] coronary artery without angina pectoris chronic December 24, 2024 12:57pm Essential (primary) hypertension chronic December 24, 2024 12:57pm Hyperlipidemia chronic December 12:57pm Sinus bradycardia chronic December 142024 12:57pm History of coronary artery stent placement August 05, 2004 resolved December 24, 2024 12:57pm Hypotension noneactive December 24, 2024 12:57pm [facility] Work Phone: 1(443) 193-464103-31-2025 Telephone encounter Note* Telephone Encounter - Neeta Molina MA - 12/13/2024 9:27 AM EDT Pt notified and verbalized understanding Neeta Molina MA [facility]03-31-2025 Miscellaneous Notes* Telephone Encounter - Neeta Molina MA - 12/13/2024 9:27 AM EDT Pt notified and verbalized understanding Neeta Molina MA * Telephone Encounter - Rajiv Canada APRN.CNP - 12/13/2024 8:04 AM EDT Please let patient know his kidney function has improved. His hgba1c is slightly worse but still controlled. documented in this encounterOhio [facility] Hospital03-31-2025 Telephone encounter Note * Telephone Encounter - Rajiv Canada APRN.CNP - 12/13/2024 8:04 AM EDT Please let patient know his kidney function has improved. His hgba1c is slightly worse but still controlled. [facility]03-28-2025 Telephone encounter Note* Telephone Encounter - [...] Berenice Ramos December 10, 2024 11:33 AM [facility]03-28-2025 Miscellaneous Notes* Telephone Encounter - Berenice [...] 10, 2024 11:33 AM documented in this encounterOhio Valley Surgical Hospital03-28-2025 NoteHNO ID: [id number] Author: RAJIV CANADA APRN.PRODUCTION CHECKER Service: ? Author Type: Nurse Practitioner Type: [...] to 50. Patient states he called his recorder helper seismograph who stopped his lisinopril and held his [...] (HCC) Coronary artery disease s/p PCI 2003 [facility] -- sees Dr. Samaniego Depression Elevated LFTs Gout Hypertension Insomnia Mixed hyperlipidemia Obesity (BMI 30.0-34.9) Systolic ejection murmur Thrombocytopenia (HCC) Type II diabetes mellitus (HCC) Previous Surgical History PAST SURGICAL HISTORY Procedure Laterality Date COLONOSCOPY 2016 Dr. Aggarwal, normal INGUINAL HERNIA REPAIR HX Left REPAIR OF HYDROCELE Bilateral STENT PLACEMENT KAILYN [facility] 2003 (cardiac) Family History FAMILY HISTORY [...] current medications - Yimi (more content not included)...[facility]03-28-2025 History of Present illness Narrative* Rajiv Canada, [facility] - 12/10/2024 8:45 AM EDT Chief Complaint No chief complaint on file. HPI Greg Moore is a 83 year old male who presents here today for Above Complaints.. Patient presents today for 6 month follow up. Patient states on Friday he was feeling tired and took his blood pressure which was 88/48 with HR of 45 to 50. Patient states he called his recorder helper seismograph who stopped his lisinopril and held his [...] (HCC) Coronary artery disease s/p PCI 2003 [facility] -- sees Dr. Samaniego Depression Elevated [...] 28.16 kg/(m^2) 6. Coronary artery disease involving [place] heart without angina pectoris, unspecified vessel or lesion type - ICD9: 414.01, ICD10: I25.10 -Follows with cardiology, has appt next week at [facility] Rajiv Canada APRN.PRODUCTION CHECKER documented in this encounterOhio Valley Surgical Hospital03-28-2025 Evaluation note* Diagnosis Wellness examination- Primary Type 2 diabetes mellitus with stage 3a chronic kidney disease, without long-term current use of insulin (HCC) Chronic kidney disease, stage 3a (HCC) Essential hypertension Unspecified essential hypertension Mixed hyperlipidemia Coronary artery disease involving [place] heart without angina pectoris, unspecified vessel or lesion type documented in this encounter [facility]03-18-2025 Miscellaneous Notes* Telephone Encounter - Deonna [...] 30, 2024 2:44 PM documented in this encounterOhio Valley Surgical Hospital03-18-2025 Telephone encounter Note * Telephone Encounter - Deonna Hernandes RN - 11/30/2024 3:49 PM EDT Called pt as he missed his 6 mon follow up appt in October. Scheduled pt for next Friday with Rajiv Canada. Pt requesting a reminder be mailed to him. [facility]03-18-2025 Telephone encounter Note* Telephone Encounter - [...] ALETA Cuba November 30, 2024 2:44 PM [facility]11-12-2024 Telephone encounter Note* Telephone Encounter - [...] Padron LPN July 27, 2024 11:44 AM [facility]11-12-2024 Miscellaneous Notes* Telephone Encounter - Pao Padron [...] 27, 2024 11:44 AM documented in this encounterOhio [facility]09-27-2024 Telephone encounter Note * Telephone Encounter [...] 10/18/2024 Please advise. Thank you. Keiko Lancaster. [facility]09-27-2024 Miscellaneous Notes* Telephone Encounter - Keiko [...] Thank you. Keiko Lancaster. documented in this encounterOhio Valley Surgical Hospital09-07-2024 Telephone encounter Note * Telephone Encounter [...] Alva Rodriguez May 22, 2024 11:36 AM [facility]09-07-2024 Miscellaneous Notes* Telephone Encounter - Alva [...] 22, 2024 11:36 AM documented in this encounterOhio Valley Surgical Hospital08-07-2024 Telephone encounter Note * Telephone Encounter - Jarrett Dow LPN - 04/21/2024 5:25 PM EDT Pt. informed. Pt. has no bleeding issues. [facility] Work Phone: 1(595) 119-460608-07-2024 Miscellaneous Notes* Telephone Encounter - Jarrett Dow LPN - [...] normal. Keiko Brewer APRN.CNP documented in this encounterOhio Valley Surgical Hospital08-07-2024 Telephone encounter Note * Telephone Encounter [...] blood work is normal. Keiko Brewer APRN.CNP [facility]08-07-2024 Evaluation note* Diagnosis Chronic kidney disease, stage 3a (HCC)- Primary documented in this encounter [facility]08-05-2024 Telephone encounter Note* Telephone Encounter - Beauty Brittney Knox - 04/19/2024 11:43 AM EDT [...] 1 tablet by mouth once daily. Brittney Konx April 19, 2024 11:44 AM [facility]08-05-2024 Miscellaneous Notes* Telephone Encounter - Brittney [...] tablet by mouth once daily. Brittney Stone [facility] April 19, 2024 11:44 AM documented in this encounterOhio Valley Surgical Hospital08-02-2024 History of Present illness Narrative* Keiko [...] denies gi upset: Yes CAD: follows with [facility] cardiology with last appointment per patient was recently. No medication changes. Denies SOB, dyspnea, chest pain, palpitations or leg swelling. PAST MEDICAL HISTORY Diagnosis Date Bilateral carotid artery stenosis mild CKD (chronic kidney disease), stage III (HCC) Coronary artery disease s/[place] PCI 2003 [place] -- sees Dr. Samaniego Depression Elevated [...] METABOLIC PANEL 4. Coronary artery disease involving [place] heart without angina pectoris, unspecified vessel or [...] Level: 4 - Moderate documented in this encounterOhio Valley Surgical Hospital08-02-2024 NoteHNO ID: [id number] Author: KEIKO BREWER APRN.AMISHA Service: ? Author [...] denies gi upset: Yes CAD: follows with [facility] cardiology with last appointment per patient [...] 3.7 - 5.1 mmol/ (more content not included)...[facility]08-02-2024 Evaluation note* Diagnosis Essential hypertension- Primary Unspecified essential hypertension Type 2 diabetes mellitus with stage 3a chronic kidney disease, without long-term current use of insulin (HCC) Mixed hyperlipidemia Coronary artery disease involving [place] heart without angina pectoris, unspecified vessel or lesion type Gout, unspecified cause, unspecified chronicity, unspecified site Chronic kidney disease, stage 3a (HCC) Bilateral carotid artery stenosis Occlusion and stenosis of carotid artery without mention of cerebral infarction documented in this encounter [facility]04-12-2024 Miscellaneous Notes* Telephone Encounter - Pao [...] daily #90 refill 3 Please send to [facility] in [place] on [address] Patient has been identified by name and birthdate. Duration of symptoms: N/A Person calling: self Call patient at: on cell [phone] (cell) Was an appointment scheduled: No Closing statement: Results or non-symptom based questions: Thank you for calling [facility], your call will be returned within the next business day. Shabnam Hodges documented in this encounterOhio Valley Surgical Hospital03-25-2024 Miscellaneous Notes* Telephone Encounter - Jarrett [...] Thank you. Jarrett Knox. documented in this encounterOhio Valley Surgical Hospital03-04-2024 Miscellaneous Notes* Telephone Encounter - Almaz [...] contact patient when sent to Pharmacy. Contact [phone]. Chanda Knox * Telephone Encounter - Meredith [...] notify patient. Dasha Knox documented in this encounterOhio Valley Surgical Hospital02-05-2024 Miscellaneous Notes* Telephone Encounter - Jodie [...] on low carb diet. documented in this encounterOhio Valley Surgical Hospital02-02-2024 History of Present illness Narrative* Parth [...] the past 12 months Following up with [facility] cardiology yearly. No changes at last [...] (HCC) Coronary artery disease s/p PCI 2003 [facility] -- sees Dr. Samaniego Depression Elevated [...] In remission. 5. Coronary artery disease involving [place] heart without angina pectoris, unspecified vessel or [...] Z68.29 Parth Tilley MD documented in this encounterOhio Valley Surgical Hospital02-02-2024 Evaluation note* Diagnosis Type 2 diabetes mellitus with stage 3a chronic kidney disease, without long-term current use of insulin (HCC)- Primary Essential hypertension Unspecified essential hypertension Mixed hyperlipidemia Mild episode of recurrent major depressive disorder (HCC) Coronary artery disease involving [place] heart without angina pectoris, unspecified vessel or lesion type Gout, unspecified cause, unspecified chronicity, unspecified site Overweight with body mass index (BMI) of 29 to 29.9 in adult documented in this encounter [facility]09-11-2023 Miscellaneous Notes* Telephone Encounter - Trinidad [...] and advise. Trinidad Cardenas documented in this encounterOhio Valley Surgical Hospital08-01-2023 Miscellaneous Notes* Telephone Encounter - Dasha [...] ranges. Keiko Brewer APRN.CNP documented in this encounterOhio Valley Surgical Hospital07-31-2023 Instructions* Patient Instructions* Keiko Brewer APRN.CNP - 04/14/2023 9:15 AM EDT Images from the original note were not included. To schedule a diabetic eye exam at the [facility] [place], please call: [phone] Online resources to learn more [email or web address] https://www.diabetes.org/diabetes/complications/eye-complications https://www.aoa.org/healthy-eyes/aeb-doa-ixkbeq-conditions/diabetic-retinopathy? sso=y https://www.[employer] References 1. National Diabetes Statistics Report 2020: Estimates of Diabetes and Its [place] in the [facility]. Center for Disease Control and Prevention; 2020. Available at: https://www.cdc.gov/diabetes/pdfs /data/statistics/rzpsilao-gxymljkf-zuviksfcql-report.pdf 2. Dunia Sutherland, Irina Lockwood, Fan Gonzales, Suellen Renae, Aileen Duncan, Hayes Verduzco, Guillermo Cooney, Yoandy Padgett; Diabetic Retinopathy: A Position Statement by the [place] Diabetes [employer]. Diabetes Care 13 November 2016; 40 (3): 412-418 documented in this encounterOhio Valley Surgical Hospital07-31-2023 History of Present illness Narrative* Keiko Brewer APRN.PRODUCTION CHECKER - 04/14/2023 9:00 AM EDT 04/14/2023 Patient [...] denies gi upset: Yes CAD: follows with [facility] with last visit on 03/24/2023. No [...] which included preparing to see the patient, hjxf-[id number] patient care, completing clinical documentation, obtaining and/or reviewing separately obtained history, performing a medically appropriate examination, counseling and educating the pat ient/family/caregiver, and ordering medications, tests, or procedures. documented in this encounterOhio Valley Surgical Hospital02-24-2023 Miscellaneous Notes* Telephone Encounter - Shabnam Milesallie [facility] - 11/08/2022 4:47 PM EST Patient has been identified by name and date of : Yes Requested Prescriptions Pending Prescriptions Disp Refills atorvastatin (LIPITOR) 40 mg tablet 45 tablet 3 Sig: Take 0.5 tablets by mouth once daily. RX INSTRUCTIONS: Patient aware RX will be sent to pharmacy. No need to notify patient. Shabnam Torres [employer] documented in this encounterOhio Valley Surgical Hospital01-31-2023 Miscellaneous Notes* Telephone Encounter - Jodie [...] ranges. Keiko Brewer APRN.AMISHA documented in this encounterOhio Valley Surgical Hospital01-30-2023 History of Present illness Narrative* Parth [...] (HCC) Coronary artery disease s/p PCI 2003 [place] -- sees Dr. Samaniego Depression Elevated LFTs Gout Hypertension Insomnia Mixed hyperlipidemia Obesity (BMI 30.0-34.9) Thrombocytopenia (HCC) Type II diabetes mellitus (HCC) Previous Surgical History PAST SURGICAL HISTORY Procedure Laterality Date COLONOSCOPY 2016 Dr. Aggarwal, normal INGUINAL HERNIA REPAIR HX Left REPAIR OF HYDROCELE Bilateral STENT PLACEMENT [facility]AILYN [facility] 2003 (cardiac) Family History FAMILY HISTORY [...] arise. 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 6. Coronary artery disease involving [place] heart without angina pectoris, unspecified vessel or lesion type - ICD9: 414.01, ICD10: I25.10 Asymptomatic on current regimen. F/u with recommendations per cardiology. 7. Systolic ejection murmur - ICD9: 785.2, ICD10: R01.1 Benign sounding murmur. Likely mild aortic stenosis. Patient states this was discussed at his appointment with cardiology. Will obtain records. Parth iTlley MD documented in this encounterOhio Valley Surgical Hospital01-16-2023 Miscellaneous Notes* Telephone Encounter - Arturo [...] notify patient. Brittney Knox documented in this encounterOhio Valley Surgical Hospital01-14-2023 Miscellaneous Notes* Telephone Encounter - Mirian Echeverria LPN - 09/28/2022 12:16 PM EST Patient calling with medication/refill: Do you have enough medication to last until the office reopens? Yes. . Patient denies any new or worsening symptoms of which a provider is not aware:Yes patient will call office Friday during office hours for refill metformin. Mirian Echeverria LPN documented in this encounterOhio Valley Surgical Hospital12-13-2022 Miscellaneous Notes* Telephone Encounter - [place] [...] and advise. Alva Rodriguez documented in this encounterOhio Valley Surgical Hospital11-11-2022 Miscellaneous Notes* Telephone Encounter - Pao Padron LPN - 07/26/2022 3:37 PM EST Phoned patient and message left to advise him he is past due for follow up. Requested he call back to schedule. * Telephone Encounter - Pao Padron LPN - 07/26/2022 2:53 PM EST NOV no upcoming appt noted * Telephone Encounter - Alva Rodriguez - 07/26/2022 1:14 PM EST Patient has [...] and advise. Alva Rodriguez documented in this encounterOhio Valley Surgical Hospital10-07-2022 History of Present illness Narrative* Trinidad Willis APRN.PRODUCTION CHECKER - 06/21/2022 12:29 PM EDT This note was created using Stormpulseriter. Subjective Greg Moore is a 81 year [...] (HCC) Coronary artery disease s/p PCI 2003 [place] [facility] -- sees Dr. Samaniego Depression Elevated [...] dietary Follow up with PCP Trinidad Willis APRN.PRODUCTION CHECKER documented in this encounterOhio Valley Surgical Hospital08-30-2022 Miscellaneous Notes* Telephone Encounter - Pao Padron LPN - 05/14/2022 9:58 AM EDT [facility] 12/31/21 NOV no upcoming appt noted * Telephone Encounter - Brittney Stone [facility] - 05/14/2022 9:28 AM EDT Patient has been identified by name and date of : Yes Requested Prescriptions Pending Prescriptions Disp Refills allopurinol (ZYLOPRIM) 300 mg tablet 30 tablet 5 Sig: Take 1 tablet by mouth once daily. For gout. RX INSTRUCTIONS: Please send today. [place]. Out of medication. Patient aware RX will be sent to pharmacy. No need to notify patient. Brittney Stone Pss documented in this encounterOhio Valley Surgical Hospital08-29-2022 History of Present illness Narrative* Aliya Moore APRN.PRODUCTION CHECKER - 05/13/2022 2:12 PM EDT Images from [...] history is provided by the patient. No foreign language interpreter was used. Pain (foot) Review of Systems [...] (HCC) Coronary artery disease s/p PCI 2003 [place] -- sees Dr. Samaniego Depression Elevated [...] plan. 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 States he usually comes in about every six months to be seen. 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 [...] 11, 2022 1:39 PM documented in this encounterOhio Valley Surgical Hospital06-30-2022 History of Present illness Narrative* Becky Hart PA-C - 03/14/2022 1:26 PM EDT This note was created using CartRescuerter. Subjective Greg Moore is a 81 year [...] REPAIR OF HYDROCELE Bilateral STENT PLACEMENT KAILYN [facility] 2003 (cardiac) FAMILY HISTORY Problem Relation [...] improving. Becky Hart PA-C documented in this encounterOhio Valley Surgical Hospital06-30-2022 Miscellaneous Notes* Telephone Encounter - Nirmala Shields RN - 03/14/2022 11:51 AM EDT Patient calls to request prescription for prednisone sent into [facility] resent to [facility]. [facility] is closed today d/t illness and not sure when will reopen. Order pended. Nirmala Shields RN documented in this encounterOhio Valley Surgical Hospital05-02-2022 Miscellaneous Notes* Telephone Encounter - Deonna Fernandez LPN - 01/14/2022 11:44 AM EDT Patient [...] PCP. Alva Carballo LPN documented in this encounterOhio Valley Surgical Hospital04-18-2022 Miscellaneous Notes* Telephone Encounter - Meredith Luther LPN - 12/31/2021 3:12 PM EDT Called and spoke with Sherine at the [facility]. Made aware we would be sending over an EKGfor them to compare to. EKG faxed at this time to [phone] Meredith Luther LPN * Telephone Encounter - Keiko Brewer APRN.CNP - 12/31/2021 12:14 PM EDT Please fax today's ECG to Dr. Samaniego's office. Also call and let them know I do not have an EKG to compare to and I would like them to review it. Thanks, Keiko Brewer APRN.CNP documented in this encounterOhio Valley Surgical Hospital04-11-2022 Miscellaneous Notes* Telephone Encounter - Effie [...] his appt on Friday. Please advise at [phone]. Cell phone number was updated and correct [...] 12/21/2021 11:55 AM EDT Pharmacy verified in [facility] Patient has been identified by name and [...] advise. Aileen Greene Pss documented in this encounterOhio Valley Surgical Hospital03-28-2022 Miscellaneous Notes* Telephone Encounter - Dasha [...] and advise. Dasha Wilkerson documented in this encounterOhio Valley Surgical Hospital09-08-2020 History of Past illness Narrative* Problem Noted Date Resolved Date Hypertension 05/23/2020 Type II diabetes mellitus 2019 documented as of this encounter (statuses as of 12/10/2021) [facility] History of Past illness Narrative* Problem Noted Date Resolved Date Hypertension 05/23/2020 Type II diabetes mellitus 2019 documented as of this encounter (statuses as of 12/24/2021) [facility] History of Past illness Narrative* Problem Noted Date Resolved Date Hypertension 05/23/2020 Type II diabetes mellitus 2019 documented as of this encounter (statuses as of 03/14/2022) [facility] of Past illness Narrative* Problem Noted Date Resolved Date Hypertension 05/23/2020 Type II diabetes mellitus 2019 documented as of this encounter (statuses as of 03/21/2022) [facility] of Past illness Narrative* Problem Noted Date Resolved Date Hypertension 05/23/2020 Type II diabetes mellitus 2019 documented as of this encounter (statuses as of 04/05/2022) [address]08-2020 History of Past illness Narrative* Problem Noted Date Resolved Date Hypertension 05/23/2020 Type II diabetes mellitus 2019 documented as of this encounter (statuses as of 04/11/2022) [facility] of [facility] illness Narrative* Problem Noted Date Resolved Date Hypertension 05/23/2020 Type II diabetes mellitus 2019 documented as of this encounter (statuses as of 05/13/2022) [address]08-2020 History of Past illness Narrative* Problem Noted Date Resolved Date Hypertension 05/23/2020 Type II diabetes mellitus 2019 documented as of this encounter (statuses as of 05/14/2022) [address]08-2020 History of Past illness Narrative* Problem Noted Date Resolved Date Hypertension 05/23/2020 Type II diabetes mellitus 2019 documented as of this encounter (statuses as of 06/21/2022) [address]08-2020 History of Past illness Narrative* Problem Noted Date Resolved Date Hypertension 05/23/2020 Type II diabetes mellitus 2019 documented as of this encounter (statuses as of 07/26/2022) [address]08-2020 History of Past illness Narrative* Problem Noted Date Resolved Date Hypertension 05/23/2020 Type II diabetes mellitus 2019 documented as of this encounter (statuses as of 08/27/2022) [address]-2020 History of Past illness Narrative* Problem Noted Date Resolved Date Hypertension 05/23/2020 Type II diabetes mellitus 2019 documented as of this encounter (statuses as of 09/28/2022) [address]-2020 History of Past illness Narrative* Problem Noted Date Resolved Date Hypertension 05/23/2020 Type II diabetes mellitus 2019 documented as of this encounter (statuses as of 09/30/2022) [address]-2020 History of Past illness Narrative* Problem Noted Date Resolved Date Hypertension 05/23/2020 Type II diabetes mellitus 2019 documented as of this encounter (statuses as of 10/15/2022) [address]-2020 History of Past illness Narrative* Problem Noted Date Resolved Date Hypertension 05/23/2020 Type II diabetes mellitus 2019 documented as of this encounter (statuses as of 10/15/2022) [address]-2020 History of Past illness Narrative* Problem Noted Date Resolved Date Hypertension 05/23/2020 Type II diabetes mellitus 2019 documented as of this encounter (statuses as of 11/09/2022) [address]-2020 History of Past illness Narrative* Problem Noted Date Diagnosed Date Resolved Date Hypertension 05/23/2020 Type II diabetes mellitus documented as of this encounter (statuses as of 04/14/2023) [facility]2020 History of Past illness Narrative* Problem Noted Date Diagnosed Date Resolved Date Hypertension 05/23/2020 Type II diabetes mellitus documented as of this encounter (statuses as of 04/15/2023) [address]-2020 History of Past illness Narrative* Problem Noted Date Diagnosed Date Resolved Date Hypertension 05/23/2020 Type II diabetes mellitus documented as of this encounter (statuses as of 05/27/2023) [place] [address]-16-2019 History of Past illness Narrative* Problem Noted Date Diagnosed Date Resolved Date 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, without long-term current use of insulin 05/31/2019 10/17/2023 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 7 10/17/2023 Hypertension 05/23/2020 Thrombocytopenia 10/17/2023 Type II diabetes mellitus documented as of this encounter (statuses as of 10/17/2023) [place] [address]-16-2019 History of Past illness Narrative* Problem Noted Date Diagnosed Date Resolved Date 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, without long-term current use of insulin 05/31/2019 10/17/2023 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 7 10/17/2023 Hypertension 05/23/2020 Thrombocytopenia 10/17/2023 Type II diabetes mellitus documented as of this encounter (statuses as of 10/20/2023) [facility] History of Past illness Narrative* Problem Noted Date Diagnosed Date Resolved Date 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, without long-term current use of insulin 05/31/2019 10/17/2023 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 7 10/17/2023 Hypertension 05/23/2020 Thrombocytopenia 10/17/2023 Type II diabetes mellitus documented as of this encounter (statuses as of 11/17/2023) [facility] History of Past illness Narrative* Problem Noted Date Diagnosed Date Resolved Date 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, without long-term current use of insulin 05/31/2019 10/17/2023 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 7 10/17/2023 Hypertension 05/23/2020 Thrombocytopenia 10/17/2023 Type II diabetes mellitus documented as of this encounter (statuses as of 12/08/2023) [facility] History of Past illness Narrative* Problem Noted Date Diagnosed Date Resolved Date 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, without long-term current use of insulin 05/31/2019 10/17/2023 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 7 10/17/2023 Hypertension 05/23/2020 Thrombocytopenia 10/17/2023 Type II diabetes mellitus documented as of this encounter (statuses as of 12/26/2023) [facility] Diagnosis 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)- Primary Type II or unspecified type diabetes mellitus without mention of complication, not stated as uncontrolled Acute gout of ankle, unspecified cause, unspecified laterality [facility] Diagnosis Acute gout of left foot, unspecified cause- Primary [facility] Diagnosis Acute gout of right ankle, unspecified cause- Primary [facility] Diagnosis Acute gout of ankle, unspecified cause, unspecified laterality [facility] Diagnosis Controlled type 2 diabetes mellitus without complication, without long-term current use of insulin (HCC)- Primary Essential hypertension Unspecified essential hypertension Gout, unspecified cause, unspecified chronicity, unspecified site Mild episode of recurrent major depressive disorder (HCC) Mixed hyperlipidemia Coronary artery disease involving [place] heart without angina pectoris, unspecified vessel or lesion type Systolic ejection murmur Undiagnosed cardiac murmurs Type 2 diabetes mellitus with stage 3a chronic kidney disease, without long-term current use of insulin (HCC) Thrombocytopenia (HCC) Thrombocytopenia, unspecified Chronic kidney disease, stage 3a (HCC) documented in this encounter [facility] note* Diagnosis Controlled type 2 diabetes mellitus without complication, without long-term current use of insulin (HCC)- Primary Mixed hyperlipidemia Essential hypertension Unspecified essential hypertension documented in this encounter [facility] note* Diagnosis Acute gout of ankle, unspecified cause, unspecified laterality documented in this encounter [facility] note* Diagnosis Essential hypertension Unspecified essential hypertension documented in this encounter [facility] note* Diagnosis Acute gout of ankle, unspecified cause, unspecified laterality documented in this encounter [facility] for referral (narrative)* Outpatient Procedure (Routine) - Authorized Specialty Diagnoses / Procedures Referred By Contac t Referred To [facility] Diagnoses Bilateral carotid artery stenosis Procedures US CAROTID ARTERIES VINCE VAS LAB DUPLEX SCAN EXTRACRANIAL ART COMPL BI STUDY Keiko Brewer APRN.CNP [address] [place] [address] [facility] [place] [facility] [place] [address] Referral ID Status Reason Start Date Expiration Date Visits Requested Visits Authorized [id number] Authorized Auto-Generat ed Referral 04/16/2024 04/16/2025 1 1 [facility] for referral (narrative)No reason for referral information availableWPremier Health [facility] Work Phone: Reason for Referral Specialty Diagnoses / Procedures Referred By Contact Referred To Contact [facility] Diagnoses Controlled type 2 diabetes mellitus without complication, without long-term current use of insulin (HCC) Procedures CONSULT TO OPHTHALMOLOGY OFFICE/OUTPATIENT [facility] 60-74 MINUTES Parth Tilley MD [address] [place] [address] [place] [address] Referral ID Status Reason Start Date Expiration Date V isits Requested Visits Authorized [id number] Closed PCP Requested Referral 10/14/2022 10/14/2023 1 1 Chief Complaint and Reason for Visit Chief Complaint Admit Date Hypotension, see clinical notes December 242024 12:57pm INT LAB ORDER January 17, 2025 11:46a m Reason for Visit Admit Date Atherosclerotic heart diseas e of [place] coronary artery without angina pectoris December 24, [...] or prosecute any alcohol or drug abuse patient.[facility] the event this information is protected by the Federal Confidentiality of Alcohol and Drug Abuse Patient Records regulations: The Federal rules restrict any use of the information to criminally investigate or prosecute any alcohol or drug abuse patient.[facility] HospitalIn the event this information is protected by the Federal Confidentiality of Alcohol and Drug Abuse Patient Records regulations: The Federal rules restrict any use of the information to criminally investigate or prosecute any alcohol or drug abuse patient.[facility] HospitalIn the event this information is protected by the Federal Confidentiality of Alcohol and Drug Abuse Patient Records regulations: The Federal rules restrict any use of the information to criminally investigate or prosecute any alcohol or drug abuse patient.[facility]In the event this information is protected by the Federal Confidentiality of Alcohol and Drug Abuse Patient Records regulations: The Federal rules restrict any use of the information to criminally investigate or prosecute any alcohol or drug abuse patient.[facility]In the event this information is protected by the Federal Confidentiality of Alcohol and Drug Abuse Patient Records regulations: The Federal rules restrict any use of the information to criminally investigate or prosecute any alcohol or drug abuse patient.[facility]In the event this information is protected by the Federal Confidentiality of Alcohol and Drug Abuse Patient Records regulations: The Federal rules restrict any use of the information to criminally investigate or prosecute any alcohol or drug abuse patient.[facility]In the event this information is protected by the Federal Confidentiality of Alcohol and Drug Abuse Patient Records regulations: The Federal rules restrict any use of the information to criminally investigate or prosecute any alcohol or drug abuse patient.[facility]In the event this information is protected by the Federal Confidentiality of Alcohol and Drug Abuse Patient Records regulations: The Federal rules restrict any use of the information to criminally investigate or prosecute any alcohol or drug abuse patient.[facility] HospitalIn the event this information is protected by the Federal Confidentiality of Alcohol and Drug Abuse Patient Records regulations: The Federal rules restrict any use of the information to criminally investigate or prosecute any alcohol or drug abuse patient.[facility] HospitalIn the event this information is protected by the Federal Confidentiality of Alcohol and Drug Abuse Patient Records regulations: The Federal rules restrict any use of the information to criminally investigate or prosecute any alcohol or drug abuse patient.[facility] HospitalIn the event this information is protected by the Federal Confidentiality of Alcohol and Drug Abuse Patient Records regulations: The Federal rules restrict any use of the information to criminally investigate or prosecute any alcohol or drug abuse patient.[facility] HospitalIn the event this information is protected by the Federal Confidentiality of Alcohol and Drug Abuse Patient Records regulations: The Federal rules restrict any use of the information to criminally investigate or prosecute any alcohol or drug abuse patient.[facility] HospitalIn the event this information is protected by the Federal Confidentiality of Alcohol and Drug Abuse Patient Records regulations: The Federal rules restrict any use of the information to criminally investigate or prosecute any alcohol or drug abuse patient.[facility] HospitalIn the event this information is protected by the Federal Confidentiality of Alcohol and Drug Abuse Patient Records regulations: The Federal rules restrict any use of the information to criminally investigate or prosecute any alcohol or drug abuse patient.[facility] HospitalIn the event this information is protected by the Federal Confidentiality of Alcohol and Drug Abuse Patient Records regulations: The Federal rules restrict any use of the information to criminally investigate or prosecute any alcohol or drug abuse patient.[facility] HospitalIn the event this information is protected by the Federal Confidentiality of Alcohol and Drug Abuse Patient Records regulations: The Federal rules restrict any use of the information to criminally investigate or prosecute any alcohol or drug abuse patient.[facility] HospitalIn the event this information is protected by the Federal Confidentiality of Alcohol and Drug Abuse Patient Records regulations: The Federal rules restrict any use of the information to criminally investigate or prosecute any alcohol or drug abuse patient.[facility] HospitalIn the event this information is protected by the Federal Confidentiality of Alcohol and Drug Abuse Patient Records regulations: The Federal rules restrict any use of the information to criminally investigate or prosecute any alcohol or drug abuse patient.[facility] HospitalIn the event this information is protected by the Federal Confidentiality of Alcohol and Drug Abuse Patient Records regulations: The Federal rules restrict any use of the information to criminally investigate or prosecute any alcohol or drug abuse patient.[facility] HospitalIn the event this information is protected by the Federal Confidentiality of Alcohol and Drug Abuse Patient Records regulations: The Federal rules restrict any use of the information to criminally investigate or prosecute any alcohol or drug abuse patient.[facility] HospitalIn the event this information is protected by the Federal Confidentiality of Alcohol and Drug Abuse Patient Records regulations: The Federal rules restrict any use of the information to criminally investigate or prosecute any alcohol or drug abuse patient.[facility] HospitalIn the event this information is protected by the Federal Confidentiality of Alcohol and Drug Abuse Patient Records regulations: The Federal rules restrict any use of the information to criminally investigate or prosecute any alcohol or drug abuse patient.[facility] HospitalIn the event this information is protected by the Federal Confidentiality of Alcohol and Drug Abuse Patient Records regulations: The Federal rules restrict any use of the information to criminally investigate or prosecute any alcohol or drug abuse patient.[facility] HospitalIn the event this information is protected by the Federal Confidentiality of Alcohol and Drug Abuse Patient Records regulations: The Federal rules restrict any use of the information to criminally investigate or prosecute any alcohol or drug abuse patient.[facility] HospitalIn the event this information is protected by the Federal Confidentiality of Alcohol and Drug Abuse Patient Records regulations: The Federal rules restrict any use of the information to criminally investigate or prosecute any alcohol or drug abuse patient.[facility] HospitalIn the event this information is protected by the Federal Confidentiality of Alcohol and Drug Abuse Patient Records regulations: The Federal rules restrict any use of the information to criminally investigate or prosecute any alcohol or drug abuse patient.[facility] HospitalIn the event this information is protected by the Federal Confidentiality of Alcohol and Drug Abuse Patient Records regulations: The Federal rules restrict any use of the information to criminally investigate or prosecute any alcohol or drug abuse patient.[facility] HospitalIn the event this information is protected by the Federal Confidentiality of Alcohol and Drug Abuse Patient Records regulations: The Federal rules restrict any use of the information to criminally investigate or prosecute any alcohol or drug abuse patient.[facility] HospitalIn the event this information is protected by the Federal Confidentiality of Alcohol and Drug Abuse Patient Records regulations: The Federal rules restrict any use of the information to criminally investigate or prosecute any alcohol or drug abuse patient.[facility] HospitalIn the event this information is protected by the Federal Confidentiality of Alcohol and Drug Abuse Patient Records regulations: The Federal rules restrict any use of the information to criminally investigate or prosecute any alcohol or drug abuse patient.[facility] HospitalIn the event this information is protected by the Federal Confidentiality of Alcohol and Drug Abuse Patient Records regulations: The Federal rules restrict any use of the information to criminally investigate or prosecute any alcohol or drug abuse patient.[facility] HospitalIn the event this information is protected by the Federal Confidentiality of Alcohol and Drug Abuse Patient Records regulations: The Federal rules restrict any use of the information to criminally investigate or prosecute any alcohol or drug abuse patient.[facility] HospitalIn the event this information is protected by the Federal Confidentiality of Alcohol and Drug Abuse Patient Records regulations: The Federal rules restrict any use of the information to criminally investigate or prosecute any alcohol or drug abuse patient.[facility] HospitalIn the event this information is protected by the Federal Confidentiality of Alcohol and Drug Abuse Patient Records regulations: The Federal rules restrict any use of the information to criminally investigate or prosecute any alcohol or drug abuse patient.[facility] HospitalIn the event this information is protected by the Federal Confidentiality of Alcohol and Drug Abuse Patient Records regulations: The Federal rules restrict any use of the information to criminally investigate or prosecute any alcohol or drug abuse patient.[facility] HospitalIn the event this information is protected by the Federal Confidentiality of Alcohol and Drug Abuse Patient Records regulations: The Federal rules restrict any use of the information to criminally investigate or prosecute any alcohol or drug abuse patient.[facility] HospitalIn the event this information is protected by the Federal Confidentiality of Alcohol and Drug Abuse Patient Records regulations: The Federal rules restrict any use of the information to criminally investigate or prosecute any alcohol or drug abuse patient.[facility] Reason for Visit (unrecogniz ed section [...] Care Teams (unrecognized sec tion and content) Lumber Kiln Operator Relationship Specialty Start Date End Date Parth Tilley MD [address] [place] [address] PCP - General Family Practice 08/13/17 Lumber Kiln Operator Relationship Specialty Start Date End Date Parth Tilley MD [address] [place] [address] PCP - General Family Practice 08/13/17 Lumber Kiln Operator Relationship Specialty Start Date End Date Parth Tilley MD [address] [place] [address] PCP - General Family Practice 08/13/17 Lumber Kiln Operator Relationship Specialty Start Date End Date Parth Tilley MD [address] [place] [address] PCP - General Family Practice 08/13/17 Lumber Kiln Operator Relationship Specialty Start Date End Date aPrth Tilley MD [address] [place] [address] PCP - General Family Practice 08/13/17 Lumber Kiln Operator Relationship Specialty Start Date End Date Parth Tilley MD [address] [place] [address] PCP - General Family Practice 08/13/17 Lumber Kiln Operator Relationship Specialty Start Date End Date Parth Tilley MD [address] [place] [address] PCP - General Family Medicine 08/13/17 Lumber Kiln Operator Relationship Specialty Start Date End Date Parth Tilley MD [address] [place] [address] PCP - General Family Medicine 08/13/17 Lumber Kiln Operator Relationship Specialty Start Date End Date Parth Tilley MD [address] [place] [address] PCP - General Family Medicine 08/13/17 Lumber Kiln Operator Relationship Specialty Start Date End Date Parth Tilley MD [address] [place] [address] PCP - General Family Medicine 08/13/17 Lumber Kiln Operator Relationship Specialty Start Date End Date Parth Tilley MD [address] [place] [address] PCP - General Family Medicine 08/13/17 Lumber Kiln Operator Relationship Specialty Start Date End Date Parth Tilley MD [address] [place] [address] PCP - General Family Medicine 08/13/17 Lumber Kiln Operator Relationship Specialty Start Date End Date Parth Tilley MD [address] [place] [address] PCP - General Family Medicine 08/13/17 Lumber Kiln Operator Relationship Specialty Start Date End Date Parth Tilley MD [address] [place] [address] PCP - General Family Medicine 08/13/17 Lumber Kiln Operator Relationship Specialty Start Date End Date Parth Tilley MD [address] [place] [address] PCP - General Family Medicine 08/13/17 Lumber Kiln Operator Relationship Specialty Start Date End Date Parth Tilley MD [address] [place] [address] PCP - General Family Medicine 08/13/17 Lumber Kiln Operator Relationship Specialty Start Date End Date Parth Tilley MD [address] [place] [address] PCP - General Family Medicine 08/13/17 Lumber Kiln Operator Relationship Specialty Start Date End Date Parth Tilley MD [address] [place] [address] PCP - General Family Medicine 08/13/17 Lumber Kiln Operator Relationship Specialty Start Date End Date Parth Tilley MD [address] [place] [address] PCP - General Family Medicine 08/13/17 Lumber Kiln Operator Relationship Specialty Start Date End Date Parth Tilley MD [address] [place] [address] PCP - General Family Medicine 08/13/17 Lumber Kiln Operator Relationship Specialty Start Date End Date Parth Tilley MD [address] [place] [address] PCP - General Family Medicine 08/13/17 Keiko Brewer APRN.PRODUCTION CHECKER [address] [place] [address] Yeast Culture Operator Family Medicine 08/21/24 Rajiv Canada, BUMPER MACHINE OPERATOR.PRODUCTION CHECKER [address] [place] [address] Yeast Culture Operator Family Medicine 11/26/24 Lumber Kiln Operator Relationship Specialty Start Date End Date Parth Tilley MD [address] [place] [address] PCP - General Family Medicine 08/13/17 Podlogar, Keiko BUMPER MACHINE OPERATOR.PRODUCTION CHECKER [address] [place] [address] Yeast Culture Operator Family Medicine 08/21/24 Rajiv Canada BUMPER MACHINE OPERATOR.PRODUCTION CHECKER [address] [place] [address] [facility] 12/06/24 Lumber Kiln Operator Relationship Specialty Start Date End Date Parth Tilley MD [address] [place] [address] PCP - General Family Medicine 08/13/17 Podlogar, Keiko BUMPER MACHINE OPERATOR.PRODUCTION CHECKER [address] [place] [address] [facility] Medicine 08/21/24 Rajiv Canada BUMPER MACHINE OPERATOR.PRODUCTION CHECKER [address] [place] [address] [facility] 12/06/24 Lumber Kiln Operator Relationship Specialty Start Date End Date Parth Tilley MD [address] [place] [address] PCP - General Family Medicine 08/13/17 PodlogarKeiko BUMPER MACHINE OPERATOR.PRODUCTION CHECKER [address] [place] [address] [facility] Medicine 08/21/24 Rajiv Canada, BUMPER MACHINE OPERATOR.PRODUCTION CHECKER [address] [place] [address] [facility] 12/06/24 Team Status: Active Member Role Status [...] January 17, 2025 End: January 17, 2025 Lumber Kiln Operator Relationship Specialty Start Date End Date Parth Tilley MD [address] [place], [place] [address] PCP - General Family Medicine 08/13/17 PodlogarKeiko APRN.PRODUCTION CHECKER [address] [place], [place] [address] [facility] 08/[facility]24 Lumber Kiln Operator Relationship Specialty Start Date End Date Parth Tilley MD [address] [place], [place] [address] PCP - General Family Medicine 08/13/17 Podlogar, AGUILA Aden.PRODUCTION CHECKER [address] [place], [place] [id number] [facility] Goals (unrecognized section and content) Goals may be documented in a n alternate section (unrecognized sect ion and content) No Status Records FoundNo Status Records Found INFORMATION SOURCE (unrecogn ized section and content) DATE CREATED AUTHOR 02/12/2025 [facility] DATE CREATED AUTHOR AUTHOR'S ERIKA CHAUHANALAINA 03/15/2025 [facility] FOR RECORDS PERTAINING TO PATIENTS WHO [...] BE BASED ON THE PRIMARY CLINICAL RECORDS. [employer] [facility]. provides no warranty or guarantee of the accuracy or completeness of information in this document.
--- NOTE | 2025-03-17 17:29 | STRESSREP ---
Stress Test Report Pharmacologic myocardial perfusion stress test. 84-year-old man with a history of coronary artery disease and fatigue Resting EKG demonstrates sinus bradycardia with a rate of 49 bpm. Resting blood pressure is 122/80 mmHg. 0.4 mg of regadenoson was infused per usual protocol followed by rapid intravenous saline flush injection. Continuous EKG monitoring was performed. The maximum heart rate was 68 bpm which was 49% of max impacted heart rate the maximum workload was 1 metabolic equivalent. At rest there were no ST or T wave changes noted to suggest ischemia and at peak infusion nonspecific ST changes were noted which did not meet the criteria for ischemia. No clinical angina is noted. The final blood pressure was 116/72 mmHg. Myocardial perfusion protocol. 13.4 mCi of technetium 99m sestamibi was injected at rest. 0.4 mg of regadenoson was infused per usual protocol. At peak infusion 40.7 mCi of technetium 99m sestamibi was injected stress images were obtained stress and rest images were reconstructed and compared in the short axis vertical long and horizontal long axis. Gated images were also obtained. Perfusion SPECT analysis: Review of the stress images demonstrate normal uptake of tracer noted in all areas of the myocardium. There is however a portion of the base and mid inferior wall with an area of reduced perfusion present. The resting images demonstrate a similar pattern. The above is suggestive of a previous basal to mid inferior infarct with no ischemia present. Gated SPECT analysis: The gated ejection fraction is 50%. Conclusion: Normal pharmacologic myocardial perfusion stress test. Low normal ejection fraction. Previous inferior basal and mid inferior infarct
== END | disposition home or self-care (01) ==
PROVIDERS: PCP Family Medicine; Referring Provider Student in an Organized Health Care Education/Training Program; Visit Provider Student in an Organized Health Care Education/Training Program
DX: I25.10 Atherosclerotic heart disease of native coronary artery without angina pectoris (principal); R53.83 Other fatigue
CPT/HCPCS: 78452; 93017; A9500; A4216; J2785